=== PATIENT | male | born 1960 | race Hispanic/Latino ===

== ENCOUNTER 2017-12-29 01:49 | Emergency (ER) | payer MEDICARE ==
[~2017-12-29] VITALS: Ht 170.2 cm; Wt 101.2 kg
[~2017-12-29 01:49] MED LIST: AMARYL4 MG PO; AMLODIPINE BESY10 MG PO; ATENOLOL50 MG PO; ATORVASTATIN CA40 MG PO; FUROSEMIDE40 MG PO; KLOR-CON25 MEQ; LANTUS100 UNITS/ SC; LOSARTAN POTASS25 MG PO; METFORMIN HCL500 MG PO; RENVELA800 MG PO; SENSIPAR30 MG PO; VASOTEC20 MG PO; VERAPAMIL ER120 M1 PO
--- OUTSIDE RECORDS SUMMARY | 2017-12-29 01:51 | XMS REPORT | Clinical Summary ---
Author Author [facility] Organization [facility] Address Unknown Phone Unavailable Care Team Providers Care Visual Inspector Name Role Phone PCP Unavailable Allergies No Known Allergies Current Medications Prescription Sig. Disp. Refills Start End Date Status Date atorvastatin (LIPITOR) 40 Take 40 mg by mouth Active MG tablet daily. glimepiride (AMARYL) 4 MG Take 4 mg by mouth 2 Active tablet (two) times daily before meals. insulin glargine (LANTUS) Inject subcutaneously Per Active 100 unit/mL injection sliding scale. sevelamer (RENVELA) 800 Take 800 mg by mouth 3 Active mg tablet (three) times daily with meals 6 pills 3 times day. cinacalcet (SENSIPAR) 60 Take 60 mg by mouth twice Active MG tabletIndications: a week . Hyperparathyroidism Secondary to CRF with Dialysis epoetin karen Inject 10,000 Units 11/08/19 Active (EPOGEN,PROCRIT) 10,000 subcutaneously 3 (three) 16 unit/mL times a week at bedtime . injectionIndications: esrd carvedilol (COREG) 25 MG Take 25 mg by mouth 2 Active tablet (two) times daily with breakfast and dinner . losartan (COZAAR) 50 MG Take 50 mg by mouth 2 Active tablet (two) times daily prn. ergocalciferol (VITAMIN Take 50,000 Units by Active D2) 50,000 unit capsule mouth every 30 (thirty) days. aspirin 81 MG EC tablet Take 81 mg by mouth Active daily. isosorbide mononitrate Take 1 tablet (30 mg 30 tablet 3 11/28/1905/09 (IMDUR) 30 MG 24 hr total) by mouth daily. 17 18 tablet Active Problems Problem Noted Date History of colonic polyps 06/18/2017 PAD (peripheral artery disease) ([facility]) 06/18/2017 Coronary artery disease involving tanacross coronary artery without angina 03/2017 pectoris ESRD (end stage renal disease) on dialysis ([facility]) 08/20/2016 Last Assessment & Plan: End stage renal disease secondary to DM/HTN. He has Required diaylsis for approximately five years. He does not produce urine. S/P pericardial surgery 11/03/2015 Last Assessment & Plan: Continue follow up with cardiology. NSTEMI (non-ST elevated myocardial infarction) ([facility]) 10/31/2015 Last Assessment & Plan: He will need to continue follow up with cardiology and have cardiology clearance prior to kidney transplant. 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 200s depending on PD fluid. Nephrology following and managing. Diabetic retinopathy associated with type 2 diabetes mellitus ([facility]) 2013 Hypertension, renal disease 09/06/2013 Last Assessment & Plan: Inactive on transplant list due to obesity. Hyperlipidemia 09/06/2013 Secondary hyperparathyroidism of renal origin ([facility]) 09/06/2013 Pre-transplant evaluation for ESRD (end stage renal disease) 05/17/2013 Last Assessment & Plan: He is an acceptable candidate for kidney transplant pending CTA and cardiology clearance. Obesity (BMI 30-39.9) Overview: weight goal 218 L ast Assessment & Plan: BMI is 34. Underwent gastric bypass surgery one week ago. He was instructed to monitor his intake and to exercise as tolerated. Diabetes mellitus ([facility]) Last Assessment & Plan: Continue follow up with primary care for blood glucose management. Resolved Problems Problem Noted Date Resolved Date Abnormal stress test 11/26/2016 06/18/2017 Elevated troponin 10/31/2015 06/18/2017 Volume overload 10/31/2015 06/18/2017 Last Assessment & Plan: On peritoneal dialysis. Dry weight of 245. Chest pain 10/30/2015 06/18/2017 Obesity (BMI 30-39.9) 09/06/2013 06/18/2017 Last Assessment & Plan: Weight of 249 today. Goal weight of 218. Endorses compliance with diet. Walks 30 min a day. Encouraged to exercise more as tolerated and to continue eating a healthy diet. He follows up with a technical support intern. Dental caries 09/06/2013 06/18/2017 ESRD (end stage renal disease) on dialysis ([facility]) 06/10/2013 06/18/2017 Overview: PD everyday Hypertension 06/18/2017 Hyperlipemia 06/18/2017 Encounters Date Type Specialty Care Team Description 10/21/2017 Documentation Veronica Alva RN 10/02/2017 [facility] Radiology Leila Pavon, ESRD (end stage renal Encounter MD disease) on dialysis ([facility]);Pre-transplant evaluation for ESRD (end stage renal disease);Type 2 diabetes mellitus with diabetic nephropathy, unspecified intermediate insulin use status ([facility]);S/P pericardial surgery;Right renal mass;Pre-transplant evaluation for chronic kidney disease 10/02/2017 Documentation Veronica Alva RN 10/02/2017 Orders Only Transplant Imani Metcalf RN Pre-transplant evaluation for chronic kidney disease (Primary Dx);ESRD (end stage renal disease) on dialysis ([facility]) 09/25/2017 Documentation Veronica Alva RN 09/25/2017 Orders Only Veronica Alva RN ESRD (end stage renal disease) on dialysis ([facility]) (Primary Dx);Pre-transplant evaluation for ESRD (end stage renal disease);Type 2 diabetes mellitus with diabetic nephropathy, 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 ([facility]);S/P pericardial surgery;Right renal mass 09/25/2017 Documentation Veronica Alva RN 09/23/2017 Evaluation Transplant Ermelinda Souza MD 09/23/2017 Evaluation Transplant Ermelinda Souza MD ESRD (end stage renal [facility] Tiffany Nair, disease) on dialysis ([facility]) (Primary Dx);NSTEMI (non-ST elevated myocardial infarction) ([facility]);Pre-transplant evaluation for ESRD (end stage renal disease);Obesity (BMI 30-39.9);S/P pericardial surgery 09/19/2017 Orders Only Transplant Jarret Watkins MD 09/12/2017 Telephone Transplant Veronica Espinoza RN Waitlist Maintenance 08/27/2017 Abstract Veronica Alva RN 07/28/2017 Orders Only Transplant Veronica Espinoza RN ESRD (end stage renal disease) on dialysis (HCC) (Primary Dx);Patient awaiting renal transplant 07/08/2017 Telephone Transplant Yocasta Kurtz Appointment 06/20/2017 Telephone Transplant Sulema Conner Appointment ([facility]) 06/18/2017 Evaluation Transplant Ermelinda Souza MD Pre- transplant evaluation for chronic kidney disease (Primary Dx);History of colonic polyps;PAD (peripheral artery disease) (HCC);Awaiting transplantation of kidney;Obesity (BMI 35.0-39.9 without comorbidity);Coronary artery disease involving tanacross coronary artery of tanacross heart without angina pectoris 06/18/2017 Ancillary Lab Ermelinda Souza MD Orders 06/18/2017 Orders Only Transplant Hepatology Pre-transplant evaluation for chronic kidney disease 06/18/2017 Orders Only Transplant Celia Marshall RN Pre-transplant evaluation for chronic kidney disease (Primary Dx) 06/11/2017 Orders Only Transplant ProviderJarret MD after 12/28/2016 Family History Medical History Relation Name Comments Diabetes Brother Unremarkable Brother Unremarkable Daughter Heart disease Father Cancer Mother Unremarkable Sister Unremarkable Son Relation Name Status Comments Brother Alive Brother Alive Daughter Alive Father Mother Sister Alive Son Alive Social History Tobacco Use Types Packs/Day Years Used Date Former Smoker 1 Quit: 02/18/2013 Smokeless Tobacco: Never Used Comments: quit 5 yrs ago Alcohol Use Drinks/Week oz/Week Comments No Sex Assigned at Date Recorded Not on file Last Filed Vital Signs Vital Sign Reading Time Taken Blood Pressure 106/63 09/23/2017 9:46 AM [employer] Pulse 80 09/23/2017 9:46 AM [employer] Temperature 36.8 C (98.2 F) 09/23/2017 9:46 AM [employer] Respiratory Rate 16 09/23/2017 9:46 AM [employer] Oxygen Saturation 100% 06/18/2017 1:51 PM [employer] Inhaled Oxygen - - Concentration Weight 101 kg (222 lb 9.6 oz) 09/23/2017 9:46 AM [employer] Height 170.2 cm (5' 7") 09/23/2017 9:46 AM [employer] Body Mass Index 34.86 09/23/2017 9:46 AM [employer] Plan of Treatment Health Maintenance Due Date Last Done Comments INFLUENZA VACCINE 04/20/2018 Implants Implanted Type Area [employer] Book Author Device Expiration Model / Identifier Date Serial / Lot [employer] Promus Premier Stents-Cor N/A: [place] 02/22/2018 [id number] Implanted: Qty: 1 on 11/26/2016 by [employer] [place] [employer]i / Audie Cisse MD / [id number] Promus Premier [place] [id number] Implanted: Qty: 1 on 10/31/2015 [employer] 4350 / / [id number] Promus Premier [place] [id number] Implanted: Qty: 1 on 10/31/2015 [employer] 6300 / / [id number] Results * Flow PRA Class II (12/09/2017 12:00 PM) Only the most recent of 2 results within the time period is included. Component Value Ref Range Flow Class II Percent 0 Positive Flow Class Report Comments Specimen Performing Laboratory Blood [facility] HLA TESTING [facility] [place], [place]: [id number], CLIA#[id number] CAP#[id number] [id number] [address] * Flow PRA Class I (12/09/2017 12:00 PM) Only the most recent of 2 results within the time period is included. Component Value Ref Range Flow Class I Percent 0 Positive Flow Class Report Comments Specimen Performing Laboratory Blood [facility] HLA TESTING [facility] [place], [place]: [id number], CLIA#[id number] CAP#[id number] [id number] [address] * CTA abdomen & pelvis (10/02/2017 9:44 AM) Specimen Performing Laboratory GE RIS Narrative Addendum Begins REPORT STATUS:A Addendum: I agree with the previously described non vascular findings. Signed: Chao Cantu MD Report Verified Date/Time:10/02/2017 16:02:41 Reading Location: [facility] P048 Angio Body Reading Room Addendum Ends FINAL REPORT CT angiography of the abdominal aorta and pelvic arteries, 02 October 2017 INDICATION: This is a 56 year old male with end-stage renal disease presents for pretransplant assessment. This study is performed in an attempt to avoid an invasive procedure. TECHNIQUE: Spiral acquisition before and during intravenous contrast administration using a Siemens CT scanner. Images were obtained before and during the dynamic passage of intravenous contrast material.Multi-planar 3-D volume-rendering reconstruction was performed using an independent workstation interactively by the interpreting physician as well as the 3-D specialist for optimal visualisation of the abdominal aorta, pelvic arteries, and its proximal branches. Please refer to the contrast sheet scanned in the RIS system for the amount and route of contrast given. This exam was performed according to our departmental dose-optimisation programme, which includes automated exposure control, adjustment of the mA and/or kV according to patient size and/or use of iterative reconstruction technique. Dose modulation, iterative reconstruction, and/or weight based adjustment of the mA/kV was utilized to reduce the radiation dose to as low as reasonably achievable. FINDINGS: VASCULAR: Coronary artery calcification is identified in the visualised right coronary artery. There is likely some aortic valvular calcification seen. Calcific patient also seen in the LAD territory. The abdominal aorta is normal in course, calibre and contour.There are some scattered calcifications seen in the infrarenal abdominal aorta as well as scattered noncalcific atherosclerosis. No ectasia or aneurysmal dilation is present. There is no evidence of acute aortic pathology, specifically, there is no dissection, intramural hematoma, or contained rupture. Quantitative dimensions of the abdominal aorta are as follows: 2.0 cm at the mesenteric segment; 1.9 cm at the renal segment,; and 1.5 cm at the aortic bifurcation. The common iliac, external iliac, common femoral, and the visualized superficial femoral arteries, bilaterally, are widely patent, except for some nonobstructive calcific atherosclerosis.. Substitute Crossing Guard dimensions of the left and the right external iliac arteries are 7 and 8 mm, respectively. Nonobstructing calcification is seen scattered along the left and the right external iliac arteries. Similarly, the associated pelvic veins are patent with no venous thrombosis identified.Substitute Crossing Guard dimensions of the left and the right external iliac veins are 12 and 11 mm, respectively. Single left and right renal arteries are seen with some eccentric calcification present in the left renal artery with no obstructive lesion appreciated. Single left and right renal veins are seen draining normally into the IVC. NON-VASCULAR: The lung bases are unremarkable; no pleural effusion is identified in the lung bases. In the abdomen, the liver and spleen appears unremarkable. The liver edge is smooth. No abnormal enhancing structure is identified. The gallbladder, and the pancreas have no gross abnormality identified. The adrenal glass are not enlarged. Patient end stage renal disease status. No hydronephrosis or perirenal fluid collection is seen. There is likely a hypodensity is identified in the medial aspect of the right kidney, image 133, measure up to 1.5 x 1.6 cm in diameter with no enhancement after contrast administration suggesting a proteinaceous cyst. Bowel is not well assessed by CT angiography as enteric contrast is not given. No obvious bowel dilation is identified. Scattered colonic diverticulum is seen with no acute diverticulitis identified. Addition, suture material is identified along the stomach, likely represent prior GI surgery. Correlate appropriate operative report. No free air free fluid seen abdomen and pelvis. The prostate gland appears grossly unremarkable. The bladder is not distended. No significant retroperitoneal adenopathy is identified. In the bony windows, no acute bony pathology is seen. Some degenerative changes is noted. CONCLUSIONS: 1. The abdominal aorta is normal in course, calibre and contour. Minimal atherosclerosis identified abdominal aorta. No ectasia or aneurysmal dilation is seen. There is no evidence of acute aortic pathology, specifically, there is no dissection, intramural hematoma, or contained rupture. Quantitative dimension of the abdominal aorta are as noted. The pelvic arteries and veins are widely patent with no arterial stenosis or venous thrombosis identified. Substitute Crossing Guard dimensions of the left and the right external iliac arteries and veins are as described above. 2.Patent mesenteric and renal arteries. 3.Other findings as described above. 4.An addendum will be dictated regarding the non-vascular findings by the Second Hand Paper Machine Radiologist. Signed: Buck Grissom MD Report Verified Date/Time:10/02/2017 10:05:15 Reading Location: [place] [address] Cardiology MRI Procedure Note Interface, External Ris In - 10/02/2017 4:04 PM CDT Addendum Begins REPORT STATUS:A Addendum: I agree with the previously described non vascular findings. Signed: Chao Cantu MD Report Verified Date/Time: 10/02/2017 16:02:41 Reading Location: [place] [id number] Angio Body Reading Room Addendum Ends FINAL REPORT CT angiography of the abdominal aorta and pelvic arteries, 02 October 2017 INDICATION: This is a 56 year old male with end-stage renal disease presents for pretransplant assessment. This study is performed in an attempt to avoid an invasive procedure. TECHNIQUE: Spiral acquisition before and during intravenous contrast administration using a Siemens CT scanner. Images were obtained before and during the dynamic passage of intravenous contrast material. Multi-planar 3-D volume-rendering reconstruction was performed using an independent workstation interactively by the interpreting physician as well as the 3-D specialist for optimal visualisation of the abdominal aorta, pelvic arteries, and its proximal branches. Please refer to the contrast sheet scanned in the RIS system for the amount and route of contrast given. This exam was performed according to our departmental dose-optimisation programme, which includes automated exposure control, adjustment of the mA and/or kV according to patient size and/or use of iterative reconstruction technique. Dose modulation, iterative reconstruction, and/or weight based adjustment of the mA/kV was utilized to reduce the radiation dose to as low as reasonably achievable. FINDINGS: VASCULAR: Coronary artery calcification is identified in the visualised right coronary artery. There is likely some aortic valvular calcification seen. Calcific patient also seen in the LAD territory. The abdominal aorta is normal in course, calibre and contour. There are some scattered calcifications seen in the infrarenal abdominal aorta as well as scattered noncalcific atherosclerosis. No ectasia or aneurysmal dilation is present. There is no evidence of acute aortic pathology, specifically, there is no dissection, intramural hematoma, or contained rupture. Quantitative dimensions of the abdominal aorta are as follows: 2.0 cm at the mesenteric segment; 1.9 cm at the renal segment,; and 1.5 cm at the aortic bifurcation. The common iliac, external iliac, common femoral, and the visualized superficial femoral arteries, bilaterally, are widely patent, except for some nonobstructive calcific atherosclerosis.. Sub[employer] Crossing Guard dimensions of the left and the right external iliac arteries are 7 and 8 mm, respectively. Nonobstructing calcification is seen scattered along the left and the right external iliac arteries. Similarly, the associated pelvic veins are patent with no venous thrombosis identified. Sub[employer] Crossing Guard dimensions of the left and the right external iliac veins are 12 and 11 mm, respectively. Single left and right renal arteries are seen with some eccentric calcification present in the left renal artery with no obstructive lesion appreciated. Single left and right renal veins are seen draining normally into the IVC. NON-VASCULAR: The lung bases are unremarkable; no pleural effusion is identified in the lung bases. In the abdomen, the liver and spleen appears unremarkable. The liver edge is smooth. No abnormal enhancing structure is identified. The gallbladder, and the pancreas have no gross abnormality identified. The adrenal glass are not enlarged. Patient end stage renal disease status. No hydronephrosis or perirenal fluid collection is seen. There is likely a hypodensity is identified in the medial aspect of the right kidney, image 133, measure up to 1.5 x 1.6 cm in diameter with no enhancement after contrast administration suggesting a proteinaceous cyst. Bowel is not well assessed by CT angiography as enteric contrast is not given. No obvious bowel dilation is identified. Scattered colonic diverticulum is seen with no acute diverticulitis identified. Addition, suture material is identified along the stomach, likely represent prior GI surgery. Correlate appropriate operative report. No free air free fluid seen abdomen and pelvis. The prostate gland appears grossly unremarkable. The bladder is not distended. No significant retroperitoneal adenopathy is identified. In the bony windows, no acute bony pathology is seen. Some degenerative changes is noted. CONCLUSIONS: 1. The abdominal aorta is normal in course, calibre and contour. Minimal atherosclerosis identified abdominal aorta. No ectasia or aneurysmal dilation is seen. There is no evidence of acute aortic pathology, specifically, there is no dissection, intramural hematoma, or contained rupture. Quantitative dimension of the abdominal aorta are as noted. The pelvic arteries and veins are widely patent with no arterial stenosis or venous thrombosis identified. Sub[employer] Crossing Guard dimensions of the left and the right external iliac arteries and veins are as described above. 2. Patent mesenteric and renal arteries. 3. Other findings as described above. 4. An addendum will be dictated regarding the non-vascular findings by the Second Hand Paper Machine Radiologist. Signed: Buck Grissom MD Report Verified Date/Time: 10/02/2017 10:05:15 Reading Location: [place] [address] Cardiology MRI * COLONOSCOPY (08/21/2017) * PSA (06/18/2017 3:54 PM) Component Value Ref Range PSA 0.5 0.0 - 4.0 ng/mL Specimen Performing Laboratory Blood [facility] [address] [address] * Stress test, pharmacological with nuc med myocardial perfusion planar (rest/ stress) (06/01/2017) * 2D echo w doppler (CW/PW/color) - [facility] (05/27/2017) * VASCULAR DIAGRAM -SCAN (01/16/2017 8:33 AM) after 12/28/2016
--- OUTSIDE RECORDS SUMMARY | 2017-12-29 01:52 | XMS REPORT ---
Author Author [facility] Address Unknown Phone Unavailable Care Team Providers Care Multiplex Operator Name Role Phone MENG GAILCIA Unavailable Unavailable ALANA KRAUS Unavailable Unavailable Problems This patient has no known problems. Allergies, Adverse Reactions, Alerts This patient has no known allergies or adverse reactions. Medications This patient has no known medications. Results Test Description Test Time Test Comments Text Results Atomic Results Result Comments CT, CTA ABDOMEN 2017-10-02 16:02:00 Started dialysis [id number] for Exam :->assess iliac vessels Addendum BeginsREPORT STATUS:A Addendum: I agree with the previously described non vascular findings. Signed: Chao Cantu MDReport Verified Date/Time: 10/02/2017 16:02:41 Reading Location: [place] [address] Angio Body Reading RoomAddendum EndsFINAL REPORT CT angiography of the abdominal aorta [...] reconstruction, and/or weight based adjustment of the mA/ kV was utilized to reduce the radiation dose [...] patent, except for some nonobstructive calcific atherosclerosis.. Risk Analyst dimensions of the left and the right external iliac arteries are 7 and 8 mm, respectively. Nonobstructing calcification is seen scattered along the left and the right external iliac arteries. Similarly, the associated pelvic veins are patent with no venous thrombosis identified. Risk Analyst dimensions of the left and the right [...] no arterial stenosis or venous thrombosis identified. Risk Analyst dimensions of the left and the right external iliac arteries and veins are as described above. 2. Patent mesenteric and renal arteries. 3. Other findings as described above. 4. An addendum will be dictated regarding the non-vascular findings by the Munitions Worker Radiologist. Signed: Buck Grissom Verified Date/Time: 10/02/2017 10:05:15 Reading Location: [place] [address] Cardiology MRI 2017-06-18 18:48:00 PROSTATE SPECIFIC ANTIGEN (ANHID) (test sjpq=853) 0.5 ng/mL 0.0-4.0 TISSUE [id number] 17:12:00Surgical Pathology Report Case: [id number] Authorizing Provider: Alana Kraus, Collected: 08/20/2016 1401 Ordering Location: [facility] Received: 1539 PERIOPERATIVE SERVICES Pathologist: Emiliano England MD Specimen: Catheter Tip, Peritoneal dialysis catheter CONTACT CENTER SPECIALIST, ABDOMEN, REMOVAL: CONTACT CENTER SPECIALIST (GROSS DIAGNOSIS)SD/DB/ pl Signing Pathologist Direct Phone Line: [phone] signed by Emiliano England MD on 12/31/2016 at 5:12 [id number] stage renal diseasePeritoneal dialysis catheterReceived fresh labeled "catheter tip", description "peritoneal dialysis catheter" is a 38.0 cm in length x 0.3 cm in diameter segment of clear plastic tubing. The specimen is for gross identification only. DB/plHEMOGLOBIN [id number] 12:08:00* Test Item Value Reference Range Comments HEMOGLOBIN A1C (LIDIAAKER) (test kyit=816) 5.6 % 4.3-6.1 POCT-GLUCOSE [id number] 08:28:00* Test Item Value Reference Range Comments POC-GLUCOSE METER (BEAKER) (test vaen=3789) 104 mg/dL 70-110 TESTED AT [facility] [address] [facility] [address] TSH/FREE T4 IF [id number] 04:57:00* Test Item Value Reference Range Comments THYROID STIMULATING HORMONE (BEAKER) (test eqtg=115) 2.94 uIU/mL 0.35-4.94 POCT-GLUCOSE [id number] 04:53:00* Test Item Value Reference Range Comments POC-GLUCOSE METER (BEAKER) (test rdbo=4529) 95 mg/dL 70-110 TESTED AT [facility] [address] [facility] [address] CALCIUM, [id number] 04:44:00* Test Item Value Reference Range Comments CALCIUM IONIZED (BEAKER) (test wynb=613) 0.96 mmol/L 1.12-1.27 PH, BLOOD (BEAKER) (test donn=3205) 7.36 BASIC METABOLIC [id number] 04:41:00* Test Item Value Reference Range Comments SODIUM (BEAKER) (test dixz=385) 133 meq/L 136-145 POTASSIUM (BEAKER) (test jhxr=284) 4.4 meq/L 3.5-5.1 CHLORIDE (BEAKER) (test ntzm=529) 99 meq/L 98-107 CO2 (BEAKER) (test ccbi=912) 21 meq/L 22-29 BLOOD UREA NITROGEN (BEAKER) (test gjdk=876) 60 mg/dL 7-21 CREATININE (BEAKER) (test stll=906) 10.08 mg/dL 0.57-1.25 GLUCOSE RANDOM (BEAKER) (test nwms=606) 46 mg/dL 70-105 CALCIUM (BEAKER) (test ewwo=619) 8.5 mg/dL 8.4-10.2 EGFR (BEAKER) (test fhot=3809) 5 mL/min/1.73 sq m ESTIMATED GFR IS NOT ACCURATE CREATININE CLEARANCE IN PREDICTING GLOMERULAR FILTRATION RATE. ESTIMATED GFR IS NOT APPLICABLE FOR DIALYSIS PATIENTS. [id number] 04:39:00* Test Item Value Reference Range Comments PHOSPHORUS (BEAKER) (test jysm=080) 7.0 mg/dL 2.3-4.7 [id number] 04:39:00* Test Item Value Reference Range Comments MAGNESIUM (BEAKER) (test wkut=429) 2.3 mg/dL 1.6-2.6 CBC W/PLT COUNT & AUTO [id number] 04:33:00* Test Item Value Reference Range Comments WHITE BLOOD CELL COUNT (BEAKER) (test koqi=341) 7.3 K/ L 4.0-10.0 RED BLOOD CELL COUNT (BEAKER) (test tmbg=732) 2.84 M/ L 4.20-5.80 HEMOGLOBIN (BEAKER) (test jpap=883) 9.5 GM/DL 13.0-16.8 HEMATOCRIT (BEAKER) (test zdsu=281) 28.3 % 40.0-50.0 MEAN CORPUSCULAR VOLUME (BEAKER) (test wmcq=836) 99.7 fL 82.0-98.0 MEAN CORPUSCULAR HEMOGLOBIN (BEAKER) (test ccka=347) 33.5 pg 27.0-33.0 MEAN CORPUSCULAR HEMOGLOBIN CONC (BEAKER) (test jvmu=568) 33.6 GM/DL 32.0- 36.0 RED CELL DISTRIBUTION WIDTH (BEAKER) (test adce=610) 13.2 % 10.3-14.2 PLATELET COUNT (BEAKER) (test ojyk=350) 180 K/CU MM 150-430 MEAN PLATELET VOLUME (BEAKER) (test jkjq=086) 7.8 fL 6.5-10.5 NUCLEATED RED BLOOD CELLS (BEAKER) (test jmon=416) 0 /100 WBC 0-0 NEUTROPHILS RELATIVE PERCENT (BEAKER) (test jkrs=836) 70 % LYMPHOCYTES RELATIVE PERCENT (BEAKER) (test wpyv=610) 15 % MONOCYTES RELATIVE PERCENT (BEAKER) (test zhyu=789) 11 % EOSINOPHILS RELATIVE PERCENT (BEAKER) (test iuua=098) 4 % BASOPHILS RELATIVE PERCENT (BEAKER) (test yotv=290) 0 % NEUTROPHILS ABSOLUTE COUNT (BEAKER) (test mvah=980) 5.07 K/ L 1.80-8.00 LYMPHOCYTES ABSOLUTE COUNT (BEAKER) (test kyme=985) 1.11 K/ L 1.48-4.50 MONOCYTES ABSOLUTE COUNT (BEAKER) (test rsvg=840) 0.82 K/ L 0.00-1.30 EOSINOPHILS ABSOLUTE COUNT (BEAKER) (test nkzv=213) 0.26 K/ L 0.00-0.50 BASOPHILS ABSOLUTE COUNT (BEAKER) (test asgz=655) 0.02 K/ L 0.00-0.20 0.00POCT-GLUCOSE [id number] 04:10:00* Test Item Value Reference Range Comments POC-GLUCOSE METER (BEAKER) (test oznu=0970) 44 mg/dL 70-110 TESTED AT [place] [id number] 22:59:00* Test Item Value Reference Range Comments ACTIVATED CLOTTING TIME (BEAKER) (test wfta=918) 131 sec TESTED AT [place] [id number] 22:09:00* Test Item Value Reference Range Comments ACTIVATED CLOTTING TIME (BEAKER) (test ysab=601) 147 sec TESTED AT [place] [id number] POCT-GLUCOSE [id number] 22:06:00* Test Item Value Reference Range Comments POC-GLUCOSE METER (BEAKER) (test lopx=7165) 135 mg/dL 70-110 TESTED AT [place] [id number] 19:24:00* Test Item Value Reference Range Comments ACTIVATED CLOTTING TIME (BEAKER) (test pnnv=892) 167 sec TESTED AT [place] [id number] POCT-GLUCOSE [id number] 18:27:00* Test Item Value Reference Range Comments POC-GLUCOSE METER (BEAKER) (test qrol=4457) 81 mg/dL 70-110 TESTED AT [place] [id number] POCT-GLUCOSE [id number] 18:07:00* Test Item Value Reference Range Comments POC-GLUCOSE METER (BEAKER) (test fosg=8834) 49 mg/dL 70-110 TESTED AT [place] [id number] [id number] 14:45:00* Test Item Value Reference Range Comments ACTIVATED CLOTTING TIME (BEAKER) (test yfjr=451) 312 sec TESTED AT [place] [id number] BASIC METABOLIC [id number] 12:34:00* Test Item Value Reference Range Comments SODIUM (BEAKER) (test xqcz=654) 138 meq/L 136-145 POTASSIUM (BEAKER) (test vzei=166) 4.3 meq/L 3.5-5.1 CHLORIDE (BEAKER) (test mxdl=245) 101 meq/L 98-107 CO2 (BEAKER) (test uujx=177) 28 meq/L 22-29 BLOOD UREA NITROGEN (BEAKER) (test bcaw=877) 49 mg/dL 7-21 CREATININE (BEAKER) (test xvjq=338) 8.83 mg/dL 0.57-1.25 GLUCOSE RANDOM (BEAKER) (test bpxj=156) 105 mg/dL 70-105 CALCIUM (BEAKER) (test vmfz=299) 8.7 mg/dL 8.4-10.2 EGFR (BEAKER) (test czxu=5169) 6 mL/min/1.73 sq m ESTIMATED GFR IS NOT ACCURATE CREATININE CLEARANCE IN PREDICTING GLOMERULAR FILTRATION RATE. ESTIMATED GFR IS NOT APPLICABLE FOR DIALYSIS PATIENTS. [id number] 12:24:00* Test Item Value Reference Range Comments PROTIME (BEAKER) (test rykz=128) 14.2 seconds 11.7-14.7 INR (BEAKER) (test iwes=409) 1.1 <=5.9 PARTIAL THROMBOPLASTIN TIME (BEAKER) (test tawn=665) 32.1 seconds 22.5-36.0 RECOMMENDED COUMADIN/WARFARIN INR THERAPY RANGESSTANDARD DOSE: 2.0 - 3.0 Includes: PROPHYLAXIS for venous thrombosis, systemic embolization; TREATMENT for venous thrombosis and/or pulmonary embolus.HIGH RISK: Target INR is 2.5-3.5 for patients with mechanical heart valves.CBC W/PLT COUNT & AUTO [id number] 12:16:00* Test Item Value Reference Range Comments WHITE BLOOD CELL COUNT (BEAKER) (test jchc=642) 8.1 K/ L 4.0-10.0 RED BLOOD CELL COUNT (BEAKER) (test qwgm=811) 3.24 M/ L 4.20-5.80 HEMOGLOBIN (BEAKER) (test nqua=659) 10.8 GM/DL 13.0-16.8 HEMATOCRIT (BEAKER) (test voyr=398) 31.6 % 40.0-50.0 MEAN CORPUSCULAR VOLUME (BEAKER) (test yhrd=660) 97.4 fL 82.0-98.0 MEAN CORPUSCULAR HEMOGLOBIN (BEAKER) (test mnlj=744) 33.3 pg 27.0-33.0 MEAN CORPUSCULAR HEMOGLOBIN CONC (BEAKER) (test vtwp=273) 34.2 GM/DL 32.0- 36.0 RED CELL DISTRIBUTION WIDTH (BEAKER) (test guty=797) 13.9 % 10.3-14.2 PLATELET COUNT (BEAKER) (test lqmd=074) 192 K/CU MM 150-430 MEAN PLATELET VOLUME (BEAKER) (test mmzp=661) 8.0 fL 6.5-10.5 NUCLEATED RED BLOOD CELLS (BEAKER) (test qitj=715) 0 /100 WBC 0-0 NEUTROPHILS RELATIVE PERCENT (BEAKER) (test byah=931) 71 % LYMPHOCYTES RELATIVE PERCENT (BEAKER) (test swhq=984) 16 % MONOCYTES RELATIVE PERCENT (BEAKER) (test bvxw=302) 10 % EOSINOPHILS RELATIVE PERCENT (BEAKER) (test gkab=327) 3 % BASOPHILS RELATIVE PERCENT (BEAKER) (test hlgl=017) 0 % NEUTROPHILS ABSOLUTE COUNT (BEAKER) (test ycat=942) 5.75 K/ L 1.80-8.00 LYMPHOCYTES ABSOLUTE COUNT (BEAKER) (test jmaq=829) 1.29 K/ L 1.48-4.50 MONOCYTES ABSOLUTE COUNT (BEAKER) (test oqjl=365) 0.81 K/ L 0.00-1.30 EOSINOPHILS ABSOLUTE COUNT (BEAKER) (test plju=521) 0.25 K/ L 0.00-0.50 BASOPHILS ABSOLUTE COUNT (BEAKER) (test tayy=072) 0.04 K/ L 0.00-0.20 0.00
[2017-12-29] MEDS ORDERED: ASPIR 8181 MG PO (02:18)
[2017-12-29] MEDS ORDERED: RENVELA0.8 GM PO (02:18)
[2017-12-29] MEDS ORDERED: BRILINTA90 MG PO (02:21)
[2017-12-29 02:23] VITALS: BP 146/63
[2017-12-29] MEDS ORDERED: ACETAMINOPHEN 325 MG TAB PO ONE (02:30)
== END 2017-12-29 02:25 | disposition home or self-care (01) ==
LOC: FSED 01:49
DX: H92.02 Otalgia, left ear (principal); M26.629 Arthralgia of temporomandibular joint, unspecified side; I10 Essential (primary) hypertension; Z87.891 Personal history of nicotine dependence
CPT/HCPCS: 99282

== ENCOUNTER 2019-06-12 17:12 | Emergency (ER) | payer MEDICARE ==
[~2019-06-12] VITALS: Ht 170.2 cm; Wt 101.2 kg
[~2019-06-12 17:12] MED LIST changes: +ASPIR 8181 MG PO; +BRILINTA90 MG PO; +RENVELA0.8 GM PO
--- OUTSIDE RECORDS SUMMARY | 2019-06-12 17:17 | XMS REPORT | Summary of Care ---
Author Author [facility] - Health Organization [facility] - Health Address Unknown Phone Unavailable Care Team Providers Care Private Investigator Surveillance Name Role Phone John Lorenzo PCP Reason for Visit * Reason Comments Error Encounter Details Care Team Description Date Type Department Katherine Lerner MD [address] [place] [address] [phone] Error 02/11/2019 Telephone [facility] [address] [place] [phone] Allergies No Known Allergiesdocumented as of this encounter (statuses as of 02/15/2019) Medications End Date Status Medication Sig Dispensed Refills Start Date Active atorvastatin 40 mg tablet Take 40 mg by 0 mouth at bedtime. Active carvedilol 3.125 mg Take 3.125 mg 0 tablet by mouth 2 (two) times daily with meals. Active glimepiride 4 mg tablet Take 4 mg by 0 mouth 2 (two) times daily. Active isosorbide dinitrate 30 Take 30 mg by 0 mg tablet mouth daily. Active insulin inject 25 0 glargine,hum.rec.anlog Units under (LANTUS SOLOSTAR U-100 the skin INSULIN SC) every 12 (twelve) hours. Active aspirin 81 mg chewable Take 81 mg by 0 tablet mouth daily. Active ticagrelor 90 mg tablet Take 90 mg by 0 mouth 2 (two) times daily. Active B,C/folic/zinc/selenometh Take by 0 /D3/E (RENAPLEX-D ORAL) mouth daily. Active sevelamer 800 mg tablet Take 800 mg 0 by mouth 3 (three) times daily with meals. Take 6 tab by mouth every meal Active cinacalcet 90 mg tablet Take 90 mg by 0 mouth daily. Active sucroferric oxyhydroxide Take 500 mg 0 (VELPHORO) 500 mg Chew by mouth 3 (three) times daily with meals. Active GABAPENTIN ORAL Take 100 mg 0 by mouth as needed (after dialysis as needed). documented as of this encounter (statuses as of 02/15/2019) Active Problems Not on filedocumented as of this encounter (statuses as of 02/15/2019) Immunizations Name Administration Dates Next Due Influenza Virus Vaccine 04/10/2018, 04/04/2017 Pneumococcal 13 12/29/2017, 06/24/2013 Conjugate, PCV13 (Prevnar 13) documented as of this encounter Social History Date Tobacco Use Types Packs/Day Years Used Quit: 2010 Former Smoker Smokeless Tobacco: Never Used Comments: started at age 17 years Drinks/Week oz/Week Comments Alcohol Use only in holidays Not Currently Sex Assigned at Date Recorded Not on file Industry Job Start Date Occupation Not on file Not on file Not on file Travel End Travel History Travel Start No recent travel history available. documented as of this encounter Last Filed Vital Signs Not on filedocumented in this encounter Plan of Treatment Health Maintenance Due Date Last Done Comments DTaP,Tdap,and Td Vaccines 10/04/1978 (1 - Tdap) COLONOSCOPY 10/04/2009 Zoster Recombinant 10/04/2009 Vaccine (SHINGRIX) (1 of 2) INFLUENZA VACCINE 03/21/2019 04/10/2018, 04/04/2017 LUNG CANCER SCREEN: 02/03/2020 02/02/2019 Recommended for age 55-80 with 30 + pack year history PNEUMOCOCCAL 0-64 YEARS Aged Out 12/29/2017, 06/24/2013 No longer eligible based COMBINED SERIES on patient's age to complete this topic HEPATITIS C (HCV) SCREEN Completed 01/12/2019 documented as of this encounter Results Not on filedocumented in this encounter Insurance Type Payer Benefit Subscriber ID Effective Phone Address Plan / Dates Group Medicare Adv O [facility] - AARP [id number] 2018-P MANAGED MEDICARE MEDICARE resent COMPLETE documented as of this encounter
--- OUTSIDE RECORDS SUMMARY | 2019-06-12 17:17 | XMS REPORT | Summary of Care ---
Author Author [facility] - Health Organization [facility] - Health Address Unknown Phone Unavailable Care Team Providers Care Glue Bone Drier Name Role Phone John Lorenzo PCP Reason for Visit * Reason Comments Evaluation Present to committee Encounter Details Care Team Description Date Type Department Katherine Lerner MD [address] [place] [address] Evaluation (Present to committee) 02/19/2019 Telephone [facility] [address] [place] [phone] Allergies No Known Allergiesdocumented as of this encounter (statuses as of 02/19/2019) Medications End Date Status Medication Sig Dispensed [...] as of this encounter (statuses as of 02/19/2019) Active Problems Not on filedocumented as of this encounter (statuses as of 02/19/2019) Immunizations Name Administration Dates Next Due Influenza [...] Plan / Dates Group Medicare Adv O [facility] [id number] 2018-P MANAGED MEDICARE MEDICARE resent COMPLETE documented as of this encounter
--- OUTSIDE RECORDS SUMMARY | 2019-06-12 17:17 | XMS REPORT | Summary of Care ---
Author Author [facility] - Health Organization [facility] - Health Address Unknown Phone Unavailable Care Team Providers Care Waste Picker Name Role Phone John Lorenzo PCP Reason for Visit * Reason Comments New Patient Encounter Details Care Team Description Date Type Department Brian Saab MD [address] [place] [phone] Coronary artery disease involving orutsararmiut coronary artery of orutsararmiut heart without angina pectoris (Primary Dx) 02/11/2019 Office Visit [facility], [address] [phone] Allergies No Known Allergiesdocumented as of this encounter (statuses as of 02/11/2019) Medications End Date Status Medication Sig Dispensed [...] as of this encounter (statuses as of 02/11/2019) Active Problems Not on filedocumented as of this encounter (statuses as of 02/11/2019) Immunizations Name Administration Dates Next Due Influenza [...] of this encounter Last Filed Vital Signs Reading Time Taken Comments Vital Sign 99/61 02/11/2019 3:15 PM CDT Blood Pressure 92 02/11/2019 3:15 PM CDT Pulse - - Temperature 20 02/11/2019 3:15 PM CDT Respiratory Rate 99% 02/11/2019 3:15 PM CDT Oxygen Saturation - - Inhaled Oxygen Concentration 99.4 kg (219 lb 1.6 oz) 02/11/2019 3:15 PM CDT Weight 170.2 cm (5' 7") 02/11/2019 3:15 PM CDT Height 34.32 02/11/2019 3:15 PM CDT Body Mass Index documented in this encounter Progress Notes * Brian Saab MD - 02/11/2019 3:00 PM CDT CARDIOLOGY CLINIC NOTE: 02/11/2019 Aaron Henderson Reason for referral/Chief complaint: CAD, AF, ESRD for kidney transplant evaluat ion. Referring physician: No ref. provider found History of Present Illness: Aaron Henderson is a 58 year old male who has a past medical history of Senior It Specialist aissatou kidney disease, Diabetes mellitus, Heart murmur, Hypertension, Myocardial in farction, and Transfusion history (2010). He also has no past medical history of Allergic rhinitis, Anemia, Anxiety, Arthritis, Asthma, Cancer, Cataract, CHF (c ongestive heart failure), Clotting disorder, Concussion, COPD (chronic obstructi ve pulmonary disease), Depression, Esophageal reflux, Glaucoma, Gout, Human immu nodeficiency virus (HIV) disease, Hyperlipidemia, Meningitis, Osteoporosis, Otit is media, Peptic ulcer, Seizures, Stroke, Substance abuse, Thyroid disease, or T uberculosis. who is here for evaluation for kidney transplant, patient with hist ory of CAD s/p RCA/LCX PCI done on 10/2016, at [facility], he also follow up with cardiology over there, got MIBI done that show mild small eversible in basal lateral wall that has been persistent even before the heart cath and stent s placement, plan per [facility] is to get cardiac PET. No chest pain at rest. No PND or orthopnea. No pedal edema. No exertional palpit ations or palpitations at rest. No syncopal attacks. Past medical history: Past Medical History: Diagnosis Date Chronic kidney disease Diabetes mellitus Heart murmur Hypertension Myocardial infarction Transfusion history 2010 Current Medications: Current Outpatient Medications: GABAPENTIN ORAL, Take 100 mg by mouth as needed (after dialysis as needed). , Disp: , Rfl: sucroferric oxyhydroxide (VELPHORO) 500 mg Chew, Take 500 mg by mouth 3 (th ree) times daily with meals., Disp: , Rfl: aspirin 81 mg chewable tablet, Take 81 mg by mouth daily., Disp: , Rfl: atorvastatin 40 mg tablet, Take 40 mg by mouth at bedtime., Disp: , Rfl: B,C/folic/zinc/selenometh/D3/E (RENAPLEX-D ORAL), Take by mouth daily., Di sp: , Rfl: carvedilol 3.125 mg tablet, Take 3.125 mg by mouth 2 (two) times daily with meals., Disp: , Rfl: cinacalcet 90 mg tablet, Take 90 mg by mouth daily., Disp: , Rfl: glimepiride 4 mg tablet, Take 4 mg by mouth 2 (two) times daily., Disp: , R fl: insulin glargine,hum.rec.anlog (LANTUS SOLOSTAR U-100 INSULIN SC), inject 2 5 Units under the skin every 12 (twelve) hours., Disp: , Rfl: isosorbide dinitrate 30 mg tablet, Take 30 mg by mouth daily., Disp: , Rfl: sevelamer 800 mg tablet, Take 800 mg by mouth 3 (three) times daily with me als. Take 6 tab by mouth every meal, Disp: , Rfl: ticagrelor 90 mg tablet, Take 90 mg by mouth 2 (two) times daily., Disp: , Rfl: Allergies: No Known Allergies Social History: Social History Tobacco Use Smoking status: Former Smoker Last attempt to quit: 2010 Years since quittin.5 Smokeless tobacco: Never Used Tobacco comment: started at age 17 years Substance Use Topics Alcohol use: Not Currently Comment: only in holidays Family History: Family History Problem Relation Age of Onset Cancer Mother Heart Father Diabetes Brother Diabetes Brother REVIEW OF SYSTEMS: (-)=Negative,(+)=Positive General: negative Skin: negative HEENT: negative Neck: negative Heme: negative Resp: negative Cardio: negative GI: negative : negative Endo: negative Neuro: negative Back: negative MS: negative Psych: negative PHYSICAL EXAM: BP 99/61 | Pulse 92 | Resp 20 | Ht 5' 7" (1.702 m) | Wt 219 lb 1.6 oz (99.4 kg) | SpO2 99% | BMI 34.32 kg/m General: alert and oriented x 3 (person, place and date/time); no apparent distr ess HEENT: pupils equal, round, reactive to light; extraocular movements intact; donald pharynx clear; moist mucous membranes Neck: supple, no lymphadenopathy, no bruits, no JVD Lungs: clear to auscultation bilaterally Cardio: S1, S2 normal; no murmurs, rubs or gallops Abdomen: soft; non-tender; non-distended; normoactive bowel sounds : not examined Rectal: not examined Extremities: no clubbing, cyanosis, or edema Skin: no rashes Neuro: cranial nerves II through XII grossly intact; sensation grossly intact; m uscle strength 5 out of 5 in all four extremities Labs: Reviewed CARDIAC INVESTIGATIONS: Echocardiogram: 2018 OSH, normal EF, moderate pericardial Effusion, grade II DD . Stress testing: OSH 2019 mild small reversible defect basal lateral wall. Cardiac catheterization: 2017 OSH, PCI RCA/LCX, normal LAD. ASSESSMENT: A 58 year old male patient, here for: 1-CAD with history of PCI of LCX/RCA. 2-AF PLAN: 1. Patient denies having any active symptoms, has been following at [facility] with recent stress test that did not show any major reversible defect, rec ommend continue medical treatment at this point. 2. For AF, continue rate control. 3. Patient is intermediate cardiac risk for high risk procedure. RTC in 6 months Recommended, explained and stressed the importance of healthy eating habits and exercises and lifestyle modifications. This visit involved counseling and coordination of care that comprised more than 50% of the visit time. Brian Saab MD Interventional Cardiology Pager [phone]. 02/11/2019 * Carol Elise MA - 02/11/2019 3:00 PM CDT Aaron Henderson is a 58 year old male Chief Complaint Patient presents with New Patient documented in this encounter Plan of Treatment Order Schedule Name Type Priority Associated Diagnoses Ordered: 02/11/2019 EKG-12 LEAD ROUTINE HEART STATION Routine Coronary artery disease involving or[place]ar[place]iut coronary artery of or[place]iut heart without angina pectoris Health Maintenance Due Date Last Done Comments [...] Results Not on filedocumented in this encounter Visit Diagnoses Diagnosis Coronary artery disease involving or[place] coronary artery of orutsar[place]iut heart without angina pectoris - Primary documented in this encounter Insurance Type Payer Benefit Subscriber ID Effective Phone Address Plan / Dates Group Medicare Adv [facility] - A[facility] [id number] 2018-P MANAGED MEDICARE MEDICARE resent COMPLETE documented as of this encounter
--- OUTSIDE RECORDS SUMMARY | 2019-06-12 17:17 | XMS REPORT | Summary of Care ---
Author Author [facility] - Health Organization [facility] - Health Address Unknown Phone Unavailable Care Team Providers Care Eyelet Row Marker Name Role Phone John Lorenzo PCP Reason for Visit * Reason Comments New Patient Encounter Details Care Team Description Date Type Department Brian Saab MD [address] [place] [id number] Coronary artery disease involving newtok coronary artery of newtok heart without angina pectoris (Primary Dx) 02/11/[address] [facility] Cardiology, [address] [phone] Allergies No Known Allergiesdocumented as [...] provider found History of Present Illness: Aaron Hendesron is a 58 year old male who has a past medical history of Associate Marketing Manager aissatou kidney disease, Diabetes mellitus, Heart murmur, [...] s/p RCA/LCX PCI done on 10/2016, at [facility], he also follow up with cardiology over there, got MIBI done that show mild small eversible in basal lateral wall that has been persistent even before the heart cath and stent s placement, plan per [facility] is to get cardiac PET. No chest [...] any active symptoms, has been following at [facility] with recent stress test that did not [...] time. Brian Saab MD Interventional Cardiology Pager [phone]. 02/11/2019 * Carol Elise MA - 02/11/2019 3:00 PM CDT Aaron Henderson is a 58 year old male Chief Complaint Patient presents with New Patient documented in this encounter Plan of Treatment Order Schedule Name Type Priority Associated Diagnoses Ordered: 02/11/2019 EKG-12 LEAD ROUTINE HEART STATION Routine Coronary artery disease involving newtok coronary artery of new[place] heart without angina pectoris Health Maintenance Due [...] Visit Diagnoses Diagnosis Coronary artery disease involving newtok coronary artery of new[place] heart without angina pectoris - Primary documented in this encounter Insurance Type Payer Benefit Subscriber ID Effective Phone Address Plan / Dates Group Medicare Adv [facility] - AARP [id number] 2018-P MANAGED MEDICARE MEDICARE resent COMPLETE documented as of this encounter
--- OUTSIDE RECORDS SUMMARY | 2019-06-12 17:17 | XMS REPORT | Summary of Care ---
Author Author [facility] - Health Organization [facility] - Health Address Unknown Phone Unavailable Care Team Providers Care Manager Mba Name Role Phone John Lorenzo PCP Reason for Visit * Reason Comments Social Work Encounter Details Care Team Description Date Type Department Katherine Lerner MD [address] [place] [address] Worker, Transplant Social Social Work 01/12/2019 Case Management [facility] [address] [place] [phone] Allergies No Known Allergiesdocumented as of this [...] Take 90 mg by 0 mouth daily. documented as of this encounter (statuses as [...] Signs Not on filedocumented in this encounter Progress Notes * Chucho Soares, [facility] - 01/12/2019 11:00 AM CDT PSYCHOSOCIAL ASSESSMENT OF THE KIDNEY TRANSPLANT CANDIDATE PATIENT INFORMATION Date: 01/12/2019 Name: Aaron Henderson [address]: [address] [place] [address] Phone/Cell: Work Phone Not on file. Alternate contact: Extended Emergency Contact Information Primary Emergency Contact: Ceci Henderson [facility] Mobile Relation: Spouse Gender: Male Race: Primary Language: Kazakh: Candles Pourer present Language Assistance: Yes. Type: language line. Candles Pourer present for visit. Anglican/Cultural Preferences: Latter Day Assessment Status: Recipient, Initial Evaluation Service: kidney Informant: patient, spouse and daughter Do you have any yarsanism, ethnic or personal objections to accepting blood prod ucts during surgery and/or transplant? No Citizenship Where were you born? [place] Citizenship: [place] FAMILY BACKGROUND & SUPPORTIVE RELATIONSHIPS Parental information : na Sibling information : 1 sister, 2 brother live in [place] Children : 2 1 daughter 1 son Number of pregnancies: N/A Marital Status: Household Composition: patient daughter and Animals in house: Yes. Specify: 1 dog Caregiver (Caregivers must provide transportation, Medication supervision, hous ekeeping, errands, food preparation, communication with transplant team) Primary: daughter Secondary: FUNCTIONING ABILITY/PERSONAL CARE Living Situation: in home, with family Indicate number of steps and if bed/bath is on the same level: 0 Home Health: No DME: Yes - sometimes uses a cane ADL's: Independent Mobility: No Difficulty Hearing: good; no issues reported Vision: glasses Transportation: I'm completely independent and drive myself Sleep: Some difficulty with sleeping - after dialysis difficulty with sleep, mima apentin. Hygiene: Able to bathe self, groom Exercise: Does not exercise Cognitive Functioning/Health LiteracyHow do you best learn new information? Read ing, Verbal and Visual Can the patient read, write, and understand Lebanese? Yes - understands but prefe rs uzbek Not primary language Do you have any current or past problems with a medical issue (i.e. CVA, TBI, En cephalopathy, etc.) that has impacted your cognitive function? No What is the family perception of patient's cognitive functioning/dysfunction? NA Have you noticed any problems with or changes in your attention span/concentrati on level for conversations, TV/reading, etc.? no Episodes of disorientation/getting lost driving or at a store? no Have you left the stove on or a candle burning, forgotten to lock the front door , or prepared food improperly or in an unsafe manner? no Do you have difficulty managing your medical regimen? no Screening with [facility], if appropriate. MENTAL HEALTH Mental Status: alert, awake and orientated Orientation: person, place, date/time and situation Appearance: alert, attentive, connected and cooperative Affect: Appropriate Cognitive Function: Attentive: Yes Memory problems: No Thought processes: goal directed Organized? Yes Do you have past or present mental health diagnosis: none Any history of physical, emotional, or sexual abuse including domestic violence? no Have you ever attempted suicide or thought about harming yourself or others? no Have you ever been hospitalized in a psychiatric hospital? No Have you used medications for Mental Health issues, sleep, and or pain now and i n the past? NO SUBSTANCE USE AND HISTORY Do you now or have you in the past used substances such as street drugs like can nabis, opiates, cocaine or crack methamphetamines, inhalants, or tobacco or any nicotine products, alcohol, prescription drugs such as sedatives and anxiolytic agents? Tobacco or Nicotine Products: Age at first use? Young Avg. amount used? 1 ppd Last used?2 2010 Related legal issues? no Related risk concerns (IV use)? no COPING What are the previous stressors/concerns in your life? My kidney, familty What helps you cope when you are feeling stressed or worried? Talk with family Hobbies/interest: What are your hobbies/interests (pastimes or stress-relievers) ? Bike, racing mechanic, jet skis Do you have any activities that youre unable to do now that you hope to retur n to after transplant? 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 40 years Do you have any concerns about your job because of your illness/pending transpla nt? No Date of last employment? 2009 How do you plan to cover your expenses while off of work? N/A What are your thoughts about returning to work after transplant? N/A Time expected to be off work following transplant? N/A Financial Status Income source: Disability and daughter works Monthly household income: $1200 Do you have any current financial concerns? yes Is current income adequate to meet your monthly needs and current medications? N o How do you manage when you do not have enough money during the month? Daughter h elps out Will your caregiver being off work have an effect on your income? No Would you be interested in fundraising information? No (provide if requested) Insurance/Resources Insurance: Medicare Advantage Plan -[facility] Patient is enrolled in Kidney Health Care? No [facility] ID: N/A Does someone currently pay your insurance premium(s)? No Cost per month? $100 Who will pay your insurance premium after transplant? N/A Is your insurance through a high-risk pool, individual policy, or Cobra? No Medication Resources: [facility] Medicare advantage Medicare Part D Plan: NA Low Income Subsidy for Medicare Part D: possibly will need to verify Approximate Out of Pocket Medication Costs: $75-100 at this time How will you pay for medications after transplant? Out of pocket Does the patient understand that Medicare is terminated 36 months post- transpla nt? Yes VA Benefit Service: No UNDERSTANDING OF MEDICAL SITUATION What is your primary diagnosis? DM2, HTN, When did you become aware of your diagnosis? 2009 What do you understand about the cause of your disease? Good understanding Dialysis Status Initiation Date: May 2013 Modality: [facility] Hemodialysis Center: [facility] [email or web address] [facility] [address] Commercial Artist Lettering: unsure Treatment Adherence: very good Adjustment to Illness: very good Treatment Compliance/Adherence How do you manage your medications now? Pillbox and Caregiver Do you have any difficulties in getting or taking your medications? No Have you ever changed the way you take a medication without talking to the docto r? No Knowledge and Understanding of Transplant Process Tell me a little about what you understand about transplant. Provided education What do you know about the risks of transplant? Able to verbalize What is your biggest concern? Waiting a long time and it not work ing What do you think your support system's main concern is about you getting a almaguer splant? na Were the psychosocial risks of transplant reviewed? yes What is your post-transplant housing plan? At home How do you expect to pay for your plan? Out of pocket What is your post-transplant transportation plan? Family Willingness/Desire for Transplant Do you want to proceed with a transplant? yes If previously denied listing/implantation, why were you denied? (Please describe that experience and how it is different now).not applicable If previously transplanted/VAD implanted, what was that experience like and what is different now? not applicable LEGAL ISSUES Have you been arrested or had a warrant for your arrest or have any current lega l issues including probation, parole, pending court hearings? N/A Do you have a valid nascar driver's license? Yes IMPRESSION Social Support: Identified strengths/risks: Patient appears to have good support through his audrey ghter and . Financial/insurance: Identified strengths/risks: Patient is on SSDI. Income is limited but stable. Portillo garciaer assists with any additional expenses. Patient is insured by [facility]-Medicare advantage. Compliance: Identified strengths/risks: patient reports good compliance with dialysis and me dications. Cognitive & Functional Status: Identified strengths/risks: No issues. Mental Health: Identified strengths/risks: no mental health concerns. Coping Skills: Identified strengths/risks: Patient appears to have adequate coping skills Substance Abuse: Identified strengths/risks: Patient was a previous cigarette s moker, stopped in 2010 Legal Issues: Identified strengths/risks: no legal concerns. Understanding and Motivation: Identified strengths/risks: AUDIT REVIEWER provided brief transplant education. Patient ap pears motivated for transplant, would like to work again. Barriers to Transplant/VAD: Limited Finances RECOMMENDATION & ASSESSMENT AUDIT REVIEWER met with patient to complete intial psychosocial assessment for transplant. Patient presented with his and daughter. AUDIT REVIEWER used language line digital developer for translation services. AUDIT REVIEWER discussed the risks and benefits of transplant. AUDIT REVIEWER provided patient with social work education and resources handouts. Patient appears to have good support through daughter and . Patient is on SSDI, in come is limited but daughter assists with all needs. Patient is insured by [facility] [email or web address] AUDIT REVIEWER discussed potential costs of medications and encouraged family to save money for unexpected copays. AUDIT REVIEWER discussed patient responsibilit ies to include medication compliance, required attendance at all post-transplant clinics and patients financial responsibilities. Based on this assessment, kelsie olmedo is a good candidate for transplant. Yan Soares LMSW, LEILANI Transplant Commercial Artist Lettering P F documented in this encounter Plan of Treatment Health [...] Plan / Dates Group Medicare Adv [facility] [id number] 2018-P MANAGED MEDICARE MEDICARE resent COMPLETE documented as of this encounter
--- OUTSIDE RECORDS SUMMARY | 2019-06-12 17:18 | XMS REPORT | Summary of Care ---
Author Author [facility] - Health Organization [facility] - Health Address Unknown Phone Unavailable Care Team Providers Care Dowel Pin Worker Name Role Phone John Lorenzo PCP Encounter Details Care Team Description Date Type Department Katherine Lerner MD [address] [place] [address] [phone] 02/19/2019 Abstract [facility] [address] [place] [phone] Allergies No Known Allergiesdocumented as of this [...] Plan / Dates Group Medicare Adv O [facility] [id number] 2018-P MANAGED MEDICARE MEDICARE resent COMPLETE documented as of this encounter
--- OUTSIDE RECORDS SUMMARY | 2019-06-12 17:18 | XMS REPORT | Summary of Care ---
Author Author [facility] - Health Organization [facility] - Health Address Unknown Phone Unavailable Care Team Providers Care As400 Programmer Name Role Phone John Lorenzo PCP Encounter Details Care Team Description Date Type Department Katherine Lerner MD [address] [place] [address] [phone] 02/22/[address] [facility] Transplant- [facility] [address] [place] [phone] Allergies No Known Allergiesdocumented as of this encounter (statuses as of 03/01/2019) Medications End Date Status Medication Sig Dispensed [...] as of this encounter (statuses as of 03/01/2019) Active Problems Not on filedocumented as of this encounter (statuses as of 03/01/2019) Immunizations Name Administration Dates Next Due Influenza [...] Address Plan / Dates Group Medicare Adv [facility] [id number] 2018-P MANAGED MEDICARE MEDICARE resent COMPLETE documented as of this encounter
--- OUTSIDE RECORDS SUMMARY | 2019-06-12 17:18 | XMS REPORT | Summary of Care ---
Author Author [facility] - Health Organization [facility] - Health Address Unknown Phone Unavailable Care Team Providers Care Planting Material Unloader Name Role Phone John Lorenzo PCP Reason for Visit * Reason Comments Committee Review Encounter Details Care Team Description Date Type Department Katherine Lerner MD [address] [place] [address] [phone] Committee Review 03/02/2019 Case Management [facility] [address] [place] [phone] Allergies No Known Allergiesdocumented as of this encounter (statuses as of 03/02/2019) Medications End Date Status Medication Sig Dispensed [...] as of this encounter (statuses as of 03/02/2019) Active Problems Not on filedocumented as of this encounter (statuses as of 03/02/2019) Immunizations Name Administration Dates Next Due Influenza [...] Address Plan / Dates Group Medicare Adv [facility] - [employer]ARP [id number] 2018-P MANAGED MEDICARE MEDICARE resent COMPLETE documented as of this encounter
--- OUTSIDE RECORDS SUMMARY | 2019-06-12 17:18 | XMS REPORT | Summary of Care ---
Author Author [facility] Organization [facility] Address Unknown Phone Unavailable Care Team Providers Care Insurance Representative Name Role Phone Ana Maria Gonzalez MD 26 John Lorenzo DO PCP Audie Cisse MD 26 Reason for Visit * Reason Comments Coronary Artery Disease Pre-transplant Evaluation * Consult, Test & Treat (Routine) Referred By Contact Referred To Contact Status Reason Specialty Diagnoses / Procedures [facility] [address] [place] [phone] Maddy Astorga AG-ACNP [address] [place] [id number] Authorized Cardiology Diagnoses ESRD (end stage renal disease) ([facility] Hospital Follow up P rocedures PA OFFICE OUTPATIENT VISIT 15 MINUTES ESTABLISHED OFFICE VISIT Encounter Details Care Team Description Date Type Department Maddy Astorga AG-ACNP [address] [place] [id number] [phone] Coronary Artery Disease; Pre-transplant Evaluation 04/16/2019 Office Visit [facility] Cardiology [address] [place] [phone] Allergies No Known Allergiesdocumented as of this encounter (statuses as of 04/26/2019) Medications End Date Status Medication Sig Dispensed Refills Start Date Active Insulin Glargine (LANTUS Inject into 0 SC) the skin. Active Cinacalcet HCl (SENSIPAR) Take by 0 90 MG TABS mouth daily. Active glimepiride (AMARYL) 4 MG Take 4 mg by 0 tablet mouth two times daily. Active Sevelamer Carbonate 5 Tabs 3 0 (RENVELA) 800 MG TABS times daily (before meals). 5 po tid Active atorvastatin (LIPITOR) 40 Take 1 Tab by 90 Tab 3 MG tablet mouth daily. 6 Active aspirin EC 81 MG tablet Take 1 Tab by 100 Tab 3 mouth daily. 6 Active nitroglycerin (NITROSTAT) SEE NOTES 300 Tab 0 0.4 mg sublingual tablet 8 Active gabapentin (NEURONTIN) Take 100 mg 0 100 MG capsule by mouth 2 times daily as needed. 03/08/2020 Active clopidogrel (PLAVIX) 75 Take 75 mg by 0 MG Tablet mouth. 9 03/26/2020 Active metoprolol (TOPROL-XL) 25 Take 12.5 mg 0 MG XL tablet by mouth. 9 Active midodrine (PROAMATINE) 5 0 MG tablet 9 Active pantoprazole (PROTONIX) Take 40 mg by 0 40 MG tablet mouth. 9 03/26/2020 Active lisinopril (PRINIVIL, Take 2.5 mg 0 ZESTRIL) 2.5 MG tablet by mouth. 9 04/16/2019 Discontinued Vitamin D, Take by 0 Ergocalciferol, [address] mouth every UNITS CAPS 14 days. 04/16/2019 Discontinued carvedilol (COREG) 3.125 Take 3.125 mg 0 MG tablet by mouth 2 times daily (with meals). 04/16/2019 Discontinued BRILINTA 90 MG TABS TAKE 1 TABLET 180 Tab 3 BY MOUTH 8 TWICE DAILY 04/16/2019 Discontinued isosorbide mononitrate Take 30 mg by 0 (IMDUR) 30 MG CR tablet mouth nightly. 04/16/2019 Discontinued Sucroferric Oxyhydroxide Take 1,000 mg 0 (VELPHORO) 500 MG CHEW by mouth 3 times daily (with meals). 04/16/2019 Discontinued isosorbide mononitrate TAKE 1 TABLET 90 Tab 3 (IMDUR) 30 MG CR tablet BY MOUTH 9 DAILY documented as of this encounter (statuses as of 04/26/2019) Active Problems Problem Noted Date Hx of CABG 04/26/2019 AVF (arteriovenous fistula) ([facility]) 07/31/2016 CAD (coronary artery disease) 12/14/2015 Overview: NSTEMI Cath 10/31/2015 - 99% LCx , s/p PCI to RCA on 10/31/2015 ASA/plavix and statins ESRD (end stage renal disease) ([facility]) 12/14/2015 Overview: On PD from 2011 Sled 11/01 HD from 11/03 Secondary to HTN and DM PAD (peripheral artery disease) ([facility]) 12/14/2015 Chronic renal failure Hyperlipidemia Type II or unspecified type diabetes mellitus without mention of complication, not stated as uncontrolled Hypertension documented as of this encounter (statuses as of 04/26/2019) Social History Date Tobacco Use Types Packs/Day Years Used Quit: 07/21/2009 Former Smoker 1 20 Smokeless Tobacco: Former User Drinks/Week oz/Week Comments Alcohol Use No Sex Assigned at Date Recorded Not on file Industry Job Start Date Occupation Not on file Not on file Not on file Travel End Travel History Travel Start No recent travel history available. documented as of this encounter Last Filed Vital Signs Reading Time Taken Comments Vital Sign 138/84 04/16/2019 3:42 PM CDT Blood Pressure 81 04/16/2019 3:42 PM CDT Pulse - - Temperature 16 04/16/2019 3:42 PM CDT Respiratory Rate 98% 04/16/2019 3:42 PM CDT Oxygen Saturation - - Inhaled Oxygen Concentration 96.6 kg (213 lb) 04/16/2019 3:42 PM CDT Weight 170.2 cm (5' 7") 04/16/2019 3:42 PM CDT Height 33.36 04/16/2019 3:42 PM CDT Body Mass Index documented in this encounter Patient Instructions * Patient Instructions* Maddy Astorga AG-ACNJunito - 04/16/2019 3:30 PM CDT Thank you for choosing the [facility]. 1. Please let us know what we can do better. Please provide comments on the surv ey you will receive. We value your feedback. 2. Return to Clinic in 6 months 3. Continue same medications. OK to take metoprolol after dialysis if your systo lic blood pressure (top number) is 130 or greater. 4. Echo and stress test. This will be scheduled for you at [facility] and the ap pointment information will be sent to you. 5. Call office if new symptoms occur documented in this encounter Progress Notes * Maddy Astorga AG-ACNP - 04/16/2019 3:30 PM CDT CHIEF COMPLAINT: Coronary artery disease RENAL JAVA TECHNICAL MANAGER: Veronica Espinoza RN HISTORY OF PRESENT ILLNESS: Patient is a 58 year old male with past medical history significant for end-stag e renal disease, hypertension, hyperlipidemia, and diabetes mellitus, gastric sl eeve (08/2017), NSTEMI with PCI to RCA on October 31, 2015, and positive stress te st followed by [facility] with PCI to ostial LCx - Promus 2.5 x 16 mm, 11/26/16. CKD since 2011 CKD is due to DM/ HTN On PD from 04/2013, PD catheter placed in 04/2013 Now on HD MWF Left arm AVF placed 09/2015 - Dr Mukherjee Being worked up for kidney transplant - might have donor No CP Class II SOB Dry weight 97.5-98 kg Uses cane to get around Low bp on dialysis days Doing well No events since last visit Denies chest pain or sob Compliant with diet and meds Exercising BP was running low - coreg dose decreased by nephrology. NSTEMI, 10/2015 Cath 10/31/2015 - 99% LCx s/p PCI to RCA on 10/31/2015 Stress test 10/25/16 - small sized, mild severity, reversible defect in the apex which is most consistent with ischemia in the territory of the distal left ante rior descending coronary artery. [facility] with PCI to ostial LCx - Promus 2.5 x 16 mm, 11/26/16 Had gastric sleeve in August 2017 - lost about 25 lbs. During clinic visit 12/2018 had complaints of post-prandial angina with pain rad iating up his jaw. Stress test 02/04/19 showed a small, marked severity mostly r eversible basal to midlateral LV defect and mild hypokinesis of the basal to mid lateral LV. S/p PCI to mid RCA, 02/18/19 Cath with multi vessel disease on 02/18/2019 S/p ACB x 2 - DIVYA to LAD, WELSH to Ramus, 03/01/19 - - Robotic assisted Harvesti ng WELSH and DIVYA with Left mini thoracotomy, off pump , Left groin cut down fo r femoral ECMO and Left and right chest tube placement Had some hypotension and fatigue post-operatively Admitted 03/20/19 with GIB and severe anemia requiring transfusion EGD 03/21 - dudodenal ulcers that had stopped bleeding - H Pylori sent BP improved - BBL, ACEI resumed Colonoscopy 03/26/19 - - Non-thrombosed external hemorrhoids found on perianal e xam. - Diverticulosis in the sigmoid colon, in the descending colon and at the hepati c flexure. - Stool in the cecum. No bleeding or blood was not seen Cleared by GI to resume DAPT while monitoring for bleeding To repeat EGD in 12 weeks, colonoscopy in 1 year Now feeling better. BP has improved, no longer having issues with significant hy potension during HD - takes midodrine PRN only during HD. Denies CP or angina symptoms similar to those he had prior to cath and ACB. Has some SOB with significant exertion but is at his baseline. PAST MEDICAL HISTORY: 1) Coronary artery disease - NSTEMI, 10/2015 - Cath 10/31/2015 - 99% LCx - s/p PCI to RCA on 10/31/2015 - Stress test 10/25/16 - small sized, mild severity, reversible defect in the a pex which is most consistent with ischemia in the territory of the distal left a nterior descending coronary artery 2) Paroxysmal Atrial Fibrillation - Amiodarone and BBL 3) End-stage renal disease - Secondary to HTN and DM - On PD from 2011 - Sled 11/01 - HD from 10/2015 - Undergoing renal transplant evaluation 3) Diabetes Mellitus - Type 2 4) Hypertension 5) Hyperlipidemia 6) PAD 7) Obesity Body mass index is 33.36 kg/m. PAST SURGICAL HISTORY: PCI to RCA on 10/31/2015 Gastric sleeve 08/2017 CURRENT MEDICATIONS: Current Outpatient Medications Medication Sig Dispense Refill aspirin EC 81 MG tablet Take 1 Tab by mouth daily. 100 Tab 3 atorvastatin (LIPITOR) 40 MG tablet Take 1 Tab by mouth daily. 90 Tab 3 Cinacalcet HCl (SENSIPAR) 90 MG TABS Take by mouth daily. clopidogrel (PLAVIX) 75 MG Tablet Take 75 mg by mouth. gabapentin (NEURONTIN) 100 MG capsule Take 100 mg by mouth 2 times daily as needed. glimepiride (AMARYL) 4 MG tablet Take 4 mg by mouth two times daily. Insulin Glargine (LANTUS SC) Inject into the skin. lisinopril (PRINIVIL, ZESTRIL) 2.5 MG tablet Take 2.5 mg by mouth. metoprolol (TOPROL-XL) 25 MG XL tablet Take 12.5 mg by mouth. midodrine (PROAMATINE) 5 MG tablet nitroglycerin (NITROSTAT) 0.4 mg sublingual tablet SEE NOTES 300 Tab 0 pantoprazole (PROTONIX) 40 MG tablet Take 40 mg by mouth. Sevelamer Carbonate (RENVELA) 800 MG TABS 5 Tabs 3 times daily (before meals ). 5 po tid No current facility-administered medications for this visit. 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 HENT: Negative. Eyes: Negative. Respiratory: Negative for shortness of breath. Cardiovascular: Negative Gastrointestinal: Negative for abdominal pain. Genitourinary: Negative. Musculoskeletal: Negative. Skin: Negative. Neurological: Negative. Endo/Heme/Allergies: Negative. Psychiatric/Behavioral: Negative. PHYSICAL EXAMINATION: BP 138/84 (BP Location: right arm) | Pulse 81 | Resp 16 | Ht 5' 7" (1.702 m) | Wt 213 lb (96.6 kg) | SpO2 98% | BMI 33.36 kg/m Obese Left arm AVF General Appearance: Alert, cooperative, no distress, appears stated age Head: Normocephalic, without obvious abnormality, atraumatic Eyes: PERRL, conjunctiva/corneas clear Nose: Nares normal, septum midline, mucosa normal, no drainage or sinus tendern ess Throat: Lips, mucosa, and tongue normal; teeth and gums normal Neck: Supple, symmetrical, trachea midline, no adenopathy; thyroid: no enlargement/tenderness/nodules; no carotid bruit JVD 10 cm Back: Symmetric, no curvature, ROM normal, no CVA tenderness Lungs: Clear to auscultation bilaterally, respirations unlabored Chest Wall: No tenderness or deformity Heart: Regular rate and rhythm, S1 and S2 normal, no murmur, rub or gallop Distant heart sounds Abdomen: Soft, non-tender, bowel sounds active all four quadrants, no masses, no organomegaly PD catheter in place Extremities: Extremities normal, atraumatic, no cyanosis or edema Pulses: 2+ and symmetric all extremities Skin: Skin color, texture, turgor normal, no rashes or lesions Psychiatry : Normal mood and Affect Neurologic: Alert and oriented x4, normal strength and reflexs throughout, move s all extremities PERTINENT TEST RESULTS: ECHO 03/03/2019 Technically limited exam. 1. Difficult to assess segmental wall motion; overall LV systolic functionappe ars normal. 2. No pericardial effusion is visualized. 3. RV chamber size appears normal by limited views . Global RV systolic function is normal . Previous Study In comparison with the prior exam 11/03/2015 the following changes arenoted: judy lofton has undergone ACB 06/04/2018 1.Left ventricular chamber size (by vol index) is normal (male - LVED vol - 34-74 ml/m2) with mild concentric LV hypertrophy.All of the LV segments contract normally. LVEF by quantitative assessment is normal (60%). Degree (grade) of diastolic dysfunction is indeterminate. 2.The right ventricular chamber size and systolic function are within normal limits. 3.Moderate AoV cusp thickening and calcification without significant stenosis. No other significant valvular abnormalities. 4.Unable to estimate peak systolic PA pressure; inadequate TR velocity signal. In comparison with the prior exam on 05/2017 the following changes are noted: diastology is indeterminate, E/e' ratio and LA size no longer suggests elevated left-sided filling pressures. 05/27/17 Left ventricular chamber size (by vol index) is normal (male - LVED vol - 34-74 ml/m2). LV septal thickness is mildly increased (1.2-1.4 cm) ; LV posterior wall thickness is mildly increased (1.2-1.4 cm). Overall wall motion is normal. Estimated EF is >60%. Grade 2 diastolic dysfunction (moderately increased LA pressure). LA size is mildly enlarged (35-41 ml/m2). RA and RV are normal Aortic root size (Sinus of Valsalva diameter) is normal. Proximal ascending aorta size is normal. 3.4 cm No significant valvular abnormality Unable to estimate peak systolic PA pressure; inadequate TR velocity signal. The estimated RA pressure by IVC dynamics 0-5 mmHg. Compared to 10/25/16 No significant change 10/25/16 Overall LV systolic function normal by available views. Left ventricular chamber size (by vol index) is normal. Moderate concentric LV hypertrophy. Grade 2 diastolic dysfunction (moderately increased LA pressure). LA size is mildly enlarged (35-41 ml/m2). The right ventricular chamber size and systolic function are within normal limit s. Flxh-ma-[id number] AoV cusp calcification. A trace of aortic regurgitation. Aortic sclerosis , no evidence of aortic stenosis. Nhge-ra-hiseujnr mitral annular calcification. Mild mitral regurgitation. No significant mitral stenosis No prior exam available for comparison. 11/03/2015 1) There is a circumferential pericardial effusionIt is moderate in size. Mildly increased from prior examination. 1.5 cm maximum diameter in anterior and poste rior positions. There is evidence of inflow variation (38%) across the mitral va lve with inspiration suggestive increased intrapericardial pressure. Tricuspid v alve not interrogated. No RV diastolic collapse. GE=307/66mmHg. 2) Normal overall LV systolic function. 3) The RAP is estimated to be 16-20 mmHg. 10/31/2015 1) There is a circumferential small to moderate pericardial effusion with fibrin ous, small posterior and small to moderate anteriorly. 2) Normal overall LV systolic function. 3) Estimated LVEF is 55-60%. 4) All segments contract normally. 5) The right ventricular global systolic function is normal. 6) Unable to obtain systolic PAP. 7) There is no previous study for comparison. STRESS TEST 02/04/2019 (PET) 1. Abnormal study. 2. Abnormal myocardial perfusion. There is a small size, marked severity, mostly reversible perfusion abnormality in the basal to mid lateral LV. 3. Normal resting LVEF, which does not deteriorate with pharmacologic stress. Ho wever, mild hypokinesis of the basal to mid lateral LV with stress is noted. 4. Normal extracardiac tracer distribution. 5. The prior study dated 10/31/2015 showed the same basal to mid lateral partiall y reversible perfusion defect. No significant change compared to prior study. 06/04/2018 1. Study performed per Hybrid protocol. Patient exercised on treadmill per the [place] Protocol, completing a total of 04 minutes and 00 seconds. Max work load was 1.7 Mets. At 2 minutes into exercise, pharmacologic stress was performed by IV injection of Regadenoson ( Lexiscan) 0.4 mg over 10 seconds. Patient continu ed to exercise after injection of the Lexiscan. 2. Small size, mild severity, partially reversible defect noted in the basal and mid inferolateral segments. Rest of the segments show normal perfusion at rest and with stress. 3. Normal LV size. The post stress left ventricular ejection fraction is 60 % wi th normal regional wall motion and left ventricular thickening. 05/27/17 1. Study performed per Hybrid protocol. Patient exercised on treadmill per the [place] Protocol, completing a total of 04 minutes and 00 seconds. Max work load was 1.7 Mets. At 2 minutes into exercise, pharmacologic stress was performed by IV injection of Regadenoson ( Lexiscan) 0.4 mg over 10 seconds 2. Small size, mild severity, fixed defect in the basal and mid inferolateral wa ll suggesting presence of scar in the inferolateral wall. Rest of the segments s how normal perfusion at rest and with stress. 3. Normal LV size. The post stress left ventricular ejection fraction is 55 % wi th mild inferolateral wall hypokinesis. 10/25/16 1. Abnormal regadenoson myocardial perfusion study. There is a small sized, mild severity, reversible defect in the apex which is most consistent with ischemia in the territory of the distal left anterior descending coronary artery. There i s also a small sized, mild severity, partially reversible defect in the basal to mid inferolateral wall most consistent with ischemia in the territory of the le ft circumflex coronary artery. 2. Left ventricular systolic function was normal without regional wall motion ab normalities. 10/31/2015 1. Abnormal study. 2. Appropriate pharmacologic stress. 3. Abnormal myocardial p erfusion with a partially reversible basal lateral wall defect. 4. Borderline no rmal resting LV function. No deterioration of function is noted with pharmacologic stress. 5. Normal extracardiac tracer distribution. A small to moderately sized circumferen tial pericardial effusion is seen by CT imaging. 6. Compared to the previous [facility] study performed in 2014, this study is also normal. 05/17/15 1. Normal study. 2. Appropriate pharmacologic stress. 3. Normal myocardial perfu bridgett. 4. Borderline normal resting LV function. 5. Normal extracardiac tracer di stribution. 6. No previous [facility] study for comparison. RIGHT HEART CATH 02/18/19 Baseline AO (mmHg) 95(94% saturation) LV (mmHg) 93 RA (a/v/mean) 7/6/5 RV (systolic/EDP) 32/8 PA (systolic/diastolic/mean) 2614/(72% saturation) PCWP (a/v/mean) 89/5 Nadia Cardiac Output (L/min) 5.58 Nadia Cardiac Index (L/min/m2) 2.66 Transpulmonary gradient (mmHg) 14 SVR (Heller Units) 13.27 PVR (Heller Units) 2.51 Natalia 2.4 [employer] 0.65 11/26/16 1) Right atrial pressure RA 18/16/15 mmHg. 2) Right ventricular pressure RV 48/9/15 mmHg. 3) Pulmonary artery pressure PA 41/25/31 mmHg. 4) Mean pulmonary capillary wedge pressure PCWP 21/23/23 mmHg. 5) Ao 144/80 6) LV pressures 145/3/18-20 7) PAO2 Sats 72 8) Ao Sats 95 9) By NADIA calculation, cardiac output 7.8 L per minute with a cardiac index of 3.5 L/min/m2. 10) TPG 8 11) PVR 1 10/31/2015 Aortic pressure=94/48/66 LV pressure=93/19/24 LVEDP=20-30 RA=38/24/30 RV=46/18/24 PA=48/25/34 PCWP=30/30/30 TPG=4 PVR=0.58 CO=6.89 CI=3.05 CORONARY ANGIOGRAM 02/18/19 Jackson Vessels (Right Dominant) LM No significant obstructive disease demonstrated. LAD Ostial LAD demonstrates angiographic haze, consistent with ostial lesion. Se verity appears to be approximately 70%. Interrogated further with FFR, lesion fo und to be hemodynamically significant with FFR jad 0.78 with hyperemia. There is a large caliber diagonal with an early take-off just distal to the LAD ostium , this diagonal has no significant disease. LCx Previously placed ostial stent is demonstrated. Ostial LCx demonstrates sign ificant contrast dropout, consistent with a severe 95-99% stenosis. RCA RCA demonstrates previously placed stents at the proximal vessel and distal vessel before the PD/PL bifurcation. The proximal stent appears to have moderate ISR of about 50%. Distal RCA demonstrates no significant ISR. In between these two stents there is a focal short 95% stenosis of the mid RCA. Multi-vessel disease is present and is being treated with:single-vessel PCI in combination with CABG. INTERVENTION Lesions # Segment(s) Culprit Previous PCI Pre-PCI Complexity Post-PCI 1 Ostial LAD n/a No 70%.FFR=0.78TIMI-3. Type A/B. Not intervened 2 Mid RCA n/a No 95%%.3.0mm.MICKEY-3. Type A/B. <10%.MICKEY-3. 3 Proximal RCA n/a Yes 50% ISR MICKEY-3 Type A/B <10% MICKEY-3 Intra-Coronary Devices Device Associated Lesion #'s FFR Pressure Wire 1 Pre-Dilation Balloon:NC Emerge2.5x 12mm 2 Stent:Synergy3.0x 20mm 2 Post-Dilation Balloon:NC Emerge3.5x 15mm 2 Post-Dilation Balloon:NC Emerge3.5x 8mm 2 and 3 11/26/16 Hemodynamics LVEDP 18-24 mmHg Left Main 10% Ostial RCA 30% ISR of proximal RCA stent Patent distal RCA stet 30% PLV stent 30% ostial PDA stent LAD 30% proximal LAD and 40% mid to distal LAD Circ 99% Ostial LCx 60% OM1 Complications None INTERVENTIONS Guide 6FR xb 3.5 % Stenosis Pre 99% Vessel Ostial LCx Wires Run through wire Devices None Balloons Pre Quantum 2 by 8 and post Quantum 2.75 by8 Stents Promus 2.5 by 16 Post % Stenosis 0% 10/31/2015 The left main coronary artery shows 20% distal LM stenosis The left anterior descending artery shows mild plaquing mid and distal LAD The left circumflex artery shows 99% ostial LCX. 20% OM1 stenosis. The right coronary artery shows 50% mid RCA stenosis. There is a ruptured plaque seen in mid RCA . There is 70% distal RCA stenosis. RCA is big and dominant ABDOMINAL AORTOGRAM 10/31/2015 The pigtail/Omniflush catheter was placed just under the renal arteries for a 40 cc injection at 20 cc/min with 800 PSI to include the aorta and iliac arteries. Abdominal aortogram showed 10% bilateral internal iliac artery stenosis. 10% ri ght MICAELA stenosis CT Abdomen 11/03/2015 1. Interval development of moderate to large pericardial effusion. 2. Interval increase in size of a cystic lesion in the midpole right kidney. 3. Vicarious excretion versus milk of calcium in the gallbladder. CTA CHEST 02/22/2019 1. The thoracic aorta is normal in course, contour, and calibre. There is minimal calcification seen in the aortic root and scattered Calcificati ons seen in the ascending thoracic aorta posteriorly. There is calcific and noncalcific atherosclerosis identified in the transverse a rch as well scattered along the descending thoracic aorta. There is no evidenc e of acute aortic pathology, specifically, there is no dissection, intramural he matoma, or contained rupture. Quantitative dimension of the thoracic aorta are as described above. 2. Patient is known coronary artery disease. In the available images, the left main coronary artery the proximal and mid LAD has calcification identified thou remainder the mid and distal LAD is 3 of calcification. There is also calcifi cation seen in the LCx territory, and there is either vascular stent versus diff use calcification seen in the RCA territory. The left and right internal mammary arteries are widely patent. Only minimal Con sultation is seen in the left and the right subclavian arteries proximally, othe rwise they are widely patent. 3. No acute pulmonary pathology. The central bony artery is prominent. No evidence of central pulmonary artery em bolism. Evidence of prior granulomatous disease 4. Other findings as described above. 5. An addendum will be dictated regarding the non-vascular findings by the [facility] Radiologist. EGD 03/21/201903/21: EGD See procedure noted under MEDIA tab for full detail Gastric erosion Duodenal ulcers noted, non bleeding Path: no h.pylori ASSESSMENT Acute blood loss anemia Admitted on 03/20 -SOB, dizziness and nausea He is FOBT + on asa and plavix and folic acid deficient EGD 03/21 - dudodenal ulcers that had stopped bleeding - H Pylori sent Post Robotic assisted Harvesting WELSH and DIVYA with Left mini thoracotomy, of f pump , Left groin cut down for femoral ECMO and Left and right chest tube plac ement 03/01/2019 CAD Positive stress test with Angina - Jaw pain with exertion Cath 02/18/2019 with positive FFR of LAD, s/p PCI to RCA on 02/18/2019 S/p ACB x 2 - DIVYA to LAD, WELSH to Ramus, 03/01/19 - Robotic assisted Harvesting WELSH and DIVYA with Left mini thoracotomy, off pump , Left groin cut down for femoral ECMO and Left and right chest tube placement NSTEMI Cath 10/31/2015 - 99% LCx s/p PCI to RCA on 10/31/2015 S/p PCI to ostial LCx - Promus 2.5 x 16 mm, 11/26/16 S/p PCI to mid RCA - Synergy3.0x 20mm, 02/18/19 ASA, plavix and statins Moderate pericardial effusion with tamponade Echo 10/31/15 - circumferential small to moderate pericardial effusion S/p window on 11/03/2015 PAF On BBL Diastolic Dysfunction Grade 2, Echo 05/27/17 ESRD Secondary to HTN and DM On PD from 2011 Sled 11/01 HD from 11/03 Undergoing renal transplant evaluation DM Type 2 09/08/2013 08:12 10/31/2015 01:23 10/31/2015 08:12 11/27/2016 03:58 Hemoglobin A1C 8.8 (H) 7.3 (H) 7.2 (H) 5.6 HTN Stage 2 HLD PAD Obesity Body mass index is 33.36 kg/m. PLAN: low dose BBL Low dose ACEI Midodrine pre HD PCI to RCA 02/18/2019 ACB 03/01/2019 - Dr Lin HD per renal Can avoid taking bp meds on HD days, Keep SBP < 140 on non dialysis days Echo and stress test in June Diet and LSM Exercise counselling and daily activity Salt restricted diet Compliance with meds Check lipids BMP CBC and LFT in 6 months Return to clinic in 6 months Maddy Astorga RN, [facility] Nurse Practitioner/Instructor Office Office direct Nurse Practitioner to Audie Cisse MD [facility] Interventional Cardiology Cardiac Electrophysiology Interventional Heart Failure and Cardiac Transplant [place], [place] [address] documented in this encounter Plan of Treatment Care Team Description Date Type Specialty Luis Daniel Lin MD, PhD [address] [facility] [address] [place] [address] 05/04/2019 Office Visit Transplant Surgery Maddy Astorga AG-ACNP [address] [facility] [address] [place] [address] 07/06/2019 Office Visit Cardiology Health Maintenance Due Date Last Done Comments MEDICARE AWV 1959 TETANUS SHOT (ADULT) 10/04/1974 ANNUAL DIABETIC FOOT EXAM 10/04/1977 ANNUAL DIABETIC 10/04/1977 RETINOPATHY SCREENING BMI FOLLOW UP PLAN 10/04/1977 HIV SCREENING 10/04/1977 FLU VACCINE > 6 MONTHS 02/18/2019 PREVNAR >=65 (PCV13) 10/04/2024 12/29/2017, 06/24/2013 COLON CANCER SCREENIN03/26/2029 03/26/2019 COLONOSCOPY HEPATITIS C SCREENING Completed 01/12/2019 documented as of this encounter Results Not on filedocumented in this encounter Visit Diagnoses Diagnosis Pre-transplant evaluation for ESRD (end stage renal disease) - Primary Other specified pre-operative examination 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
--- OUTSIDE RECORDS SUMMARY | 2019-06-12 17:18 | XMS REPORT | Summary of Care ---
Author Author [facility] - Health Organization [facility] - Health Address Unknown Phone Unavailable Care Team Providers Care Steel Sash Erector Name Role Phone John Lorenzo PCP Reason for Visit * Reason Comments Committee Review results Encounter Details Care Team Description Date Type Department Katherine Lerner MD [address] [place] [address] Committee Review (results) 03/02/[address] [facility] [address] [place] [address] Allergies No Known Allergiesdocumented as [...] Plan / Dates Group Medicare Adv O [facility] - AARP [id number] 2018-P MANAGED MEDICARE MEDICARE resent COMPLETE documented as of this encounter
--- OUTSIDE RECORDS SUMMARY | 2019-06-12 17:18 | XMS REPORT | Summary of Care ---
Author Author [facility] - Health Organization [facility] - Health Address Unknown Phone Unavailable Care Team Providers Care Senior Director Marketing Name Role Phone John Lorenzo PCP Reason for Visit * Reason Comments Other Committee status Encounter Details Care Team Description Date Type Department Katherine Lerner MD [address] [place] [address] Other (Committee status) 02/22/2019 Telephone [facility] [address] [place] [address] Allergies No Known Allergiesdocumented as of this encounter (statuses as of 02/22/2019) Medications End Date Status Medication Sig Dispensed [...] as of this encounter (statuses as of 02/22/2019) Active Problems Not on filedocumented as of this encounter (statuses as of 02/22/2019) Immunizations Name Administration Dates Next Due Influenza [...] Plan / Dates Group Medicare Adv O [facility] - AARP [id number] 2018-P MANAGED MEDICARE MEDICARE resent COMPLETE documented as of this encounter
--- NOTE | 2019-06-12 18:35 | Diagnostic Imaging Report ---
EXAMINATION: CXR 2 VIEW - HOPD INDICATION: Cough. COMPARISON: 10/26/2015. FINDINGS: PA and lateral views TUBES and LINES: None. LUNGS: Lungs are well inflated. There is no evidence of pneumonia or pulmonary edema. PLEURA: There is a small right pleural effusion. HEART AND MEDIASTINUM: The cardiomediastinal silhouette is unremarkable. BONES AND SOFT TISSUES: No acute osseous lesion. Soft tissues are unremarkable. UPPER ABDOMEN: No free air under the diaphragm. IMPRESSION: Small right pleural effusion. Signed by: Alan Joy MD on 06/12/2019 6:31 PM
[2019-06-12 18:48] VITALS: BP 110/62
== END 2019-06-12 19:00 | disposition home or self-care (01) ==
LOC: FSED 17:12
DX: R05 Cough (principal); I12.0 Hypertensive chronic kidney disease with stage 5 chronic kidney disease or end stage renal disease; E11.22 Type 2 diabetes mellitus with diabetic chronic kidney disease; N18.6 End stage renal disease; Z99.2 Dependence on renal dialysis; I50.9 Heart failure, unspecified; I25.2 Old myocardial infarction
CPT/HCPCS: 71046; 80053; 85025; 93005; 99283

== ENCOUNTER 2020-01-23 00:09 | Emergency (ER) | payer SELFPAY ==
[2020-01-23] MEDS ORDERED: DIPHENHYDRAMINE HCL 25 MG CAP PO STA (00:38)
[2020-01-23] MEDS ORDERED: FAMOTIDINE 20 MG TAB PO ONE (00:45)
[2020-01-23] MEDS ORDERED: DIPHENHYDRAMINE HCL 25 MG CAP ONE (00:46)
[2020-01-23] MEDS ORDERED: FAMOTIDINE 20 MG TAB ONE (00:46)
--- NOTE | 2020-01-23 00:49 | Emergency Department Note ---
History of Present Illnes History of Present Illness History of Present Illness This is a 59 year old male co facial itching for the last 48 hours Historian: Patient Arrival Mode: Car Additional Treatment VAULT SERVICE MECHANIC: none Family Medicine Resident Required: Yes (translation by me Dr. Frank) Location: face and tongue Quality: itching Duration (how long): day(s) (2) Progression: unchanged Chronicity: new Context: Reports recent illness (sp cardiac stents 3 days ago pt denies being on any new meds) Relieving factors: none Exacerbating factors: none Treatments prior to arrival: none Risk factors: esrd chf on tranplant list . off BELEN inhibitor and ARB for 4 months . Past Medical/Family History Physician Review I have reviewed the patient's past medical and family history. Any updates have been documented here. 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 pt compliant) Other Medical History: HIGH CHOLESTEROL Pericardial effusion requiring a cardiac window in the past not recently Past Surgical History: Appendectomy, CABG, Knee Replacement Other Surgery: WIL KNEES LUE fistula placement PD catheter placement gastric sleeve Social History Smoking Cessation: Never Smoker Alcohol Use: Occasional Any Illegal Drug Use: No TB Exposure/Symptoms: No Physically hurt or threatened: No Other Last Tetanus: 2015 Any Pre-Existing Lines (PICC,: No Is patient up to date on immun: No Review of Systems Review of Systems Constitutional: Reports no symptoms EENTM: Reports no symptoms Cardiovascular: Reports no symptoms Respiratory: Reports no symptoms Gastrointestinal: Reports no symptoms Genitourinary: Reports no symptoms Integumentary: Reports no symptoms (mildly erythematous rash to face), Reports rash Psychological: Reports no symptoms Endocrine: Reports no symptoms Hematological/Lymphatic: Reports no symptoms Physical Exam Related Data Allergies: Coded Allergies: No Known Allergies (Unverified , 10/26/15) Vital signs reviewed: Yes Physical Exam CONSTITUTIONAL Constitutional: Present well-developed, Present well-nourished HENT HENT: Present normocephalic, Present atraumatic, Present oropharynx clear/moist, Present oropharynx normal, Present other (tongue not swollen) EYES Eyes: Reports PERRL, Reports conjunctivae normal NECK Neck: Present ROM normal, Present supple PULMONARY Pulmonary: Present effort normal, Present breath sounds normal CARDIOVASCULAR Cardiovascular: Present regular rhythm, Present heart sounds normal, Present intact distal pulses, Present capillary refill normal GASTROINTESTINAL Abdominal: Present soft, Present nontender GENITOURINARY Genitourinary: Present exam deferred SKIN Skin: Present warm, Present dry, Present erythema (mild perioral arae), Present rash (facial as described ) MUSCULOSKELETAL Musculoskeletal: Present ROM normal NEUROLOGICAL Neurological: Present alert, Present oriented x 3, Present DTRs normal, Present no gross motor or sensory deficits PSYCHOLOGICAL Psychological: Present mood/affect normal, Present behavior normal, Present thought content normal, Present judgement normal Results Laboratory Laboratory cbc mild anemia h/h 12.8/39.7 mild increase in MCV. glucose 161 bun 30 creatine 8.1 Assessment & Plan Medical Decision Making MDM allergic reaction vs impetigo Assessment & Plan Final Impression: (1) Impetigo (2) Dermatitis Depart Disposition: HOME, SELF-retirement Meds Active Scripts Amoxicillin/Potassium Clav (AUGMENTIN 500-125 TABLET) 1 Each Tablet, 250 MG PO DAILY for 7 Days, #7 TAB 0 Refills Prov:LISA FRANK MD 01/23/20 Famotidine (PEPCID) 20 Mg Tablet, 20 MG PO BID for rash for 3 Days, #10 TAB Prov:LISA FRANK MD 01/23/20 Diphenhydramine Hcl (BENADRYL) 25 Mg Capsule, 25 MG PO TID PRN for RASH for 3 Days, #10 0 Refills Prov:LISA FRANK MD 01/23/20 Reported Medications Ticagrelor (BRILINTA) 90 Mg Tablet, PO DAILY 12/29/17 Aspirin (ASPIR 81) 81 Mg Tablet.dr, PO DAILY 12/29/17 Sevelamer Carbonate (RENVELA) 0.8 Gm Powd.pack, 0.8 G PO DAILY 12/29/17 Cinacalcet Hcl (SENSIPAR) 30 Mg Tablet, 60 MG PO DAILY, #30 TAB 10/26/15 Sevelamer Hcl (RENVELA) 800 Mg Tab, 800 MG PO TIDWM, TAB 01/23/15 Losartan Potassium (LOSARTAN POTASSIUM) 25 Mg Tablet, 25 MG PO DAILY 11/08/13 Atorvastatin Calcium (ATORVASTATIN CALCIUM) 40 Mg Tablet, 40 MG PO QHS 03/08/13 Glimepiride (AMARYL) 4 Mg Tablet, 4 MG PO BID 03/08/13 Insulin Glargine (LANTUS) 100 Units/Ml Ml, 20 MG SC BID 03/07/13 Medications in the ED Diphenhydramine HCl 25 mg ONCE STAT PO ; Start 01/23/20 at 00:38; Stop 01/23/20 at 00:39; Status UNV Famotidine 20 mg ONCE ONCE PO ; Start 01/23/20 at 00:45; Stop 01/23/20 at 00:46; Status UNV LISA FRANK MD Jan 23, 2020 00:49
[2020-01-23] MEDS ORDERED: AUGMENTIN 500-1 EACH PO (01:32)
[2020-01-23] MEDS ORDERED: BENADRYL25 M1 PO (01:32)
[2020-01-23] MEDS ORDERED: PEPCID20 MG PO (01:32)
[2020-01-23 01:54] VITALS: BP 102/61
== END 2020-01-23 01:53 | disposition home or self-care (01) ==
LOC: FSED 00:20
DX: L01.00 Impetigo, unspecified (principal); I12.0 Hypertensive chronic kidney disease with stage 5 chronic kidney disease or end stage renal disease; E11.22 Type 2 diabetes mellitus with diabetic chronic kidney disease; N18.6 End stage renal disease; Z99.2 Dependence on renal dialysis; Z95.1 Presence of aortocoronary bypass graft
CPT/HCPCS: 83518; 99283

== ENCOUNTER 2020-06-13 13:53 | Emergency (ER) | payer MEDICARE ==
[~2020-06-13] VITALS: Ht 170.2 cm; Wt 101.2 kg
[~2020-06-13 13:53] MED LIST changes: +AUGMENTIN 500-1 EACH PO; +BENADRYL25 M1 PO; +PEPCID20 MG PO
[2020-06-13] MEDS ORDERED: INSULIN REGULAR, HUMAN 100 UNIT/1 ML 3ML VIAL IV ONE (14:30)
--- OUTSIDE RECORDS SUMMARY | 2020-06-13 14:49 | XMS REPORT | Clinical Summary ---
Author Author [facility] Organization [facility] Address Unknown Phone Unavailable Care Team Providers Care Patrol Inspector Name Role Phone Ermelinda Souza MD 1 Meng Cisse MD 9 Pcp, No PCP Unavailable John Lorenzo DO PCP Allergies No Known Allergies Medications End Date Status Medication Sig Dispensed Refills Start Date Active sevelamer (RENVELA) 800 Take 3,200 mg 0 mg tablet by mouth 3 (three) times daily with meals 5 pills 3 times day. Active cinacalcet (SENSIPAR) 90 Take 90 mg by 0 MG tablet mouth daily. Active aspirin 81 MG EC tablet Take 1 tablet 0 (81 mg total) 9 by mouth Daily (1800). 01/19/2021 Active metoprolol succinate Take 0.5 15 tablet 11 01/19 (TOPROL-XL) 25 MG 24 hr tablets (12.5 0 tablet mg total) by mouth daily. 01/19/2021 Active rosuvastatin (CRESTOR) 10 Take 1 tablet 30 tablet 11 MG tablet (10 mg total) 0 by mouth daily. Active ticagrelor (BRILINTA) 90 Take 1 tablet 60 tablet 11 mg Tab tablet (90 mg total) 0 by mouth 2 (two) times daily. Active glimepiride (AMARYL) 4 MG Take 4 mg by 0 tablet mouth as needed. Active ezetimibe (ZETIA) 10 mg Take 10 mg by 0 tablet mouth daily. 0 Active ROXANA-ANGELICA 0.8 mg Tab Take 1 tablet 0 tablet by mouth 0 daily. Active gabapentin (NEURONTIN) Take 1 0 02 300 MG capsule capsule by 0 mouth daily. Active midodrine (PROAMATINE) 10 Take 10 mg by 0 01/20 MG tablet mouth 3 0 (three) times a week after dialysis MON/FRI/FRI. 08/29/2019 Discontinued (Stop Taking at Discharge) atorvastatin (LIPITOR) 40 Take 40 mg by 0 MG tablet mouth daily. 08/29/2019 Discontinued (Stop Taking at Discharge) glimepiride (AMARYL) 4 MG Take 4 mg by 0 tablet mouth 2 (two) times daily before meals. 08/29/2019 Discontinued (Stop Taking at Discharge) insulin glargine (LANTUS) Inject 0 100 unit/mL injection subcutaneousl y Per sliding scale. 08/26/2019 Discontinued (Error) sucroferric oxyhydroxide Take 500 mg 0 (VELPHORO) 500 mg Chew by mouth 2 (two) times daily. 01/20/2020 Discontinued (Stop Taking at Discharge) clopidogrel (PLAVIX) 75 Take 1 tablet 30 tablet 11 mg tablet (75 mg total) 9 by mouth daily. 03/07/2020 gabapentin (NEURONTIN) Take 1 90 capsule 11 100 MG capsule capsule (100 9 mg total) by mouth 3 (three) times daily. Additional Information Patient taking differently: 100 mg Oral 2 times daily, Indications: Patient taking 3 tabs at night, Reason: Patient taking 3 tabs at night, Reported on 12/29/2019 3:56 PM 08/26/2019 Discontinued (Error) lisinopril Take 1 tablet 16 tablet 1 (PRINIVIL,ZESTRIL) 2.5 MG (2.5 mg 9 tablet total) by mouth 4 (four) times a week On nondialysis days. 01/20/2020 Discontinued (Stop Taking at Discharge) metoprolol (TOPROL-XL) 25 Take 0.5 8 tablet 1 MG 24 hr tablet tablets (12.5 9 mg total) by mouth 4 (four) times a week On nondialysis days. 08/26/2019 Discontinued (Error) pantoprazole (PROTONIX) Take 1 tablet 60 tablet 1 40 MG tablet (40 mg total) 9 by mouth 2 (two) times daily. 08/26/2019 Discontinued (Error) folic acid-multivitamins Take 1 tablet 30 tablet 1 (NEPHRO-ANGELICA) 0.8 mg Tab by mouth 9 tablet daily. 07/09/2019 midodrine (PROAMATINE) 10 Take 1 tablet 30 tablet 1 MG tablet (10 mg total) 9 by mouth 3 (three) times a week MON/WED/FRI for 30 days Take on HD days. 09/29/2019 folic acid-multivitamins Take 1 tablet 30 tablet 0 (NEPHRO-ANGELICA) 0.8 mg Tab by mouth 0 tablet daily for 30 days. 09/28/2019 rosuvastatin (CRESTOR) 20 Take 1 tablet 30 tablet 0 MG tablet (20 mg total) 0 by mouth daily for 30 days. 09/28/2019 midodrine (PROAMATINE) 10 Take 1 tablet 30 tablet 0 MG tablet (10 mg total) 0 by mouth 2 (two) times daily as needed (give prior to dialysis and mid dialysis MWF) for up to 30 days. 04/25/2020 Discontinued lisinopriL Take 1 tablet 30 tablet 11 (PRINIVIL,ZESTRIL) 2.5 MG (2.5 mg 0 tablet total) by mouth daily. Active Problems Problem Noted Date Pre-transplant evaluation for kidney transplant 12/2019 Last Assessment & Plan: At this time he is acceptable but will be considered high risk due to his body habitus and his cardiac history. H e will be re-presented to the [facility]. CAD (coronary artery disease) 08/27/2019 S/P coronary artery stent placement 08/26/2019 Other chest pain 06/06/2019 ESRD on dialysis 03/20/2019 Anuria 03/20/2019 Hypotension 03/20/2019 Last Assessment & Plan: He takes metoprolol and midodrine at [facility]. His blood pressure was low this am. He is scheduled to see cardiology t his afternoon. S/P CABG x 1 03/20/2019 Abnormal stress test 02/18/2019 History of colonic polyps 06/18/2017 PAD (peripheral artery disease) 06/18/2017 S/P Robotic mini (WELSH-Ramus & DIVYA-LAD) 8.12.19 NICOLA , PCI of RCA prior 11/26/2016 Last Assessment & Plan: He required 2 stents and is now on bril inta. He will be considered a high risk candidate for kidney transplant du e to his cardiac history. ESRD (end stage renal disease) on dialysis 7 Last Assessment & Plan: End stage renal disease secondary to DM /HTN. He has Required diaylsis for approximately five years. He does not p roduce urine. S/P pericardial surgery 11/03/2015 Last Assessment & Plan: He required pericardial surgery in 2016 . He will require follow up with cardiology routinely. NSTEMI (non-ST elevated myocardial infarction) 10/30 Last Assessment & Plan: He will need to continue follow up with cardiology and have cardiology clearance prior to kidney transplant. ESRD (end stage renal disease) 10/02/2015 Last Assessment & Plan: He is end stage renal disease secondary to DM/HTN. He does not produce urine and has required dialysis since . 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 He will req uire aggressive diabetes management prior to transplant. Diabetic retinopathy associated with type 2 diabetes mellitus 09/06/2013 Hypertension, renal disease 09/06/2013 Last Assessment & Plan: Inactive on transplant list due to obes ity. Hyperlipidemia 09/06/2013 Secondary hyperparathyroidism of renal origin 2013 Pre-transplant evaluation for ESRD (end stage renal d isease) 05/17/2013 Last Assessment & Plan: He is an acceptable candidate for kidne y transplant pending CTA and cardiology clearance. Obesity (BMI 30-39.9) Overview: weight goal 218 L ast Assessment & Plan: His current BMI is 31 but due to his ethan dy habitus he carries his weight around his abdomen, so it appears that he has a larger abdomen/belly. Diabetes mellitus Last Assessment & Plan: Continue follow up with primary care fo r blood glucose management. ESRD on hemodialysis Resolved Problems Problem Noted Date Resolved Date Non-intractable vomiting with nausea, unspecified vomiting type 08/30/2019 12/29/2019 Cardiogenic shock 08/27/2019 12/29/2019 Pleural effusion on right 06/09/2019 12/29/2019 Shortness of breath at rest 03/20/2019 12/29/2019 Symptomatic anemia 03/20/2019 12/29/2019 Acute lower GI bleeding 03/20/2019 12/29/2019 Acute blood loss anemia 12/29/2019 Acute respiratory insufficiency 12/29/2019 Encounters Care Team Description Date Type Specialty Monica Jiménez RN Waitlist Maintenance 05/03/2020 Telephone Transplant Sim, Na Y 05/03/2020 Documentation Transplant Sim, Na Y other 05/03/2020 Telephone Transplant Ubaldo Sulema 04/28/2020 Documentation Transplant Ubaldo Sulema 04/28/2020 Documentation Transplant Ubaldo, Sulema 04/28/2020 Documentation Transplant Juany Morales 04/28/2020 Documentation Transplant Veronica Espinoza RN 04/28/2020 Documentation Transplant Veronica Espinoza RN 04/28/2020 Documentation Transplant Veronica Espinoza RN mrb follow up 04/28/2020 Telephone Transplant Veronica Espinoza RN 04/26/2020 Documentation Transplant Meng Cisse MD Pre-op examination (Primary Dx) 04/26/2020 Orders Only Cardiology Meng Cisse MD Coronary artery disease involving [place] coronary artery of [place] heart without angina pectoris (Primary Dx) 04/25/2020 Office Visit Cardiology Ermelinda Souza MD Lands, Sarah Elizabeth, NP Awaiting transplantation of kidney (Prim vane Dx); ESRD (end stage renal disease) (HCC); S/P pericardial surgery; Pre-transplant evaluation for kidney transplant; Obesity (BMI 30-39.9) 04/25/2020 Evaluation Transplant Sulema Conner COVID-19 Screening 04/24/2020 Telephone Transplant Ubaldo, Sulema 04/24/2020 Documentation Transplant Ramona Connera Appointment 04/13/2020 Telephone Transplant McgheeAnup bonner Appointment 04/11/2020 Telephone Transplant Ubaldo, Sulema Appointment 04/10/2020 Telephone Transplant UbaldoSulema son PRA kits 04/10/2020 Telephone Transplant Ubaldo, Sulema Appointment 04/10/2020 Telephone Transplant Ubaldo, Sulema 04/10/2020 Documentation Transplant Veronica Espinoza RN Waitlist Maintenance 03/23/2020 Telephone Transplant Veronica Espinoza RN 03/23/2020 Documentation Transplant Meng Cisse MD Pre-transplant evaluation for ESRD (end stage renal disease); Coronary artery disease involving [place] coronary artery of [place] heart without angina pectoris; Stented coronary artery 03/20/2020 Hospital Radiology Encounter 03/20/2020 Orders Only General Internal Mi Meng Luna MD Pre-transplant evaluation for ESRD (end stage renal disease) (Primary Dx); Coronary artery disease involving [place] coronary artery of [place] heart without angina pectoris; Stented coronary artery 01/27/2020 Orders Only Cardiology Maddy Astorga NP Pre-transplant evaluation for ESRD (end stage renal disease) (Primary Dx); Coronary artery disease involving [place] coronary artery of [place] heart without angina pectoris; Coronary artery disease involving autologous artery coronary bypass graft without angina pectoris 01/26/2020 Orders Only Cardiology Canceled (Patient) 01/25/2020 Evaluation Transplant Veronica Espinoza RN Waitlist Maintenance 01/24/2020 Telephone Transplant Natalya Meyers RN 01/21/2020 Documentation Veronica Espinoza RN 01/20/2020 Abstract Transplant Meng Cisse MD R & L CATH / CORONARY ANGIOS / PCI 01/19/2020 Surgery Meng Cisse MD Tran, Tuan Quoc, MD Abnormal stress test (Primary Dx); Coronary artery disease involving [place] coronary artery of [place] heart without angina pectoris; Pre-transplant evaluation for ESRD (end stage renal disease); S/P coronary artery stent placement 01/19/2020 [facility] Cardiac Intensive C are - Encounter 01/20/2020 01/19/2020 Travel 01/19/2020 Orders Only General Internal Mi Sulema Langston 01/18/2020 Documentation Transplant Veronica Espinoza RN Appointment 01/17/2020 Telephone Transplant Anup Mcghee covid19 screening 01/17/2020 Telephone Transplant Veronica Espinoza RN Waitlist Maintenance 12/30/2019 Telephone Transplant Veronica Espinoza RN 12/30/2019 Documentation Transplant Ermelinda Souza MD Encounter for pre-transplant evaluation for chronic kidney disease (Primary Dx); Awaiting transplantation of kidney; Abnormal stress test; Hypotension of hemodialysis 12/29/2019 Evaluation Transplant Sulema Conner 12/28/2019 Documentation Transplant Veronica Espinoza, OMAYRA Waitlist Maintenance 12/24/2019 Telephone Transplant Anup Mcghee Appointment 12/24/2019 Telephone Transplant Meng Cisse MD Pre-transplant evaluation for ESRD (end stage renal disease); Hx of CABG; S/P coronary artery stent placement 12/23/2019 Hospital Radiology Encounter Veronica Espinoza RN Prostate cancer screening (Primary Dx); ESRD (end stage renal disease) on dialysis ([facility]); Type 2 diabetes mellitus with chronic kidney disease on chronic dialysis, unspecified whether salvage determiner insulin use ([facility]) 11/24/2019 Orders Only Transplant Meng Cisse MD Pre-transplant evaluation for ESRD (end stage renal disease) (Primary Dx); Hx of CABG; S/P coronary artery stent placement 11/18/2019 Orders Only Cardiology Harmony Simmons 10/28/2019 Documentation Transplant Jarret Watkins MD 09/07/2019 Orders Only Transplant Sulema Conner Appointment 09/03/2019 Telephone Transplant Sulema Conner 09/01/2019 Documentation Transplant Sulema Conner 09/01/2019 Telephone Transplant Francy Ochoa MD Rectal bleeding (Primary Dx); History of diabetes mellitus; S/P coronary artery stent placement; ESRD on hemodialysis ([facility]) 08/30/2019 Emergency Emergency Medicine - 08/31/2019 08/30/2019 Orders Only General Internal Me dicine 08/30/2019 Travel Meng Cisse MD R & L CATH / CORONARY ANGIOS / PCI 08/26/2019 Surgery Meng Cisse MD Giveon, Ron, MD Joudah, Yobany Pittman MD Abnormal stress test (Primary Dx); Hypotension, unspecified hypotension type; Pre-transplant evaluation for ESRD (end stage renal disease); Shortness of breath at rest; ESRD on hemodialysis ([facility]); Coronary artery disease involving [place] coronary artery of [place] heart with unstable angina pectoris ([facility]); ESRD (end stage renal disease) ([facility] Cardiogenic shock ([facility]); ESRD (end stage renal disease) on dialysis ([facility]) 08/26/2019 Hospital Cardiology - Encounter 08/29/2019 08/26/2019 Travel 08/26/2019 Orders Only General Internal Me Veronica Reed RN ESRD (end stage renal disease) on dialys is ([facility]) (Primary Dx); Awaiting transplantation of kidney 08/25/2019 Orders Only Transplant Veronica Espinoza RN 08/25/2019 Orders Only Transplant Olga, Veronica, RN Waitlist Maintenance 08/04/2019 Telephone Transplant Veronica Espinoza RN 07/30/2019 Documentation Transplant Veronica Espinoza RN Awaiting transplantation of kidney (Prim vane Dx) 07/28/2019 Orders Only Transplant Meng Cisse MD Pre-transplant evaluation for ESRD (end stage renal disease); SOB (shortness of breath) 07/06/2019 Hospital Cardiology Encounter Meng Cisse MD Pre-transplant evaluation for ESRD (end stage renal disease); Hx of CABG 07/06/2019 Hospital Radiology Encounter after 06/13/2019 Immunizations Name Administration Dates Next Due Pneumococcal Conjugate 03/22/2019, 02/24/2019 (Def erred: Other - to give (Prevnar) 13-Valent prior to discharge) Family History Medical History Relation Name Comments Diabetes Brother Unremarkable Brother Unremarkable Daughter Heart disease Father Cancer Mother Unremarkable Sister Unremarkable Son Relation Name Status Comments Brother Alive Brother Alive Daughter Alive Father Mother Sister Alive Son Alive Social History Date Tobacco Use Types Packs/Day Years Used Quit: 02/18/2013 Former Smoker 1 Smokeless Tobacco: Never Used Comments: quit 5 yrs ago Drinks/Week oz/Week Comments Alcohol Use rarely Yes Sex Assigned at Date Recorded Not on file Last Filed Vital Signs Reading Time Taken Comments Vital Sign 84/48 04/25/2020 12:02 PM CDT Blood Pressure 82 04/25/2020 12:02 PM CDT Pulse 36.8 C (98.2 F) 04/25/2020 12:02 PM CDT Temperature 15 04/25/2020 12:02 PM CDT Respiratory Rate 98% 04/25/2020 12:02 PM CDT Oxygen Saturation - - Inhaled Oxygen Concentration 98 kg (216 lb) 04/25/2020 12:02 PM CDT Weight 170.2 cm (5' 7") 04/25/2020 12:02 PM CDT Height 33.83 04/25/2020 12:02 PM CDT Body Mass Index Plan of Treatment Care Team Description Date Type Specialty 06/27/2020 Office Visit Cardiology Meng Cisse MD [address] [facility] [address] [place] [id number] 06/29/2020 Hospital Encounter Meng Cisse MD [address] [facility] [address] [facility] [place] [address] R & L CATH / CORONARY ANGIOS / PCI 06/29/2020 Surgery Health Maintenance Due Date Last Done Comments DIABETIC EYE EXAM 10/04/1969 DIABETIC FOOT EXAM 10/04/1969 URINE MICROALBUMIN 10/04/1969 MEDICARE ANNUAL WELLNESS 09/19/2013 (YEAR 2 or FIRST YEAR if no IPPE) PNEUMOCOCCAL VACCINE 0-64 05/17/2019 03/22/2019, YRS (1 of 1 - PPSV23) 12/29/2017, 06/24/2013 HEMOGLOBIN A1C 02/25/2020 08/27/2019, 02/19/2019, 11/27/2016, Additional history exists INFLUENZA VACCINE (#1) 2020 LIPID PANEL 01/18/2023 01/19/2020, 08/26/2019, 02/28/2019, Additional history exists COLON CANCER SCREENING 03/26/2029 03/26/2019, COLONOSCOPY 08/21/2017, 10/27/2013 Implants Device Identifier Shelf Expiration Date Model / Serial / L ot Implanted Type Area Manufactur er [id number] 11/23/2020 [id number] / / [id number] Stent Synergy Otw 3.00v97pi IMPLANTS [place]AND[place]PH [id number] - [id number] SCI:INTERV Implanted: Qty: 1 on 02/18/2019 by CARDIOLOGY Meng Cisse MD at [facility] Description:MID RCA [id number] 03/16/2021 [id number] / / [id number] Stent Synergy Otw 2.86f16cx IMPLANTS Left: Coronary ETHAN STON [id number] - [id number] SCI:INTERV Implanted: Qty: 1 on 08/26/2019 by CARDIOLOGY Meng Cisse MD at [facility] Description:Ramus Stent [id number] 03/29/2021 [id number] / / [id number] Stent Synergy Otw 3.02d90fi IMPLANTS [place]PH [id number] - [id number] SCI:INTERV Implanted: Qty: 1 on 08/26/2019 by CARDIOLOGY Meng Cisse MD at [facility] [id number] 03/15/2021 [id number] / / [id number] Stent Synergy Otw 3.50x8mm IMPLANTS [place] [id number] - [id number] SCI:INTERV Implanted: Qty: 1 on 08/26/2019 by CARDIOLOGY Meng Cisse MD at [facility] 06/08/2021 [id number] / / [id number] Stent Synergy Otw 2.54k35ns IMPLANTS N/A: Coronary ETHAN STON [id number] - [id number] SCI:INTERV Implanted: Qty: 1 on 01/19/2020 by CARDIOLOGY Meng Cisse MD at [facility] Description:Coronary stent (diag) 04/26/2021 [id number] / / [id number] Stent Synergy Otw 3.00x8mm IMPLANTS RANDOLPH [id number] - [id number] SCI:INTERV Implanted: Qty: 1 on 01/19/2020 by CARDIOLOGY Meng Cisse MD at [facility] Description:3 x 8 stent to LAD 02/22/2018 [id number] / / [id number] [employer] Promus Premier Stents-Cor N/A: Coronary [place] Implanted: Qty: 1 on 11/26/2016 by [place] Meng Lester MD at [facility] [id number] / / [id number] Promus Premier [place] Implanted: Qty: 1 on 10/31/2015 at [facility] [id number] / / [id number] Promus Premier [place] Implanted: Qty: 1 on 10/31/2015 at [facility] Procedures Comments Procedure Name Priority Date/Time Associated Diag nosis NM MYOCARDIAL PERFUSION Routine 03/20/2020 Pre-tr ansplant evaluation PET/CT (REST & STRESS) 11:23 AM CDT for ESRD (end stage renal disease) Coronary artery disease involving [place] coronary artery of [place] heart without angina pectoris Stented coronary artery TREADMILL Routine 03/20/2020 TOLERANCE(NON-NUCLEAR 11:10 AM CDT TREADMILL) ECG 12-LEAD Routine 03/20/2020 11:07 AM CDT ECG 12-LEAD Routine 03/20/2020 11:07 AM CDT Procedure Note - Interface, External Ris In - 03/20/2020 11:25 AM CDT Ventricula r Rate 75 BPM Atrial Rate 75 BPM P-R Interval 188 ms QRS Duration 86 ms Q-T Interval 420 ms QTC Calculatio n(Bazett) 469 ms P Durham 64 degrees R Durham 43 degrees T Durham 83 degrees Normal sinus rhythm Normal ECG CARDIAC CATH REPORT - 01/24/2020 SCAN 1:00 PM CDT RHYTHM STRIP - SCAN 01/24/2020 1:00 PM CDT REPORT OF PROCEDURE - 01/24/2020 ENDOSCOPY SCAN 1:00 PM CDT VASCULAR DIAGRAM -SCAN 01/24/2020 1:00 PM CDT VASCULAR DIAGRAM -SCAN 01/21/2020 3:40 PM CDT HEMODIALYSIS INPATIENT Routine 01/20/2020 2:40 PM CDT 2D ECHO W/ DOPPLER STAT 01/20/2020 (CW/PW/COLOR) 1:33 PM CDT POCT-GLUCOSE METER Routine 01/20/2020 10:55 AM CDT POCT-GLUCOSE METER Routine 01/20/2020 8:42 AM CDT MAGNESIUM Routine 01/20/2020 3:38 AM CDT CBC (HEMOGRAM ONLY) Routine 01/20/2020 3:38 AM CDT BASIC METABOLIC PANEL (7) Routine 01/20/2020 3:38 AM CDT POCT-ACT Routine 01/19/2020 10:39 PM CDT POCT-ACT Routine 01/19/2020 9:57 PM CDT HEPATITIS B SURFACE STAT 01/19/2020 ANTIGEN 9:53 PM CDT ECG 12-LEAD Routine 01/19/2020 7:34 PM CDT Procedure Note - Interface, External Ris In - 01/19/2020 7:36 PM CDT Ventricula r Rate 72 BPM Atrial Rate 72 BPM P-R Interval 174 ms QRS Duration 88 ms Q-T Interval 414 ms QTC Calculatio n(Bazett) 453 ms P Durham 56 degrees R Durham -5 degrees T Durham 81 degrees Sinus rhythm with occasional Premature ventricula r complexes Otherwise normal ECG When compared with ECG of 0 09:54, No significan t change was found ECG 12-LEAD STAT 01/19/2020 7:34 PM CDT POCT-GLUCOSE METER Routine 01/19/2020 7:22 PM CDT POCT-ACT Routine 01/19/2020 6:37 PM CDT POCT-ACT Routine 01/19/2020 6:02 PM CDT POCT-ACT Routine 01/19/2020 5:42 PM CDT BASIC METABOLIC PANEL (7) STAT 01/19/2020 5:06 PM CDT LIPID PANEL Add-On 01/19/2020 5:06 PM CDT R & L CATH / CORONARY 01/19/2020 Abnormal stress test ANGIOS / PCI 4:37 PM CDT Case Notes 6TOP / [id number] SARS-COV2/RT-PCR ([facility] & STAT 01/19/2020 REF LABS) 2:10 PM CDT CBC W/PLT COUNT & AUTO Routine 01/19/2020 DIFFERENTIAL 9:55 AM CDT PT/APTT Routine 01/19/2020 9:55 AM CDT CBC W/PLT COUNT & AUTO Routine 01/19/2020 DIFFERENTIAL 9:55 AM CDT BASIC METABOLIC PANEL (7) Routine 01/19/2020 9:55 AM CDT ECG 12-LEAD Routine 01/19/2020 9:54 AM CDT Procedure Note - Interface, External Ris In - 01/19/2020 10:01 AM CDT Ventricula r Rate 74 BPM Atrial Rate 74 BPM P-R Interval 168 ms QRS Duration 84 ms Q-T Interval 410 ms QTC Calculatio n(Bazett) 455 ms P Durham 47 degrees R Durham 2 degrees T Durham 87 degrees Sinus rhythm with frequent Premature ventricula r complexes Possible Left atrial enlargemen t Borderline ECG When compared with ECG of 0 20:32, Criteria for Inferior infarct are no longer Present ECG 12-LEAD Routine 01/19/2020 9:54 AM CDT PSA Routine 12/29/2019 Prostate cancer screening 3:38 PM CDT ESRD (end stage renal disease) on dialysis (HCC) Type 2 diabetes mellitus with chronic kidney disease on chronic dialysis, unspecified whether salvage determiner insulin use (HCC) FLOW PRA CLASS II WITH Routine 12/29/2019 Awaitin g transplantation REFLEX TO ANTIBODY 3:38 PM CDT of kidney SPECIFICITY FLOW PRA CLASS I WITH Routine 12/29/2019 Awaiting transplantation REFLEX TO ANTIBODY 3:38 PM CDT of kidney SPECIFICITY NM MYOCARDIAL PERFUSION Routine 12/23/2019 Pre-tr ansplant evaluation PET/CT (REST & STRESS) 8:38 AM CDT for ESRD (end stage renal disease) Hx of CABG S/P coronary artery stent placement TREADMILL Routine 12/23/2019 TOLERANCE(NON-NUCLEAR 8:33 AM CDT TREADMILL) REPORT OF PROCEDURE - 09/03/2019 ENDOSCOPY SCAN 3:21 PM [employer] VASCULAR DIAGRAM -SCAN 09/01/2019 1:32 PM [employer] CBC W/PLT COUNT & AUTO STAT 08/30/2019 DIFFERENTIAL 8:59 PM [employer] LACTIC ACID, VENOUS STAT 08/30/2019 8:59 PM [employer] CBC W/PLT COUNT & AUTO STAT 08/30/2019 DIFFERENTIAL 8:59 PM [employer] PT/APTT STAT 08/30/2019 8:58 PM [employer] HEPATIC FUNCTION PANEL STAT 08/30/2019 8:58 PM [employer] LIPASE STAT 08/30/2019 8:58 PM [employer] AMYLASE STAT 08/30/2019 8:58 PM [employer] COMPREHENSIVE METABOLIC STAT 08/30/2019 PANEL 8:58 PM [employer] ECG 12-LEAD Routine 08/30/2019 8:32 PM [employer] Procedure Note - Interface, External Ris In - 08/31/2019 7:27 AM [employer] Ventricula r Rate 94 BPM Atrial Rate 94 BPM P-R Interval 166 ms QRS Duration 90 ms Q-T Interval 364 ms QTC Calculatio n(Bazett) 455 ms P Durham 41 degrees R Durham -4 degrees T Durham 99 degrees Sinus rhythm with occasional Premature ventricula r complexes Inferior infarct , age undetermin ed T wave abnormalit y, consider lateral ischemia Abnormal ECG When compared with ECG of 0 11:40, Premature ventricula r complexes are now Present ECG 12-LEAD STAT 08/30/2019 8:32 PM [employer] CARDIAC CATH REPORT - 08/30/2019 SCAN 2:00 PM [employer] VASCULAR DIAGRAM -SCAN 08/30/2019 2:00 PM OCCUPATIONAL THERAPIST ASSISTANTS RHYTHM STRIP - SCAN 08/30/2019 2:00 PM OCCUPATIONAL THERAPIST ASSISTANTS CBC W/PLT COUNT & AUTO Routine 08/29/2019 DIFFERENTIAL 10:48 AM OCCUPATIONAL THERAPIST ASSISTANTS CBC W/PLT COUNT & AUTO Routine 08/29/2019 DIFFERENTIAL 10:48 AM OCCUPATIONAL THERAPIST ASSISTANTS PHOSPHORUS Routine 08/29/2019 10:48 AM OCCUPATIONAL THERAPIST ASSISTANTS MAGNESIUM Routine 08/29/2019 10:48 AM OCCUPATIONAL THERAPIST ASSISTANTS BASIC METABOLIC PANEL (7) Routine 08/29/2019 10:48 AM OCCUPATIONAL THERAPIST ASSISTANTS HEMODIALYSIS INPATIENT Routine 08/28/2019 8:14 PM OCCUPATIONAL THERAPIST ASSISTANTS POCT-GLUCOSE METER Routine 08/28/2019 5:30 PM OCCUPATIONAL THERAPIST ASSISTANTS POTASSIUM Routine 08/28/2019 10:23 AM OCCUPATIONAL THERAPIST ASSISTANTS POCT-GLUCOSE METER Routine 08/28/2019 7:47 AM OCCUPATIONAL THERAPIST ASSISTANTS CBC W/PLT COUNT & AUTO Routine 08/28/2019 DIFFERENTIAL 4:43 AM OCCUPATIONAL THERAPIST ASSISTANTS FERRITIN Routine 08/28/2019 4:43 AM OCCUPATIONAL THERAPIST ASSISTANTS IRON, TIBC, % SAT. Routine 08/28/2019 (WITHOUT FERRITIN) 4:43 AM OCCUPATIONAL THERAPIST ASSISTANTS PHOSPHORUS Routine 08/28/2019 4:43 AM OCCUPATIONAL THERAPIST ASSISTANTS MAGNESIUM Routine 08/28/2019 4:43 AM OCCUPATIONAL THERAPIST ASSISTANTS BASIC METABOLIC PANEL (7) Routine 08/28/2019 4:43 AM OCCUPATIONAL THERAPIST ASSISTANTS CBC W/PLT COUNT & AUTO Routine 08/28/2019 DIFFERENTIAL 4:43 AM OCCUPATIONAL THERAPIST ASSISTANTS POCT-GLUCOSE METER Routine 08/27/2019 9:54 PM OCCUPATIONAL THERAPIST ASSISTANTS ECHOCARDIOGRAM REPORT - 08/27/2019 SCAN 9:12 PM OCCUPATIONAL THERAPIST ASSISTANTS HEMODIALYSIS INPATIENT Routine 08/27/2019 8:45 PM OCCUPATIONAL THERAPIST ASSISTANTS CORTISOL,60 MIN Routine 08/27/2019 5:55 PM OCCUPATIONAL THERAPIST ASSISTANTS POCT-GLUCOSE METER Routine 08/27/2019 5:41 PM OCCUPATIONAL THERAPIST ASSISTANTS CORTISOL,30 MIN Routine 08/27/2019 5:19 PM OCCUPATIONAL THERAPIST ASSISTANTS CORTISOL,BASELINE Routine 08/27/2019 4:38 PM OCCUPATIONAL THERAPIST ASSISTANTS ACTH STIMULATION Routine 08/27/2019 4:38 PM OCCUPATIONAL THERAPIST ASSISTANTS 2D ECHO W/ DOPPLER STAT 08/27/2019 (CW/PW/COLOR) 11:42 AM OCCUPATIONAL THERAPIST ASSISTANTS POCT-GLUCOSE METER Routine 08/27/2019 11:23 AM OCCUPATIONAL THERAPIST ASSISTANTS POCT-GLUCOSE METER Routine 08/27/2019 7:30 AM OCCUPATIONAL THERAPIST ASSISTANTS CBC W/PLT COUNT & AUTO Routine 08/27/2019 DIFFERENTIAL 4:22 AM OCCUPATIONAL THERAPIST ASSISTANTS HEMOGLOBIN A1C Routine 08/27/2019 4:22 AM OCCUPATIONAL THERAPIST ASSISTANTS HEPATITIS B SURFACE Routine 08/27/2019 ANTIGEN 4:22 AM OCCUPATIONAL THERAPIST ASSISTANTS PHOSPHORUS Routine 08/27/2019 4:22 AM OCCUPATIONAL THERAPIST ASSISTANTS MAGNESIUM Routine 08/27/2019 4:22 AM OCCUPATIONAL THERAPIST ASSISTANTS BASIC METABOLIC PANEL (7) Routine 08/27/2019 4:22 AM OCCUPATIONAL THERAPIST ASSISTANTS CBC W/PLT COUNT & AUTO Routine 08/27/2019 DIFFERENTIAL 4:22 AM OCCUPATIONAL THERAPIST ASSISTANTS POCT-GLUCOSE METER Routine 08/26/2019 9:15 PM OCCUPATIONAL THERAPIST ASSISTANTS POCT-ACT Routine 08/26/2019 8:54 PM OCCUPATIONAL THERAPIST ASSISTANTS POCT-ACT Routine 08/26/2019 7:44 PM OCCUPATIONAL THERAPIST ASSISTANTS POCT-GLUCOSE METER Routine 08/26/2019 4:38 PM OCCUPATIONAL THERAPIST ASSISTANTS POCT-ACT Routine 08/26/2019 3:19 PM OCCUPATIONAL THERAPIST ASSISTANTS POCT-ACT Routine 08/26/2019 2:29 PM OCCUPATIONAL THERAPIST ASSISTANTS POCT-ACT Routine 08/26/2019 2:10 PM OCCUPATIONAL THERAPIST ASSISTANTS R & L CATH / CORONARY 08/26/2019 Abnormal stress test ANGIOS / PCI 12:53 PM OCCUPATIONAL THERAPIST ASSISTANTS Case Notes 6TOP LIPID PANEL Routine 08/26/2019 11:51 AM OCCUPATIONAL THERAPIST ASSISTANTS BASIC METABOLIC PANEL (7) Routine 08/26/2019 11:51 AM OCCUPATIONAL THERAPIST ASSISTANTS ECG 12-LEAD Routine 08/26/2019 11:40 AM OCCUPATIONAL THERAPIST ASSISTANTS Procedure Note - Interface, External Ris In - 08/26/2019 11:47 AM OCCUPATIONAL THERAPIST ASSISTANTS Ventricula r Rate 86 BPM Atrial Rate 86 BPM P-R Interval 168 ms QRS Duration 88 ms Q-T Interval 368 ms QTC Calculatio n(Bazett) 440 ms P Durham 47 degrees R Durham -2 degrees T Durham 89 degrees Normal sinus rhythm Normal ECG When compared with ECG of 9 13:29, T wave inversion now evident in Lateral leads ECG 12-LEAD Routine 08/26/2019 11:40 AM OCCUPATIONAL THERAPIST ASSISTANTS CBC W/PLT COUNT & AUTO Routine 08/26/2019 DIFFERENTIAL 11:12 AM OCCUPATIONAL THERAPIST ASSISTANTS PT/APTT Routine 08/26/2019 11:12 AM OCCUPATIONAL THERAPIST ASSISTANTS CBC W/PLT COUNT & AUTO Routine 08/26/2019 DIFFERENTIAL 11:12 AM OCCUPATIONAL THERAPIST ASSISTANTS CHG CT SCAN,ABDOMENT AND Routine 08/05/2019 PELVIS,W/O CONTRAST NM MYOCARDIAL PERFUSION Routine 07/06/2019 Pre-tr ansplant evaluation SPECT, PHARM(LEXISCAN) 3:42 PM OCCUPATIONAL THERAPIST ASSISTANTS for ESRD (end stage renal disease) Hx of CABG TREADMILL Routine 07/06/2019 TOLERANCE(NON-NUCLEAR 1:42 PM OCCUPATIONAL THERAPIST ASSISTANTS TREADMILL) ECG 12-LEAD Routine 07/06/2019 1:29 PM OCCUPATIONAL THERAPIST ASSISTANTS ECG 12-LEAD Routine 07/06/2019 1:29 PM OCCUPATIONAL THERAPIST ASSISTANTS Procedure Note - Interface, External Ris In - 07/06/2019 2:00 PM OCCUPATIONAL THERAPIST ASSISTANTS Ventricula r Rate 89 BPM Atrial Rate 89 BPM P-R Interval 168 ms QRS Duration 78 ms Q-T Interval 372 ms QTC Calculatio n(Bazett) 452 ms P Durham 51 degrees R Durham 24 degrees T Durham 62 degrees Normal sinus rhythm Normal ECG after 06/13/2019 Results * NM Myocardial Perfusion Pet/CT (Rest & Stress) (03/20/2020 11:23 AM CDT) Only the most recent of 2 results within the time period is included. Specimen Narrative Performed At FINAL REPORT Proteopure RIS PROCEDURE: MYOCARDIAL PERFUSION PET DAMIÁN GING (Rest/Stress) CPT CODE: 20668 INDICATION: Evaluation of known CAD jamarcus or to renal transplant CARDIOVASCULAR PROFILE: CAD History: Known CAD Symptoms: None Risk Factors: Diabetes, hypertension, h yperlipidemia, family history of early CAD, obesity. BMI: 30.1 Medications: Aspirin, lisinopril, metop rolol, Crestor, Brilinta. STRESS PROTOCOL: Pharmacologic stress was achieved with a 10-second intravenous infusion of regadenoson 0.4 mg. The rad iopharmaceutical was administered 30 seconds after the start of the regadenoson infusion. IMAGING PROTOCOL: Limited low-dose CT imaging was perform ed for attenuation correction. 40.2 mCi of Rb-82 chloride was injected intravenously at rest, and gated PET images were obtained. Then, 4 0.0 mCi of Rb-82 chloride was injected intravenously at peak stress, and gated PET images were obtained. Image quality is good. REST FINDINGS: HR: 78/min BP: 113/45 mmHg Prelim. EKG: Normal sinus rhythm. Perfusion: Normal. Wall Motion: Normal (LVEF 59%). LV Volume: Normal. RV Volume: Normal. STRESS FINDINGS: HR: 87/min (54% of MPHR) BP: 100/34 mmHg Prelim. EKG: No ischemic changes. Symptoms: Dyspnea (treatment not requir ed). Perfusion: There is a moderate severity perfusion defect of the basal lateral wall Wall Motion: Normal (LVEF 64%). LV Volume: Not significantly changed fr om rest. IMPRESSION: 1. Abnormal study. 2. Abnormal myocardial perfusion. There is a medium size, moderate severity, reversible perfusion abnormal ity in the basal lateral wall 3. Normal resting LVEF, which does not deteriorate with pharmacologic stress. 4. Normal extracardiac tracer distribut ion. 5. No significant change compared to st udy performed on December 23, 2019. Signed: Jose Ospina MD Report Verified Date/Time: 03/20/2020 14:37:10 Reading Location: [address] Reading Room Procedure Note Interface, External Ris In - 03/20/2020 2:39 PM CDT FINAL REPORT PROCEDURE: MYOCARDIAL PERFUSION PET IMAGING (Rest/Stress) CPT CODE: 20384 INDICATION: Evaluation of known CAD prior to renal transplant CARDIOVASCULAR PROFILE: CAD History: Known CAD Symptoms: None Risk Factors: Diabetes, hypertension, hyperlipidemia, family history of early CAD, obesity. BMI: 30.1 Medications: Aspirin, lisinopril, metoprolol, Crestor, Brilinta. STRESS PROTOCOL: Pharmacologic stress was achieved with a 10-second intravenous infusion of regadenoson 0.4 mg. The radiopharmaceutical was administered 30 seconds after the start of the regadenoson infusion. IMAGING PROTOCOL: Limited low-dose CT imaging was performed for attenuation correction. 40.2 mCi of Rb-82 chloride was injected intravenously at rest, and gated PET images were obtained. Then, 40.0 mCi of Rb-82 chloride was injected intravenously at peak stress, and gated PET images were obtained. Image quality is good. REST FINDINGS: HR: 78/min BP: 113/45 mmHg Prelim. EKG: Normal sinus rhythm. Perfusion: Normal. Wall Motion: Normal (LVEF 59%). LV Volume: Normal. RV Volume: Normal. STRESS FINDINGS: HR: 87/min (54% of MPHR) BP: 100/34 mmHg Prelim. EKG: No ischemic changes. Symptoms: Dyspnea (treatment not required). Perfusion: There is a moderate severity perfusion defect of the basal lateral wall Wall Motion: Normal (LVEF 64%). LV Volume: Not significantly changed from rest. IMPRESSION: 1. Abnormal study. 2. Abnormal myocardial perfusion. There is a medium size, moderate severity, reversible perfusion abnormality in the basal lateral wall 3. Normal resting LVEF, which does not d eteriorate with pharmacologic stress. 4. Normal extracardiac tracer distributi on. 5. No significant change compared to iram dy performed on December 23, 2019. Signed: Jose Ospina MD Report Verified Date/Time: 03/20/2020 14:37:10 Reading Location: [address] Reading Room Performing Organization Address City/State/Zipcode Ph one Number GE RIS * Treadmill tolerance(Non-Nuclear Treadmill) (03/20/2020 11:10 AM CDT) Only the most recent of 3 results within the time period is included. Specimen Narrative Performed At Protocol Name ITA Software MUSE Time In Exercise Phase 00:01:00 Max. Systolic BP 100 mmHg Max Diastolic BP 34 mmHg Max Heart Rate 87 BPM Max Predicted Heart Rate 160 BPM Reason For Termination Predetermined en d point Reason for Test Pre-transplant Eval for ESRD Target HR Formula (220 - Age)*100% Arrhythmias none Resting ECG Normal sinus rhythm ST Changes No Significant Changes Overall Impression Indeterminate due to pharmacological stress Nuclear data reported separately Chest Pain none HR Response To Exercise BP Response To Exercise ASA,Lisinopril.Metoprolol Crestor,Brilinta Confirmed by fellow Colleen Fox ([id number]) on 03/20/2020 1:54:28 PM Confirmed by Candy LANDIS, ENRRIQUE ([id number]) on 03/22/2020 5:04:50 PM Procedure Note Interface, External Ris In - 03/22/2020 5:05 PM CDT Protocol Name Regadenoson Time In Exercise Phase 00:01:00 Max. Systolic BP 100 mmHg Max Diastolic BP 34 mmHg Max Heart Rate 87 BPM Max Predicted Heart Rate 160 BPM Reason For Termination Predetermined end point Reason for Test Pre-transplant Eval for ESRD Target HR Formula (220 - Age)*100% Arrhythmias none Resting ECG Normal sinus rhythm ST Changes No Significant Changes Overall Impression Indeterminate due to pharmacological stress Nuclear data reported separately Chest Pain none HR Response To Exercise BP Response To Exercise ASA,Lisinopril.Metoprolol Crestor,Brilinta Confirmed by fellow Colleen Fox ([id number]) on 03/20/2020 1:54:28 PM Confirmed by Candy LANDIS, ENRRIQUE ([id number]) on 03/22/2020 5:04:50 PM Performing Organization Address [place] [place] GE MUSE * ECG 12 lead (03/20/2020 11:07 AM CDT) Only the most recent of 6 results within the time period is included. Specimen Narrative Performed At Ventricular Rate 75 BPM GE MUSE Atrial Rate 75 BPM P-R Interval 188 ms QRS Duration 86 ms Q-T Interval 420 ms QTC Calculation(Bazett) 469 ms P Durham 64 degrees R Durham 43 degrees T Durham 83 degrees Normal sinus rhythm T wave inversion in aVL Prolonged QT 19 JAN 2020 PVCs no longer seen QT has lengthened Confirmed by MD EWING YOCHAI ([id number] ) on 03/20/2020 4:48:37 PM Procedure Note Interface, External Ris In - 03/20/2020 4:48 PM CDT Ventricular Rate 75 BPM Atrial Rate 75 BPM P-R Interval 188 ms QRS Duration 86 ms Q-T Interval 420 ms QTC Calculation(Bazett) 469 ms P Durham 64 degrees R Durham 43 degrees T Durham 83 degrees Normal sinus rhythm T wave inversion in aVL Prolonged QT 19 JAN 2020 PVCs no longer seen QT has lengthened Confirmed by MD EWING YOCHAI ([id number]) on 03/20/2020 4:48:37 PM Performing Organization Address City/State/Zipcode Ph one Number GE MUSE * CARDIAC CATH REPORT - SCAN (01/24/2020 1:00 PM CDT) Narrative Performed At This result has an attachment that is n ot available. * RHYTHM STRIP - SCAN (01/24/2020 1:00 PM CDT) Only the most recent of 2 results within the time period is included. Narrative Performed At This result has an attachment that is n ot available. * EKG-SCANNED (01/24/2020 1:00 PM CDT) Only the most recent of 2 results within the time period is included. Narrative Performed At This result has an attachment that is n ot available. * VASCULAR DIAGRAM -SCAN (01/24/2020 1:00 PM CDT) Only the most recent of 4 results within the time period is included. Narrative Performed At This result has an attachment that is n ot available. * HEMODIALYSIS INPATIENT (01/20/2020 2:40 PM CDT) Narrative Performed At Eli Parmar RN 01/20/2020 2:46 PM Tolerated HD over 4 hrs via left arm AVF. System clotted x 1, able to return blood. NET removal was 2 liters. Tx complete, pt tolerated well, hemostasis obtained to Left arm AVF +B/+T noted. Patient denies pain or any other compla ints. Pt remains in CCU bed 6, a/a&ox3, call trujillo with in reach . Lab Results Component Value Date WBC 5.5 01/20/2020 HGB 11.2 (L) 01/20/2020 HCT 35.5 (L) 01/20/2020 MCV 100.3 (H) 01/20/2020 PLT 134 (L) 01/20/2020 Lab Results Component Value Date GLUCOSE 93 01/20/2020 CALCIUM 7.5 (L) 01/20/2020 NA 135 (L) 01/20/2020 K 5.0 01/20/2020 CO2 26 01/20/2020 CL 98 01/20/2020 BUN 59 (H) 01/20/2020 CREATININE 10.15 (H) 01/20/2020 Lab Results Component Value Date HEPBSAG Nonreactive 01/19/2020 ] Lab Results Component Value Date HEPBIGM Nonreactive 09/06/2013 HEPCAB Nonreactive 09/06/2013 Lab Results Component Value Date HIV1X2 Nonreactive 09/06/2013 Coag Profile: Protime Date Value Ref Range Status 01/19/2020 13.9 11.9 - 14.2 seconds Fin al INR Date Value Ref Range Status 01/19/2020 1.1 <=5.9 Final PTT Date Value Ref Range Status 01/19/2020 29.3 22.5 - 36.0 seconds Fin al * 2D Echo W/Doppler(CW/PW/Color) (01/20/2020 1:33 PM CDT) Ejection [facility] ECHO Fraction [facility] Specimen Narrative Performed At Transthoracic Echocardiography Report (TTE) SLE ECH O [facility]ARTLAB Demographics [facility] Patient Name AARON RICE of Study 01/20/2020 ANTOINE Gender Male Visit Number [id number] R joy Other Room Number 6106 Number Date of 1960 R eferring Physician Meng iCsse MD Age 59 year(s) Flight Operations Manager Mariana Elise [facility] Billing Coordinator Drew Pal Interpreting Ilya Davis MD Physician Procedure Type of Study TTE procedure:2DECHO W DOPP LER(CW/PW/COLOR) (STAT) Indications:Acute Chest Pain/ Suspected CAD. Clinical History SOB, ESRD on HD, Abnormal stress test, Former smoker, CAD s/p ACB 03/01/19, h/o ECMO 03/01/19, Multiple cath procedu res, DM, [place], Obesity, PAD HGB 11.2 HCT 35.5 % Height: 70 inches Weight: 96.62 kg (213 lbs) BSA: 2.14 m^2 BMI: 30.56 kg/m^2 HR: 84 bpm BP: 125/67 mmHg Summary 1. The left ventricle is chamber size ( by vol index) is normal. Mild concentric LV hypertrophy. All of the L V segments are hyperkinetic . Estimated LVEF by qualitative assessmen t is increased (>70%) . Grade 1 diastolic dysfunction (impaired relaxat ion and low-normal LA pressure). LA size is normal . 2. Normal right ventricle structure and function. Normal right atrium. Unable to estimate peak systolic PA pre ssure; inadequate TR velocity signal. 3. Aortic valve sclerosis without steno sis. Previous Study Compared to the previous study there wa s no significant change. Signature Findings Technical Quality: Technically difficul t exam. Left Ventricle The left porter tricle is chamber size (by vol index) is n ormal (male - LVED vol - 34-74ml/m2). Mild conc entric LV hypertrophy. All of the LV segments are hyperkinetic . Estimated LVEF by qualitative asse ssment is increased (>70%) . Grade 1 diastolic dysf unction (impaired relaxation and low-normal LA pres sure). Left Atrium LA size is normal . Right Ventricle Normal right ventricle structure and function. Right Atrium Normal righ t atrium. Aortic Valve Mild to mod erate AoV cusp thickening and calc ification. Predominantly involving the NCC. Aort ic valve sclerosis without stenosis. Mitral Valve Mild MV nathanael flet thickening. Tricuspid Valve A trace of t ricuspid regurgitation. Unab le to estimate peak systolic PA pressure; inad equate TR velocity signal. Pulmonic Valve Normal PV st ructure and function by limited views and Doppler. Aorta Aortic root size (SInus of Valsalva diameter) is norm al . Pericardium No evidenc e of pericardial effusion. IVC/SVC/PA/PV/Pleural The estimated R A pressure by IVC dynamics 5-10mmHg . Chambers/Structures Left Atrium LA Dimension: 3.76 cm LA Area: 18.8 cm^2 LA Volume: 54.79 ml LA Vol. Index: 26 ml/m^2 Left Ventricle LVIDd: 4.05 cm LV Septum Diastolic: 1.16 cm LV PW Diastolic: 1.16 cm LVEDV Cisse's:85.56 ml LVESV Cisse's:21.42 ml LVEF Cisse's: 75 % LVEDVI: 40 ml/m^2 LVESVI: 10 ml/m^2 LVOT Diameter: 2.23 cm Aorta Ao Root S of Jocelyn.: 3.09 cm Doppler/Quantitative Measurements LVOT Peak Velocity: 1.35 m/s Peak Gradient: 7.34 mmHg Mean Velocity: 0.8 m/s Mean Gradient: 3.15 mmHg LVOT Diameter: 2.23 cm LVOT VTI: 21.15 cm LVOT Area: 3.91 cm^2 LVOT SV:82.56 ml LVOT CO: 6.94 l/min LVOT CI: 3.24 l/min/m^2 Procedure Note Interface, External Ris In - 01/20/2020 5:45 PM CDT Transthoracic Echocardiography Report (TTE) Demographics Patient Name AARON RICE Date of Study 01/20/2020 ANTOINE Gender Male Visit Number [id number] Race Other Room Number 6106 Number Date of 1960 Referring Physician Meng Cisse MD Age 59 year(s) Flight Operations Manager Mariana Elise [facility] Billing Coordinator Drew Pal Interpreting Ilya Davis MD Physician Procedure Type of Study TTE procedure:2DECHO W DOPPLER(CW/PW/COLOR) (STAT) Indications:Acute Chest Pain/ Suspected CAD. Clinical History SOB, ESRD on HD, Abnormal stress test, Former smoker, CAD s/p ACB 03/01/19, h/o ECMO 03/01/19, Multiple cath procedures, DM, [place], Obesity, PAD HGB 11.2 HCT 35.5 % Height: 70 inches Weight: 96.62 kg (213 lbs) BSA: 2.14 m^2 BMI: 30.56 kg/m^2 HR: 84 bpm BP: 125/67 mmHg Summary 1. The left ventricle is chamber size (by vol index) is normal. Mild concentric LV hypertrophy. All of the LV segments are hyperkinetic . Estimated LVEF by qualitative assessment is increased (>70%) . Grade 1 diastolic dysfunction (impaired relaxation and low-normal LA pressure). LA size is normal . 2. Normal right ventricle structure and function. Normal right atrium. Unable to estimate peak systolic PA pressure; inadequate TR velocity signal. 3. Aortic valve sclerosis without stenosis. Previous Study Compared to the previous study there was no significant change. Signature Findings Technical Quality: Technically difficult exam. Left Ventricle The left ventricle is chamber size (by vol index) is normal (male - LVED vol - 34-74ml/m2). Mild concentric LV hypertrophy. All of the LV segments are hyperkinetic . Estimated LVEF by qualitative assessment is increased (>70%) . Grade 1 diastolic dysfunction (impaired relaxation and low-normal LA pressure). Left Atrium LA size is normal . Right Ventricle Normal right ventricle structure and function. Right Atrium Normal right atrium. Aortic Valve Mild to moderate AoV cusp thickening and calcification. Predominantly involving the NCC. Aortic valve sclerosis without stenosis. Mitral Valve Mild MV leaflet thickening. Tricuspid Valve A trace of tricuspid regurgitation. Unable to estimate peak systolic PA pressure; inadequate TR velocity signal. Pulmonic Valve Normal PV structure and function by limited views and Doppler. Aorta Aortic root size (SInus of Valsalva diameter) is normal . Pericardium No evidence of pericardial effusion. IVC/SVC/PA/PV/Pleural The estimated RA pressure by IVC dynamics 5-10mmHg . Chambers/Structures Left Atrium LA Dimension: 3.76 cm LA Area: 18.8 cm^2 LA Volume: 54.79 ml LA Vol. Index: 26 ml/m^2 Left Ventricle LVIDd: 4.05 cm LV Septum Diastolic: 1.16 cm LV PW Diastolic: 1.16 cm LVEDV Cisse's:85.56 ml LVESV Cisse's:21.42 ml LVEF Cisse's: 75 % LVEDVI: 40 ml/m^2 LVESVI: 10 ml/m^2 LVOT Diameter: 2.23 cm Aorta Ao Root S of Jocelyn.: 3.09 cm Doppler/Quantitative Measurements LVOT Peak Velocity: 1.35 m/s Peak Gradient: 7.34 mmHg Mean Velocity: 0.8 m/s Mean Gradient: 3.15 mmHg LVOT Diameter: 2.23 cm LVOT VTI: 21.15 cm LVOT Area: 3.91 cm^2 LVOT SV:82.56 ml LVOT CO: 6.94 l/min LVOT CI: 3.24 l/min/m^2 Performing Organization Address City/[facility] [place] one Number SLE ECHO [facility]ART[facility] MKCKESSON CPACS * POC-Glucose meter (01/20/2020 10:55 AM CDT) Only the most recent of 11 results within the time period is included. [facility] POC-Glucose 106Comment: : TESTED AT [facility] 70 - 110 mg/dL [facility] Meter [id number] [facility] [id number]: Char Puller/X Ray Developer ID [facility] = [id number] for Ghulam Benitez Specimen Blood Performing Organization Address [facility] one Number [facility] [address] [place], [place] [address] [facility] * CBC (Hemogram only) (01/20/2020 3:38 AM CDT) [facility] WBC 5.5 3.5 - 10.5 K/L [facility] RBC 3.54 (L) 4.63 - 6.08 M/L [facility] Hemoglobin 11.2 (L) 13.7 - 17.5 GM/DL [facility] Hematocrit 35.5 (L) 40.1 - 51.0 % [facility] MCV 100.3 (H) 79.0 - 92.2 fL [facility] MCH 31.6 25.7 - 32.2 pg [facility] MCHC 31.5 (L) 32.3 - 36.5 GM/DL [facility] RDW 13.7 11.6 - 14.4 % [facility] Platelets 134 (L) 150 - 450 K/CU MM [facility] MPV 11.8 9.4 - 12.4 fL [facility] nRBC 0 0 - 0 /100 WBC [facility] Specimen Blood Performing Organization Address City/[facility] Ph one Number [address] 0 [phone] [place] [address] * Magnesium (01/20/2020 3:38 AM CDT) Only the most recent of 4 results within the time period is included. Magnesium 2.1 1.6 - 2.6 mg/dL [facility] Specimen Blood Narrative Performed At Char Puller ID - MELL Osborn [facility] Performing Organization Address [facility] Ph one Number [address] 0 [phone] [place] [address] * Basic metabolic panel (01/20/2020 3:38 AM CDT) Only the most recent of 7 results within the time period is included. Sodium 135 (L) 136 - 145 meq/L [facility] Potassium 5.0 3.5 - 5.1 meq/L [facility] Chloride 98 98 - 107 meq/L [facility] CO2 26 22 - 29 meq/L [facility] BUN 59 (H) 7 - 21 mg/dL [facility] Creatinine 10.15 (H) 0.57 - 1.25 mg/dL [facility] Glucose 93 70 - 105 mg/dL [facility] Calcium 7.5 (L) 8.4 - 10.2 mg/dL [facility] EGFR 5Comment: ESTIMATED GFR IS NOT mL/min/1.73 sq m [facility] ACCURATE CREATININE [facility] CLEARANCE IN PREDICTING MEDICAL CENTER GLOMERULAR FILTRATION RATE. ESTIMATED GFR IS NOT APPLICABLE FOR DIALYSIS PATIENTS. Specimen Blood Narrative Performed At Char Puller ID - MELL Osborn [facility] Performing Organization Address [facility] Ph one Number [address] [facility] * POC ACTIVATED CLOTTING TIME (01/19/2020 10:39 PM CDT) Only the most recent of 10 results within the time period is included. Activated 136Comment: : 74-137 seconds, sec [facility] Clotting Time Baseline: TESTED AT [address], [address]: MEDICAL CENTER Char Puller/X Ray Developer ID = [id number] for Morgan, Rosalind Specimen Blood Performing Organization Address [facility] one Number [address] [facility] * Hepatitis B surface antigen (01/19/2020 9:53 PM CDT) Only the most recent of 2 results within the time period is included. HBsAg Screen Nonreactive Nonreactive [facility] Specimen Blood Narrative Performed At Specimen is considered negative for HBsAg. [facility] Performing Organization Address [facility] one Number [address] [facility] * Lipid panel (01/19/2020 5:06 PM CDT) Only the most recent of 2 results within the time period is included. Triglycerides 99 mg/dL [facility] Cholesterol 103 mg/dL [facility] HDL 40 mg/dL [facility] LDL Calculated 43 mg/dL [facility] Specimen Blood Narrative Performed At Triglyceride Reference Range: [facility] Low Risk <150 [facility] Borderline 150-199 High Risk 200-499 Very High Risk >=500 Cholesterol Reference Range: Low Risk <200 Borderline 200-239 High Risk >240 HDL Cholesterol Reference Range: Low Risk >=60 High Risk <40 LDL Cholesterol Reference Range: Optimal <100 Near Optimal 100-129 Borderline 130-159 High 160-189 Very High >=190 Char Puller ID - BS Performing Organization Address City/State/Zipcode Ph one Number [facility] [address] [place], [place] [address] [facility] * SARS-CoV2/RT-PCR (Asymptomatic ONLY) (01/19/2020 2:10 PM CDT) SARS-COV2/RT-PC Not Detected Not Detected, [facility] R Negative [facility] SARS-COV-2 [facility] PERFORMING LAB [facility] Specimen Other - Nasopharyngeal wall structure (body structure) Narrative Performed At Negative results do not preclude SARS-C oV-2 infection and should not be used as [facility] the sole basis for patient management decisions. Nega tive results must be [facility] combined with clinical observations, pa tient history, and epidemiological information. A false negative result ma y occur if a specimen is improperly collected, transported or handled. The limit of detection for this assay i s 250 copies/mL. This SARS CoV-2 test is a rapid, real-t nicki RT-PCR test intended for the qualitative detection of nucleic acid f rom SARS-CoV-2 in a nasopharyngeal swab specimen collected from individuals dayana pected of COVID-19 by their healthcare provider. This test has not been Food and Drug Ad ministration (FDA) cleared or approved and has been authorized by FDA under an Emergency Use Authorization (EUA). This EUA will be effective until the declara tion that circumstances exist justifying the authorization of the emergency use of in vitro diagnostic tests for detection and/or diagnosis of COVID-19 is terminated under Section 564(b)(2) of the Act or the EUA is revoked under Sec tion 564(g) of the Act. Fact Sheet for Healthcare Providers: https://www.[employer].LiveGO/Documents/Xpert%20Xpress%20SARS%20CoV-2/Fact%20Sheets/30 2-3802%29BRMW-FFT-6%20HEALTHCARE%20PROV IDERS%20FACT%20SHEET.pdf Fact Sheet for Healthcare Patients: https://www.PlaySquare/Documents/Xpert%20Xpress%20SARS%20CoV-2/Fact%20Sheets/30 2-3801%33DKTV-WZI-7%20PATIENT%20FACT%20 SHEET.pdf Performing Laboratory: [address] [place] [address] [address] [facility] Ph one Number [place] [address] [facility] * PT/aPTT (01/19/2020 9:55 AM CDT) Only the most recent of 3 results within the time period is included. Protime 13.9 11.9 - 14.2 seconds [facility] INR 1.1 <=5.9 [facility] PTT 29.3 22.5 - 36.0 seconds [facility] Specimen Blood Narrative Performed At Effective 12/16/2018: PT Reference Range Change [facility] New: 11.9-14.2 Previous: 11.7-14.7 [facility] TER RECOMMENDED COUMADIN/WARFARIN INR THERA PY RANGES STANDARD DOSE: 2.0-3.0 Includes: PROP HYLAXIS for venous thrombosis, systemic embolization; TREATMENT for venous thro mbosis and/or pulmonary embolus. HIGH RISK: Target INR is 2.5-3.5 for pa tients wiht mechanical heart valves. Performing Organization Address City/[facility] Ph one Number [address] [facility] * CBC with platelet count + automated diff (01/19/2020 9:55 AM CDT) Only the most recent of 6 results within the time period is included. WBC 5.9 3.5 - 10.5 K/L [facility] RBC 4.11 (L) 4.63 - 6.08 M/L [facility] Hemoglobin 12.8 (L) 13.7 - 17.5 GM/DL [facility] Hematocrit 41.9 40.1 - 51.0 % [facility] MCV 101.9 (H) 79.0 - 92.2 fL [facility] MCH 31.1 25.7 - 32.2 pg [facility] MCHC 30.5 (L) 32.3 - 36.5 GM/DL [facility] RDW 13.8 11.6 - 14.4 % [facility] Platelets 145 (L) 150 - 450 K/CU MM [facility] MPV 12.2 9.4 - 12.4 fL [facility] nRBC 0 0 - 0 /100 WBC [facility] % Neutros 57 % [facility] % Lymphs 21 % [facility] % Monos 17 % [facility] % Eos 5 % [facility] % Baso 0 % [facility] # Neutros 3.35 1.78 - 5.38 K/L [facility] # Lymphs 1.22 (L) 1.32 - 3.57 K/L [facility] # Monos 1.02 (H) 0.30 - 0.82 K/L [facility] # Eos 0.28 0.04 - 0.54 K/L [facility] # Baso 0.02 0.01 - 0.08 K/L [facility] Immature 0 0 - 1 % [facility] Specimen Blood Performing Organization Address City/State/Zipcode Ph one Number [facility] [address] [facility], [place] [facility] [facility] * FLOW PRA CLASS II WITH REFLEX TO ANTIBODY SPECIFICITY (12/29/2019 3:38 PM CDT) Flow Class II 0 [facility] HLA Percent TESTING Positive Specimen Blood Narrative Performed At Disclaimer: [facility] HLA TESTING This test was developed and its perform ance characteristics determined by the [facility]. It has not been cleared or approved by the U.S. Food and Drug Administration. The FDA has determined that such clearance or approval is not necessary. This test is used for clinic al purposes. It should not be regarded as investigational or for research. This l aboratory is certified under the Clinical Laboratory Improvement Amendments of 19 88 (CLIA-88) as qualified to perform high complexity clinical laboratory testing. Performing Organization Address [facility] one Number [facility] HLA TESTING ONE Leodan Olvera, MS: [id number], [place] [address] CLIA#[id number] CAP#[id number] UNOS#[id number] * FLOW PRA CLASS I WITH REFLEX TO ANTIBODY SPECIFICITY (12/29/2019 3:38 PM CDT) Flow Class I 0 [facility] HLA Percent TESTING Positive Specimen Blood Narrative Performed At Disclaimer: [facility] HLA TESTING This test was developed and its perform ance characteristics determined by the [facility]. It has not been cleared or approved by the U.S. Food and Drug Administration. The FDA has determined that such clearance or approval is not necessary. This test is used for clinic al purposes. It should not be regarded as investigational or for research. This l aboratory is certified under the Clinical Laboratory Improvement Amendments of 19 88 (CLIA-88) as qualified to perform high complexity clinical laboratory testing. Performing Organization Address City/[facility] one Number [facility] HLA TESTING ONE Leodan Olvera, MS: [id number], [place] [address] CLIA#[id number] CAP#[id number] UNOS#[id number] * PSA (12/29/2019 3:38 PM CDT) PSA 0.5 0.0 - 4.0 ng/mL [facility] Specimen Blood Narrative Performed At Char Puller ID - DB [facility] Performing Organization Address City/[facility] one Number [address] [facility] [place] * Lactic acid, venous (08/30/2019 8:59 PM [employer]) Lactate, Venous 3.7 (H) 0.5 - 2.2 mmol/L [facility] Specimen Blood Narrative Performed At Char Puller ID - BS [facility] Performing Organization Address [facility] Ph one [address] [facility] * Lipase (08/30/2019 8:58 PM [employer]) Lipase 76 8 - 78 U/L [facility] Specimen Blood Narrative Performed At Char Puller ID - BS [facility] Performing Organization Address [facility] Ph one [address] [facility] * Amylase (08/30/2019 8:58 PM [employer]) Amylase 122 25 - 125 U/L [facility] Specimen Blood Narrative Performed At Char Puller ID - BS [facility] Performing Organization Address [facility] Ph one [address] [facility] [place] * Hepatic function panel (08/30/2019 8:58 PM [employer]) Protein, Total 8.0 6.0 - 8.3 gm/dL [facility] Albumin 4.4 3.5 - 5.0 g/dL [facility] Total Bilirubin 0.4 0.2 - 1.2 mg/dL [facility] Bilirubin, 0.1 0.1 - 0.5 mg/dL [facility] Alkaline 91 40 - 150 U/L [facility] AST 21 5 - 34 U/L [facility] ALT 12 6 - 55 U/L [facility] Specimen Blood Narrative Performed At Char Puller ID - BS [facility] Specimen slightly lipemic [facility] Performing Organization Address City/State/Zipcode Ph one Number [facility] [address] [place], [place] [address] [facility] * Comprehensive metabolic panel (08/30/2019 8:58 PM [employer]) Protein, Total 8.0 6.0 - 8.3 gm/dL [facility] Albumin 4.4 3.5 - 5.0 g/dL [facility] Alkaline 91 40 - 150 U/L [facility] Total Bilirubin 0.4 0.2 - 1.2 mg/dL [facility] Sodium 136 136 - 145 meq/L [facility] Potassium 4.9 3.5 - 5.1 meq/L [facility] Chloride 93 (L) 98 - 107 meq/L [facility] CO2 29 22 - 29 meq/L [facility] BUN 30 (H) 7 - 21 mg/dL [facility] Creatinine 5.82 (H) 0.57 - 1.25 mg/dL [facility] Glucose 134 (H) 70 - 105 mg/dL [facility] Calcium 10.1 8.4 - 10.2 mg/dL [facility] AST 21 5 - 34 U/L [facility] ALT 12 6 - 55 U/L [facility] EGFR 10Comment: ESTIMATED GFR IS mL/min/1.73 sq m [facility] NOT ACCURATE CREATININE [facility] CLEARANCE IN PREDICTING MEDICAL CENTER GLOMERULAR FILTRATION RATE. ESTIMATED GFR IS NOT APPLICABLE FOR DIALYSIS PATIENTS. Specimen Blood Narrative Performed At Char Puller ID - BS [facility] Specimen slightly lipemic [facility] Performing Organization Address City/State/Zipcode Ph one Number [facility] [address] [place] [address] [address] 0 [phone] [place] [address] * CARDIAC CATH REPORT - SCAN (08/30/2019 2:00 PM [employer]) Narrative Performed At This result has an attachment that is n ot available. * Phosphorus (08/29/2019 10:48 AM [employer]) Only the most recent of 3 results within the time period is included. Phosphorus 5.3 (H) 2.3 - 4.7 mg/dL [facility] Specimen Blood Narrative Performed At Char Puller VIK - SUKHDEV Gordon [facility] Performing Organization Address City/[facility] Ph one Number [facility] [address] [place] [address] 0 [phone] [place] [address] * HEMODIALYSIS INPATIENT (08/28/2019 8:14 PM [employer]) Narrative Performed At Vj Thompson RN 08/28/2019 8:1 4 PM Pt dialyzed for 3 hrs via left upper ar m AVF. Mannitol 12.5gms/50ml IV x1 and midodrine 10mg p o given for b/p support with effect. NET UF= 1.7 Liters. VS sta ble post HD. Report off to primary nurse. Lab Results Component Value Date WBC 7.1 08/28/2019 HGB 11.4 (L) 08/28/2019 HCT 35.8 (L) 08/28/2019 MCV 98.4 (H) 08/28/2019 PLT 181 08/28/2019 Lab Results Component Value Date HEPBSAG Nonreactive 08/27/2019 ] Lab Results Component Value Date HEPBIGM Nonreactive 09/06/2013 HEPCAB Nonreactive 09/06/2013 Lab Results Component Value Date HIV1X2 Nonreactive 09/06/2013 Lab Results Component Value Date GLUCOSE 114 (H) 08/28/2019 CALCIUM 9.4 08/28/2019 NA 137 08/28/2019 K 5.4 (H) 08/28/2019 CO2 27 08/28/2019 CL 99 08/28/2019 BUN 40 (H) 08/28/2019 CREATININE 6.95 (H) 08/28/2019 Coag Profile: Protime Date Value Ref Range Status 08/26/2019 13.9 11.9 - 14.2 seconds Fin al INR Date Value Ref Range Status 08/26/2019 1.1 <=5.9 Final PTT Date Value Ref Range Status 08/26/2019 30.8 22.5 - 36.0 seconds Fin al * Potassium (08/28/2019 10:23 AM [employer]) Potassium 5.4 (H)Comment: Specimen 3.5 - 5.1 meq/L [facility] slightly hemolyzed [facility] Specimen Blood Narrative Performed At Char Puller ID - IAN L [facility] Performing Organization Address City/[facility] Ph one [place] [address] 0 [phone] [place] [address] * Iron, TIBC, % sat. (without ferritin) (08/28/2019 4:43 AM [employer]) Iron 40.0 40.0 - 160.0 ug/dL [facility] TIBC 258 250 - 450 ug/dL [facility] Iron % 16 (L) 20 - 55 % [facility] Specimen Blood Narrative Performed At Char Puller ID - JOSE Morales [facility] Performing Organization Address City/[facility] Ph one [address] 0 [phone] [place] [address] * Ferritin (08/28/2019 4:43 AM [employer]) Ferritin 883 (H) 5 - 275 ng/mL [facility] Specimen Blood Narrative Performed At Char Puller ID - JOSE [facility] Performing Organization Address City[facility] Ph one [place] [address] 0 [phone] [place] [address] * ECHOCARDIOGRAM REPORT - SCAN (08/27/2019 9:12 PM [employer]) Narrative Performed At This result has an attachment that is n ot available. * HEMODIALYSIS INPATIENT (08/27/2019 8:45 PM [employer]) Narrative Performed At Antwon Jensen RN 08/27/2019 9:0 6 PM Lab Results Component Value Date WBC 5.7 08/27/2019 HGB 11.9 (L) 08/27/2019 HCT 37.2 (L) 08/27/2019 MCV 97.4 (H) 08/27/2019 PLT 176 08/27/2019 Lab Results Component Value Date GLUCOSE 146 (H) 08/27/2019 CALCIUM 8.7 08/27/2019 NA 131 (L) 08/27/2019 K 5.6 (H) 08/27/2019 CO2 25 08/27/2019 CL 92 (L) 08/27/2019 BUN 76 (H) 08/27/2019 CREATININE 9.98 (H) 08/27/2019 HD treatement x4 completed ,UF 2 liters removed patient cannot tolerate 3liters ,stable no bleeding so far.Antwon Jensen RN * CORTISOL,60 MIN (08/27/2019 5:55 PM [employer]) Cortisol, 8.2 mcg/dL [facility] Cortisol 30 25.8 mcg/dL [facility] Cortisol, 60 29.9 ug/dL [facility] Specimen Blood Narrative Performed At ACTH STIMULATION TEST INTERPRETATION GUIDELINES [facility] (Synonyms: Cortrosyn Test, Cosyntropin or Corticotrop in Stimulation Test) [facility] Adenocorticotropic hormone (ACTH)is a t ropic hormone, made in the pituitary gland, which travels trhough the [facility] tream and stimulates the cortex of the adrenal glands to release cortisol. Cor tisol is a primary hormone, which aids the body's metabolism of fats, carbohyd rates, and protein as well as sodium and potassium regulation. ACTH Stimulation Test: Exogenous admini stration of biologically active ACTH stimulates the secretion of cortisol fr om the adrenal gland. This test is used to evaluate adrenal function by measuri ng cortisol levels at baseline and at 30 and 60 minutes after the administration of 250 micrograms of cosyntropin (Cortrosyn). Patients who have received exogenous corticosteroids immediately prior to performing the ACTH Stimulatio n Test will often have elevated baseline cortisol levels, which may lead to erro neous interpretation of test results. The notable exception is with dexamethasone . Normal Response: An increase in cortiso l after stimulation by ACTH is normal. Post-stimulation cortisol concentration should be greater than 20 mcg/dL or the rate of rise from baseline cortisol rivera uld be greater than or equal to 9 mcg/dL. Patients with sepsis or septic shock: A ccording to a study by Leila et al (KEITH 2000,283(8):1038-45), the ACTH Stimulat ion Test provides important prognostic information. This study defined 3 group s of patients with sepsis or septic shock: 1. Good Survival: Low basal cortisol (<or=34 mcg/dL) and high ACTH response (>9mcg/dL) 2. Intermediate Survival: Low basal cortisol (<34 mcg/dL) and low response to ACTH (<or=9 mcg/dL) OR High basal cortisol (>34 mcg/dL ) or high ACTH response (>9 mcg/dL) 3. Poor Survival: High basal cortis ol (>34 mcg/dL) and low ACTH response (<or=9 mcg/dL). Treatment of patients with relative adr enal dysfunction may be indicated based on test results and the clinical condit ion of the patient. Additional information, including treatment recomm endations, is available in critically ill patients, approved by the Pharmacy, Nut rition, and Therapeutics Committee on 06/29/2004 and available through the [facility] Policy and Procedure Section on The Source. Char Puller ID - BS Performing Organization Address City/State/Zipcode Ph one Number [address] MED[facility] CENTER * CORTISOL,30 MIN (08/27/2019 5:19 PM [employer]) Cortisol, 8.2 mcg/dL [facility] Cortisol, 30 25.8 ug/dL [facility] Specimen Blood Narrative Performed At ACTH STIMULATION TEST INTERPRETATION GUIDELINES [facility] (Synonyms: Cortrosyn Test, Cosyntropin or Corticotrop in Stimulation Test) [facility] Adenocorticotropic hormone (ACTH)is a t ropic hormone, made in the pituitary gland, which travels trhough the bloods tream and stimulates the cortex of the adrenal glands to release cortisol. Cor tisol is a primary hormone, which aids the body's metabolism of fats, carbohyd rates, and protein as well as sodium and potassium regulation. ACTH Stimulation Test: Exogenous admini stration of biologically active ACTH stimulates the secretion of cortisol fr om the adrenal gland. This test is used to evaluate adrenal function by measuri ng cortisol levels at baseline and at 30 and 60 minutes after the administration of 250 micrograms of cosyntropin (Cortrosyn). Patients who have received exogenous corticosteroids immediately prior to performing the ACTH Stimulatio n Test will often have elevated baseline cortisol levels, which may lead to erro neous interpretation of test results. The notable exception is with dexamethasone . Normal Response: An increase in cortiso l after stimulation by ACTH is normal. Post-stimulation cortisol concentration should be greater than 20 mcg/dL or the rate of rise from baseline cortisol rivera uld be greater than or equal to 9 mcg/dL. Patients with sepsis or septic shock: A ccording to a study by Leila et al (KEITH 2000,283(8):1038-45), the ACTH Stimulat ion Test provides important prognostic information. This study defined 3 group s of patients with sepsis or septic shock: 1. Good Survival: Low basal cortisol (<or=34 mcg/dL) and high ACTH response (>9mcg/dL) 2. Intermediate Survival: Low basal cortisol (<34 mcg/dL) and low response to ACTH (<or=9 mcg/dL) OR High basal cortisol (>34 mcg/dL ) or high ACTH response (>9 mcg/dL) 3. Poor Survival: High basal cortis ol (>34 mcg/dL) and low ACTH response (<or=9 mcg/dL). Treatment of patients with relative adr enal dysfunction may be indicated based on test results and the clinical condit ion of the patient. Additional information, including treatment recomm endations, is available in critically ill patients, approved by the Pharmacy, Nut rition, and Therapeutics Committee on 06/29/2004 and available through the [facility] Policy and Procedure Section on The Source. Char Puller ID - BS Performing Organization Address City/State/Zipcode one Number [place] [address] [facility] * CORTISOL,BASELINE (08/27/2019 4:38 PM [employer]) Cortisol, 8.2 ug/dL [facility] HEALTH [facility] Specimen Blood Narrative Performed At ACTH STIMULATION TEST INTERPRETATION GUIDELINES [facility] (Synonyms: Cortrosyn Test, Cosyntropin or Corticotrop in Stimulation Test) [facility] Adenocorticotropic hormone (ACTH)is a t ropic hormone, made in the pituitary gland, which travels trhough the bloods tream and stimulates the cortex of the adrenal glands to release cortisol. Cor tisol is a primary hormone, which aids the body's metabolism of fats, carbohyd rates, and protein as well as sodium and potassium regulation. ACTH Stimulation Test: Exogenous admini stration of biologically active ACTH stimulates the secretion of cortisol fr om the adrenal gland. This test is used to evaluate adrenal function by measuri ng cortisol levels at baseline and at 30 and 60 minutes after the administration of 250 micrograms of cosyntropin (Cortrosyn). Patients who have received exogenous corticosteroids immediately prior to performing the ACTH Stimulatio n Test will often have elevated baseline cortisol levels, which may lead to erro neous interpretation of test results. The notable exception is with dexamethasone . Normal Response: An increase in cortiso l after stimulation by ACTH is normal. Post-stimulation cortisol concentration should be greater than 20 mcg/dL or the rate of rise from baseline cortisol rivera uld be greater than or equal to 9 mcg/dL. Patients with sepsis or septic shock: A ccording to a study by Leila et al (KEITH 2000,283(8):1038-45), the ACTH Stimulat ion Test provides important prognostic information. This study defined 3 group s of patients with sepsis or septic shock: 1. Good Survival: Low basal cortisol (<or=34 mcg/dL) and high ACTH response (>9mcg/dL) 2. Intermediate Survival: Low basal cortisol (<34 mcg/dL) and low response to ACTH (<or=9 mcg/dL) OR High basal cortisol (>34 mcg/dL ) or high ACTH response (>9 mcg/dL) 3. Poor Survival: High basal cortis ol (>34 mcg/dL) and low ACTH response (<or=9 mcg/dL). Treatment of patients with relative adr enal dysfunction may be indicated based on test results and the clinical condit ion of the patient. Additional information, including treatment recomm endations, is available in critically ill patients, approved by the Pharmacy, Nut rition, and Therapeutics Committee on 06/29/2004 and available through the [facility] Policy and Procedure Section on The Source. Char Puller ID - NTP Performing Organization Address City/State/Zipcode lisa Jackson [facility] [address] [place] [address] [place] [facility] [facility] * 2D Echo W/Doppler(CW/PW/Color) (08/27/2019 11:42 AM [employer]) Ejection [facility] ECHO Fraction [facility] Specimen Narrative Performed At Transthoracic Echocardiography Report (TTE) [facility] ECH O [facility]ARTLAB [facility] Patient Name AARON RICE of Study 08/27/2019 ANTOINE Gender Male Visit Number [id number] R joy Other Room Number 6211 Number Date of 1960 R eferring Physician MENG CISSE Age 58 year(s) Flight Operations Manager Hernandez Valentin Billing Coordinator Talib Antoine I nterpreting Mic Baltazar MD Physician Procedure Type of Study TTE procedure:2DECHO W DOPP LER(CW/PW/COLOR) (STAT) Indications:Acute Chest Pain/ Suspected CAD. Clinical History HGB 11.9 HCT 37.2 % CAD DM ESRD HTN HLD BYPASS AORTO CORONARY 03/01/19 Contrast Medium: Definity. Height: 67 inches Weight: 98.88 kg (218 lbs) BSA: 2.1 m^2 BMI: 34.14 kg/m^2 HR: 92 bpm BP: 106/51 mmHg Summary 1. Normal LV size and function. LVEF is > 60% 2. Diastology: Grade 1 diastolic dysfun ction 3. Normal RV size and function 4. Mild aortic stenosis. SUHAIL = 1.85 cm 2. Pk / Mn: 23/12 mm Hg DI=0.65 5. Unable to estimate PASP 6. No pericardial effusion Previous Study In comparison with the prior exam the following changes are noted: mild is new . Signature Findings Technical Quality: Technically adequate exam. Left Ventricle The left porter tricle is chamber size (by PSLAX dime nsion) is normal (male - LVIDd 4.2-5.8cm) . Mild concentric LV hypertrophy. All of the LV segments contract normally . Glob al LV systolic function normal . LVEF by Cisse's method of disk assessment is norm al (>60%) . The LVEF was measured using Cisse's bi-plane meth od of disk . LV e ndocardium is adequately visualized with IV ultr asound enhancing agent. Grad e 1 diastolic dysfunction (impaired relaxation and low-normal LA pressure). Left Atrium LA size is normal (16-34 ml/m2) . Right Ventricle The right ve ntricular chamber size and systolic func tion are within normal limits. Right Atrium RA cavity s ize is normal . Aortic Valve Moderate Ao V cusp calcification. AoV calcification primarily involves the non- felecia nary cusp(s). Mild aortic stenosis. AoV area at rest by continuity equation is in the rang e of 1.85 cm2. AoV resting Peak Gradient/mean 23.6/12.8mmHg. Mitral Valve Mild mitral annular calcification. Mild MV leaflet thickening. Tricuspid Valve Unable to es timate peak systolic PA pressure; inad equate TR velocity signal. Pulmonic Valve Normal PV st ructure and function. Aorta Aortic root size (SInus of Valsalva diameter) is norm al . Proximal ascending aorta size is normal . Pericardium No signifi cant pericardial effusion is visualized. IVC/SVC/PA/PV/Pleural The right upper pulmonary vein (RUPV) is normal . The estimated RA pressure by IVC dynamics 5-10mmHg . Chambers/Structures Left Atrium LA Volume: 66.38 ml LA Area: 18.79 cm^2 LA Vol. Index: 32 ml/m^2 Left Ventricle LVIDd: 4.53 cm LV Septum Diastolic: 1.29 cm LV PW Diastolic: 1.28 cm LVEDV Cisse's:127.12 ml LVESV Cisse's:40.94 ml LVEF Cisse's: 67.8 % LVEDVI: 61 ml/m^2 LVESVI: 19 ml/m^2 LVOT Diameter: 1.91 cm Right Atrium RA Vol. (Sngl Plane): 53.49 ml Right Ventricle TAPSE: 1.7 8 cm Aorta Ao Root S of Jocelyn.: 2.92 cm Ascending Aorta: 3.05 cm Doppler/Quantitative Measurements Mitral Valve MV Peak E-Wave: 0.78 m/s MV Peak A-Wave: 0.96 m/s P1/2t: 67.6 msec E/A Ratio: 0.81 Peak Gradient: 2.43 mmHg Deceleration Time: 233 msec MV Area (PHT): 3.26 cm^2 MV Israel. Peak: Tissue Doppler E' Septal Velocity: 0.05 m/s E' Lateral Velocity: 0.06 m/s Aortic Valve Peak Velocity: 2.43 m/s Mean Velocity: 1.67 m/s Peak Gradient: 23.59 mmHg Mean Gradient: 12.78 mmHg AV Area (continuity): 1.85 cm^2 AV VTI: 46.86 cm AV DVI: 0.65 LVOT Peak Velocity: 1.44 m/s Peak Gradient: 8.28 mmHg Mean Velocity: 1.04 m/s Mean Gradient: 4.92 mmHg LVOT Diameter: 1.91 cm LVOT VTI: 30.25 cm LVOT Area: 2.87 cm^2 LVOT SV:86.63 ml LVOT CO: 7.97 l/min LVOT CI: 3.8 l/min/m^2 Procedure Note Interface, External Ris In - 08/27/2019 3:01 PM [employer] Transthoracic Echocardiography Report (TTE) Demographics Patient Name AARON RICE Date of Study 08/27/2019 ANTOINE Gender Male Visit Number [id number] Race Other Room Number 6211 Number Date of 1960 Referring Physician MENG CISSE Age 58 year(s) Flight Operations Manager Hernandez Valentin Billing Coordinator Talib Antoine Interpreting Mic Baltazar MD Physician Procedure Type of Study TTE procedure:2DECHO W DOPPLER(CW/PW/COLOR) (STAT) Indications:Acute Chest Pain/ Suspected CAD. Clinical History HGB 11.9 HCT 37.2 % CAD DM ESRD HTN HLD BYPASS AORTO CORONARY 03/01/19 Contrast Medium: Definity. Height: 67 inches Weight: 98.88 kg (218 lbs) BSA: 2.1 m^2 BMI: 34.14 kg/m^2 HR: 92 bpm BP: 106/51 mmHg Summary 1. Normal LV size and function. LVEF is > 60% 2. Diastology: Grade 1 diastolic dysfunction 3. Normal RV size and function 4. Mild aortic stenosis. SUHAIL = 1.85 cm 2. Pk / Mn: 23/12 mm Hg DI=0.65 5. Unable to estimate PASP 6. No pericardial effusion Previous Study In comparison with the prior exam 03-03-19 the following changes are noted: mild is new . Signature Findings Technical Quality: Technically adequate exam. Left Ventricle The left ventricle is chamber size (by PSLAX dimension) is normal (male - LVIDd 4.2-5.8cm) . Mild concentric LV hypertrophy. All of the LV segments contract normally . Global LV systolic function normal . LVEF by Cisse's method of disk assessment is normal (>60%) . The LVEF was measured using Cisse's bi-plane method of disk . LV endocardium is adequately visualized with IV ultrasound enhancing agent. Grade 1 diastolic dysfunction (impaired relaxation and low-normal LA pressure). Left Atrium LA size is normal (16-34 ml/m2) . Right Ventricle The right ventricular chamber size and systolic function are within normal limits. Right Atrium RA cavity size is normal . Aortic Valve Moderate AoV cusp calcification. AoV calcification primarily involves the non- coronary cusp(s). Mild aortic stenosis. AoV area at rest by continuity equation is in the range of 1.85 cm2. AoV resting Peak Gradient/mean 23.6/12.8mmHg. Mitral Valve Mild mitral annular calcification. Mild MV leaflet thickening. Tricuspid Valve Unable to estimate peak systolic PA pressure; inadequate TR velocity signal. Pulmonic Valve Normal PV structure and function. Aorta Aortic root size (SInus of Valsalva diameter) is normal . Proximal ascending aorta size is normal . Pericardium No significant pericardial effusion is visualized. IVC/SVC/PA/PV/Pleural The right upper pulmonary vein (RUPV) is normal . The estimated RA pressure by IVC dynamics 5-10mmHg . Chambers/Structures Left Atrium LA Volume: 66.38 ml LA Area: 18.79 cm^2 LA Vol. Index: 32 ml/m^2 Left Ventricle LVIDd: 4.53 cm LV Septum Diastolic: 1.29 cm LV PW Diastolic: 1.28 cm LVEDV Cisse's:127.12 ml LVESV Cisse's:40.94 ml LVEF Cisse's: 67.8 % LVEDVI: 61 ml/m^2 LVESVI: 19 ml/m^2 LVOT Diameter: 1.91 cm Right Atrium RA Vol. (Sngl Plane): 53.49 ml Right Ventricle TAPSE: 1.78 cm Aorta Ao Root S of Jocelyn.: 2.92 cm Ascending Aorta: 3.05 cm Doppler/Quantitative Measurements Mitral Valve MV Peak E-Wave: 0.78 m/s MV Peak A-Wave: 0.96 m/s P1/2t: 67.6 msec E/A Ratio: 0.81 Peak Gradient: 2.43 mmHg Deceleration Time: 233 msec MV Area (PHT): 3.26 cm^2 MV Israel. Peak: Tissue Doppler E' Septal Velocity: 0.05 m/s E' Lateral Velocity: 0.06 m/s Aortic Valve Peak Velocity: 2.43 m/s Mean Velocity: 1.67 m/s Peak Gradient: 23.59 mmHg Mean Gradient: 12.78 mmHg AV Area (continuity): 1.85 cm^2 AV VTI: 46.86 cm AV DVI: 0.65 LVOT Peak Velocity: 1.44 m/s Peak Gradient: 8.28 mmHg Mean Velocity: 1.04 m/s Mean Gradient: 4.92 mmHg LVOT Diameter: 1.91 cm LVOT VTI: 30.25 cm LVOT Area: 2.87 cm^2 LVOT SV:86.63 ml LVOT CO: 7.97 l/min LVOT CI: 3.8 l/min/m^[address] [facility] [place] [facility] * Hemoglobin A1c (08/27/2019 4:22 AM [employer]) Hemoglobin A1C 5.9 4.3 - 6.1 % [facility] Specimen Blood Performing Organization Address [facility] one Number [place] [address] [facility] * CHG CT SCAN,ABDOMENT AND PELVIS,W/O CONTRAST (08/05/2019) Narrative Performed At This result has an attachment that is n ot available. * NM myocardial perfusion SPECT,pharm(Lexiscan) (07/06/2019 3:42 PM [employer]) Specimen Narrative Performed At FINAL REPORT [facility] PROCEDURE: Rest/Stress MYOCARDI AL PERFUSION SPECT with regadenoson\\XA9\\ CPT CODE: 03793 INDICATION: Preoperative evalua tion for renal transplant; ESRD; CAD HISTORY: Cardiac risk fac tors: Hypertension, obesity, hyperlipidemia, tobacco use. Other card iovascular history: Known CAD with prior ACB. Recent cardiac symptoms : Chest pain. Current cardiovascular-related medications: Lis inopril, aspirin, Plavix, metoprolol XL, Midodrine. PROTOCOL: 10.8 mCi of Tc-99m se stamibi was injected iv at rest, and SPECT (tomographic) images were obt ained. Also, 30.9 mCi of Tc-99m sestamibi was injected iv at exp ected peak pharmacologic effect, and gated SPECT images were obt ained. PRELIMINARY STRESS TEST DATA FROM NONIN VASIVE CARDIOLOGY: Pharmacologic stress was by 10-second i v infusion of 0.4 mg of regadenoson. Radiotracer was injected 3 0 seconds after start of stress. Heart rate was 88 beats/min at rest and 96 beats/min (59 % of MPHR) at tracer injection. BP was 187/8 0 mmHg at rest and 120/65 mmHg at tracer injection. Stress was stopped for predetermined endpoint. The patient experienced chest pain, dys pnea and headache; treatment was not required. Preliminary ECG evalu ation revealed sinus rhythm at rest and was indeterminate due to pharm acological stress with stress. (Final ECG interpretation and other str ess and monitoring data are reported separately by Cardiology.) IMAGING FINDINGS: Study quality is go od. Post-stress images show mildly decreased radiotracer uptake in the basal lateral of the LV. Resting images show partial improvement . LV volume appears normal. RV volume appears normal. Gated images obt ained at rest after stress injection show normal LV wall motion an d thickening. QGS LVEF is 59%. IMPRESSION: 1. Abnormal study. 2. Appropriate pharmacologic stress. 3. Abnormal myocardial perfus ion. There is a partially reversible basal lateral wall defect. L V. 4. Overall resting LV function is normal with normal wall mot ion. 5. Extracardiac tracer distribution is normal. 6. Compared t o a prior PET study dated 02/04/2019, the lateral perfusion defect is still appreciated but is now only mildly reversible. The anteros eptal perfusion defect is new. Signed: Jose Ospina MD Report Verified Date/Time: 07/06/2019 16:16:17 Reading Location: [address] Reading Room Procedure Note Interface, External Ris In - 07/06/2019 4:18 PM [employer] FINAL REPORT PROCEDURE: Rest/Stress MYOCARDIAL PERFUSION SPECT with regadenoson\\XA9\\ CPT CODE: 10850 INDICATION: Preoperative evaluation for renal transplant; ESRD; CAD HISTORY: Cardiac risk factors: Hypertension, obesity, hyperlipidemia, tobacco use. Other cardiovascular history: Known CAD with prior ACB. Recent cardiac symptoms: Chest pain. Current cardiovascular-related medications: Lisinopril, aspirin, Plavix, metoprolol XL, Midodrine. PROTOCOL: 10.8 mCi of Tc-99m sestamibi was injected iv at rest, and SPECT (tomographic) images were obtained. Also, 30.9 mCi of Tc-99m sestamibi was injected iv at expected peak pharmacologic effect, and gated SPECT images were obtained. PRELIMINARY STRESS TEST DATA FROM NONINVASIVE CARDIOLOGY: Pharmacologic stress was by 10-second iv infusion of 0.4 mg of regadenoson. Radiotracer was injected 30 seconds after start of stress. Heart rate was 88 beats/min at rest and 96 beats/min (59 % of MPHR) at tracer injection. BP was 187/80 mmHg at rest and 120/65 mmHg at tracer injection. Stress was stopped for predetermined endpoint. The patient experienced chest pain, dyspnea and headache; treatment was not required. Preliminary ECG evaluation revealed sinus rhythm at rest and was indeterminate due to pharmacological stress with stress. (Final ECG interpretation and other stre ss and monitoring data are reported separately by Cardiology.) IMAGING FINDINGS: Study quality is good. Post-stress images show mildly decreased radiotracer uptake in the basal lateral of the LV. Resting images show partial improvement. LV volume appears normal. RV volume appears normal. Gated images obtained at rest after stress injection show normal LV wall motion and thickening. QGS LVEF is 59%. IMPRESSION: 1. Abnormal study. 2. Appropriate pharmacologic stress. 3. Abnormal myocardial perfusion. There is a partially reversible basal lateral wall defect. LV. 4. Overall resting LV function is normal with normal wall motion. 5. Extracardiac tracer distribution is normal. 6. Compared to a prior PET study dated 02/04/2019, the lateral perfusion defect is still appreciated but is now only mildly reversible. The anteroseptal perfusion defect is new. Signed: Jose Ospina MD Report Verified Date/Time: 07/06/2019 16:16:17 Reading Location: [address] Reading Room Performing Organization Address City/State/Zipcode Ph one Number [facility] after 06/13/2019 Insurance Type Payer Benefit Subscriber ID Effective Phone Address Plan / Dates Group [facility] - [employer]/MEDIC [id number] 2019-P MEDICARE [facility] CARE ARE resent COMPLETE Transplants [facility] [id number] 2013- MEDICARE [place] CARE [place] Present ONLY [facility] REPL [phone] Advance Directives For more information, please contact: [phone] Date Inactivated Comments Code Status Date Activated 01/20/2020 6:24 PM Full Code 01/19/2020 7:01 PM This code status was determined by: Patient 01/19/2020 7:01 PM Full Code 01/19/2020 9:31 AM This code status was determined by: Patient 08/29/2019 2:49 PM Full Code 08/26/2019 8:20 PM This code status was determined by: Patient 08/26/2019 8:20 PM Full Code 08/26/2019 4:10 PM This code status was determined by: Patient 08/26/2019 4:10 PM Full Code 08/26/2019 10:52 AM This code status was determined by: Patient
--- OUTSIDE RECORDS SUMMARY | 2020-06-13 14:51 | XMS REPORT | Continuity of Care Document ---
Author Author [facility] t Organization [facility] t Address [address] [place] [address] Phone Unavailable Care Team Providers Care Business Practices Officer Name Role Phone NONSTAFF PCP Unavailable Leasing Machine Tender, Transplant Attphys Unavailable Chelly MEJIA, K N Xiomy Attphys [phone] Jessy CUTLER, Monica Attphys Unavailable Sim, Y Na Attphys Unavailable Betito MEJIA, Audie Attphys Sulema Conner Attphys Unavailable Padilla Moralesa Attphys Unavailable Olga RN, Veronica Attphys Unavailable Libby MEJIA, Charlie Wadsworth Attphys Dashawn FUNERAL DIRECTOR/EMBALMER, Valerie Davis Attphys [phone] Anup Mcghee Attphys Unavailable Rizwan FUNERAL DIRECTOR/EMBALMER, Ernestine Castañeda Attphys Luigi CUTLER, Master Hoang Attphys Unavailable Jen MEJIA, Yolie Munoz Attphys AUDIE GALICIA Attphys Unavailable XIOMY PAVON Attphys Unavailable Astorga AG-ACNPMaddy Attphys [phone] June MEJIA, Jarret Attphys Mushtaq Ochoa MD Attphys Mushtaq OCHOA Attphys Unavailable Feliciano MEJIA, Gabriele Attphys Anisha MEJIA, Zain Haywood Attphys Cornelius ROD Attphys Unavailable LUIS FERNANDO SHIPLEY Attphys Unavailable BEAU FERRARI Attphys Unavailable LETSOU, NGA WARNER Attphys Unavailable AUDIE GALICIA Admphys Unavailable SMALLWOOD, (GERALD) YOLIE ALEXANDER Admphys Unavailable LETSOU, NGA WARNER Admphys Unavailable Payers Payer Name Policy Type Policy Number Effective Date Expiration Date [facility] MEDICARE MGD CAREAAR P/MEDICARE [id number] 2019-Present [id number] 2019 00:00:00 [facility] NET - MEDICARE [place] [facility] [id number] [id number] 2013 3 00:00:00 [facility] [employer] Medicare Complete [id number] 2015 00:00:00 [facility] Problems Condition Name Condition Details Condition Category Status Onset Date Resolution Date Last Treatment Date Treating Clinician Comments Source Pre-transplant evaluation for kidney transplant Pre-tr ansplant evaluation for kidney transplant Disease Active 2020-04-25 00:00:00 Last Assessment & Plan: At this time he is acceptable but will be considered high risk due to his body habitus and his cardiac history. He will be re-presented to the Top of The List. [facility] CAD (coronary artery disease) CAD (coronary artery disease) Disease Active 2019-08-27 00:00:00 [facility] S/P coronary artery stent placement S/P coronary artery stent pl acement Disease Active 2019-08-26 00:00:00 [facility] Other chest pain Other chest pain Disease Active 2019-06-06 00:00:00 [facility] ESRD on dialysis ESRD on dialysis Disease Active 2019-03-20 00:00:00 [facility] Anuria Anuria Disease Active 2019-03-20 00:00:00 [facility] Hypotension Hypotension Disease Active 2019-03-20 00:00:00 Last Assessment & Plan: He takes metoprolol and midodrine at home. His blood pressure was low this am. He is scheduled to see cardiology this afternoon. [facility] S/P CABG x 1 S/P CABG x 1 Disease Active 2019-03-20 00:00:00 [facility] Abnormal stress test Abnormal stress test Disease Active 00:00:00 [facility] History of colonic polyps History of colonic polyps Disease Ac tive 2017-06-18 00:00:00 [facility] PAD (peripheral artery disease) PAD (peripheral artery disease) Dis ease Active 2017-06-18 00:00:00 [facility] S/P Robotic mini (WELSH-Ramus & DIVYA-LAD) 8.12. NICOLA, PCI of RCA prior S/P Robotic mini (WELSH-Ramus & DIVYA-LAD) 8.12.19 NICOLA, PCI of RCA prior Disease Active 2016-11-26 00:00:00 Last Ass essment & Plan: He required 2 stents and is now on brilinta. He will be considered a high risk candidate for kidney transplant due to his cardiac history. [facility] ESRD (end stage renal disease) on dialysis ESRD (end s tage renal disease) on dialysis Disease Active 2016-08-20 00:00:00 Last Assessment & Plan: End stage renal disease secondary to DM/HTN. He has Required diaylsis for approximately five years. He does not produce urine. [facility] S/P pericardial surgery S/P pericardial surgery Disease Active 2015-11-03 00:00:00 Last Assessment & Plan: He required pericardial surgery in 2016. He will require follow up with cardiology routinely. [facility] NSTEMI (non-ST elevated myocardial infarction) NSTEMI (non-ST elevated myocardial infarction) Disease Active 2015-10-31 00:00:00 Last Assessment & Plan: He will need to continue follow up with cardiology and have cardiology clearance prior to kidney transplant. [facility] Anxiety Anxiety Problem Active 2015-10-30 00:00:00 [facility] Chest pain Chest pain Problem Active 2015-10-30 00:00:00 [facility] ESRD (end stage renal disease) ESRD (end stage renal disease) Disea se Active 2015-10-02 00:00:00 Last Assessm ent & Plan: He is end stage renal disease secondary to DM/HTN. He does not produce urine and has required dialysis since 2012. 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 He will require aggressive diabetes management prior to transplant. [facility] Diabetic retinopathy associated with type 2 diabetes m reid Diabetic retinopathy associated with type 2 diabetes mellitus Disease Active 2013-09-06 00:00:00 [facility] Hypertension, renal disease Hypertension, renal disease Disease Active 2013-09-06 00:00:00 Last Assessm ent & Plan: Inactive on transplant list due to obesity. [facility] Hyperlipidemia Hyperlipidemia Disease Active 2013-09-06 00:00:00 [facility] Secondary hyperparathyroidism of renal origin Secondar y hyperparathyroidism of renal origin Disease Active 2013-09-06 00:00:00 [facility] Pre-transplant evaluation for ESRD (end stage renal di sease) Pre-transplant evaluation for ESRD (end stage renal disease) Disease Active 2013-05-17 00:00:00 Last Assessment & Plan: He is an acceptable candidate for kidney transplant pending CTA and cardiology clearance. [facility] Dermatitis Problem Active [facility] Impetigo Problem Active [facility] Obesity (BMI 30-39.9) Obesity (BMI 30-39.9) Disease Active Overview: weight goal 218Last Assessment & Plan: His current BMI is 31 but due to his body habitus he carries his weight around his abdomen, so it appears that he has a larger abdomen/belly. [facility] Diabetes mellitus Diabetes mellitus Disease Active Last Assessment & Plan: Continue follow up with primary care for blood glucose management. [facility] ESRD on hemodialysis ESRD on hemodialysis Disease Active [facility] History of Past Illness Condition Name Condition Details Condition Category Status Onset Date Resolution Date Last Treatment Date Treating Clinician Comments Source Non-intractable vomiting with nausea, unspecified vomi ting type Non-intractable vomiting with nausea, unspecified vomiting type Disease Resolved 2019-08-30 00:00:00 2019-12-29 00:00:00 2019-12-29 16:07:48 [facility] Cardiogenic shock Cardiogenic shock Disease Resolved 2019-08-27 00:00:00 2019-12-29 00:00:00 2019-12-29 16:07:57 [facility] Pleural effusion on right Pleural effusion on right Disease Re solved 2019-06-09 00:00:00 2019-12-29 00:00:00 2019-12-29 16:07:44 C [facility] Shortness of breath at rest Shortness of breath at rest Disease Resolved 2019-03-20 00:00:00 2019-12-29 00:00:00 2019-12-29 16:07:31 [facility] Symptomatic anemia Symptomatic anemia Disease Resolved 2019-02-20 00:00:00 2019-12-29 00:00:00 2019-12-29 16:07:19 [facility] Acute lower GI bleeding Acute lower GI bleeding Disease Resolv ed 2019-03-20 00:00:00 2019-12-29 00:00:00 2019-12-29 16:08:03 [facility] Acute blood loss anemia Acute blood loss anemia Disease Resolved 2019-12-29 00:00:00 2019-12-29 16:08:07 [facility] Acute respiratory insufficiency Acute respiratory insufficiency Disease Resolved 2019-12-29 00:00:00 2019-12-29 16:08:10 [facility] Allergies, Adverse Reactions, Alerts This patient has no known allergies or adverse reactions. Family History Family Member Diagnosis Comments Start Date Stop Date Source Natural brother Diabetes [facility] Natural brother Unremarkable [facility] Natural daughter Unremarkable [facility] Natural father Heart disease [facility] Natural mother Cancer [facility] Natural sister Unremarkable [facility] Natural son Unremarkable [facility] Social History Social Habit Start Date Stop Date Quantity Comments Source Sex Assigned At [facility] Cigarettes smoked current (pack per day) - Reported 00:00:00 2020-04-25 00:00:00 [facility] Tobacco use and exposure 2020-04-25 00:00:00 2020-04-25 00:00:00 Ra zarate used [facility] Alcohol intake 2020-04-25 00:00:00 2020-04-25 00:00:00 [facility] Comment 2019-02-18 00:00:00 2019-02-18 00:00:00 rarely [facility] Tobacco Comment 2016-11-26 00:00:00 2016-11-26 00:00:00 quit 5 yrs ag o [facility] History of tobacco use 2013-02-18 00:00:00 Current smoker [facility] Smoking Status Start Date Stop Date Source Former smoker 2020-04-25 00:00:00 2020-04-25 00:00:00 [facility] Medications Ordered Medication Name Filled Medication Name Start Date Stop Da te Current Medication? Ordering Clinician Indication Dosage Frequency Signature (SIG) Comments Components Source glimepiride (AMARYL) 4 MG tablet 2020-04-25 10:27:33 Yes 4mg Take 4 mg by mouth as needed. [facility] sevelamer (RENVELA) 800 mg tablet 2020-04-25 10:21:57 Yes 3200mg Take 3,200 mg by mouth 3 (three) times daily with meals 5 pills 3 times day. [facility] cinacalcet (SENSIPAR) 90 MG tablet 2020-04-25 10:21:57 Yes 90mg QD Take 90 mg by mouth daily. [facility] gabapentin (NEURONTIN) 300 MG capsule 2020-04-03 00:00:00 Yes 1{capsule} QD Take 1 capsule by mouth daily. [facility] ezetimibe (ZETIA) 10 mg tablet 2020-03-31 00:00:00 Yes 10mg QD Take 10 mg by mouth daily. [facility] ROXANA-ANGELICA 0.8 mg Tab tablet 2020-02-18 00:00:00 Yes 1{tbl} QD Take 1 tablet by mouth daily. [facility] midodrine (PROAMATINE) 10 MG tablet 2020-02-18 00:00:00 Yes 10mg Take 10 mg by mouth 3 (three) times a week after dialysis MON/FRI/FRI. [facility] Amoxicillin/Potassium Clav (Augmentin 500-125 Tablet) 1 Each TABLET Amoxicillin/Potassium Clav (Augmentin 500-125 Tablet) 1 Each TABLET 2020-01-23 01:32:00 Yes 250 Daily [facility] Diphenhydramine Hcl (Benadryl) 25 Mg CAPSULE Diphenhyd ramine Hcl (Benadryl) 25 Mg CAPSULE 2020-01-23 01:32:00 Yes 25 T hree Times A Day as needed for Rash [facility] Famotidine (Pepcid) 20 Mg TABLET Famotidine (Pepcid) 20 Mg T ABLET 2020-01-23 01:32:00 Yes 20 Twice A Day for Rash [facility] ticagrelor (BRILINTA) 90 mg Tab tablet 2020-01-20 00:00:00 Yes 90mg Q.5D Take 1 tablet (90 mg total) by mouth 2 (two) times daily. [facility] metoprolol succinate (TOPROL-XL) 25 MG 24 hr tablet 2020-01-20 00:00:00 2021-01-19 23:59:00 No 12.5mg QD Take 0.5 tablets (12.5 mg total) by mouth daily. [facility] rosuvastatin (CRESTOR) 10 MG tablet 2020-01-20 00:00:0 0 2021-01-19 23:59:00 No 10mg QD Take 1 tablet (10 mg total) by mouth edelmira ly. [facility] lisinopriL (PRINIVIL,ZESTRIL) 2.5 MG tablet 2019 00:00:00 2020-04-25 00:00:00 No 2.5mg QD Take 1 tablet (2.5 mg total) by mouth daily. [facility] folic acid-multivitamins (NEPHRO-ANGELICA) 0.8 mg Tab tablet 2019-08-30 00:00:00 2019-09-29 23:59:00 No 1{tbl} QD Take 1 tab let by mouth daily for 30 days. [facility] atorvast[facility] (LIPITOR) 40 MG tablet 2019-08-29 11:24:0 1 2019-08-29 00:00:00 No 40mg QD Take 40 mg by mouth daily. [facility] glimepiride (AMARYL) 4 MG tablet 2019-08-29 11:24:01 2019-08 00:00:00 No 4mg Take 4 mg by mouth 2 (two) times daily before m eals. [facility] insulin glargine (LANTUS) 100 unit/mL injection 2019-08-29 11:24:01 2019-08-29 00:00:00 No Inject subcutaneously Per slidi ng scale. [facility] rosuvastatin (CRESTOR) 20 MG tablet 2019-08-29 00:00:0 0 2019-09-28 23:59:00 No 20mg QD Take 1 tablet (20 mg total) by mouth edelmira ly for 30 days. [facility] midodrine (PROAMATINE) 10 MG tablet 2019-08-29 00:00:0 0 2019-09-28 23:59:00 No 10mg Take 1 tablet ( 10 mg total) by mouth 2 (two) times daily as needed (give prior to dialysis and mid dialysis MWF) for up to 30 days. [facility] sucroferric oxyhydroxide (VELPHORO) 500 mg Chew 2019-08-26 10:59:05 2019-08-26 00:00:00 No 500mg Q.5D Take 500 mg by mouth 2 (two) ti mes daily. [facility] folic acid-multivitamins (NEPHRO-ANGELICA) 0.8 mg Tab tablet 2019-06-10 00:00:00 2019-08-26 00:00:00 No 1{tbl} QD Take 1 tablet by angie th daily. [facility] midodrine (PROAMATINE) 10 MG tablet 2019-06-09 00:00:0 0 2019-07-09 23:59:00 No 10mg [id number] Take 1 tablet (10 mg total) by mouth 3 (three) times a week MON/WED/FRI for 30 days Take on HD days. [facility] aspirin 81 MG EC tablet 2019-04-10 00:00:00 Yes 81mg Take 1 tablet (81 mg total) by mouth Daily (1800). [facility] metoprolol (TOPROL-XL) 25 MG 24 hr tablet 03-27 00:00:00 2020-01-20 00:00:00 No 12.5mg Q.25W Take 0.5 table ts (12.5 mg total) by mouth 4 (four) times a week On nondialysis days. [facility] lisinopril (PRINIVIL,ZESTRIL) 2.5 MG tablet 2018 00:00:00 2019-08-26 00:00:00 No 2.5mg Q.25W Take 1 tablet (2.5 mg total) by mouth 4 (four) times a week On nondialysis days. [facility] pantoprazole (PROTONIX) 40 MG tablet 2019-03-27 00:00: 00 2019-08-26 00:00:00 No 40mg Q.5D Take 1 tablet (40 mg total) by mouth 2 ( two) times daily. [facility] clopidogrel (PLAVIX) 75 mg tablet 2019-03-09 00:00:00 2019 00:00:00 No 75mg QD Take 1 tablet (75 mg total) by mouth edelmira alonso [facility] gabapentin (NEURONTIN) 100 MG capsule 2019-03-08 00:00 :00 2020-03-07 23:59:00 No 100mg [id number] Take 1 capsule (100 mg total) by mouth 3 (three) times daily. [facility] Aspirin (Aspir 81) 81 Mg TABLET. Aspirin (Aspir 81) 81 Mg TABLET. Yes Daily [facility] Atorvastatin Calcium Atorvastatin Calcium Yes 40 Qhs [facility] Cinacalcet Hcl (Sensipar) 30 Mg TABLET Cinacalcet Hcl (Sensipar) 30 Mg TABLET Yes 60 Daily [facility] Glimepiride (Amaryl) 4 Mg TABLET Glimepiride (Amaryl) 4 Mg TABLET Yes 4 Twice A Day [facility] Insulin Glargine (Lantus) 100 Units/Ml ML Insulin Glar gine (Lantus) 100 Units/Ml ML Yes 20 Twice A Day [facility] Losartan Potassium Losartan Potassium Yes 25 Da ruby [facility] Sevelamer Carbonate (Renvela) 0.8 Gm POWD.PACK Sevelam er Carbonate (Renvela) 0.8 Gm POWD.PACK Yes .8 Daily [facility] Sevelamer Hcl (Renvela) 800 Mg TAB Sevelamer Hcl (Renvela) 800 Mg TAB Yes 800 Three Times Daily With Meals [facility] Ticagrelor (Brilinta) 90 Mg TABLET Ticagrelor (Brilinta) 90 Mg TABLET Yes Daily [facility] Amlodipine Besylate Amlodipine Besylate 2017-12-29 00:00:00 No 10 Daily [facility] Atenolol Atenolol 2017-12-29 00:00:00 No 50 Twice A Day [facility] Enalapril Maleate (Vasotec) 20 Mg TABLET Enalapril Mal eate (Vasotec) 20 Mg TABLET 2017-12-29 00:00:00 No 20 Daily [facility] Furosemide Furosemide 2017-12-29 00:00:00 No 40 Q2 Days [facility] Potassium Chloride (Klor-Con) 25 Meq PACKET Potassium Chloride (Klor-Con) 25 Meq PACKET 2015-10-26 00:00:00 No [facility] Metformin Hcl Metformin Hcl 2013-11-08 00:00:00 No 1000 Twice A Day [facility] Verapamil Hcl (Verapamil Er) 120 Mg TABLET.ER Verapami l Hcl (Verapamil Er) 120 Mg TABLET.ER 2013-03-08 00:00:00 No 40 Daily [facility] Immunizations Ordered Immunization Name Filled Immunization Name Date Status Comments Source Pneumococcal Conjugate (Prevnar) 13-Valent 2019-03-22 00:0 0:00 Completed [facility] Vital Signs Vital Name Observation Time Observation Value Comments Source Systolic blood pressure 2020-04-25 12:02:00 84 mm[Hg] [facility] Diastolic blood pressure 2020-04-25 12:02:00 48 mm[Hg] [facility] Heart rate 2020-04-25 12:02:00 82 /min [facility] Body temperature 2020-04-25 12:02:00 36.78 Harriet [facility] Respiratory rate 2020-04-25 12:02:00 15 /min [facility] Body height 2020-04-25 12:02:00 170.2 cm [facility] Body weight 2020-04-25 12:02:00 97.977 kg [facility] BMI 2020-04-25 12:02:00 33.83 kg/m2 [facility] Oxygen saturation in Arterial blood by Pulse oximetry 2019-07 006 12:02:00 98 /min [facility] Body Temperature 2020-01-23 01:54:00 98.5 [degF] [facility] Procedures Procedure Date / Time Performed Performing Clinician Franca REMY MYOCARDIAL PERFUSION PET/CT (REST & STRESS) 2020-03-20 11:23: 00 Audie Galicia [facility] TREADMILL TOLERANCE(NON-NUCLEAR TREADMILL) 2020-03-20 11:10: 43 Unknown, Hl7 Doctor [facility] ECG 12-LEAD 2020-03-20 11:07:37 Unknown, Hl7 Doctor [facility] CARDIAC CATH REPORT - SCAN 2020-01-24 13:00:21 Provider, Default Scanning [facility] RHYTHM STRIP - SCAN 2020-01-24 13:00:18 Provider, Default Scanni daniel [facility] REPORT OF PROCEDURE - ENDOSCOPY SCAN 2020-01-24 13:00:15 Pro vider, Default Scanning [facility] VASCULAR DIAGRAM -SCAN 2020-01-24 13:00:13 [facility] 2020-01-21 15:40:26 Provider, Default Sca [facility] HEMODIALYSIS INPATIENT 2020-01-20 14:40:28 WayneMeGina Sostephan [facility] 2D ECHO W/ DOPPLER (CW/PW/COLOR) 2020-01-20 13:33:00 Mona Galicia [facility] POCT-GLUCOSE METER 2020-01-20 10:55:00 Alexander Smallwood [facility] POCT-GLUCOSE METER 2020-01-20 08:42:00 Audie Galicia [facility] BASIC METABOLIC PANEL (7) 2020-01-20 03:38:00 Zack Regalado [facility] CBC (HEMOGRAM ONLY) 2020-01-20 03:38:00 Zack Regalado [facility] MAGNESIUM 2020-01-20 03:38:00 Zack Regalado [facility] POCT-ACT 2020-01-19 22:39:00 Audie Galicia [facility] POCT-ACT 2020-01-19 21:57:00 Audie Galicia [facility] HEPATITIS B SURFACE ANTIGEN 2020-01-19 21:53:00 Gina Black Janice rothman [facility] ECG 12-LEAD 2020-01-19 19:34:17 Unknown, Hl7 Doctor [facility] POCT-GLUCOSE METER 2020-01-19 19:22:00 Audie Galicia [facility] POCT-ACT 2020-01-19 18:37:00 Audie Galicia [facility] POCT-ACT 2020-01-19 18:02:00 Audie Galicia [facility] POCT-ACT 2020-01-19 17:42:00 Audie Galicia [facility] BASIC METABOLIC PANEL (7) 2020-01-19 17:06:47 Audie Galicia CH, I [facility] LIPID PANEL 2020-01-19 17:06:00 KarolaluraZack [facility] R & L CATH / CORONARY ANGIOS / PCI 2020-01-19 16:37:00 Audie Galicia [facility] SARS-COV2/RT-PCR ([facility] & REF LABS) 2020-01-19 14:10:00 Audie Galicia [facility] BASIC METABOLIC PANEL (7) 2020-01-19 09:55:00 [facility] 2020-01-19 09:55:00 Astorga, Maddy [facility] CBC W/PLT COUNT & AUTO DIFFERENTIAL 2020-01-19 09:55:00 Cabr Maddy morocho [facility] ECG 12-LEAD 2020-01-19 09:54:06 Unknown, Hl7 [facility] FLOW PRA CLASS I WITH REFLEX TO ANTIBODY SPECIFICITY 2019-12 15:38:00 Leila Pavon [facility] FLOW PRA CLASS II WITH REFLEX TO ANTIBODY SPECIFICITY 12-28 15:38:00 Leila Pavon [facility] PSA 2019-12-29 15:38:00 Ermelinda Souza [facility] NM MYOCARDIAL PERFUSION PET/CT (REST & STRESS) 2019-12-23 08:38: 00 Audie Galicia [facility] TREADMILL TOLERANCE(NON-NUCLEAR TREADMILL) 2019-12-23 08:33: 21 Unknown, Hl7 [facility] REPORT OF PROCEDURE - ENDOSCOPY SCAN 2019-09-03 15:21:09 Pro vider, Default Scanning [facility] VASCULAR DIAGRAM -SCAN 2019-09-01 13:32:18 Provider, Default Sca nning [facility] LACTIC ACID, VENOUS 2019-08-30 20:59:00 Francy Ochoa [facility] CBC W/PLT COUNT & AUTO DIFFERENTIAL 2019-08-30 20:59:00 Selena Ochoa [facility] COMPREHENSIVE METABOLIC PANEL 2019-08-30 20:58:00 Vu, Francy Landin [facility] AMYLASE 2019-08-30 20:58:00 Vu, Francy Landin [facility] LIPASE 2019-08-30 20:58:00 Vu, Francy Landin [facility] HEPATIC FUNCTION PANEL 2019-08-30 20:58:00 [facility] PT/APTT 2019-08-30 20:58:00 Vu, Francy Landin [facility] ECG 12-LEAD 2019-08-30 20:32:15 Unknown, Hl7 Doctor [facility] CARDIAC CATH REPORT - SCAN 2019-08-30 14:00:49 Provider, Default Scanning [facility] VASCULAR DIAGRAM -SCAN 2019-08-30 14:00:43 Provider, Default Sca nning [facility] RHYTHM STRIP - SCAN 2019-08-30 14:00:41 Provider, Default Scanni ng [facility] BASIC METABOLIC PANEL (7) 2019-08-29 10:48:00 David Hadley [facility] MAGNESIUM 2019-08-29 10:48:00 [facility] 2019-08-29 10:48:00 Jomar [facility] CBC W/PLT COUNT & AUTO DIFFERENTIAL 2019-08-29 10:48:00 David Hadley [facility] HEMODIALYSIS INPATIENT 2019-08-28 20:14:00 Jonathan Amaral [facility] POCT-GLUCOSE METER 2019-08-28 17:30:00 Gabriele Wiggins [facility] POTASSIUM 2019-08-28 10:23:00 David Hadley [facility] POCT-GLUCOSE METER 2019-08-28 07:47:00 Audie Galicia [facility] BASIC METABOLIC PANEL (7) 2019-08-28 04:43:00 Gabriele Wiggins CH, I [facility] MAGNESIUM 2019-08-28 04:43:00 Gabriele Wiggins [facility] PHOSPHORUS 2019-08-28 04:43:00 Gabriele Wiggins [facility] IRON, TIBC, % SAT. (WITHOUT FERRITIN) 2019-08-28 04:43:00 Ermelinda Souza [facility] FERRITIN 2019-08-28 04:43:00 Ermelinda Souza [facility] CBC W/PLT COUNT & AUTO DIFFERENTIAL 2019-08-28 04:43:00 Tomy Najera [facility] POCT-GLUCOSE METER 2019-08-27 21:54:00 Audie Galicia [facility] ECHOCARDIOGRAM REPORT - SCAN 2019-08-27 21:12:27 Hernandez Watkins lt [facility] HEMODIALYSIS INPATIENT 2019-08-27 20:45:00 Ermelinda Souza [facility] CORTISOL,60 MIN 2019-08-27 17:55:00 Turner [facility] POCT-GLUCOSE METER 2019-08-27 17:41:00 Betito [facility] CORTISOL,30 MIN 2019-08-27 17:19:00 uTrner [facility] ACTH STIMULATION 2019-08-27 16:38:00 Turner [facility] CORTISOL,BASELINE 2019-08-27 16:38:00 Turner [facility] 2D ECHO W/ DOPPLER (CW/PW/COLOR) 2019-08-27 11:42:21 Mona Galicia [facility] POCT-GLUCOSE METER 2019-08-27 11:23:00 Audie Galicia [facility] POCT-GLUCOSE METER 2019-08-27 07:30:00 Betito Audie [facility] BASIC METABOLIC PANEL (7) 2019-08-27 04:22:00 Gabriele Wiggins [facility] MAGNESIUM 2019-08-27 04:22:00 Gabriele Wiggins [facility] PHOSPHORUS 2019-08-27 04:22:00 Gabriele Wiggins [facility] HEPATITIS B SURFACE ANTIGEN 2019-08-27 04:22:00 Ermelinda Souza [facility] HEMOGLOBIN A1C 2019-08-27 04:22:00 Feliciano [facility] CBC W/PLT COUNT & AUTO DIFFERENTIAL 2019-08-27 04:22:00 Tomy Najera [facility] POCT-GLUCOSE METER 2019-08-26 21:15:00 Betito [facility] POCT-ACT 2019-08-26 20:54:00 [facility] 2019-08-26 19:44:00 [facility] POCT-GLUCOSE METER 2019-08-26 16:38:00 [facility] PO[facility]-ACT 2019-08-26 15:19:00 [facility] POCT-ACT 2019-08-26 14:29:00 Betito [facility] POCT-ACT 2019-08-26 14:10:00 Betito [facility] R & L CATH / CORONARY ANGIOS / PCI 2019-08-26 12:53:00 Betito [facility] BASIC METABOLIC PANEL (7) 2019-08-26 11:51:00 Maddy Astorga [facility] LIPID PANEL 2019-08-26 11:51:00 Maddy Astorga [facility] ECG 12-LEAD 2019-08-26 11:40:54 Unknown, Hl7 Doctor [facility] PT/APTT 2019-08-26 11:12:00 Maddy Astorga [facility] CBC W/PLT COUNT & AUTO DIFFERENTIAL 2019-08-26 11:12:00 [facility],ABDOMENT AND PELVIS,W/O CONTRAST 2019-08-05 00:0 0:00 Provider, Jarret [facility] NM MYOCARDIAL PERFUSION SPECT, PHARM(LEXISCAN) 2019-07-06 15:42: 00 Audie Galicia [facility] TREADMILL TOLERANCE(NON-NUCLEAR TREADMILL) 2019-07-06 13:42: 31 Unknown, Hl7 Doctor [facility] ECG 12-LEAD 2019-07-06 13:29:02 Unknown, Hl7 Doctor [facility] Plan of Care Planned Activity Planned Date Details Comments Source Future Scheduled Test 2029-03-26 00:00:00 Screening for bruno gnant neoplasm of colon (procedure) [code = 326842306] [facility] Future Scheduled Test 2023-01-18 00:00:00 Lipid panel (proce dure) [code = 47827397] [facility] Future Scheduled Test 2020-03-21 00:00:00 INFLUENZA VACCINE (#1) [code = INFLUENZA VACCINE (#1)] [facility] Future Scheduled Test 2020-02-25 00:00:00 Hemoglobin A1c alton surement (procedure) [code = 59676757] [facility] Future Scheduled Test 2019-05-17 00:00:00 PNEUMOCOCCAL VACCI NE 0-64 YRS (1 of 1 - PPSV23) [code = PNEUMOCOCCAL VACCINE 0-64 YRS (1 of 1 - PPSV23)] [facility] Future Scheduled Test 2013-09-19 00:00:00 MEDICARE ANNUAL WE LLNESS (YEAR 2 or FIRST YEAR if no IPPE) [code = MEDICARE ANNUAL WELLNESS (YEAR 2 or FIRST YEAR if no IPPE)] [facility] Future Scheduled Test 1969-10-04 00:00:00 DIABETIC EYE EXAM [code = DIABETIC EYE EXAM] [facility] Future Scheduled Test 1969-10-04 00:00:00 Diabetic foot exam ination (regime/therapy) [code = 812354252] [facility] Future Scheduled Test 1969-10-04 00:00:00 Urine screening fo r protein (procedure) [code = 322271538] [facility] Future Appointment 2020-06-29 07:00:00 Audie Galicia MD, [address] [place] [address]; [address], [address] Future Appointment 2020-06-29 07:00:00 Audie Galicia MD, [address] [facility]; [address], [place] [address] [facility] Instructions Rash - Nonspecific [facility] Encounters Start Date/Time End Date/Time Encounter Type Admission Type Attendi [facility] Care Department Encounter ID Source 2020-05-23 13:52:12 2020-05-23 15:22:26 Leasing Machine Tender Visit Calvin Benitez [facility] [id number] 2020-05-23 10:52:49 2020-05-23 15:22:02 Office Visit Xiomy Benton [facility] [id number] 2020-01-23 00:20:00 2020-01-23 01:53:00 Departed Emergency Room [facility] [id number] [facility] 2019-09-16 14:00:09 2019-09-16 16:27:31 Office Visit Maddy Buckley ra [facility] [id number] 2019-06-12 16:12:00 2019-06-12 18:00:00 Departed Emergency Room 1 LILIANA ROD [facility] [id number] CH I [facility] 2019-04-16 15:33:40 2019-04-16 16:50:47 Office Visit Maddy Buckley ra [facility] [id number] 2017-12-29 01:49:00 2017-12-29 02:25:00 Departed Emergency Room [facility] [id number] [facility] Center Results Test Description Test Time Test Comments Results Result Comments Source Treadmill tolerance(Non-Nuclear Treadmill) 2020-03-22 17:04:56 Interface, External Ris In - 03/22/2020 5:05 PM CDTProtocol Name Flako Time In Exercise Phase 00:01:00 Max. Systolic BP 100 mmHgMax Diastolic BP 34 mmHgMax Heart Rate 87 BPMMax Predicted Heart Rate 160 BPMReason For Termination Predetermined end point Reason for Test Pre-transplant Eval for ESRD Target HR Formula (220 - Age)*100% Arrhythmias none Resting ECG Normal sinus rhythm ST Changes No Significant Changes Overall Impression Indeterminate due to pharmacological stress Nuclear data reported separatelyChest Pain none HR Response To Exercise BP Response To Exercise ASA,Lisinopril.Metoprol olCrestor,BrilintaConfirmed by fellow Colleen Fox ([id number]) on 03/20/2020 1:54:28 PMConfirmed by Candy LANDIS, ENRRIQUE ([id number]) on 03/22/2020 5:04:50 PM [facility] ECG 12 lead 2020-03-20 16:48:41 Interface, E xternal Ris In - 03/20/2020 4:48 PM CDTVentricular Rate 75 BPMAtrial Rate 75 BPMP-R Interval 188 msQRS Duration 86 msQ-T Interval 420 msQTC Calculation(Bazett) 469 msP [place] 64 degreesR [place] 43 degreesT [place] 83 degreesNormal sinus rhythmT wave inversion in aVLProlonged QT01 JAN 2020PVCs no longer seenQT has lengthenedConfirmed by MD KAYLIN, LASHAUN ([id number]) on 03/20/2020 4:48:37 PM [facility] PET/CT, CARDIAC PERF REST AND STRESS 2020-03-20 14:37:00 Sta rted dialysis [id number] for Exam:->renal tx eval, s/p pci FINAL REPORT PROCEDURE: MYOCARDIAL PERFUSION PET IMAGING (Rest/Stress)CPT CODE: 01589 INDICATION: Evaluation of known CAD prior to renal transplant CARDIOVASCULAR PROFILE:CAD History: Known CADSymptoms: NoneRisk Factors: Diabetes, hypertension, hyperlipidemia, family history of early CAD, obesity.BMI: 30.1Medications: Aspirin, lisinopril, metoprolol, Crestor, Brilinta. STRESS PROTOCOL:Pharmacologic stress was achieved with a 10-second intravenous infusion of regadenoson 0.4 mg. The radiopharmaceutical was administered 30 seconds after the start of the regadenoson infusion. IMAGING PROTOCOL:Limited low-dose CT imaging was performed for attenuation correction. 40.2 mCi of Rb-82 chloride was injected intravenously at rest, and gated PET images were obtained. Then, 40.0 mCi of Rb-82 chloride was injected intravenously at peak stress, and gated PET images were obtained. Image quality is good. REST FINDINGS:HR: 78/minBP: 113/45 mmHgPrelim. EKG: Normal sinus rhythm.Perfusion: Normal.Wall Motion: Normal (LVEF 59%).LV Volume: Normal.RV Volume: Normal. STRESS FINDINGS:HR: 87/min (54% of MPHR)BP: 100/34 mmHgPrelim. EKG: No ischemic changes.Symptoms: Dyspnea (treatment not required).Perfusion: There is a moderate severity perfusion defect of the basal lateral wallWall Motion: Normal (LVEF 64%).LV Volume: Not significantly changed from rest. IMPRESSION:1. Abnormal study.2. Abnormal myocardial perfusion. There is a medium size, moderate severity, reversible perfusion abnormality in the basal lateral wall 3. Normal resting LVEF, which does not deteriorate with pharmacologic stres s.4. Normal extracardiac tracer distribution.5. No significant change compared to study performed on December 23, 2019. Signed: Kathy Ospina MDRthe [facility] of [facility] Verified Date/Time: 03/20/2020 14:37:10 Reading Location: [address] Reading Room Myocardial Perfusion Pet/CT (Rest & Stress) 2020-03-20 14:37: 00 Interface, External Ris In - 03/20/2020 2:39 PM CDTFINAL REPORT PROCEDURE: MYOCARDIAL PERFUSION PET IMAGING (Rest/Stress)CPT CODE: 37369 INDICATION: Evaluation of known CAD prior to renal transplant CARDIOVASCULAR PROFILE:CAD History: Known CADSymptoms: NoneRisk Factors: Diabetes, hypertension, hyperlipidemia, family history of early CAD, obesity.BMI: 30.1Medications: Aspirin, lisinopril, metoprolol, Crestor, Brilinta. STRESS PROTOCOL:Pharmacologic stress was achieved with a 10-second intravenous infusion of regadenoson 0.4 mg. The radiopharmaceutical was administered 30 seconds after the start of the regadenoson infusion. IMAGING PROTOCOL:Limited low-dose CT imaging was performed for attenuation correction. 40.2 mCi of Rb-82 chloride was injected intravenously at rest, and gated PET images were obtained. Then, 40.0 mCi of Rb-82 chloride was injected intravenously at peak stress, and gated PET images were obtained. Image quality is good. REST FINDINGS:HR: 78/minBP: 113/45 mmHgPrelim. EKG: Normal sinus rhythm.Perfusion: Normal.Wall Motion: Normal (LVEF 59%).LV Volume: Normal.RV Volume: Normal. STRESS FINDINGS:HR: 87/min (54% of MPHR)BP: 100/34 mmHgPrelim. EKG: No ischemic changes.Symptoms: Dyspnea (treatment not required).Perfusion: There is a moderate severity perfusion defect of the basal lateral wallWall Motion: Normal (LVEF 64%).LV Volume: Not significantly changed from rest. IMPRESSION:1. Abnormal study.2. Abnormal myocardial perfusion. There is a medium size, moderate severity, reversible perfusion abnormality in the basal lateral wall 3. Normal resting LVEF, which does not deteriorate with pharmacologic stress.4. Normal extracardiac tracer distribution.5. No significant change compared to study performed on December 23, 2019. Signed: Kathy Ospina MDReport Verified Date/Time: 03/20/2020 14:37:10 Reading Location: [address] Reading Room [facility] 2D Echo W/Doppler(CW/PW/Color) 2020-01-20 17:45:18 Ejection FractionSLEH ECHO HEARTLAB MKCKESSON CPACSInterface, External Ris In - 01/20/2020 5:45 PM CDTTransthoracic Echocardiography Report (TTE) Demographics Patient Name AARON HENDERSON Date of Study 01/20/2020 ANTOINE Gender Male Visit Number [id number] Race Other Room Number 6106 Number Date of 1960 Referring Physician Audie Galicia MD Age 59 year(s) Private Detective Mariana Elise [facility] Logging Crew Foreman Drew Pal Interpreting Ilya Davis MD Physician Procedure Type of Study TTE procedure:2DECHO W DOPPLER(CW/PW/COLOR) (STAT) Indications:Acute Chest Pain/ Suspected CAD.Clinical HistorySOB, ESRD on HD, Abnormal stress test, Former smoker, CAD s/p ACB 03/01/19,h/o ECMO 03/01/19, Multiple cath procedures, DM, CO, Obesity, PADHGB 11.2HCT 35.5 %Height: 70 inches Weight: 96.62 kg (213 lbs) BSA: 2.14 m^2 BMI: 30.56 kg/m^2HR: 84 bpm BP: 125/67 mmHg Summary 1. [...] estimate peak systolic PA pressure; inadequate TR veloci ty signal. Pulmonic Valve Normal PV structure and [...] cm LV PW Diastolic: 1.16 cm LVEDV Galicia's:85.56 ml LVESV Galicia's:21.42 ml LVEF Galicia's: 75 % LVEDVI: 40 ml/m^2 LVESVI: 10 ml/m^2 LVOT Diameter: 2.23 cm Aorta Ao Root S of Jocelyn.: 3.09 cm Doppler/Quantitative Measurements LVOT Peak Velocity: 1.35 m/s Peak Gradient: 7.34 mmHg Mean Velocity: 0.8 m/s Mean Gradient: 3.15 mmHg LVOT Diameter: 2.23 cm LVOT VTI: 21.15 cm LVOT Area: 3.91 cm^2 LVOT SV:82.56 ml LVOT CO: 6.94 l/min LVOT CI: 3.24 l/min/m^2 [facility] HEMODIALYSIS INPATIENT 2020-01-20 14:40:28 Eli Bolaños RN 01/20/2020 2:46 PMTolerated HD over 4 hrs via left arm AVF. System clotted x 1, able to return blood. NET removal was 2 liters. Tx complete, pt tolerated well, hemostasis obtained to Left arm AVF +B/+T noted. Patient denies pain or any other complaints. Pt remains in CCU bed 6, a/a&ox3, call trujillo with in reach. Lab Results Component Value Date WBC 5.5 [...] Results Component Value Date HEPBSAG Nonreactive 01/19/2020 ]Lab Results Component Value Date HEPBIGM Nonreactive 09/06/2013 HEPCAB Nonreactive 09/06/2013 Lab Results Component Value Date HIV1X2 Nonreactive 09/06/2013 Coag Profile: Protime Date Value Ref Range Status 01/19/2020 13.9 11.9 - 14.2 seconds Final INR Date Value Ref Range Status 01/19/2020 1.1 <=5.9 Final PTT Date Value Ref Range Status 01/19/2020 29.3 22.5 - 36.0 seconds Final [facility] POC-Glucose meter 2020-01-20 11:07:00 Test Item POC-Glucose Meter (test code = 1538) 106 mg/dL 70-110 : TESTED AT [address], [address]: Canvass Manager/Ski Top Trimmer ID = [id number] for Ghulam Benitez Lab Interpretation (test code = 36267-1) Normal [facility] [id number] 11:07:00* Test Item Value Reference Range Interpretation Comments POC-GLUCOSE METER (BEAKER) (test code = 1538) 106 mg/dL 70-110 : TESTED AT [address], [address]: Canvass Manager/Ski Top Trimmer ID = [id number] for Ghulam Benitez POCT-GLUCOSE [id number] 08:57:00* Test Item Value Reference Range Interpretation Comments POC-GLUCOSE METER (BEAKER) (test code = 1538) 84 mg/dL 70-110 : TESTED AT [facility] [address] [facility] [place], [address]: Canvass Manager/Ski Top Trimmer ID = [id number] for NATALIE LAYTON Basic metabolic [id number] 05:32:00* Test Item Value Reference Range Interpretation Comments Sodium (test code = 2951-2) 135 meq/L 136-145 L Potassium (test code = 2823-3) 5.0 meq/L 3.5-5.1 Chloride (test code = 2075-0) 98 meq/L 98-107 CO2 (test code = 8-9) 26 meq/L 22-29 BUN (test code = 3094-0) 59 mg/dL 7-21 H Creatinine (test code = 2160-0) 10.15 mg/dL 0.57-1.25 H Glucose (test code = 2345-7) 93 mg/dL 70-105 Calcium (test code = 78610-6) 7.5 mg/dL 8.4-10.2 L EGFR (test code = 21532-7) 5 mL/min/1.73 sq m ESTIMATED GFR IS NOT ACCURATE CREATININE CLEARANCE IN PREDICTING GLOMERULAR FILTRATION RATE. ESTIMATED GFR IS NOT APPLICABLE FOR DIALYSIS PATIENTS. GLENYS (test code = GLENYS) Canvass Manager ID - MELL Osborn Lab Interpretation (test code = 31828-0) Abnormal [facility] METABOLIC [id number] 05:32:00* Test Item Value Reference Range Interpretation Comments SODIUM (BEAKER) (test code = 381) 135 meq/L 136-145 L POTASSIUM (BEAKER) (test code = 379) 5.0 meq/L 3.5-5.1 CHLORIDE (BEAKER) (test code = 382) 98 meq/L 98-107 CO2 (BEAKER) (test code = 355) 26 meq/L 22-29 BLOOD UREA NITROGEN (BEAKER) (test code = 354) 59 mg/dL 7-21 H CREATININE (BEAKER) (test code = 358) 10.15 mg/dL 0.57-1.25 H GLUCOSE RANDOM (BEAKER) (test code = 652) 93 mg/dL 70-105 CALCIUM (BEAKER) (test code = 697) 7.5 mg/dL 8.4-10.2 L EGFR (BEAKER) (test code = 1092) 5 mL/min/1.73 sq m ESTIMATED GFR IS NOT ACCURATE CREATININE CLEARANCE IN PREDICTING GLOMERULAR FILTRATION RATE. ESTIMATED GFR IS NOT APPLICABLE FOR DIALYSIS PATIENTS. Canvass Manager ID Lory MONTE [id number] 04:38:00* Test Item Value Reference Range Interpretation Comments Magnesium (test code = 37474-5) 2.1 mg/dL 1.6-2.6 GLENYS (test code = GLENYS) Canvass Manager ID Lory MONTE W Lab Interpretation (test code = 48259-3) Normal [facility]2020-07-02 04:38:00* Test Item Value Reference Range Interpretation Comments MAGNESIUM (BEAKER) (test code = 627) 2.1 mg/dL 1.6-2.6 Canvass Manager VIK MONTE WCBC (Hemogram only)2020-01-20 03:55:00* Test Item Value Reference Range Interpretation Comments WBC (test code = 6690-2) 5.5 3.5- 10.5 K/L RBC (test code = 789-8) 3.54 4.63- 6.08 M/L L MCHC (test code = 786-4) 31.5 32.3- 36.5 GM/DL L Hematocrit (test code = 4544-3) 35.5 % 40.1-51 L MCV (test code = 787-2) 100.3 fL 79-92.2 H MCH (test code = 785-6) 31.6 pg 25.7-32.2 RDW (test code = 788-0) 13.7 % 11.6-14.4 Platelets (test code = 777-3) 134 150- 450 K/CU MM L MPV (test code = 79678-5) 11.8 fL 9.4-12.4 nRBC (test code = 413) 0 0- 0 /100 WBC Lab Interpretation (test code = 57059-5) Abnormal [facility]2020-01-20 03:55:00* Test Item Value Reference Range Interpretation Comments WHITE BLOOD CELL COUNT (BEAKER) (test code = 775) 5.5 K/ L 3.5- 10.5 RED BLOOD CELL COUNT (BEAKER) (test code = 761) 3.54 M/ L 4.63-6 .08 L HEMOGLOBIN (BEAKER) (test code = 410) 11.2 GM/DL 13.7-17.5 L HEMATOCRIT (BEAKER) (test code = 411) 35.5 % 40.1-51.0 L MEAN CORPUSCULAR VOLUME (BEAKER) (test code = 753) 100.3 fL 79. 0-92.2 H MEAN CORPUSCULAR HEMOGLOBIN (BEAKER) (test code = 751) 31.6 pg 25.7-32.2 MEAN CORPUSCULAR HEMOGLOBIN CONC (BEAKER) (test code = 752) 31.5 GM/DL 32.3-36.5 L RED CELL DISTRIBUTION WIDTH (BEAKER) (test code = 412) 13.7 % 11.6-14.4 PLATELET COUNT (BEAKER) (test code = 756) 134 K/CU MM 150-450 L MEAN PLATELET VOLUME (BEAKER) (test code = 754) 11.8 fL 9.4-12 .4 NUCLEATED RED BLOOD CELLS (BEAKER) (test code = 413) 0 /100 WBC 0 -0 Hepatitis B surface [id number] 23:10:00* Test Item Value Reference Range Interpretation Comments HBsAg Screen (test code = 5195-3) Nonreactive Nonreactive GLENYS (test code = GLENYS) Specimen is considered negative for HBsAg. Lab Interpretation (test code = 20919-9) Normal [facility]AT[facility] B SURFACE [id number] 23:10:00* Test Item Value Reference Range Interpretation Comments HEPATITIS B SURFACE ANTIGEN (2) (BEAKER) (test code = 2585) Nonreactive Nonreactive Specimen is considered negative for HBsAg.POC ACTIVATED CLOTTING [id number] 22:54:00* Test Item Value Reference Range Interpretation Comments Activated Clotting Time (test code = 441) 136 sec : 74-137 seconds, Baseline: TESTED AT [address], [address]: Canvass Manager/Ski Top Trimmer ID = [id number] for Rosalind Morgan [facility] [id number] 22:54:00* Test Item Value Reference Range Interpretation Comments ACTIVATED CLOTTING TIME (BEAKER) (test code = 441) 136 sec : 74-137 seconds, Baseline: TESTED AT [address], [address]: Canvass Manager/Ski Top Trimmer ID = [id number] for Morgan, Rosalind [id number] 22:14:00* Test Item Value Reference Range Interpretation Comments ACTIVATED CLOTTING TIME (BEAKER) (test code = 441) 153 sec : 74-137 seconds, Baseline: TESTED AT [address], [address]: Canvass Manager/Ski Top Trimmer ID = [id number] for Morgan, Rosalind Lipid [id number] 21:24:00* Test Item Value Reference Range Interpretation Comments Triglycerides (test code = 2571-8) 99 mg/dL Cholesterol (test code = 2093-3) 103 mg/dL HDL (test code = 2085-9) 40 mg/dL LDL Calculated (test code = 08767-1) 43 mg/dL GLENYS (test code = GLENYS) Triglyceride Reference Range : Low Risk <150 Borderline 150-199 High Risk 200-499 Very High Risk >=500 Cholesterol Reference Range: Low Risk <200 Borderline 200-239 High Risk >240 HDL Cholesterol Reference Range: Low Risk >=60 High Risk <40 LDL Cholesterol Reference Range: Optimal <100 Near Optimal 100-129 Borderline 130-159 High 160-189 Very High >=190 Canvass Manager ID - BS [facility] CenterLIP[facility] [id number] 21:24:00* Test Item Value Reference Range Interpretation Comments TRIGLYCERIDES (BEAKER) (test code = 540) 99 mg/dL CHOLESTEROL (BEAKER) (test code = 631) 103 mg/dL HDL CHOLESTEROL (BEAKER) (test code = 976) 40 mg/dL LDL CHOLESTEROL CALCULATED (BEAKER) (test code = 633) 43 mg/dL Triglyceride Reference Range: Low Risk <150 Borderline 150-199 High Risk 200-499 Very High Risk >=500Cholesterol Reference Range: Low Risk <200 Borderline 200-239 High Risk >240HDL Cholesterol Reference Range: Low Risk >=60 High Risk <40LDL Cholesterol Reference Range: Optimal <100 Near Optimal 100-129 Borderline 130-159 High 160-189 Very High >=190 Canvass Manager ID - BSPOCT-GLUCOSE [id number] 19:34:00* Test Item Value Reference Range Interpretation Comments POC-GLUCOSE METER (BEAKER) (test code = 1538) 82 mg/dL 70-110 : TESTED AT [place] [address] [facility], [address]: Canvass Manager/Ski Top Trimmer ID = [id number] for EMIL BRODERICK [id number] 18:57:00* Test Item Value Reference Range Interpretation Comments ACTIVATED CLOTTING TIME (BEAKER) (test code = 441) 279 sec : 74-137 seconds, Baseline: TESTED AT [address], [address]: Canvass Manager/Ski Top Trimmer ID = [id number] for ALVINO FREEMAN RN [id number] 18:21:00* Test Item Value Reference Range Interpretation Comments ACTIVATED CLOTTING TIME (BEAKER) (test code = 441) 290 sec : 74-137 seconds, Baseline: TESTED AT [address], [address]: Canvass Manager/Ski Top Trimmer ID = [id number] for ALVINO FREEMAN RN [id number] 17:57:00* Test Item Value Reference Range Interpretation Comments ACTIVATED CLOTTING TIME (BEAKER) (test code = 441) 301 sec : 74-137 seconds, Baseline: TESTED AT [address], [address]: Canvass Manager/Ski Top Trimmer ID = [id number] for ADRIAN CARRILLO BASIC METABOLIC [id number] 17:45:00* Test Item Value Reference Range Interpretation Comments SODIUM (BEAKER) (test code = 381) 138 meq/L 136-145 POTASSIUM (BEAKER) (test code = 379) 4.6 meq/L 3.5-5.1 CHLORIDE (BEAKER) (test code = 382) 98 meq/L 98-107 CO2 (BEAKER) (test code = 355) 30 meq/L 22-29 H BLOOD UREA NITROGEN (BEAKER) (test code = 354) 57 mg/dL 7-21 H CREATININE (BEAKER) (test code = 358) 9.71 mg/dL 0.57-1.25 H GLUCOSE RANDOM (BEAKER) (test code = 652) 129 mg/dL 70-105 H CALCIUM (BEAKER) (test code = 697) 8.7 mg/dL 8.4-10.2 EGFR (BEAKER) (test code = 1092) 6 mL/min/1.73 sq m ESTIMATED GFR IS NOT ACCURATE CREATININE CLEARANCE IN PREDICTING GLOMERULAR FILTRATION RATE. ESTIMATED GFR IS NOT APPLICABLE FOR DIALYSIS PATIENTS. Canvass Manager ID - BSSARS-CoV2/RT-PCR (Asymptomatic ONLY)2020-01-19 16:13:00* Test Item Value Reference Range Interpretation Comments SARS-COV2/RT-PCR (test code = 16060-9) Not Detected Not Detected, N egative SARS-COV-2 PERFORMING LAB (test code = 94488-1) [facility] GLENYS (test code = GLENYS) Negative results do not prec lude SARS-CoV-2 infection and should not be used as the sole basis for patient management decisions. Negative results must be combined with clinical observations, patient history, and epidemiological information. A false negative result may occur if a specimen is improperly collected, transported or handled. The limit of detection for this assay is 250 copies/mL. This SARS CoV-2 test is a rapid, real-time RT-PCR test intended for the qualitative detection of nucleic acid from SARS-CoV-2 in a nasopharyngeal swab specimen collected from individuals suspected of COVID-19 by their healthcare provider. This test has not been Food and Drug Administration (FDA) cleared or approved and has been authorized by FDA under an Emergency Use Authorization (EUA). This EUA will be effective until the declaration that circumstances exist justifying the authorization of the emergency use of in vitro diagnostic tests for detection and/or diagnosis of COVID-19 is terminated under Section 564(b)(2) of the Act or the EUA is revoked under Section 564(g) of the Act. Fact Sheet for Healthcare Providers:https://www.[employer]/Documents/Xpert%20Xpress%20SARS%20CoV-2/Fact%2 0Sheets/3023802%84QJDZ-EDS-9%20HEALTHCARE%20PROVIDERS%20FACT%20SHEET.pdf Fact Sheet for Healthcare Patients:https://www.[employer]/Documents/Xpert%20Xpress%20SARS%20CoV-2/Fact%20 Sheets/3023801%79RXDX-KFO-8%20PATIENT%20FACT%20SHEET.pdf Performing Laboratory:[facility] [place] [address] [facility])2020-01-19 16:13:00* Test Item Value Reference Range Interpretation Comments SARS-COV2/RT-PCR (test code = 0308143) Not Detected Not Detected, N egative SARS-COV-2 PERFORMING LAB (test code = 0140860) [facility] Negative results do not preclude SARS-CoV-2 infection and should not be used as the sole basis for patient management decisions. Negative results must be combin ed with clinical observations, patient history, and epidemiological information. A false negative result may occur if a specimen is improperly collected, transp orted or handled.The limit of detection for this assay is 250 copies/mL.This [facility] S CoV-2 test is a rapid, real-time RT-PCR test intended for the qualitative dete ction of nucleic acid from SARS-CoV-2 in a nasopharyngeal swab specimen collecte d from individuals suspected of COVID-19 by their healthcare provider.This test has not been Food and Drug Administration (FDA) cleared or approved and has been authorized by FDA under an Emergency Use Authorization (EUA). This EUA will be effective until the declaration that circumstances exist justifying the authoriz ation of the emergency use of in vitro diagnostic tests for detection and/or gifty gnosis of COVID-19 is terminated under Section 564(b)(2) of the Act or the EUA i s revoked under Section 564(g) of the Act.Fact Sheet for Healthcare Providers:ht tps://www.[employer]/Documents/Xpert%20Xpress%20SARS%20CoV-2/Fact%20Sheets/302 3802%92QFZZ-SNX-3%20HEALTHCARE%20PROVIDERS%20FACT%20SHEET.pdfFact Sheet for Heal thcare Patients:https://www.[employer]/Documents/Xpert%20Xpress%20SARS%20CoV-2/ Fact%20Sheets/3023801%85MXQQ-QWV-9%20PATIENT%20FACT%20SHEET.pdfPerforming Labor atory:[facility], [place] [address]RAOWW METABOLIC [id number] 10:45:00* Test Item Value Reference Range Interpretation Comments SODIUM (BEAKER) (test code = 381) 140 meq/L 136-145 POTASSIUM (BEAKER) (test code = 379) 5.5 meq/L 3.5-5.1 H CHLORIDE (BEAKER) (test code = 382) 95 meq/L 98-107 L CO2 (BEAKER) (test code = 355) 34 meq/L 22-29 H BLOOD UREA NITROGEN (BEAKER) (test code = 354) 54 mg/dL 7-21 H CREATININE (BEAKER) (test code = 358) 9.56 mg/dL 0.57-1.25 H GLUCOSE RANDOM (BEAKER) (test code = 652) 182 mg/dL 70-105 H CALCIUM (BEAKER) (test code = 697) 8.8 mg/dL 8.4-10.2 EGFR (BEAKER) (test code = 1092) 6 mL/min/1.73 sq m ESTIMATED GFR IS NOT ACCURATE CREATININE CLEARANCE IN PREDICTING GLOMERULAR FILTRATION RATE. ESTIMATED GFR IS NOT APPLICABLE FOR DIALYSIS PATIENTS. Canvass Manager VIK - SUKHDEV FPT/[id number] 10:10:00* Test Item Value Reference Range Interpretation Comments Protime (test code = 5902-2) 13.9 11.9- 14.2 seconds INR (test code = 6301-6) 1.1 <=5.9 PTT (test code = 72163-3) 29.3 22.5- 36.0 seconds GLENYS (test code = GLENYS) Effective 12/16/2018: PT Refe rence Range ChangeNew: 11.9- 14.2 Previous: 11.7-14.7 RECOMMENDED COUMADIN/WARFARIN INR THERAPY RANGESSTANDARD DOSE: 2.0-3.0 Includes: PROPHYLAXIS for venous thrombosis, sys temic embolization; TREATMENT for venous thrombosis and/or pulmonary embolus.HIGH RISK: Target INR is 2.5-3.5 for patients wiht mechanical heart valves. Lab Interpretation (test code = 71736-9) Normal [id number] 10:10:00* Test Item Value Reference Range Interpretation Comments PROTIME (BEAKER) (test code = 759) 13.9 seconds 11.9-14.2 INR (BEAKER) (test code = 370) 1.1 <=5.9 PARTIAL THROMBOPLASTIN TIME (BEAKER) (test code = 760) 29.3 seconds 22.5-36.0 Effective 12/16/2018: PT Reference Range ChangeNew: 11.9-14.2 Previous: 11.7-14. 7RECOMMENDED COUMADIN/WARFARIN INR THERAPY RANGESSTANDARD DOSE: 2.0-3.0 Include s: PROPHYLAXIS for venous thrombosis, systemic embolization; TREATMENT for venou s thrombosis and/or pulmonary embolus.HIGH RISK: Target INR is 2.5-3.5 for patie nts wiht mechanical heart valves.CBC with platelet count + automated diff 2020-01-19 10:06:00* Test Item Value Reference Range Interpretation Comments WBC (test code = 6690-2) 5.9 3.5- 10.5 K/L RBC (test code = 789-8) 4.11 4.63- 6.08 M/L L MCHC (test code = 786-4) 30.5 32.3- 36.5 GM/DL L Hematocrit (test code = 4544-3) 41.9 % 40.1-51 MCV (test code = 787-2) 101.9 fL 79-92.2 H MCH (test code = 785-6) 31.1 pg 25.7-32.2 RDW (test code = 788-0) 13.8 % 11.6-14.4 Platelets (test code = 777-3) 145 150- 450 K/CU MM L MPV (test code = 04543-5) 12.2 fL 9.4-12.4 nRBC (test code = 413) 0 0- 0 /100 WBC % Neutros (test code = 429) 57 % % Lymphs (test code = 430) 21 % % Monos (test code = 431) 17 % % Eos (test code = 432) 5 % % Baso (test code = 437) 0 % # Neutros (test code = 670) 3.35 1.78- 5.38 K/L # Lymphs (test code = 414) 1.22 1.32- 3.57 K/L L # Monos (test code = 415) 1.02 0.30- 0.82 K/L H # Eos (test code = 416) 0.28 0.04- 0.54 K/L # Baso (test code = 417) 0.02 0.01- 0.08 K/L Immature Granulocytes-Relative (test code = 2801) 0 % 0-1 Lab Interpretation (test code = 31192-3) Abnormal [facility] W/PLT COUNT & AUTO [id number] 10:06:00* Test Item Value Reference Range Interpretation Comments WHITE BLOOD CELL COUNT (BEAKER) (test code = 775) 5.9 K/ L 3.5- 10.5 RED BLOOD CELL COUNT (BEAKER) (test code = 761) 4.11 M/ L 4.63-6 .08 L HEMOGLOBIN (BEAKER) (test code = 410) 12.8 GM/DL 13.7-17.5 L HEMATOCRIT (BEAKER) (test code = 411) 41.9 % 40.1-51.0 MEAN CORPUSCULAR VOLUME (BEAKER) (test code = 753) 101.9 fL 79. 0-92.2 H MEAN CORPUSCULAR HEMOGLOBIN (BEAKER) (test code = 751) 31.1 pg 25.7-32.2 MEAN CORPUSCULAR HEMOGLOBIN CONC (BEAKER) (test code = 752) 30.5 GM/DL 32.3-36.5 L RED CELL DISTRIBUTION WIDTH (BEAKER) (test code = 412) 13.8 % 11.6-14.4 PLATELET COUNT (BEAKER) (test code = 756) 145 K/CU MM 150-450 L MEAN PLATELET VOLUME (BEAKER) (test code = 754) 12.2 fL 9.4-12 .4 NUCLEATED RED BLOOD CELLS (BEAKER) (test code = 413) 0 /100 WBC 0 -0 NEUTROPHILS RELATIVE PERCENT (BEAKER) (test code = 429) 57 % LYMPHOCYTES RELATIVE PERCENT (BEAKER) (test code = 430) 21 % MONOCYTES RELATIVE PERCENT (BEAKER) (test code = 431) 17 % EOSINOPHILS RELATIVE PERCENT (BEAKER) (test code = 432) 5 % BASOPHILS RELATIVE PERCENT (BEAKER) (test code = 437) 0 % NEUTROPHILS ABSOLUTE COUNT (BEAKER) (test code = 670) 3.35 K/ L 1.78-5.38 LYMPHOCYTES ABSOLUTE COUNT (BEAKER) (test code = 414) 1.22 K/ L 1.32-3.57 L MONOCYTES ABSOLUTE COUNT (BEAKER) (test code = 415) 1.02 K/ L 0. 30-0.82 H EOSINOPHILS ABSOLUTE COUNT (BEAKER) (test code = 416) 0.28 K/ L 0.04-0.54 BASOPHILS ABSOLUTE COUNT (BEAKER) (test code = 417) 0.02 K/ L 0. 01-0.08 IMMATURE GRANULOCYTES-RELATIVE PERCENT (BEAKER) (test code = 2801) 0 % 0-1 [id number] 17:39:00* Test Item Value Reference Range Interpretation Comments PROSTATE SPECIFIC ANTIGEN (BEAKER) (test code = 844) 0.5 ng/mL 0 .0-4.0 Canvass Manager ID - DBPET/CT, CARDIAC PERF REST AND [id number] 13:53:00Started dialysis 11-7-3001Lelhml for Exam:->renal tx eval; s/p ACB and PCIFINAL REPORT PROCEDURE: MYOCARDIAL PERFUSION PET IMAGING (Rest/Stress)CPT CODE: 86148 INDICATION: Risk stratification, preop evaluation f or kidney transplant, obesity BMI=39 CARDIOVASCULAR PROFILE:CAD History: Known CAD, history of CABG, history of coronary stents, history of MISymptoms: Chest p ainRisk Factors: Diabetes, obesity, hyperlipidemia, tobacco useMedications: Aspi rin, metoprolol, clopidogrel, atorvastatin STRESS PROTOCOL:Pharmacologic stress was achieved with a 10-second intravenous infusion of regadenoson 0.4 mg. The ra diopharmaceutical was administered 30 seconds after the start of the regadenoson infusion. IMAGING PROTOCOL:Limited low-dose CT imaging was performed for attenu ation correction. 40.0 mCi of Rb-82 chloride was injected intravenously at rest, and gated PET images were obtained. Then, 40.1 mCi of Rb-82 chloride was inject ed intravenously at peak stress, and gated PET images were obtained. Image quali ty is good. REST FINDINGS:HR: 72/minBP: 113/49 mmHgPrelim. EKG: Normal sinus rhy thm.Perfusion: Decreased tracer uptake in the basal anterolateral segment.Wall M otion: Normal (LVEF 64%).LV Volume: Normal.RV Volume: Normal. STRESS FINDINGS:HR : 84/min (52% of MPHR)BP: 62/27 mmHgPrelim. EKG: No ischemic changes.Symptoms: S hortness of breath, hypotension (125 mg of IV Aminophyllin was administered).Per fusion: Decreased tracer uptake in the basal and mid anterolateral, basal infero lateral, basal anterior segments.Wall Motion: Mild hypokinesis of the basal ante rolateral and basal inferolateral jaramillo (LVEF 57%).LV Volume: Not significantly changed from rest. IMPRESSION:1. Abnormal study.2. Abnormal myocardial perfusion . There is a medium size, moderate severity, mostly reversible perfusion abnorma lity in the basal anterior, basal and mid anterolateral and basal inferolateral segments of the LV.3. Normal resting LVEF with mild regional LV dysfunction, whi ch does not deteriorate with pharmacologic stress.4. Normal extracardiac tracer distribution.5. Compared to prior study dated 07/06/2019, the basal lateral perf usion defect is still appreciated but now mostly reversible. Signed: Christiano Menendez MDReport Verified Date/Time: 12/23/2019 13:53:56 Reading Location: [address] Reading Room Comprehensive metabolic [id number] 22:09:00* Test Item Value Reference Range Interpretation Comments Protein, Total (test code = 2885-2) 8.0 6.0- 8.3 gm/dL Albumin (test code = 62277-1) 4.4 g/dL 3.5-5 Alkaline Phosphatase (test code = 6768-6) 91 U/L 40-150 Total Bilirubin (test code = 1975-2) 0.4 mg/dL 0.2-1.2 Sodium (test code = 2951-2) 136 meq/L 136-145 Potassium (test code = 2823-3) 4.9 meq/L 3.5-5.1 Chloride (test code = 2075-0) 93 meq/L 98-107 L CO2 (test code = 2027-9) 29 meq/L 22-29 BUN (test code = 3094-0) 30 mg/dL 7-21 H Creatinine (test code = 2160-0) 5.82 mg/dL 0.57-1.25 H Glucose (test code = 2345-7) 134 mg/dL 70-105 H Calcium (test code = 11989-2) 10.1 mg/dL 8.4-10.2 AST (test code = 1920-8) 21 U/L 5-34 ALT (test code = 1742-6) 12 U/L 6-55 EGFR (test code = 43886-0) 10 mL/min/1.73 sq m ESTIMATED GFR IS NOT ACCURATE CREATININE CLEARANCE IN PREDICTING GLOMERULAR FILTRATION RATE. ESTIMATED GFR IS NOT APPLICABLE FOR DIALYSIS PATIENTS. GLENYS (test code = GLENYS) Canvass Manager ID - BSSpecimen slightly lipemic Lab Interpretation (test code = 28086-4) [facility]normal [facility] [id number] 22:09:00* Test Item Value Reference Range Interpretation Comments TOTAL PROTEIN (BEAKER) (test code = 770) 8.0 gm/dL 6.0-8.3 ALBUMIN (BEAKER) (test code = 1145) 4.4 g/dL 3.5-5.0 ALKALINE PHOSPHATASE (BEAKER) (test code = 346) 91 U/L 40-150 BILIRUBIN TOTAL (BEAKER) (test code = 377) 0.4 mg/dL 0.2-1.2 SODIUM (BEAKER) (test code = 381) 136 meq/L 136-145 POTASSIUM (BEAKER) (test code = 379) 4.9 meq/L 3.5-5.1 CHLORIDE (BEAKER) (test code = 382) 93 meq/L 98-107 L CO2 (BEAKER) (test code = 355) 29 meq/L 22-29 BLOOD UREA NITROGEN (BEAKER) (test code = 354) 30 mg/dL 7-21 H CREATININE (BEAKER) (test code = 358) 5.82 mg/dL 0.57-1.25 H GLUCOSE RANDOM (BEAKER) (test code = 652) 134 mg/dL 70-105 H CALCIUM (BEAKER) (test code = 697) 10.1 mg/dL 8.4-10.2 AST (SGOT) (BEAKER) (test code = 353) 21 U/L 5-34 ALT (SGPT) (BEAKER) (test code = 347) 12 U/L 6-55 EGFR (BEAKER) (test code = 1092) 10 mL/min/1.73 sq m ESTIMATED GFR IS NOT ACCURATE CREATININE CLEARANCE IN PREDICTING GLOMERULAR FILTRATION RATE. ESTIMATED GFR IS NOT APPLICABLE FOR DIALYSIS PATIENTS. Canvass Manager ID - BSSpecimen slightly lipemicHepatic function [id number] 22:00:00* Test Item Value Reference Range Interpretation Comments Protein, Total (test code = 2885-2) 8.0 6.0- 8.3 gm/dL Albumin (test code = 73345-7) 4.4 g/dL 3.5-5 Total Bilirubin (test code = 1975-2) 0.4 mg/dL 0.2-1.2 Bilirubin, Direct (test code = 1967-7) 0.1 mg/dL 0.1-0.5 Alkaline Phosphatase (test code = 6768-6) 91 U/L 40-150 AST (test code = 1920-8) 21 U/L 5-34 ALT (test code = 1742-6) 12 U/L 6-55 GLENYS (test code = GLENYS) Canvass Manager ID - BSSpecimen slightly lipemic Lab Interpretation (test code = 57426-4) [facility] 22:00:00* Test Item Value Reference Range Interpretation Comments Amylase (test code = 1798-8) 122 U/L 25-125 GLENYS (test code = GLENYS) Canvass Manager ID - BS Lab Interpretation (test code = 04239-2) [facility] 22:00:00* Test Item Value Reference Range Interpretation Comments Lipase (test code = 3040-3) 76 U/L 8-78 GLENYS (test code = GLENYS) Canvass Manager ID - BS Lab Interpretation (test code = 68287-9) [facility]2020-02-10 22:00:00* Test Item Value Reference Range Interpretation Comments LIPASE (BEAKER) (test code = 749) 76 U/L 8-78 Canvass Manager ID - [id number] 22:00:00* Test Item Value Reference Range Interpretation Comments AMYLASE (BEAKER) (test code = 349) 122 U/L 25-125 Canvass Manager ID - BSHEPATIC FUNCTION [id number] 22:00:00* Test Item Value Reference Range Interpretation Comments TOTAL PROTEIN (BEAKER) (test code = 770) 8.0 gm/dL 6.0-8.3 ALBUMIN (BEAKER) (test code = 1145) 4.4 g/dL 3.5-5.0 BILIRUBIN TOTAL (BEAKER) (test code = 377) 0.4 mg/dL 0.2-1.2 BILIRUBIN DIRECT (BEAKER) (test code = 706) 0.1 mg/dL 0.1-0.5 ALKALINE PHOSPHATASE (BEAKER) (test code = 346) 91 U/L 40-150 AST (SGOT) (BEAKER) (test code = 353) 21 U/L 5-34 ALT (SGPT) (BEAKER) (test code = 347) 12 U/L 6-55 Canvass Manager ID - BSSpecimen slightly lipemicLactic acid, [id number] 21:55:00 * Test Item Value Reference Range Interpretation Comments Lactate, Venous (test code = 2872) 3.7 mmol/L 0.5-2.2 H GLENYS (test code = GLENYS) Canvass Manager ID - BS Lab Interpretation (test code = 30439-9) [facility]normal [facility] HospitalLACTIC ACID, [id number] 21:55:00* Test Item Value Reference Range Interpretation Comments LACTATE BLOOD VENOUS (2) (BEAKER) (test code = 2872) 3.7 mmol/L 0 .5-2.2 H Canvass Manager ID - BSPT/[id number] 21:21:00* Test Item Value Reference Range Interpretation Comments PROTIME (BEAKER) (test code = 759) 13.0 seconds 11.9-14.2 INR (BEAKER) (test code = 370) 1.0 <=5.9 PARTIAL THROMBOPLASTIN TIME (BEAKER) (test code = 760) 27.8 seconds 22.5-36.0 Effective 12/16/2018: PT Reference Range ChangeNew: 11.9-14.2 Previous: 11.7-14. 7RECOMMENDED COUMADIN/WARFARIN INR THERAPY RANGESSTANDARD DOSE: 2.0-3.0 Include s: PROPHYLAXIS for venous thrombosis, systemic embolization; TREATMENT for venou s thrombosis and/or pulmonary embolus.HIGH RISK: Target INR is 2.5-3.5 for patie nts wiht mechanical heart valves.CBC W/PLT COUNT & AUTO [id number] 21:06:00* Test Item Value Reference Range Interpretation Comments WHITE BLOOD CELL COUNT (BEAKER) (test code = 775) 9.5 K/ L 3.5- 10.5 RED BLOOD CELL COUNT (BEAKER) (test code = 761) 4.08 M/ L 4.63-6 .08 L HEMOGLOBIN (BEAKER) (test code = 410) 12.7 GM/DL 13.7-17.5 L HEMATOCRIT (BEAKER) (test code = 411) 41.3 % 40.1-51.0 MEAN CORPUSCULAR VOLUME (BEAKER) (test code = 753) 101.2 fL 79. 0-92.2 H MEAN CORPUSCULAR HEMOGLOBIN (BEAKER) (test code = 751) 31.1 pg 25.7-32.2 MEAN CORPUSCULAR HEMOGLOBIN CONC (BEAKER) (test code = 752) 30.8 GM/DL 32.3-36.5 L RED CELL DISTRIBUTION WIDTH (BEAKER) (test code = 412) 14.7 % 11.6-14.4 H PLATELET COUNT (BEAKER) (test code = 756) 203 K/CU MM 150-450 MEAN PLATELET VOLUME (BEAKER) (test code = 754) 10.8 fL 9.4-12 .4 NUCLEATED RED BLOOD CELLS (BEAKER) (test code = 413) 0 /100 WBC 0 -0 NEUTROPHILS RELATIVE PERCENT (BEAKER) (test code = 429) 77 % LYMPHOCYTES RELATIVE PERCENT (BEAKER) (test code = 430) 10 % MONOCYTES RELATIVE PERCENT (BEAKER) (test code = 431) 11 % EOSINOPHILS RELATIVE PERCENT (BEAKER) (test code = 432) 2 % BASOPHILS RELATIVE PERCENT (BEAKER) (test code = 437) 0 % NEUTROPHILS ABSOLUTE COUNT (BEAKER) (test code = 670) 7.31 K/ L 1.78-5.38 H LYMPHOCYTES ABSOLUTE COUNT (BEAKER) (test code = 414) 0.92 K/ L 1.32-3.57 L MONOCYTES ABSOLUTE COUNT (BEAKER) (test code = 415) 1.04 K/ L 0. 30-0.82 H EOSINOPHILS ABSOLUTE COUNT (BEAKER) (test code = 416) 0.20 K/ L 0.04-0.54 BASOPHILS ABSOLUTE COUNT (BEAKER) (test code = 417) 0.02 K/ L 0. 01-0.08 IMMATURE GRANULOCYTES-RELATIVE PERCENT (BEAKER) (test code = 2801) 0 % 0-1 BASIC METABOLIC [id number] 11:41:00* Test Item Value Reference Range Interpretation Comments SODIUM (BEAKER) (test code = 381) 139 meq/L 136-145 POTASSIUM (BEAKER) (test code = 379) 5.3 meq/L 3.5-5.1 H CHLORIDE (BEAKER) (test code = 382) 103 meq/L 98-107 CO2 (BEAKER) (test code = 355) 24 meq/L 22-29 BLOOD UREA NITROGEN (BEAKER) (test code = 354) 36 mg/dL 7-21 H CREATININE (BEAKER) (test code = 358) 7.03 mg/dL 0.57-1.25 H GLUCOSE RANDOM (BEAKER) (test code = 652) 125 mg/dL 70-105 H CALCIUM (BEAKER) (test code = 697) 9.8 mg/dL 8.4-10.2 EGFR (BEAKER) (test code = 1092) 8 mL/min/1.73 sq m ESTIMATED GFR IS NOT ACCURATE CREATININE CLEARANCE IN PREDICTING GLOMERULAR FILTRATION RATE. ESTIMATED GFR IS NOT APPLICABLE FOR DIALYSIS PATIENTS. Canvass Manager ID Lory SANTIZO [id number] 11:37:00* Test Item Value Reference Range Interpretation Comments Phosphorus (test code = 2777-1) 5.3 mg/dL 2.3-4.7 H GLENYS (test code = GLENYS) Canvass Manager ID Lory SANTIZO F Lab Interpretation (test code = 12916-0) [facility]normal [facility] [id number] 11:37:00* Test Item Value Reference Range Interpretation Comments PHOSPHORUS (BEAKER) (test code = 604) 5.3 mg/dL 2.3-4.7 H Canvass Manager ID Lory SANTIZO [id number] 11:37:00* Test Item Value Reference Range Interpretation Comments MAGNESIUM (BEAKER) (test code = 627) 2.5 mg/dL 1.6-2.6 Canvass Manager ID Lory SANTIZO FCBC W/PLT COUNT & AUTO [id number] 11:17:00* Test Item Value Reference Range Interpretation Comments WHITE BLOOD CELL COUNT (BEAKER) (test code = 775) 8.4 K/ L 3.5- 10.5 RED BLOOD CELL COUNT (BEAKER) (test code = 761) 4.11 M/ L 4.63-6 .08 L HEMOGLOBIN (BEAKER) (test code = 410) 12.9 GM/DL 13.7-17.5 L HEMATOCRIT (BEAKER) (test code = 411) 41.5 % 40.1-51.0 MEAN CORPUSCULAR VOLUME (BEAKER) (test code = 753) 101.0 fL 79. 0-92.2 H MEAN CORPUSCULAR HEMOGLOBIN (BEAKER) (test code = 751) 31.4 pg 25.7-32.2 MEAN CORPUSCULAR HEMOGLOBIN CONC (BEAKER) (test code = 752) 31.1 GM/DL 32.3-36.5 L RED CELL DISTRIBUTION WIDTH (BEAKER) (test code = 412) 15.0 % 11.6-14.4 H PLATELET COUNT (BEAKER) (test code = 756) 178 K/CU MM 150-450 MEAN PLATELET VOLUME (BEAKER) (test code = 754) 11.2 fL 9.4-12 .4 NUCLEATED RED BLOOD CELLS (BEAKER) (test code = 413) 0 /100 WBC 0 -0 NEUTROPHILS RELATIVE PERCENT (BEAKER) (test code = 429) 73 % LYMPHOCYTES RELATIVE PERCENT (BEAKER) (test code = 430) 13 % MONOCYTES RELATIVE PERCENT (BEAKER) (test code = 431) 10 % EOSINOPHILS RELATIVE PERCENT (BEAKER) (test code = 432) 4 % BASOPHILS RELATIVE PERCENT (BEAKER) (test code = 437) 0 % NEUTROPHILS ABSOLUTE COUNT (BEAKER) (test code = 670) 6.08 K/ L 1.78-5.38 H LYMPHOCYTES ABSOLUTE COUNT (BEAKER) (test code = 414) 1.10 K/ L 1.32-3.57 L MONOCYTES ABSOLUTE COUNT (BEAKER) (test code = 415) 0.83 K/ L 0. 30-0.82 H EOSINOPHILS ABSOLUTE COUNT (BEAKER) (test code = 416) 0.30 K/ L 0.04-0.54 BASOPHILS ABSOLUTE COUNT (BEAKER) (test code = 417) 0.03 K/ L 0. 01-0.08 IMMATURE GRANULOCYTES-RELATIVE PERCENT (BEAKER) (test code = 2801) 0 % 0-1 HEMODIALYSIS [id number] 20:14:00Vj Thompson RN 08/28/2019 8:14 PM Pt dialyzed for 3 hrs via left upper arm AVF. Mannitol 12.5gms/50ml IV x1 and midodrine 10mg po given for b/p support with effect. NET UF= 1.7 Liters. VS stable post HD. Report off to primary nurse. Lab Results Component Value Date WBC 7.1 08/28/2019 HGB 11.4 (L) 08/28/2019 HCT 35.8 (L) 08/28/2019 MCV 98.4 (H) 08/28/2019 PLT 181 08/28/2019 Lab Results Component Value Date HEPBSAG Nonreactive 08/27/2019 ]Lab Results Component Value Date HEPBIGM Nonreactive 09/06/2013 [...] Status 08/26/2019 13.9 11.9 - 14.2 seconds Final INR Date Value Ref Range St atus 08/26/2019 1.1 <=5.9 Final PTT Date Value Ref Range Status 08/26/2019 30.8 22.5 - 36.0 seconds [facility] 2019[facility]08[facility]28 17:44:00* Test Item Value Reference Range Interpretation Comments POC-GLUCOSE METER (BEAKER) (test code = 1538) 112 mg/dL 70-110 H : TESTED AT [address], [address]: Canvass Manager/Ski Top Trimmer ID = [id number] for CARLOS ASCENCIO [id number] 10:46:00* Test Item Value Reference Range Interpretation Comments Potassium (test code = 2823-3) 5.4 meq/L 3.5-5.1 H Specimen slightly hemolyzed GLENYS (test code = GLENYS) Canvass Manager ID - PIAYA L Lab Interpretation (test code = 50265-8) [facility]normal [facility] 10:46:00* Test Item Value Reference Range Interpretation Comments POTASSIUM (BEAKER) (test code = 379) 5.4 meq/L 3.5-5.1 H Specimen slightly hemolyzed [employer]vass Manager ID - IAN LPOCT-GLUCOSE [id number] 08:01:00* Test Item Value Reference Range Interpretation Comments POC-GLUCOSE METER (BEAKER) (test code = 1538) 143 mg/dL 70-110 H : TESTED AT [place] [id number] [facility], [address]: Canvass Manager/Ski Top Trimmer ID = [id number] for CARLOS ASCENCIO [id number] 06:08:00* Test Item Value Reference Range Interpretation Comments Ferritin (test code = 2276-4) 883 ng/mL 5-275 H GLENYS (test code = GLENYS) Canvass Manager ID - JOSE Lab Interpretation (test code = 42876-1) [facility] 06:08:00* Test Item Value Reference Range Interpretation Comments FERRITIN (BEAKER) (test code = 361) 883 ng/mL 5-275 H [employer] Manager ID - JOSE Devin, TIBC, % sat. (without ferritin)2019-08-28 05:53:00* Test Item Value Reference Range Interpretation Comments Iron (test code = 2498-4) 40.0 ug/dL 40-160 TIBC (test code = 2500-7) 258 ug/dL 250-450 Iron % Saturation (test code = 2502-3) 16 % 20-55 L GLENYS (test code = GLENYS) Canvass Manager ID - JOSE M Lab Interpretation (test code = 86986-8) [facility]normal [facility], TIBC, % SAT. (WITHOUT FERRITIN)2019-08-28 05:53:00* Test Item Value Reference Range Interpretation Comments IRON (BEAKER) (test code = 547) 40.0 ug/dL 40.0-160.0 TOTAL IRON BINDING CAPACITY (BEAKER) (test code = 769) 258 ug/dL 250-450 IRON % SATURATION (2) (BEAKER) (test code = 2590) 16 % 20-5 5 L Canvass Manager ID - JOSE MBASIC METABOLIC [id number] 05:51:00* Test Item Value Reference Range Interpretation Comments SODIUM (BEAKER) (test code = 381) 137 meq/L 136-145 POTASSIUM (BEAKER) (test code = 379) 5.5 meq/L 3.5-5.1 H CHLORIDE (BEAKER) (test code = 382) 99 meq/L 98-107 CO2 (BEAKER) (test code = 355) 27 meq/L 22-29 BLOOD UREA NITROGEN (BEAKER) (test code = 354) 40 mg/dL 7-21 H CREATININE (BEAKER) (test code = 358) 6.95 mg/dL 0.57-1.25 H GLUCOSE RANDOM (BEAKER) (test code = 652) 114 mg/dL 70-105 H CALCIUM (BEAKER) (test code = 697) 9.4 mg/dL 8.4-10.2 EGFR (BEAKER) (test code = 1092) 8 mL/min/1.73 sq m ESTIMATED GFR IS NOT ACCURATE CREATININE CLEARANCE IN PREDICTING GLOMERULAR FILTRATION RATE. ESTIMATED GFR IS NOT APPLICABLE FOR DIALYSIS PATIENTS. Canvass Manager ID - JOSE [id number] 05:45:00* Test Item Value Reference Range Interpretation Comments PHOSPHORUS (BEAKER) (test code = 604) 5.5 mg/dL 2.3-4.7 H Canvass Manager ID - JOSE [id number] 05:45:00* Test Item Value Reference Range Interpretation Comments MAGNESIUM (BEAKER) (test code = 627) 2.4 mg/dL 1.6-2.6 Canvass Manager ID - JOSE MCBC W/PLT COUNT & AUTO [id number] 05:15:00* Test Item Value Reference Range Interpretation Comments WHITE BLOOD CELL COUNT (BEAKER) (test code = 775) 7.1 K/ L 3.5- 10.5 RED BLOOD CELL COUNT (BEAKER) (test code = 761) 3.64 M/ L 4.63-6 .08 L HEMOGLOBIN (BEAKER) (test code = 410) 11.4 GM/DL 13.7-17.5 L HEMATOCRIT (BEAKER) (test code = 411) 35.8 % 40.1-51.0 L MEAN CORPUSCULAR VOLUME (BEAKER) (test code = 753) 98.4 fL 79. 0-92.2 H MEAN CORPUSCULAR HEMOGLOBIN (BEAKER) (test code = 751) 31.3 pg 25.7-32.2 MEAN CORPUSCULAR HEMOGLOBIN CONC (BEAKER) (test code = 752) 31.8 GM/DL 32.3-36.5 L RED CELL DISTRIBUTION WIDTH (BEAKER) (test code = 412) 15.1 % 11.6-14.4 H PLATELET COUNT (BEAKER) (test code = 756) 181 K/CU MM 150-450 MEAN PLATELET VOLUME (BEAKER) (test code = 754) 11.1 fL 9.4-12 .4 NUCLEATED RED BLOOD CELLS (BEAKER) (test code = 413) 0 /100 WBC 0 -0 NEUTROPHILS RELATIVE PERCENT (BEAKER) (test code = 429) 73 % LYMPHOCYTES RELATIVE PERCENT (BEAKER) (test code = 430) 14 % MONOCYTES RELATIVE PERCENT (BEAKER) (test code = 431) 12 % EOSINOPHILS RELATIVE PERCENT (BEAKER) (test code = 432) 1 % BASOPHILS RELATIVE PERCENT (BEAKER) (test code = 437) 0 % NEUTROPHILS ABSOLUTE COUNT (BEAKER) (test code = 670) 5.15 K/ L 1.78-5.38 LYMPHOCYTES ABSOLUTE COUNT (BEAKER) (test code = 414) 0.99 K/ L 1.32-3.57 L MONOCYTES ABSOLUTE COUNT (BEAKER) (test code = 415) 0.86 K/ L 0. 30-0.82 H EOSINOPHILS ABSOLUTE COUNT (BEAKER) (test code = 416) 0.06 K/ L 0.04-0.54 BASOPHILS ABSOLUTE COUNT (BEAKER) (test code = 417) 0.01 K/ L 0. 01-0.08 IMMATURE GRANULOCYTES-RELATIVE PERCENT (BEAKER) (test code = 2801) 0 % 0-1 POCT-GLUCOSE [id number] 22:07:00* Test Item Value Reference Range Interpretation Comments POC-GLUCOSE METER (BEAKER) (test code = 1538) 184 mg/dL 70-110 H : Notified RN/MD: TESTED AT [facility] [address] [facility], [address]: Canvass Manager/Ski Top Trimmer ID = [id number] for ERIKA AGUILAR HEMODIALYSIS [id number] 20:45:00Antwon Jensen RN 08/27/2019 9:06 PMLab Results Component Value Date WBC 5.7 08/27/2019 [...] ,stable no bleeding so far.Antwon Jensen RN [facility] Center[facility]ORT[facility],30 MIN 2019-08-27 19:00:00* Test Item Value Reference Range Interpretation Comments Cortisol, Baseline (test code = 96326-0) 8.2 mcg/dL Cortisol, 30 Minute (test code = 03701-0) 25.8 ug/dL GLENYS (test code = GLENYS) ACTH STIMULATION TEST IN TERPRETATION GUIDELINES(Synonyms: Cortrosyn Test, Cosyntropin or Corticotropin Stimulation Test) Adenocorticotropic hormone (ACTH)is a tropic hormone, made in the pituitar y gland, which travels trhough the bloodstream and stimulates the cortex of the adrenal glands to release cortisol. Cortisol is a primary hormone, which aids the body's metabolism of fats, carbohydrates, and protein as well as sodium and potassium regulation. ACTH Stimulation Test: Exogenous administration of biologically active ACTH stimulates the secretion of cortisol from the adrenal gland. This test is used to evaluate adrenal function by measuring cortisol levels at baseline and at 30 and 60 minutes after the administration of 250 micrograms of cosyntropin (Cortrosyn). Patients who have received exogenous corticosteroids immediately prior to performing the ACTH Stimulation Test will often have elevated baseline cortisol levels, which may lead to erroneous interpretation of test results. The notable exception is with dexamethasone. Normal Response: An increase in cortisol after stimulation by ACTH is normal. Post-stimulation cortisol concentration should be greater than 20 mcg/dL or the rate of rise from baseline cortisol should be greater than or equal to 9 mcg/dL. Patients with sepsis or septic shock: According to a study by Leila et al (KEITH 2000,283(8):1038-45), the ACTH Stimulation Test provides important prognostic information. This study defined 3 groups of patients with sepsis or septic shock: 1. Good Survival: Low basal cortisol (<or=34 mcg/dL) and high ACTH response (>9mcg/dL) 2. Intermediate Survival: Low basal cortisol (<34 mcg/dL) and low response to ACTH (<or=9 mcg/dL) OR High basal cortisol (>34 mcg/dL) or high ACTH response (>9 mcg/dL) 3. Poor Survival: High basal cortisol (>34 mcg/dL) and low ACTH response (<or=9 mcg/dL). Treatment of patients with relative adrenal dysfunction may be indicated based on test results and the clinical condition of the patient. Additional information, including treatment recommendations, is available in critically ill patients, approved by the Pharmacy, Nutrition, and Therapeutics Committee on 06/29/2004 and available through the Pharmacy Policy and Procedure Section on The Source. Canvass Manager [facility] [id number] 19:00:00* Test Item Value Reference Range Interpretation Comments Cortisol, Baseline (test code = 10945-6) 8.2 mcg/dL Cortisol 30 minute (test code = 54422-3) 25.8 mcg/dL Cortisol, 60 Minute (test code = 64200-7) 29.9 ug/dL GLENYS (test code = GLENYS) ACTH STIMULATION TEST IN TERPRETATION GUIDELINES(Synonyms: Cortrosyn Test, Cosyntropin or Corticotropin Stimulation Test) Adenocorticotropic hormone (ACTH)is a tropic hormone, made in the pituitar y gland, which travels trhough the bloodstream and stimulates the cortex of the adrenal glands to release cortisol. Cortisol is a primary hormone, which aids the body's metabolism of fats, carbohydrates, and protein as well as sodium and potassium regulation. ACTH Stimulation Test: Exogenous administration of biologically active ACTH stimulates the secretion of cortisol from the adrenal gland. This test is used to evaluate adrenal function by measuring cortisol levels at baseline and at 30 and 60 minutes after the administration of 250 micrograms of cosyntropin (Cortrosyn). Patients who have received exogenous corticosteroids immediately prior to performing the ACTH Stimulation Test will often have elevated baseline cortisol levels, which may lead to erroneous interpretation of test results. The notable exception is with dexamethasone. Normal Response: An increase in cortisol after stimulation by ACTH is normal. Post-stimulation cortisol concentration should be greater than 20 mcg/dL or the rate of rise from baseline cortisol should be greater than or equal to 9 mcg/dL. Patients with sepsis or septic shock: According to a study by Leila et al (KEITH 2000,283(8):1038-45), the ACTH Stimulation Test provides important prognostic information. This study defined 3 groups of patients with sepsis or septic shock: 1. Good Survival: Low basal cortisol (<or=34 mcg/dL) and high ACTH response (>9mcg/dL) 2. Intermediate Survival: Low basal cortisol (<34 mcg/dL) and low response to ACTH (<or=9 mcg/dL) OR High basal cortisol (>34 mcg/dL) or high ACTH response (>9 mcg/dL) 3. Poor Survival: High basal cortisol (>34 mcg/dL) and low ACTH response (<or=9 mcg/dL). Treatment of patients with relative adrenal dysfunction may be indicated based on test results and the clinical condition of the patient. Additional information, including treatment recommendations, is available in critically ill patients, approved by the Pharmacy, Nutrition, and Therapeutics Committee on 06/29/2004 and available through the Pharmacy Policy and Procedure Section on The Source. Canvass Manager [facility] [id number] 19:00:00* Test Item Value Reference Range Interpretation Comments CORTISOL BASELINE NETWORKED (BEAKER) (test code = 2307) 8.2 mcg/dL CORTISOL 30 MINUTE NETWORKED (BEAKER) (test code = 2308) 25.8 mcg/d L CORTISOL, 60 MINUTE (BEAKER) (test code = 1805) 29.9 ug/dL ACTH STIMULATION TEST INTERPRETATION GUIDELINES(Synonyms: Cortrosyn Test, Co syntropin or Corticotropin Stimulation Test)Adenocorticotropic hormone (ACTH)is a tropic hormone, made in the pituitary gland, which travels trhough the bloodst ream and stimulates the cortex of the adrenal glands to release cortisol. Cortis ol is a primary hormone, which aids the body's metabolism of fats, carbohydrates , and protein as well as sodium and potassium regulation.ACTH Stimulation Test: Exogenous administration of biologically active ACTH stimulates the secretion of cortisol from the adrenal gland. This test is used to evaluate adrenal function by measuring cortisol levels at baseline and at 30 and 60 minutes after the adm inistration of 250 micrograms of cosyntropin (Cortrosyn). Patients who have rece ived exogenous corticosteroids immediately prior to performing the ACTH Stimulat ion Test will often have elevated baseline cortisol levels, which may lead to er roneous interpretation of test results. The notable exception is with dexamethas one.Normal Response: An increase in cortisol after stimulation by ACTH is normal . Post-stimulation cortisol concentration should be greater than 20 mcg/dL or th e rate of rise from baseline cortisol should be greater than or equal to 9 mcg/d L.Patients with sepsis or septic shock: According to a study by Leila et al ([facility] 2000,283(1):2442-33), the ACTH Stimulation Test provides important prognostic information. This study defined 3 groups of patients with sepsis or septic shoc k: 1. Good Survival: Low basal cortisol (<or=34 mcg/dL) and high ACTH response (>9mcg/dL) 2. Intermediate Survival: Low basal cortisol (<34 mcg/dL) and low response to ACTH (<or=9 mcg/dL) OR High basal cortisol (>34 mcg/dL) or high ACTH response (>9 mcg/dL) 3. Poor Survival: High basal cortisol (>34 mcg/dL) and low ACTH response (<or=9 mcg/dL).Treatment of patients with relative adrenal dysfunction may be indicated based on test results and the clinical condition of the patient. Additional information, including treatment recommendations, is available in critically ill patients, approved by the Pharmacy, Nutrition, and Therapeutics Committee on 06/29/2004 and available through the Pharmacy Policy and Procedure Section on The Source.Canvass Manager ID - BSCORTISOL,30 [id number] 19:00:00* Test Item Value Reference Range Interpretation Comments CORTISOL BASELINE NETWORKED (BEAKER) (test code = 2307) 8.2 mcg/dL CORTISOL, 30 MINUTE (BEAKER) (test code = 1804) 25.8 ug/dL ACTH STIMULATION TEST INTERPRETATION GUIDELINES(Synonyms: Cortrosyn Test, Co syntropin or Corticotropin Stimulation Test)Adenocorticotropic hormone (ACTH)is a tropic hormone, made in the pituitary gland, which travels trhough the bloodst ream and stimulates the cortex of the adrenal glands to release cortisol. Cortis ol is a primary hormone, which aids the body's metabolism of fats, carbohydrates , and protein as well as sodium and potassium regulation.ACTH Stimulation Test: Exogenous administration of biologically active ACTH stimulates the secretion of cortisol from the adrenal gland. This test is used to evaluate adrenal function by measuring cortisol levels at baseline and at 30 and 60 minutes after the adm inistration of 250 micrograms of cosyntropin (Cortrosyn). Patients who have rece ived exogenous corticosteroids immediately prior to performing the ACTH Stimulat ion Test will often have elevated baseline cortisol levels, which may lead to er roneous interpretation of test results. The notable exception is with dexamethas one.Normal Response: An increase in cortisol after stimulation by ACTH is normal . Post-stimulation cortisol concentration should be greater than 20 mcg/dL or th e rate of rise from baseline cortisol should be greater than or equal to 9 mcg/d L.Patients with sepsis or septic shock: According to a study by Leila et al ([facility] 2000,283(8):9569-45), the ACTH Stimulation Test provides important prognostic information. This study defined 3 groups of patients with sepsis or septic shoc k: 1. Good Survival: Low basal cortisol (<or=34 mcg/dL) and high ACTH response (>9mcg/dL) 2. Intermediate Survival: Low basal cortisol (<34 mcg/dL) and low response to ACTH (<or=9 mcg/dL) OR High basal cortisol (>34 mcg/dL) or high ACTH response (>9 mcg/dL) 3. Poor Survival: High basal cortisol (>34 mcg/dL) and low ACTH response (<or=9 mcg/dL).Treatment of patients with relative adrenal dysfunction may be indicated based on test results and the clinical condition of the patient. Additional information, including treatment recommendations, is available in critically ill patients, approved by the Pharmacy, Nutrition, and Therapeutics Committee on 06/29/2004 and available through the Pharmacy Policy and Procedure Section on The Source.Canvass Manager ID - BSPOCT-GLUCOSE [id number] 17:53:00* Test Item Value Reference Range Interpretation Comments POC-GLUCOSE METER (LIDIAAKER) (test code = 1538) 114 mg/dL 70-110 H : TESTED AT [facility] [address] [place] [address], [address]: Canvass Manager/Ski Top Trimmer ID = [id number] for CARLOS ASCENCIO CORTISOL,[id number] 17:34:00* Test Item Value Reference Range Interpretation Comments Cortisol, Baseline (test code = 1803) 8.2 ug/dL GLENYS (test code = GLENYS) ACTH STIMULATION TEST IN TERPRETATION GUIDELINES(Synonyms: Cortrosyn Test, Cosyntropin or Corticotropin Stimulation Test) Adenocorticotropic hormone (ACTH)is a tropic hormone, made in the pituitar y gland, which travels trhough the bloodstream and stimulates the cortex of the adrenal glands to release cortisol. Cortisol is a primary hormone, which aids the body's metabolism of fats, carbohydrates, and protein as well as sodium and potassium regulation. ACTH Stimulation Test: Exogenous administration of biologically active ACTH stimulates the secretion of cortisol from the adrenal gland. This test is used to evaluate adrenal function by measuring cortisol levels at baseline and at 30 and 60 minutes after the administration of 250 micrograms of cosyntropin (Cortrosyn). Patients who have received exogenous corticosteroids immediately prior to performing the ACTH Stimulation Test will often have elevated baseline cortisol levels, which may lead to erroneous interpretation of test results. The notable exception is with dexamethasone. Normal Response: An increase in cortisol after stimulation by ACTH is normal. Post-stimulation cortisol concentration should be greater than 20 mcg/dL or the rate of rise from baseline cortisol should be greater than or equal to 9 mcg/dL. Patients with sepsis or septic shock: According to a study by Leila et al (KEITH 2000,283(8):1038-45), the ACTH Stimulation Test provides important prognostic information. This study defined 3 groups of patients with sepsis or septic shock: 1. Good Survival: Low basal cortisol (<or=34 mcg/dL) and high ACTH response (>9mcg/dL) 2. Intermediate Survival: Low basal cortisol (<34 mcg/dL) and low response to ACTH (<or=9 mcg/dL) OR High basal cortisol (>34 mcg/dL) or high ACTH response (>9 mcg/dL) 3. Poor Survival: High basal cortisol (>34 mcg/dL) and low ACTH response (<or=9 mcg/dL). Treatment of patients with relative adrenal dysfunction may be indicated based on test results and the clinical condition of the patient. Additional information, including treatment recommendations, is available in critically ill patients, approved by the Pharmacy, Nutrition, and Therapeutics Committee on 06/29/2004 and available through the Pharmacy Policy and Procedure Section on The Source. Canvass Manager ID - [facility]TP [facility],[id number] 17:34:00* Test Item Value Reference Range Interpretation Comments CORTISOL, BASELINE (NAHID) (test code = 1803) 8.2 ug/dL ACTH STIMULATION TEST INTERPRETATION GUIDELINES(Synonyms: Cortrosyn Test, Co syntropin or Corticotropin Stimulation Test)Adenocorticotropic hormone (ACTH)is a tropic hormone, made in the pituitary gland, which travels trhough the bloodst ream and stimulates the cortex of the adrenal glands to release cortisol. Cortis ol is a primary hormone, which aids the body's metabolism of fats, carbohydrates , and protein as well as sodium and potassium regulation.ACTH Stimulation Test: Exogenous administration of biologically active ACTH stimulates the secretion of cortisol from the adrenal gland. This test is used to evaluate adrenal function by measuring cortisol levels at baseline and at 30 and 60 minutes after the adm inistration of 250 micrograms of cosyntropin (Cortrosyn). Patients who have rece ived exogenous corticosteroids immediately prior to performing the ACTH Stimulat ion Test will often have elevated baseline cortisol levels, which may lead to er roneous interpretation of test results. The notable exception is with dexamethas one.Normal Response: An increase in cortisol after stimulation by ACTH is normal . Post-stimulation cortisol concentration should be greater than 20 mcg/dL or th e rate of rise from baseline cortisol should be greater than or equal to 9 mcg/d L.Patients with sepsis or septic shock: According to a study by Leila et al ([facility] 2000,283(8):3602-45), the ACTH Stimulation Test provides important prognostic information. This study defined 3 groups of patients with sepsis or septic sho k: 1. Good Survival: Low basal cortisol (<or=34 mcg/dL) and high ACTH response (>9mcg/dL) 2. Intermediate Survival: Low basal cortisol (<34 mcg/dL) and low response to ACTH (<or=9 mcg/dL) OR High basal cortisol (>34 mcg/dL) or high ACTH response (>9 mcg/dL) 3. Poor Survival: High basal cortisol (>34 mcg/dL) and low ACTH response (<or=9 mcg/dL).Treatment of patients with relative adrenal dysfunction may be indicated based on test results and the clinical condition of the patient. Additional information, including treatment recommendations, is available in critically ill patients, approved by the Pharmacy, Nutrition, and Therapeutics Committee on 06/29/2004 and available through the Pharmacy Policy and Procedure Section on The Source.Canvass Manager ID - [id number] Echo W/Doppler(CW/PW/Color)2019-08-27 15:01:32 Ejection FractionSLEH ECHO HEARTLAB MKTIM CPACSInterface, External Ris In - 08/27/2019 3:01 PM CSTTransthoracic Echocardiography Report (TTE) Demographics Patient Name AARON HENDERSON Date of Study 08/27/2019 ANTOINE Gender Male Visit Number [id number] Race Other Room Number 6211 Number Date of 1960 Referring ysician AUDIE GALICIA Age 58 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 [...] noted: mild is new . Signature Findings T echnical Quality: Technically adequate exam. Left Ventricle The left porter tricle is chamber size (by PSLAX dimension) is normal (ma le - LVIDd 4.2-5.8cm) . Mild concentric LV hypertrophy. All of the LV segments contract normally . Global LV systolic function normal . LVEF by Simp son's method of disk assessment is normal (>60%) . The LVEF was measured using Galicia's bi-plane method of disk . LV endocardium is adequately visualized with IV ultrasound enhancing agent. Grade 1 diastolic dysfunction (impaired relaxation and low-normal LA pressure). Left Atrium LA size is normal (16- 34 ml/m2) . Right Ventricle The right ventricular [...] Pericardium No significant pericardial effusion is visualized. IVC/S VC/PA/PV/Pleural The right upper pulmonary vein (RUPV) is normal . The estimated RA pressure by IVC dynamics 5-10mmHg . Chambers/Structures Left Atrium LA Volume: 66.38 ml LA Area: 18.79 cm^2 LA Vol. Index: 32 ml/m^2 Left Ventricle LVIDd: 4.53 cm LV Septum Diastolic: 1.29 cm LV PW Diastolic: 1.28 cm LVEDV Galicia's:127.12 ml LVE SV Galicia's:40.94 ml LVEF Gailcia's: 67.8 % LVEDVI: 61 ml/ m^2 LVESVI: 19 ml/m^2 LVOT Diameter: 1.91 cm Right Atrium RA Vol. (Sngl Plane): 53.49 ml Right Ventricle TAPSE: 1.78 cm Aorta Ao Root S of Jocelyn.: 2.92 cm Ascending Aorta: 3.05 cm Doppler/Quantitative Measurements Mitral Valve MV Peak E-Wave: 0.78 m/s MV Peak A-Wave: 0.96 m/s P1/2t: 67.6 msec E/A Ratio: 0.81 Peak Gr adient: 2.43 mmHg Deceleration Time: 233 msec MV Area (PHT): 3.26 cm^2 MV Israel. Peak: Tissue Doppler E' Septal Velocity : 0.05 m/s E' Lateral Velocity: 0.06 m/s Aortic Valve Peak Velocity: 2.43 m/s Mean Velocity: 1.67 m/s Peak Gradient: 23.59 mmHg Mean Gradient: 12.78 mmHg AV Area (continuity): 1.85 cm^2 AV VTI: 46.86 cm AV DVI: 0.65 LVOT Peak Velocity: 1.44 m/s Peak Gradient: 8.28 mmHg M gomez Velocity: 1.04 m/s Mean Gradient: 4.92 mmHg LVOT Diameter: 1.91 cm LVOT VTI: 30.25 cm LVOT Area: 2.87 cm^2 LVOT SV:8 6.63 ml LVOT CO: 7.97 l/min LVOT CI: 3.8 l/min/m^2 [facility] [id number] 11:40:00* Test Item Value Reference Range Interpretation Comments POC-GLUCOSE METER (LIDIAAKER) (test code = 1538) 138 mg/dL 70-110 H : TESTED AT [address], [address]: Canvass Manager/Ski Top Trimmer ID = [id number] for CARLOS ASCENCIO Hemoglobin [id number] 08:30:00* Test Item Value Reference Range Interpretation Comments Hemoglobin A1C (test code = 4548-4) 5.9 % 4.3-6.1 Lab Interpretation (test code = 78888-7) Normal [facility]MO[facility] [id number] 08:30:00* Test Item Value Reference Range Interpretation Comments HEMOGLOBIN A1C (BEAKER) (test code = 368) 5.9 % 4.3-6.1 POCT-GLUCOSE [id number] 07:44:00* Test Item Value Reference Range Interpretation Comments POC-GLUCOSE METER (BEAKER) (test code = 1538) 109 mg/dL 70-110 : TESTED AT [facility] [address] [facility], [address]: Canvass Manager/Ski Top Trimmer ID = [id number] for CARLOS ASCENCIO HEPATITIS B SURFACE [id number] 05:32:00* Test Item Value Reference Range Interpretation Comments HEPATITIS B SURFACE ANTIGEN (2) (BEAKER) (test code = 2585) Nonreactive Nonreactive Canvass Manager ID - JOSE MBASIC METABOLIC [id number] 05:03:00* Test Item Value Reference Range Interpretation Comments SODIUM (BEAKER) (test code = 381) 131 meq/L 136-145 L POTASSIUM (BEAKER) (test code = 379) 5.6 meq/L 3.5-5.1 H CHLORIDE (BEAKER) (test code = 382) 92 meq/L 98-107 L CO2 (BEAKER) (test code = 355) 25 meq/L 22-29 BLOOD UREA NITROGEN (BEAKER) (test code = 354) 76 mg/dL 7-21 H CREATININE (BEAKER) (test code = 358) 9.98 mg/dL 0.57-1.25 H GLUCOSE RANDOM (BEAKER) (test code = 652) 146 mg/dL 70-105 H CALCIUM (BEAKER) (test code = 697) 8.7 mg/dL 8.4-10.2 EGFR (BEAKER) (test code = 1092) 5 mL/min/1.73 sq m ESTIMATED GFR IS NOT ACCURATE CREATININE CLEARANCE IN PREDICTING GLOMERULAR FILTRATION RATE. ESTIMATED GFR IS NOT APPLICABLE FOR DIALYSIS PATIENTS. Canvass Manager ID - JOSE [id number] 04:59:00* Test Item Value Reference Range Interpretation Comments PHOSPHORUS (BEAKER) (test code = 604) 8.0 mg/dL 2.3-4.7 H Canvass Manager ID - JOSE [id number] 04:59:00* Test Item Value Reference Range Interpretation Comments MAGNESIUM (BEAKER) (test code = 627) 2.4 mg/dL 1.6-2.6 Canvass Manager ID - JOSE MCBC W/PLT COUNT & AUTO [id number] 04:37:00* Test Item Value Reference Range Interpretation Comments WHITE BLOOD CELL COUNT (BEAKER) (test code = 775) 5.7 K/ L 3.5- 10.5 RED BLOOD CELL COUNT (BEAKER) (test code = 761) 3.82 M/ L 4.63-6 .08 L HEMOGLOBIN (BEAKER) (test code = 410) 11.9 GM/DL 13.7-17.5 L HEMATOCRIT (BEAKER) (test code = 411) 37.2 % 40.1-51.0 L MEAN CORPUSCULAR VOLUME (BEAKER) (test code = 753) 97.4 fL 79. 0-92.2 H MEAN CORPUSCULAR HEMOGLOBIN (BEAKER) (test code = 751) 31.2 pg 25.7-32.2 MEAN CORPUSCULAR HEMOGLOBIN CONC (BEAKER) (test code = 752) 32.0 GM/DL 32.3-36.5 L RED CELL DISTRIBUTION WIDTH (BEAKER) (test code = 412) 15.2 % 11.6-14.4 H PLATELET COUNT (BEAKER) (test code = 756) 176 K/CU MM 150-450 MEAN PLATELET VOLUME (BEAKER) (test code = 754) 11.2 fL 9.4-12 .4 NUCLEATED RED BLOOD CELLS (BEAKER) (test code = 413) 0 /100 WBC 0 -0 NEUTROPHILS RELATIVE PERCENT (BEAKER) (test code = 429) 69 % LYMPHOCYTES RELATIVE PERCENT (BEAKER) (test code = 430) 15 % MONOCYTES RELATIVE PERCENT (BEAKER) (test code = 431) 14 % EOSINOPHILS RELATIVE PERCENT (BEAKER) (test code = 432) 3 % BASOPHILS RELATIVE PERCENT (BEAKER) (test code = 437) 0 % NEUTROPHILS ABSOLUTE COUNT (BEAKER) (test code = 670) 3.93 K/ L 1.78-5.38 LYMPHOCYTES ABSOLUTE COUNT (BEAKER) (test code = 414) 0.85 K/ L 1.32-3.57 L MONOCYTES ABSOLUTE COUNT (BEAKER) (test code = 415) 0.78 K/ L 0. 30-0.82 EOSINOPHILS ABSOLUTE COUNT (BEAKER) (test code = 416) 0.15 K/ L 0.04-0.54 BASOPHILS ABSOLUTE COUNT (BEAKER) (test code = 417) 0.01 K/ L 0. 01-0.08 IMMATURE GRANULOCYTES-RELATIVE PERCENT (BEAKER) (test code = 2801) 0 % 0-1 POCT-GLUCOSE [id number] 21:28:00* Test Item Value Reference Range Interpretation Comments POC-GLUCOSE METER (BEAKER) (test code = 1538) 134 mg/dL 70-110 H : Notified RN/MD: TESTED AT [address], [address]: Canvass Manager/Ski Top Trimmer ID = [id number] for MAX BARR [id number] 21:00:00* Test Item Value Reference Range Interpretation Comments ACTIVATED CLOTTING TIME (BEAKER) (test code = 441) 136 sec Reference Range: 74-137 seconds, Baseline/TESTED AT [address] [address] [id number] 19:50:00* Test Item Value Reference Range Interpretation Comments ACTIVATED CLOTTING TIME (BEAKER) (test code = 441) 169 sec Reference Range: 74-137 seconds, Baseline/TESTED AT [address] [address] POCT-GLUCOSE [id number] 16:49:00* Test Item Value Reference Range Interpretation Comments POC-GLUCOSE METER (BEAKER) (test code = 1538) 108 mg/dL 70-110 : TESTED AT [address], [address]: Canvass Manager/Ski Top Trimmer ID = [id number] for ANTOINE HERRERA [id number] 15:30:00* Test Item Value Reference Range Interpretation Comments ACTIVATED CLOTTING TIME (BEAKER) (test code = 441) 263 sec Reference Range: 74-137 seconds, Baseline/TESTED AT [address] [address] [id number] 14:35:00* Test Item Value Reference Range Interpretation Comments ACTIVATED CLOTTING TIME (BEAKER) (test code = 441) 318 sec Reference Range: 74-137 seconds, Baseline/TESTED AT [address] [address] [id number] 14:18:00* Test Item Value Reference Range Interpretation Comments ACTIVATED CLOTTING TIME (BEAKER) (test code = 441) 213 sec Reference Range: 74-137 seconds, Baseline/TESTED AT [address] [address] BASIC METABOLIC [id number] 12:18:00* Test Item Value Reference Range Interpretation Comments SODIUM (BEAKER) (test code = 381) 134 meq/L 136-145 L POTASSIUM (BEAKER) (test code = 379) 5.5 meq/L 3.5-5.1 H Specimen slightly hemolyzed CHLORIDE (BEAKER) (test code = 382) 92 meq/L 98-107 L CO2 (BEAKER) (test code = 355) 25 meq/L 22-29 BLOOD UREA NITROGEN (BEAKER) (test code = 354) 53 mg/dL 7-21 H CREATININE (BEAKER) (test code = 358) 8.24 mg/dL 0.57-1.25 H Specimen slightly hemolyzed GLUCOSE RANDOM (BEAKER) (test code = 652) 109 mg/dL 70-105 H CALCIUM (BEAKER) (test code = 697) 9.4 mg/dL 8.4-10.2 EGFR (BEAKER) (test code = 1092) 7 mL/min/1.73 sq m ESTIMATED GFR IS NOT ACCURATE CREATININE CLEARANCE IN PREDICTING GLOMERULAR FILTRATION RATE. ESTIMATED GFR IS NOT APPLICABLE FOR DIALYSIS PATIENTS. Canvass Manager ID - LMLIPID [id number] 12:17:00* Test Item Value Reference Range Interpretation Comments TRIGLYCERIDES (BEAKER) (test code = 540) 137 mg/dL Specimen slightly hemolyzed CHOLESTEROL (BEAKER) (test code = 631) 136 mg/dL Specimen slightly hemolyzed HDL CHOLESTEROL (BEAKER) (test code = 976) 43 mg/dL LDL CHOLESTEROL CALCULATED (BEAKER) (test code = 633) 66 mg/dL Triglyceride Reference Range: Low Risk <150 Borderline 150-199 High Risk 200-499 Very High Risk >=500Cholesterol Reference Range: Low Risk <200 Borderline 200-239 High Risk >240HDL Cholesterol Reference Range: Low Risk >=60 High Risk <40LDL Cholesterol Reference Range: Optimal <100 Near Optimal 100-129 Borderline 130-159 High 160-189 Very High >=190 Canvass Manager ID - [id number] 11:28:00* Test Item Value Reference Range Interpretation Comments PROTIME (BEAKER) (test code = 759) 13.9 seconds 11.9-14.2 INR (BEAKER) (test code = 370) 1.1 <=5.9 PARTIAL THROMBOPLASTIN TIME (BEAKER) (test code = 760) 30.8 seconds 22.5-36.0 Effective 12/16/2018: PT Reference Range ChangeNew: 11.9-14.2 Previous: 11.7-14. 7RECOMMENDED COUMADIN/WARFARIN INR THERAPY RANGESSTANDARD DOSE: 2.0-3.0 Include s: PROPHYLAXIS for venous thrombosis, systemic embolization; TREATMENT for venou s thrombosis and/or pulmonary embolus.HIGH RISK: Target INR is 2.5-3.5 for patie nts wiht mechanical heart valves.CBC W/PLT COUNT & AUTO [id number] 11:19:00* Test Item Value Reference Range Interpretation Comments WHITE BLOOD CELL COUNT (BEAKER) (test code = 775) 7.2 K/ L 3.5- 10.5 RED BLOOD CELL COUNT (BEAKER) (test code = 761) 4.38 M/ L 4.63-6 .08 L HEMOGLOBIN (BEAKER) (test code = 410) 13.5 GM/DL 13.7-17.5 L HEMATOCRIT (BEAKER) (test code = 411) 43.1 % 40.1-51.0 MEAN CORPUSCULAR VOLUME (BEAKER) (test code = 753) 98.4 fL 79. 0-92.2 H MEAN CORPUSCULAR HEMOGLOBIN (BEAKER) (test code = 751) 30.8 pg 25.7-32.2 MEAN CORPUSCULAR HEMOGLOBIN CONC (BEAKER) (test code = 752) 31.3 GM/DL 32.3-36.5 L RED CELL DISTRIBUTION WIDTH (BEAKER) (test code = 412) 14.9 % 11.6-14.4 H PLATELET COUNT (BEAKER) (test code = 756) 204 K/CU MM 150-450 MEAN PLATELET VOLUME (BEAKER) (test code = 754) 10.9 fL 9.4-12 .4 NUCLEATED RED BLOOD CELLS (BEAKER) (test code = 413) 0 /100 WBC 0 -0 NEUTROPHILS RELATIVE PERCENT (BEAKER) (test code = 429) 65 % LYMPHOCYTES RELATIVE PERCENT (BEAKER) (test code = 430) 19 % MONOCYTES RELATIVE PERCENT (BEAKER) (test code = 431) 14 % EOSINOPHILS RELATIVE PERCENT (BEAKER) (test code = 432) 2 % BASOPHILS RELATIVE PERCENT (BEAKER) (test code = 437) 0 % NEUTROPHILS ABSOLUTE COUNT (BEAKER) (test code = 670) 4.68 K/ L 1.78-5.38 LYMPHOCYTES ABSOLUTE COUNT (BEAKER) (test code = 414) 1.35 K/ L 1.32-3.57 MONOCYTES ABSOLUTE COUNT (BEAKER) (test code = 415) 0.97 K/ L 0. 30-0.82 H EOSINOPHILS ABSOLUTE COUNT (BEAKER) (test code = 416) 0.17 K/ L 0.04-0.54 BASOPHILS ABSOLUTE COUNT (BEAKER) (test code = 417) 0.02 K/ L 0. 01-0.08 IMMATURE GRANULOCYTES-RELATIVE PERCENT (BEAKER) (test code = 2801) 0 % 0-1 MYOCARD IMAGING, MULTI, PHARM, [id number] 16:16:00Started dialysis [id number] for Exam:->renal tx eval; s/p CABG 02/2019FINAL REPORT PROCEDURE: Rest/Stress MYOCARDIAL PERFUSION SPECT with regadenoson\\XA9\\ CPT CODE: 62010 INDICATION: Preoperative evaluation for renal transplant; ESRD; CAD HISTORY: Cardiac risk factors: Hypertension, obesity, hyperlipidemia, tobacco use. Other cardiovascu lar history: Known CAD with prior ACB. Recent cardiac symptoms: Chest pain. Curr ent cardiovascular-related medications: Lisinopril, aspirin, Plavix, metoprolol XL, Midodrine. PROTOCOL: 10.8 mCi of Tc-99m sestamibi was injected iv at re st, and SPECT (tomographic) images were obtained. Also, 30.9 mCi of Tc-99m sesta mibi was injected iv at expected peak pharmacologic effect, and gated SPECT imag es were obtained. PRELIMINARY STRESS TEST DATA FROM NONINVASIVE CARDIOLOGY: Ph armacologic stress was by 10-second iv infusion of 0.4 mg of regadenoson. Radiot racer was injected 30 seconds after start of stress. Heart rate was 88 beats/min at rest and 96 beats/min (59 % of MPHR) at tracer injection. BP was 187/80 mmHg at rest and 120/65 mmHg at tracer injection. Stress was stopped for predetermin ed endpoint. The patient experienced chest pain, dyspnea and headache; treatment was not required. Preliminary ECG evaluation revealed sinus rhythm at rest and was indeterminate due to pharmacological stress with stress. (Final ECG interpre tation and other stress and monitoring data are reported separately by Cardiolog y.) IMAGING FINDINGS: Study quality is good. Post-stress images show mildly de creased radiotracer uptake in the basal lateral of the LV. Resting images show p artial improvement. LV volume appears normal. RV volume appears normal. Gated im ages obtained at rest after stress injection show normal LV wall motion and thic kening. QGS LVEF is 59%. IMPRESSION: 1. Abnormal study. 2. Appropriate phar macologic stress. 3. Abnormal myocardial perfusion. There is a partially revers ible basal lateral wall defect. LV. 4. Overall resting LV function is normal wi th normal wall motion. 5. Extracardiac tracer distribution is normal. 6. Garcia red to a prior PET study dated 02/04/2019, the lateral perfusion defect is still appreciated but is now only mildly reversible. The anteroseptal perfusion defect is new. Signed: Kathy Ospina MDReport Verified Date/Time: 07/06/2019 16:16:17 Reading Location: [address] Reading Room Electronically sign ed by: KATHY OSPINA MD on 07/06/2019 04:16 PM NM myocardial perfusion SPECT,pharm(Lexiscan)2019-07-06 16:16:00Interface, External Ris In - 07/06/2019 4:18 PM CSTFINAL REPORT PROCEDURE: Rest/Stress MYOCARDIAL PERFUSION SPECT with regadenoson\\XA9\\ CPT CODE: 82013 INDICATION: Preoperative evaluation for renal transplant; ESRD; [...] was stopped for predetermined endpoint. The patient exp erienced chest pain, dyspnea and headache; treatment was not required. Prelimina ry ECG evaluation revealed sinus rhythm at rest and was indeterminate due to pha rmacological stress with stress. (Final ECG interpretation and other stress and monitoring data are reported separately by Cardiology.) IMAGING FINDINGS: Stud y quality is good. Post-stress images show mildly decreased radiotracer uptake i n the basal lateral of the LV. Resting images show partial improvement. LV volum e appears normal. RV volume appears normal. Gated images obtained at rest after stress injection show normal LV wall motion and thickening. QGS LVEF is 59%. IMP RESSION: 1. Abnormal study. 2. Appropriate pharmacologic stress. 3. Abnorm al myocardial perfusion. There is a partially reversible basal lateral wall defe ct. LV. 4. Overall resting LV function is normal with normal wall motion. 5. E xtracardiac tracer distribution is normal. 6. Compared to a prior PET study margy ed 02/04/2019, the lateral perfusion defect is still appreciated but is now only mildly reversible. The anteroseptal perfusion defect is new. Signed: Edith Ospina MDReport Verified Date/Time: 07/06/2019 16:16:17 Reading Location: [address] Reading Room [facility] 2 VIEW - [facility] 2019-06-12 18:30:00 [place] [address] Patient Name: AARON HENDERSON I MR #: [id number] : 1960 Age/Sex: 58/M Req #: [id number] Adm Physician: Ordered by: LILIANA ROD MD Report #: [id number] Location: [facility] Room/Bed: Procedure: [id number] H OPD/CXR 2 VIEW - [facility] Exam Date: 06/12/19 Exam Time: 1742 REPORT STATUS: Signed EXAM INATION: CXR 2 VIEW - HOPD INDICATION: Cough. COMPARISON: 10/26/19 16. FINDINGS: PA and lateral views TUBES and LINES: None. LUNGS: Lungs are well inflated. There is no evidence of pneumonia or pulmona ry edema. PLEURA: There is a small right pleural effusion. HEART AND MEDIASTINUM: The cardiomediastinal silhouette is unremarkable. BONES A ND SOFT TISSUES: No acute osseous lesion. Soft tissues are unremarkable. UPPER ABDOMEN: No free air under the diaphragm. IMPRESSION: Small right pleural effusion. Signed by: Alan Rios MD on 06/12/2019 6 :31 PM Dictated By: ALAN RIOS MD 30 Transcribed By: FITZ on 06/12/191830 COPY TO: LILIANA ROD MD PLATELET AGGREGATION: FUNCTION SCREEN 2019-06-10 18:40:00* Test Item Value Reference Range Interpretation Comments [id number] (BEAKER) (test code = 2622) Iliana Dove M.D. (electonic signature) PLATELET COUNT AGG (BEAKER) (test code = 2656) 195 K/CU MM 150-450 PLATELET RICH PLASMA(BEAKER) (test code = 2134) 220 k/cu mm 200-30 0 PLATELET FUNCTION SCREEN INTERPRETATION (BEAKER) (test code = 4655) Decreased aggregation with ADP which indicates platelet dysfunction that may be due to medication effect, uremia, or other platelet function disorders. Clinical correlation is required. Platelet Function Screen results may be falsely low with platelet counts< 75,000/cu mm.BASIC METABOLIC [id number] 16:24:00* Test Item Value Reference Range Interpretation Comments SODIUM (BEAKER) (test code = 381) 135 meq/L 136-145 L POTASSIUM (BEAKER) (test code = 379) 5.8 meq/L 3.5-5.1 H CHLORIDE (BEAKER) (test code = 382) 94 meq/L 98-107 L CO2 (BEAKER) (test code = 355) 24 meq/L 22-29 BLOOD UREA NITROGEN (BEAKER) (test code = 354) 88 mg/dL 7-21 H CREATININE (BEAKER) (test code = 358) 12.88 mg/dL 0.57-1.25 H GLUCOSE RANDOM (BEAKER) (test code = 652) 115 mg/dL 70-105 H CALCIUM (BEAKER) (test code = 697) 9.0 mg/dL 8.4-10.2 EGFR (BEAKER) (test code = 1092) 4 mL/min/1.73 sq m ESTIMATED GFR IS NOT ACCURATE CREATININE CLEARANCE IN PREDICTING GLOMERULAR FILTRATION RATE. ESTIMATED GFR IS NOT APPLICABLE FOR DIALYSIS PATIENTS. [id number] 16:20:00* Test Item Value Reference Range Interpretation Comments PHOSPHORUS (BEAKER) (test code = 604) 5.6 mg/dL 2.3-4.7 H [id number] 16:20:00* Test Item Value Reference Range Interpretation Comments MAGNESIUM (BEAKER) (test code = 627) 2.2 mg/dL 1.6-2.6 [id number] 16:13:00* Test Item Value Reference Range Interpretation Comments FERRITIN (BEAKER) (test code = 361) 950 ng/mL 5-275 H Please ask filler and trimmer to send today thanksPlease ask filler and trimmer to send today [facility]O [id number] 16:02:00* Test Item Value Reference Range Interpretation Comments WHITE BLOOD CELL COUNT (BEAKER) (test code = 775) 6.1 K/ L 3.5- 10.5 RED BLOOD CELL COUNT (BEAKER) (test code = 761) 3.78 M/ L 4.63-6 .08 L HEMOGLOBIN (BEAKER) (test code = 410) 10.9 GM/DL 13.7-17.5 L HEMATOCRIT (BEAKER) (test code = 411) 35.0 % 40.1-51.0 L MEAN CORPUSCULAR VOLUME (BEAKER) (test code = 753) 92.6 fL 79. 0-92.2 H MEAN CORPUSCULAR HEMOGLOBIN (BEAKER) (test code = 751) 28.8 pg 25.7-32.2 MEAN CORPUSCULAR HEMOGLOBIN CONC (BEAKER) (test code = 752) 31.1 GM/DL 32.3-36.5 L RED CELL DISTRIBUTION WIDTH (BEAKER) (test code = 412) 14.6 % 11.6-14.4 H PLATELET COUNT (BEAKER) (test code = 756) 216 K/CU MM 150-450 MEAN PLATELET VOLUME (BEAKER) (test code = 754) 10.6 fL 9.4-12 .4 NUCLEATED RED BLOOD CELLS (BEAKER) (test code = 413) 0 /100 WBC 0 -0 NEUTROPHILS RELATIVE PERCENT (BEAKER) (test code = 429) 54 % LYMPHOCYTES RELATIVE PERCENT (BEAKER) (test code = 430) 8 % MONOCYTES RELATIVE PERCENT (BEAKER) (test code = 431) 24 % EOSINOPHILS RELATIVE PERCENT (BEAKER) (test code = 432) 14 % BASOPHILS RELATIVE PERCENT (BEAKER) (test code = 437) 0 % NEUTROPHILS ABSOLUTE COUNT (BEAKER) (test code = 670) 3.28 K/ L 1.78-5.38 LYMPHOCYTES ABSOLUTE COUNT (BEAKER) (test code = 414) 0.46 K/ L 1.32-3.57 L MONOCYTES ABSOLUTE COUNT (BEAKER) (test code = 415) 1.46 K/ L 0. 30-0.82 H EOSINOPHILS ABSOLUTE COUNT (BEAKER) (test code = 416) 0.84 K/ L 0.04-0.54 H BASOPHILS ABSOLUTE COUNT (BEAKER) (test code = 417) 0.02 K/ L 0. 01-0.08 IMMATURE GRANULOCYTES-RELATIVE PERCENT (BEAKER) (test code = 2801) 1 % 0-1 POCT-GLUCOSE [id number] 12:45:00* Test Item Value Reference Range Interpretation Comments POC-GLUCOSE METER (BEAKER) (test code = 1538) 141 mg/dL 70-110 H : TESTED AT [facility] [address] [facility], [address]: Canvass Manager/Ski Top Trimmer ID = [id number] for DOUGLAS, RIMA RAD, CHEST, 1 VIEW, NON [id number] 09:11:00Started dialysis [id number] for exam:->pleural effusionShould this be performed at the bedside?->YesFINAL REPORT INDICATION: pleural effusion COMPARISON: June 06, 2019 TECHNIQUE: Single frontal view of the chest. FINDINGS: Lungs and pleura: Bibasilar atelectasis. Trace bilateral effusions are unchanged.Heart and mediastinum: Normal heart size. Unremarkable mediastinal contours.Osseous struc tures: No acute abnormality.Other: None. IMPRESSION: Trace bilateral effusions are unchanged. Signed: Susan Rivera Verified Date/Time: 06/09/2019 09:11:34 Reading Location: [facility] Reading Room -GLUCOSE [id number] 08:17:00* Test Item Value Reference Range Interpretation Comments POC-GLUCOSE METER (BEAKER) (test code = 1538) 108 mg/dL 70-110 : TESTED AT [place] [id number] [facility], [address]: Canvass Manager/Ski Top Trimmer ID = [id number] for RIMA COLE IRON, TIBC, % SAT. (WITHOUT FERRITIN)2019-06-09 02:29:00* Test Item Value Reference Range Interpretation Comments IRON (BEAKER) (test code = 547) 101.0 ug/dL 40.0-160.0 TOTAL IRON BINDING CAPACITY (BEAKER) (test code = 769) 174 ug/dL 250-450 L IRON % SATURATION (2) (BEAKER) (test code = 2590) 58 % 20-5 5 H Please ask filler and trimmer to send today thanksPlease ask filler and trimmer to send today thanksPOCT-GLUCOSE [id number] 23:02:00* Test Item Value Reference Range Interpretation Comments POC-GLUCOSE METER (BEAKER) (test code = 1538) 146 mg/dL 70-110 H : TESTED AT [place] [id number] [facility], [address]: Canvass Manager/Ski Top Trimmer ID = [id number] for Sandeep Valle BASIC METABOLIC [id number] 16:11:00* Test Item Value Reference Range Interpretation Comments SODIUM (BEAKER) (test code = 381) 139 meq/L 136-145 POTASSIUM (BEAKER) (test code = 379) 4.6 meq/L 3.5-5.1 CHLORIDE (BEAKER) (test code = 382) 98 meq/L 98-107 CO2 (BEAKER) (test code = 355) 28 meq/L 22-29 BLOOD UREA NITROGEN (BEAKER) (test code = 354) 63 mg/dL 7-21 H CREATININE (BEAKER) (test code = 358) 10.61 mg/dL 0.57-1.25 H GLUCOSE RANDOM (BEAKER) (test code = 652) 101 mg/dL 70-105 CALCIUM (BEAKER) (test code = 697) 9.0 mg/dL 8.4-10.2 EGFR (BEAKER) (test code = 1092) 5 mL/min/1.73 sq m ESTIMATED GFR IS NOT ACCURATE CREATININE CLEARANCE IN PREDICTING GLOMERULAR FILTRATION RATE. ESTIMATED GFR IS NOT APPLICABLE FOR DIALYSIS PATIENTS. POCT-GLUCOSE [id number] 13:40:00* Test Item Value Reference Range Interpretation Comments POC-GLUCOSE METER (NAHID) (test code = 1538) 128 mg/dL 70-110 H : TESTED AT [address], [address]: Canvass Manager/Ski Top Trimmer ID = [id number] for OLEGARIO CALLAHAN POCT-GLUCOSE [id number] 08:30:00* Test Item Value Reference Range Interpretation Comments POC-GLUCOSE METER (NAHID) (test code = 1538) 99 mg/dL 70-110 : TESTED AT [address], [address]: Canvass Manager/Ski Top Trimmer ID = [id number] for OLEGARIO CALLAHAN HEPATITIS B SURFACE [id number] 17:02:00* Test Item Value Reference Range Interpretation Comments HEPATITIS B SURFACE ANTIGEN (2) (BEIZZY) (test code = 2585) Nonreactive Nonreactive TSH/FREE T4 IF [id number] 13:12:00* Test Item Value Reference Range Interpretation Comments THYROID STIMULATING HORMONE (BEAKER) (test code = 772) 1.52 uIU/mL 0.35-4.94 B-TYPE NATRIURETIC FACTOR (BNP)2019-06-07 13:01:00* Test Item Value Reference Range Interpretation Comments B-TYPE NATRIURETIC PEPTIDE (BEAKER) (test code = 700) 366 pg/mL 0-100 H TROPONIN [id number] 10:07:00* Test Item Value Reference Range Interpretation Comments TROPONIN I (BEAKER) (test code = 397) 0.13 ng/mL 0.00-0.03 H Troponin I (TnI) levels must be interpreted in the context of the presenting sym ptoms and the clinical findings. Elevated TnI levels indicate myocardial damage, but are not specific for ischemic heart disease. Elevated TnI levels are seen in patients with other cardiac conditions (including myocarditis and congestive h eart failure), and slight TnI elevations occur in patients with other conditions , including sepsis, renal failure, acidosis, acute neurological disease, and per sistent tachyarrhythmia.[id number] 09:59:00* Test Item Value Reference Range Interpretation Comments PHOSPHORUS (BEAKER) (test code = 604) 4.2 mg/dL 2.3-4.7 Specimen slightly hemolyzed POCT-GLUCOSE [id number] 08:29:00* Test Item Value Reference Range Interpretation Comments POC-GLUCOSE METER (BEAKER) (test code = 1538) 95 mg/dL 70-110 : TESTED AT [facility] [address] [facility], [address]: Canvass Manager/Ski Top Trimmer ID = [id number] for [facility] TROPONIN [id number] 19:30:00* Test Item Value Reference Range Interpretation Comments TROPONIN I (BEAKER) (test code = 397) 0.15 ng/mL 0.00-0.03 H Troponin I (TnI) levels must be interpreted in the context of the presenting sym ptoms and the clinical findings. Elevated TnI levels indicate myocardial damage, but are not specific for ischemic heart disease. Elevated TnI levels are seen in patients with other cardiac conditions (including myocarditis and congestive h eart failure), and slight TnI elevations occur in patients with other conditions , including sepsis, renal failure, acidosis, acute neurological disease, and per sistent tachyarrhythmia.BASIC METABOLIC [id number] 19:29:00* Test Item Value Reference Range Interpretation Comments SODIUM (BEAKER) (test code = 381) 137 meq/L 136-145 POTASSIUM (BEAKER) (test code = 379) 5.6 meq/L 3.5-5.1 H CHLORIDE (BEAKER) (test code = 382) 94 meq/L 98-107 L CO2 (BEAKER) (test code = 355) 26 meq/L 22-29 BLOOD UREA NITROGEN (BEAKER) (test code = 354) 77 mg/dL 7-21 H CREATININE (BEAKER) (test code = 358) 11.84 mg/dL 0.57-1.25 H GLUCOSE RANDOM (BEAKER) (test code = 652) 90 mg/dL 70-105 CALCIUM (BEAKER) (test code = 697) 8.9 mg/dL 8.4-10.2 EGFR (BEAKER) (test code = 1092) 4 mL/min/1.73 sq m ESTIMATED GFR IS NOT ACCURATE CREATININE CLEARANCE IN PREDICTING GLOMERULAR FILTRATION RATE. ESTIMATED GFR IS NOT APPLICABLE FOR DIALYSIS PATIENTS. [id number] 19:26:00* Test Item Value Reference Range Interpretation Comments MAGNESIUM (BEAKER) (test code = 627) 2.1 mg/dL 1.6-2.6 [id number] 19:08:00* Test Item Value Reference Range Interpretation Comments PROTIME (BEAKER) (test code = 759) 14.2 seconds 11.9-14.2 INR (BEAKER) (test code = 370) 1.2 <=5.9 PARTIAL THROMBOPLASTIN TIME (BEAKER) (test code = 760) 33.0 seconds 22.5-36.0 Effective 12/16/2018: PT Reference Range ChangeNew: 11.9-14.2 Previous: 11.7-14. 7RECOMMENDED COUMADIN/WARFARIN INR THERAPY RANGESSTANDARD DOSE: 2.0-3.0 Include s: PROPHYLAXIS for venous thrombosis, systemic embolization; TREATMENT for venou s thrombosis and/or pulmonary embolus.HIGH RISK: Target INR is 2.5-3.5 for patie nts wiht mechanical heart valves.CBC W/PLT COUNT & AUTO [id number] 19:04:00* Test Item Value Reference Range Interpretation Comments WHITE BLOOD CELL COUNT (BEAKER) (test code = 775) 9.0 K/ L 3.5- 10.5 RED BLOOD CELL COUNT (BEAKER) (test code = 761) 4.23 M/ L 4.63-6 .08 L HEMOGLOBIN (BEAKER) (test code = 410) 12.2 GM/DL 13.7-17.5 L HEMATOCRIT (BEAKER) (test code = 411) 39.9 % 40.1-51.0 L MEAN CORPUSCULAR VOLUME (BEAKER) (test code = 753) 94.3 fL 79. 0-92.2 H MEAN CORPUSCULAR HEMOGLOBIN (BEAKER) (test code = 751) 28.8 pg 25.7-32.2 MEAN CORPUSCULAR HEMOGLOBIN CONC (BEAKER) (test code = 752) 30.6 GM/DL 32.3-36.5 L RED CELL DISTRIBUTION WIDTH (BEAKER) (test code = 412) 14.9 % 11.6-14.4 H PLATELET COUNT (BEAKER) (test code = 756) 303 K/CU MM 150-450 MEAN PLATELET VOLUME (BEAKER) (test code = 754) 10.1 fL 9.4-12 .4 NUCLEATED RED BLOOD CELLS (BEAKER) (test code = 413) 0 /100 WBC 0 -0 NEUTROPHILS RELATIVE PERCENT (BEAKER) (test code = 429) 61 % LYMPHOCYTES RELATIVE PERCENT (BEAKER) (test code = 430) 8 % MONOCYTES RELATIVE PERCENT (BEAKER) (test code = 431) 16 % EOSINOPHILS RELATIVE PERCENT (BEAKER) (test code = 432) 14 % BASOPHILS RELATIVE PERCENT (BEAKER) (test code = 437) 0 % NEUTROPHILS ABSOLUTE COUNT (BEAKER) (test code = 670) 5.52 K/ L 1.78-5.38 H LYMPHOCYTES ABSOLUTE COUNT (BEAKER) (test code = 414) 0.71 K/ L 1.32-3.57 L MONOCYTES ABSOLUTE COUNT (BEAKER) (test code = 415) 1.46 K/ L 0. 30-0.82 H EOSINOPHILS ABSOLUTE COUNT (BEAKER) (test code = 416) 1.27 K/ L 0.04-0.54 H BASOPHILS ABSOLUTE COUNT (BEAKER) (test code = 417) 0.03 K/ L 0. 01-0.08 IMMATURE GRANULOCYTES-RELATIVE PERCENT (BEAKER) (test code = 2801) 0 % 0-1 RAD, CHEST, 1 VIEW, NON [id number] 18:31:00Started dialysis [id number] for exam:->SHORTNESS OF BREATHReason for exam:->CHEST PAINFINAL REPORT EXAM: Chest one view COMPARISON: March 022018 CLINICAL HISTORY: Shortness of breath FINDINGS: There is interval development of moderate right pleural effusion. The cardiac size is enlarged. There is bilateral pulmonary edema. There is no evidence of pneumothorax. The regional osseous structures are unremarkable. Signed: Paola Ordoñezeport Verified D ate/Time: 06/06/2019 18:31:37 Reading Location: [facility] B1 [id number] Ortho Consult Read ing Room -GLUCOSE [id number] 07:44:00* Test Item Value Reference Range Interpretation Comments POC-GLUCOSE METER (BEAKER) (test code = 1538) 130 mg/dL 70-110 H TESTED AT [facility] [address] [facility] [address] BASIC METABOLIC [id number] 06:56:00* Test Item Value Reference Range Interpretation Comments SODIUM (BEAKER) (test code = 381) 141 meq/L 136-145 POTASSIUM (BEAKER) (test code = 379) 4.6 meq/L 3.5-5.1 CHLORIDE (BEAKER) (test code = 382) 104 meq/L 98-107 CO2 (BEAKER) (test code = 355) 29 meq/L 22-29 BLOOD UREA NITROGEN (BEAKER) (test code = 354) 18 mg/dL 7-21 CREATININE (BEAKER) (test code = 358) 5.85 mg/dL 0.57-1.25 H GLUCOSE RANDOM (BEAKER) (test code = 652) 131 mg/dL 70-105 H CALCIUM (BEAKER) (test code = 697) 8.9 mg/dL 8.4-10.2 EGFR (BEAKER) (test code = 1092) 10 mL/min/1.73 sq m ESTIMATED GFR IS NOT ACCURATE CREATININE CLEARANCE IN PREDICTING GLOMERULAR FILTRATION RATE. ESTIMATED GFR IS NOT APPLICABLE FOR DIALYSIS PATIENTS. [id number] 06:46:00* Test Item Value Reference Range Interpretation Comments PHOSPHORUS (BEAKER) (test code = 604) 3.2 mg/dL 2.3-4.7 [id number] 06:46:00* Test Item Value Reference Range Interpretation Comments MAGNESIUM (BEAKER) (test code = 627) 2.2 mg/dL 1.6-2.6 CBC W/PLT COUNT & AUTO [id number] 06:28:00* Test Item Value Reference Range Interpretation Comments WHITE BLOOD CELL COUNT (BEAKER) (test code = 775) 6.1 K/ L 3.5- 10.5 RED BLOOD CELL COUNT (BEAKER) (test code = 761) 2.51 M/ L 4.63-6 .08 L HEMOGLOBIN (BEAKER) (test code = 410) 7.7 GM/DL 13.7-17.5 L HEMATOCRIT (BEAKER) (test code = 411) 25.4 % 40.1-51.0 L MEAN CORPUSCULAR VOLUME (BEAKER) (test code = 753) 101.2 fL 79. 0-92.2 H Discordant MCV results compared to previous results; clinical correlation required. MEAN CORPUSCULAR HEMOGLOBIN (BEAKER) (test code = 751) 30.7 pg 25.7-32.2 MEAN CORPUSCULAR HEMOGLOBIN CONC (BEAKER) (test code = 752) 30.3 GM/DL 32.3-36.5 L RED CELL DISTRIBUTION WIDTH (BEAKER) (test code = 412) 16.4 % 11.6-14.4 H PLATELET COUNT (BEAKER) (test code = 756) 243 K/CU MM 150-450 MEAN PLATELET VOLUME (BEAKER) (test code = 754) 10.5 fL 9.4-12 .4 NUCLEATED RED BLOOD CELLS (BEAKER) (test code = 413) 0 /100 WBC 0 -0 NEUTROPHILS RELATIVE PERCENT (BEAKER) (test code = 429) 56 % LYMPHOCYTES RELATIVE PERCENT (BEAKER) (test code = 430) 17 % MONOCYTES RELATIVE PERCENT (BEAKER) (test code = 431) 12 % EOSINOPHILS RELATIVE PERCENT (BEAKER) (test code = 432) 15 % BASOPHILS RELATIVE PERCENT (BEAKER) (test code = 437) 0 % NEUTROPHILS ABSOLUTE COUNT (BEAKER) (test code = 670) 3.40 K/ L 1.78-5.38 LYMPHOCYTES ABSOLUTE COUNT (BEAKER) (test code = 414) 1.03 K/ L 1.32-3.57 L MONOCYTES ABSOLUTE COUNT (BEAKER) (test code = 415) 0.71 K/ L 0. 30-0.82 EOSINOPHILS ABSOLUTE COUNT (BEAKER) (test code = 416) 0.94 K/ L 0.04-0.54 H BASOPHILS ABSOLUTE COUNT (BEAKER) (test code = 417) 0.02 K/ L 0. 01-0.08 IMMATURE GRANULOCYTES-RELATIVE PERCENT (BEAKER) (test code = 2801) 0 % 0-1 POCT-GLUCOSE [id number] 22:00:00* Test Item Value Reference Range Interpretation Comments POC-GLUCOSE METER (BEAKER) (test code = 1538) 150 mg/dL 70-110 H TESTED AT [address] [address] POCT-GLUCOSE [id number] 17:53:00* Test Item Value Reference Range Interpretation Comments POC-GLUCOSE METER (BEAKER) (test code = 1538) 109 mg/dL 70-110 TESTED AT [address] [address] POCT-GLUCOSE [id number] 16:39:00* Test Item Value Reference Range Interpretation Comments POC-GLUCOSE METER (BEAKER) (test code = 1538) 94 mg/dL 70-110 TESTED AT [address] [address] POCT-GLUCOSE [id number] 13:00:00* Test Item Value Reference Range Interpretation Comments POC-GLUCOSE METER (BEAKER) (test code = 1538) 118 mg/dL 70-110 H TESTED AT [address] [address] POCT-GLUCOSE [id number] 11:57:00* Test Item Value Reference Range Interpretation Comments POC-GLUCOSE METER (BEAKER) (test code = 1538) 97 mg/dL 70-110 TESTED AT [address] [address] BASIC METABOLIC [id number] 08:53:00* Test Item Value Reference Range Interpretation Comments SODIUM (BEAKER) (test code = 381) 139 meq/L 136-145 POTASSIUM (BEAKER) (test code = 379) 5.0 meq/L 3.5-5.1 CHLORIDE (BEAKER) (test code = 382) 99 meq/L 98-107 CO2 (BEAKER) (test code = 355) 24 meq/L 22-29 BLOOD UREA NITROGEN (BEAKER) (test code = 354) 32 mg/dL 7-21 H CREATININE (BEAKER) (test code = 358) 8.25 mg/dL 0.57-1.25 H GLUCOSE RANDOM (BEAKER) (test code = 652) 73 mg/dL 70-105 CALCIUM (BEAKER) (test code = 697) 9.5 mg/dL 8.4-10.2 EGFR (BEAKER) (test code = 1092) 7 mL/min/1.73 sq m ESTIMATED GFR IS NOT ACCURATE CREATININE CLEARANCE IN PREDICTING GLOMERULAR FILTRATION RATE. ESTIMATED GFR IS NOT APPLICABLE FOR DIALYSIS PATIENTS. [id number] 08:51:00* Test Item Value Reference Range Interpretation Comments PHOSPHORUS (BEAKER) (test code = 604) 3.3 mg/dL 2.3-4.7 [id number] 08:51:00* Test Item Value Reference Range Interpretation Comments MAGNESIUM (BEAKER) (test code = 627) 2.0 mg/dL 1.6-2.6 CBC W/PLT COUNT & AUTO [id number] 08:29:00* Test Item Value Reference Range Interpretation Comments WHITE BLOOD CELL COUNT (BEAKER) (test code = 775) 7.6 K/ L 3.5- 10.5 RED BLOOD CELL COUNT (BEAKER) (test code = 761) 2.50 M/ L 4.63-6 .08 L HEMOGLOBIN (BEAKER) (test code = 410) 7.9 GM/DL 13.7-17.5 L HEMATOCRIT (BEAKER) (test code = 411) 24.2 % 40.1-51.0 L MEAN CORPUSCULAR VOLUME (BEAKER) (test code = 753) 96.8 fL 79. 0-92.2 H MEAN CORPUSCULAR HEMOGLOBIN (BEAKER) (test code = 751) 31.6 pg 25.7-32.2 MEAN CORPUSCULAR HEMOGLOBIN CONC (BEAKER) (test code = 752) 32.6 GM/DL 32.3-36.5 RED CELL DISTRIBUTION WIDTH (BEAKER) (test code = 412) 16.3 % 11.6-14.4 H PLATELET COUNT (BEAKER) (test code = 756) 265 K/CU MM 150-450 MEAN PLATELET VOLUME (BEAKER) (test code = 754) 10.2 fL 9.4-12 .4 NUCLEATED RED BLOOD CELLS (BEAKER) (test code = 413) 0 /100 WBC 0 -0 NEUTROPHILS RELATIVE PERCENT (BEAKER) (test code = 429) 58 % LYMPHOCYTES RELATIVE PERCENT (BEAKER) (test code = 430) 14 % MONOCYTES RELATIVE PERCENT (BEAKER) (test code = 431) 10 % EOSINOPHILS RELATIVE PERCENT (BEAKER) (test code = 432) 18 % BASOPHILS RELATIVE PERCENT (BEAKER) (test code = 437) 0 % NEUTROPHILS ABSOLUTE COUNT (BEAKER) (test code = 670) 4.37 K/ L 1.78-5.38 LYMPHOCYTES ABSOLUTE COUNT (BEAKER) (test code = 414) 1.06 K/ L 1.32-3.57 L MONOCYTES ABSOLUTE COUNT (BEAKER) (test code = 415) 0.76 K/ L 0. 30-0.82 EOSINOPHILS ABSOLUTE COUNT (BEAKER) (test code = 416) 1.33 K/ L 0.04-0.54 H BASOPHILS ABSOLUTE COUNT (BEAKER) (test code = 417) 0.01 K/ L 0. 01-0.08 IMMATURE GRANULOCYTES-RELATIVE PERCENT (BEAKER) (test code = 2801) 1 % 0-1 POCT-GLUCOSE [id number] 21:58:00* Test Item Value Reference Range Interpretation Comments POC-GLUCOSE METER (BEAKER) (test code = 1538) 110 mg/dL 70-110 TESTED AT [facility] [address] [facility] [address] POCT-GLUCOSE [id number] 12:20:00* Test Item Value Reference Range Interpretation Comments POC-GLUCOSE METER (BEAKER) (test code = 1538) 95 mg/dL 70-110 TESTED AT [place] [id number] [facility] [address] BASIC METABOLIC [id number] 09:55:00* Test Item Value Reference Range Interpretation Comments SODIUM (BEAKER) (test code = 381) 142 meq/L 136-145 POTASSIUM (BEAKER) (test code = 379) 5.1 meq/L 3.5-5.1 CHLORIDE (BEAKER) (test code = 382) 104 meq/L 98-107 CO2 (BEAKER) (test code = 355) 28 meq/L 22-29 BLOOD UREA NITROGEN (BEAKER) (test code = 354) 27 mg/dL 7-21 H CREATININE (BEAKER) (test code = 358) 6.51 mg/dL 0.57-1.25 H GLUCOSE RANDOM (BEAKER) (test code = 652) 69 mg/dL 70-105 L CALCIUM (BEAKER) (test code = 697) 9.5 mg/dL 8.4-10.2 EGFR (BEAKER) (test code = 1092) 9 mL/min/1.73 sq m ESTIMATED GFR IS NOT ACCURATE CREATININE CLEARANCE IN PREDICTING GLOMERULAR FILTRATION RATE. ESTIMATED GFR IS NOT APPLICABLE FOR DIALYSIS PATIENTS. CBC W/PLT COUNT & AUTO [id number] 09:33:00* Test Item Value Reference Range Interpretation Comments WHITE BLOOD CELL COUNT (BEAKER) (test code = 775) 7.4 K/ L 3.5- 10.5 RED BLOOD CELL COUNT (BEAKER) (test code = 761) 2.66 M/ L 4.63-6 .08 L HEMOGLOBIN (BEAKER) (test code = 410) 8.3 GM/DL 13.7-17.5 L HEMATOCRIT (BEAKER) (test code = 411) 26.1 % 40.1-51.0 L MEAN CORPUSCULAR VOLUME (BEAKER) (test code = 753) 98.1 fL 79. 0-92.2 H MEAN CORPUSCULAR HEMOGLOBIN (BEAKER) (test code = 751) 31.2 pg 25.7-32.2 MEAN CORPUSCULAR HEMOGLOBIN CONC (BEAKER) (test code = 752) 31.8 GM/DL 32.3-36.5 L RED CELL DISTRIBUTION WIDTH (BEAKER) (test code = 412) 16.8 % 11.6-14.4 H PLATELET COUNT (BEAKER) (test code = 756) 255 K/CU MM 150-450 MEAN PLATELET VOLUME (BEAKER) (test code = 754) 11.1 fL 9.4-12 .4 NUCLEATED RED BLOOD CELLS (BEAKER) (test code = 413) 0 /100 WBC 0 -0 NEUTROPHILS RELATIVE PERCENT (BEAKER) (test code = 429) 57 % LYMPHOCYTES RELATIVE PERCENT (BEAKER) (test code = 430) 12 % MONOCYTES RELATIVE PERCENT (BEAKER) (test code = 431) 12 % EOSINOPHILS RELATIVE PERCENT (BEAKER) (test code = 432) 18 % BASOPHILS RELATIVE PERCENT (BEAKER) (test code = 437) 0 % NEUTROPHILS ABSOLUTE COUNT (BEAKER) (test code = 670) 4.25 K/ L 1.78-5.38 LYMPHOCYTES ABSOLUTE COUNT (BEAKER) (test code = 414) 0.91 K/ L 1.32-3.57 L MONOCYTES ABSOLUTE COUNT (BEAKER) (test code = 415) 0.89 K/ L 0. 30-0.82 H EOSINOPHILS ABSOLUTE COUNT (BEAKER) (test code = 416) 1.32 K/ L 0.04-0.54 H BASOPHILS ABSOLUTE COUNT (BEAKER) (test code = 417) 0.03 K/ L 0. 01-0.08 IMMATURE GRANULOCYTES-RELATIVE PERCENT (BEAKER) (test code = 2801) 1 % 0-1 [id number] 09:12:00* Test Item Value Reference Range Interpretation Comments PHOSPHORUS (BEAKER) (test code = 604) 3.4 mg/dL 2.3-4.7 [id number] 09:12:00* Test Item Value Reference Range Interpretation Comments MAGNESIUM (BEAKER) (test code = 627) 2.1 mg/dL 1.6-2.6 POCT-GLUCOSE [id number] 08:06:00* Test Item Value Reference Range Interpretation Comments POC-GLUCOSE METER (BEAKER) (test code = 1538) 92 mg/dL 70-110 TESTED AT [address] [address] POCT-GLUCOSE [id number] 22:07:00* Test Item Value Reference Range Interpretation Comments POC-GLUCOSE METER (BEAKER) (test code = 1538) 130 mg/dL 70-110 H TESTED AT [address] [address] POCT-GLUCOSE [id number] 16:39:00* Test Item Value Reference Range Interpretation Comments POC-GLUCOSE METER (BEAKER) (test code = 1538) 94 mg/dL 70-110 TESTED AT [address] [address] POCT-GLUCOSE [id number] 09:14:00* Test Item Value Reference Range Interpretation Comments POC-GLUCOSE METER (BEAKER) (test code = 1538) 81 mg/dL 70-110 TESTED AT [address] [address] BASIC METABOLIC [id number] 06:33:00* Test Item Value Reference Range Interpretation Comments SODIUM (BEAKER) (test code = 381) 137 meq/L 136-145 POTASSIUM (BEAKER) (test code = 379) 5.2 meq/L 3.5-5.1 H CHLORIDE (BEAKER) (test code = 382) 99 meq/L 98-107 CO2 (BEAKER) (test code = 355) 27 meq/L 22-29 BLOOD UREA NITROGEN (BEAKER) (test code = 354) 66 mg/dL 7-21 H CREATININE (BEAKER) (test code = 358) 9.56 mg/dL 0.57-1.25 H GLUCOSE RANDOM (BEAKER) (test code = 652) 93 mg/dL 70-105 CALCIUM (BEAKER) (test code = 697) 9.3 mg/dL 8.4-10.2 EGFR (BEAKER) (test code = 1092) 6 mL/min/1.73 sq m ESTIMATED GFR IS NOT ACCURATE CREATININE CLEARANCE IN PREDICTING GLOMERULAR FILTRATION RATE. ESTIMATED GFR IS NOT APPLICABLE FOR DIALYSIS PATIENTS. CBC W/PLT COUNT & AUTO [id number] 05:40:00* Test Item Value Reference Range Interpretation Comments WHITE BLOOD CELL COUNT (BEAKER) (test code = 775) 8.0 K/ L 3.5- 10.5 RED BLOOD CELL COUNT (BEAKER) (test code = 761) 2.54 M/ L 4.63-6 .08 L HEMOGLOBIN (BEAKER) (test code = 410) 7.7 GM/DL 13.7-17.5 L HEMATOCRIT (BEAKER) (test code = 411) 25.1 % 40.1-51.0 L MEAN CORPUSCULAR VOLUME (BEAKER) (test code = 753) 98.8 fL 79. 0-92.2 H MEAN CORPUSCULAR HEMOGLOBIN (BEAKER) (test code = 751) 30.3 pg 25.7-32.2 MEAN CORPUSCULAR HEMOGLOBIN CONC (BEAKER) (test code = 752) 30.7 GM/DL 32.3-36.5 L RED CELL DISTRIBUTION WIDTH (BEAKER) (test code = 412) 16.6 % 11.6-14.4 H PLATELET COUNT (BEAKER) (test code = 756) 279 K/CU MM 150-450 MEAN PLATELET VOLUME (BEAKER) (test code = 754) 9.8 fL 9.4-12 .4 NUCLEATED RED BLOOD CELLS (BEAKER) (test code = 413) 0 /100 WBC 0 -0 NEUTROPHILS RELATIVE PERCENT (BEAKER) (test code = 429) 57 % LYMPHOCYTES RELATIVE PERCENT (BEAKER) (test code = 430) 14 % MONOCYTES RELATIVE PERCENT (BEAKER) (test code = 431) 12 % EOSINOPHILS RELATIVE PERCENT (BEAKER) (test code = 432) 17 % BASOPHILS RELATIVE PERCENT (BEAKER) (test code = 437) 0 % NEUTROPHILS ABSOLUTE COUNT (BEAKER) (test code = 670) 4.55 K/ L 1.78-5.38 LYMPHOCYTES ABSOLUTE COUNT (BEAKER) (test code = 414) 1.09 K/ L 1.32-3.57 L MONOCYTES ABSOLUTE COUNT (BEAKER) (test code = 415) 0.93 K/ L 0. 30-0.82 H EOSINOPHILS ABSOLUTE COUNT (BEAKER) (test code = 416) 1.39 K/ L 0.04-0.54 H BASOPHILS ABSOLUTE COUNT (BEAKER) (test code = 417) 0.03 K/ L 0. 01-0.08 IMMATURE GRANULOCYTES-RELATIVE PERCENT (BEAKER) (test code = 2801) 0 % 0-1 POCT-GLUCOSE [id number] 21:51:00* Test Item Value Reference Range Interpretation Comments POC-GLUCOSE METER (BEAKER) (test code = 1538) 108 mg/dL 70-110 TESTED AT [facility] [address] [facility] [address] POCT-GLUCOSE [id number] 17:30:00* Test Item Value Reference Range Interpretation Comments POC-GLUCOSE METER (BEAKER) (test code = 1538) 172 mg/dL 70-110 H TESTED AT [facility] [address] [facility] [address] HEMOGLOBIN AND [id number] 16:50:00* Test Item Value Reference Range Interpretation Comments HEMOGLOBIN (BEAKER) (test code = 410) 7.2 GM/DL 13.7-17.5 L HEMATOCRIT (BEAKER) (test code = 411) 23.9 % 40.1-51.0 L TISSUE [id number] 16:25:00Surgical Pathology Report Case: [id number] Authorizing Provider: Sean Valdovinos Collected: 03/21/201909 MD Ha Ordering Location: [place] [address] CCU Received: 03/23/2019 08 Pathologist: Zuleyma Esquivel MD Specimen: Biopsy, Gastric, Random, Bx STOMACH, RANDOM, ENDOSCOPIC BIOPSY: - OXYNTIC MUCOSA WITH NO PATHOLOGIC ALTERATION - NO HELICOBACTER PYLORI-LIKE ORGANISMS SEEN ON WARTHIN-STARRY STAIN - NO INTESTINAL METAPLASIA, DYSPLASIA OR MALIGNANCY NOTED Signing Pathologist Direct Phone Line: [phone] signed by Zuleyma Esquivel MD on 03/23/2019 at 4:25 [id number]; [id number] bleedGastric random biopsyThe specimen is received in formalin in a container labeled with the patient's name, date of and medical record number. The specimen is labeled "random gastric biopsy" and consists of two distinct portions of starks-brown tissue measuring 0.3 x 0.3 x 0.3 cm in aggregate, submitted in toto in one cassette. CB/ew PERFORMEDThe interpretation of this case included the use of immunohistochemistry or special stains.WARTHIN-STARRYControl Slides Examined: In-house known positive controls were evaluated along with the test tissue. These control slides run alongside of the patients sample show appropriate staining. Internal positive and negative controls when available are evaluated I mmunohistochemistry technical testing was performed at [facility], Pathology Laboratory where it was developed and its performance charact eristics were determined. It has not been cleared or approved by the U.S. Food a nd Drug Administration. The FDA has determined that such clearance or approval i s not necessary. The test is used for clinical purposes. It should not be regard ed as investigational or for research. This laboratory is certified under the Cl inical Laboratory Improvement Amendments of 1988 (CLIA-88) as qualified to perfo rm high complexity clinical laboratory testing.POCT-GLUCOSE [id number] 13:05:00* Test Item Value Reference Range Interpretation Comments POC-GLUCOSE METER (BEAKER) (test code = 1538) 101 mg/dL 70-110 TESTED AT [facility] [address] [facility] [address] POCT-GLUCOSE [id number] 07:55:00* Test Item Value Reference Range Interpretation Comments POC-GLUCOSE METER (BEAKER) (test code = 1538) 76 mg/dL 70-110 TESTED AT [facility] [address] [facility] [address] BASIC METABOLIC [id number] 04:40:00* Test Item Value Reference Range Interpretation Comments SODIUM (BEAKER) (test code = 381) 138 meq/L 136-145 POTASSIUM (BEAKER) (test code = 379) 4.7 meq/L 3.5-5.1 CHLORIDE (BEAKER) (test code = 382) 100 meq/L 98-107 CO2 (BEAKER) (test code = 355) 30 meq/L 22-29 H BLOOD UREA NITROGEN (BEAKER) (test code = 354) 47 mg/dL 7-21 H CREATININE (BEAKER) (test code = 358) 6.85 mg/dL 0.57-1.25 H GLUCOSE RANDOM (BEAKER) (test code = 652) 77 mg/dL 70-105 CALCIUM (BEAKER) (test code = 697) 9.1 mg/dL 8.4-10.2 EGFR (BEAKER) (test code = 1092) 8 mL/min/1.73 sq m ESTIMATED GFR IS NOT ACCURATE CREATININE CLEARANCE IN PREDICTING GLOMERULAR FILTRATION RATE. ESTIMATED GFR IS NOT APPLICABLE FOR DIALYSIS PATIENTS. CBC W/PLT COUNT & AUTO [id number] 04:26:00* Test Item Value Reference Range Interpretation Comments WHITE BLOOD CELL COUNT (BEAKER) (test code = 775) 8.1 K/ L 3.5- 10.5 RED BLOOD CELL COUNT (BEAKER) (test code = 761) 2.55 M/ L 4.63-6 .08 L HEMOGLOBIN (BEAKER) (test code = 410) 7.7 GM/DL 13.7-17.5 L HEMATOCRIT (BEAKER) (test code = 411) 24.4 % 40.1-51.0 L MEAN CORPUSCULAR VOLUME (BEAKER) (test code = 753) 95.7 fL 79. 0-92.2 H MEAN CORPUSCULAR HEMOGLOBIN (BEAKER) (test code = 751) 30.2 pg 25.7-32.2 MEAN CORPUSCULAR HEMOGLOBIN CONC (BEAKER) (test code = 752) 31.6 GM/DL 32.3-36.5 L RED CELL DISTRIBUTION WIDTH (BEAKER) (test code = 412) 16.7 % 11.6-14.4 H PLATELET COUNT (BEAKER) (test code = 756) 279 K/CU MM 150-450 MEAN PLATELET VOLUME (BEAKER) (test code = 754) 9.7 fL 9.4-12 .4 NUCLEATED RED BLOOD CELLS (BEAKER) (test code = 413) 0 /100 WBC 0 -0 NEUTROPHILS RELATIVE PERCENT (BEAKER) (test code = 429) 60 % LYMPHOCYTES RELATIVE PERCENT (BEAKER) (test code = 430) 12 % MONOCYTES RELATIVE PERCENT (BEAKER) (test code = 431) 12 % EOSINOPHILS RELATIVE PERCENT (BEAKER) (test code = 432) 15 % BASOPHILS RELATIVE PERCENT (BEAKER) (test code = 437) 1 % NEUTROPHILS ABSOLUTE COUNT (BEAKER) (test code = 670) 4.91 K/ L 1.78-5.38 LYMPHOCYTES ABSOLUTE COUNT (BEAKER) (test code = 414) 0.98 K/ L 1.32-3.57 L MONOCYTES ABSOLUTE COUNT (BEAKER) (test code = 415) 0.94 K/ L 0. 30-0.82 H EOSINOPHILS ABSOLUTE COUNT (BEAKER) (test code = 416) 1.22 K/ L 0.04-0.54 H BASOPHILS ABSOLUTE COUNT (BEAKER) (test code = 417) 0.04 K/ L 0. 01-0.08 IMMATURE GRANULOCYTES-RELATIVE PERCENT (BEAKER) (test code = 2801) 0 % 0-1 POCT-GLUCOSE [id number] 21:09:00* Test Item Value Reference Range Interpretation Comments POC-GLUCOSE METER (BEAKER) (test code = 1538) 152 mg/dL 70-110 H TESTED AT [place] [address] HEMOGLOBIN AND [id number] 18:04:00* Test Item Value Reference Range Interpretation Comments HEMOGLOBIN (BEAKER) (test code = 410) 7.9 GM/DL 13.7-17.5 L HEMATOCRIT (BEAKER) (test code = 411) 24.2 % 40.1-51.0 L POCT-GLUCOSE [id number] 17:18:00* Test Item Value Reference Range Interpretation Comments POC-GLUCOSE METER (BEAKER) (test code = 1538) 167 mg/dL 70-110 H TESTED AT [place] [address] POCT-GLUCOSE [id number] 11:42:00* Test Item Value Reference Range Interpretation Comments POC-GLUCOSE METER (BEAKER) (test code = 1538) 88 mg/dL 70-110 TESTED AT [place] [address] [id number] 08:17:00* Test Item Value Reference Range Interpretation Comments MAGNESIUM (BEAKER) (test code = 627) 2.0 mg/dL 1.6-2.6 Specimen slightly hemolyzed [id number] 08:17:00* Test Item Value Reference Range Interpretation Comments PHOSPHORUS (BEAKER) (test code = 604) 3.9 mg/dL 2.3-4.7 Specimen slightly hemolyzed POCT-GLUCOSE [id number] 08:02:00* Test Item Value Reference Range Interpretation Comments POC-GLUCOSE METER (BEAKER) (test code = 1538) 94 mg/dL 70-110 TESTED AT [place] [address] POCT-GLUCOSE [id number] 07:44:00* Test Item Value Reference Range Interpretation Comments POC-GLUCOSE METER (BEAKER) (test code = 1538) 65 mg/dL 70-110 L Notified OMAYRA MEJIA/TESTED AT [place] [address] CBC W/PLT COUNT & AUTO [id number] 06:45:00* Test Item Value Reference Range Interpretation Comments WHITE BLOOD CELL COUNT (BEAKER) (test code = 775) 9.0 K/ L 3.5- 10.5 RED BLOOD CELL COUNT (BEAKER) (test code = 761) 2.47 M/ L 4.63-6 .08 L HEMOGLOBIN (BEAKER) (test code = 410) 7.6 GM/DL 13.7-17.5 L HEMATOCRIT (BEAKER) (test code = 411) 23.4 % 40.1-51.0 L MEAN CORPUSCULAR VOLUME (BEAKER) (test code = 753) 94.7 fL 79. 0-92.2 H MEAN CORPUSCULAR HEMOGLOBIN (BEAKER) (test code = 751) 30.8 pg 25.7-32.2 MEAN CORPUSCULAR HEMOGLOBIN CONC (BEAKER) (test code = 752) 32.5 GM/DL 32.3-36.5 RED CELL DISTRIBUTION WIDTH (BEAKER) (test code = 412) 17.1 % 11.6-14.4 H PLATELET COUNT (BEAKER) (test code = 756) 318 K/CU MM 150-450 MEAN PLATELET VOLUME (BEAKER) (test code = 754) 10.0 fL 9.4-12 .4 NUCLEATED RED BLOOD CELLS (BEAKER) (test code = 413) 0 /100 WBC 0 -0 NEUTROPHILS RELATIVE PERCENT (BEAKER) (test code = 429) 62 % LYMPHOCYTES RELATIVE PERCENT (BEAKER) (test code = 430) 14 % MONOCYTES RELATIVE PERCENT (BEAKER) (test code = 431) 8 % EOSINOPHILS RELATIVE PERCENT (BEAKER) (test code = 432) 15 % BASOPHILS RELATIVE PERCENT (BEAKER) (test code = 437) 0 % NEUTROPHILS ABSOLUTE COUNT (BEAKER) (test code = 670) 5.62 K/ L 1.78-5.38 H LYMPHOCYTES ABSOLUTE COUNT (BEAKER) (test code = 414) 1.25 K/ L 1.32-3.57 L MONOCYTES ABSOLUTE COUNT (BEAKER) (test code = 415) 0.73 K/ L 0. 30-0.82 EOSINOPHILS ABSOLUTE COUNT (BEAKER) (test code = 416) 1.33 K/ L 0.04-0.54 H BASOPHILS ABSOLUTE COUNT (BEAKER) (test code = 417) 0.03 K/ L 0. 01-0.08 IMMATURE GRANULOCYTES-RELATIVE PERCENT (BEAKER) (test code = 2801) 1 % 0-1 POCT-GLUCOSE [id number] 04:22:00* Test Item Value Reference Range Interpretation Comments POC-GLUCOSE METER (BEAKER) (test code = 1538) 133 mg/dL 70-110 H TESTED AT [address] [address] POCT-GLUCOSE [id number] 00:30:00* Test Item Value Reference Range Interpretation Comments POC-GLUCOSE METER (BEAKER) (test code = 1538) 102 mg/dL 70-110 TESTED AT [address] [address] POCT-GLUCOSE [id number] 23:55:00* Test Item Value Reference Range Interpretation Comments POC-GLUCOSE METER (BEAKER) (test code = 1538) 63 mg/dL 70-110 L TESTED AT [address] [address] HEMOGLOBIN AND [id number] 20:14:00* Test Item Value Reference Range Interpretation Comments HEMOGLOBIN (BEAKER) (test code = 410) 7.7 GM/DL 13.7-17.5 L HEMATOCRIT (BEAKER) (test code = 411) 23.7 % 40.1-51.0 L POCT-GLUCOSE [id number] 18:46:00* Test Item Value Reference Range Interpretation Comments POC-GLUCOSE METER (BEAKER) (test code = 1538) 108 mg/dL 70-110 TESTED AT [address] [address] POCT-GLUCOSE [id number] 17:38:00* Test Item Value Reference Range Interpretation Comments POC-GLUCOSE METER (BEAKER) (test code = 1538) 112 mg/dL 70-110 H TESTED AT [address] [address] POCT-GLUCOSE [id number] 17:21:00* Test Item Value Reference Range Interpretation Comments POC-GLUCOSE METER (BEAKER) (test code = 1538) 58 mg/dL 70-110 L TESTED AT [address] [address] POCT-GLUCOSE [id number] 16:21:00* Test Item Value Reference Range Interpretation Comments POC-GLUCOSE METER (BEAKER) (test code = 1538) 51 mg/dL 70-110 L Notified OMAYRA MEJIA/TESTED AT [address] [address] POCT-GLUCOSE [id number] 12:34:00* Test Item Value Reference Range Interpretation Comments POC-GLUCOSE METER (BEAKER) (test code = 1538) 116 mg/dL 70-110 H TESTED AT [address] [address] HEMOGLOBIN AND [id number] 12:02:00* Test Item Value Reference Range Interpretation Comments HEMOGLOBIN (BEAKER) (test code = 410) 8.0 GM/DL 13.7-17.5 L HEMATOCRIT (BEAKER) (test code = 411) 24.8 % 40.1-51.0 L POCT-GLUCOSE [id number] 11:19:00* Test Item Value Reference Range Interpretation Comments POC-GLUCOSE METER (BEAKER) (test code = 1538) 57 mg/dL 70-110 L Notified OMAYRA MEJIA/TESTED AT [address] [address] POCT-GLUCOSE [id number] 11:02:00* Test Item Value Reference Range Interpretation Comments POC-GLUCOSE METER (BEAKER) (test code = 1538) 48 mg/dL 70-110 L TESTED AT [facility] [address] [facility] [address] POCT-GLUCOSE [id number] 07:35:00* Test Item Value Reference Range Interpretation Comments POC-GLUCOSE METER (BEAKER) (test code = 1538) 97 mg/dL 70-110 TESTED AT [facility] [address] [facility] [address] POCT-GLUCOSE [id number] 07:06:00* Test Item Value Reference Range Interpretation Comments POC-GLUCOSE METER (BEAKER) (test code = 1538) 44 mg/dL 70-110 L TESTED AT [facility] [address] [facility] [address] BASIC METABOLIC [id number] 06:53:00* Test Item Value Reference Range Interpretation Comments SODIUM (BEAKER) (test code = 381) 133 meq/L 136-145 L POTASSIUM (BEAKER) (test code = 379) 3.8 meq/L 3.5-5.1 CHLORIDE (BEAKER) (test code = 382) 97 meq/L 98-107 L CO2 (BEAKER) (test code = 355) 25 meq/L 22-29 BLOOD UREA NITROGEN (BEAKER) (test code = 354) 77 mg/dL 7-21 H CREATININE (BEAKER) (test code = 358) 7.49 mg/dL 0.57-1.25 H GLUCOSE RANDOM (BEAKER) (test code = 652) 88 mg/dL 70-105 CALCIUM (BEAKER) (test code = 697) 8.5 mg/dL 8.4-10.2 EGFR (BEAKER) (test code = 1092) 7 mL/min/1.73 sq m ESTIMATED GFR IS NOT ACCURATE CREATININE CLEARANCE IN PREDICTING GLOMERULAR FILTRATION RATE. ESTIMATED GFR IS NOT APPLICABLE FOR DIALYSIS PATIENTS. CBC W/PLT COUNT & AUTO [id number] 04:58:00* Test Item Value Reference Range Interpretation Comments WHITE BLOOD CELL COUNT (BEAKER) (test code = 775) 9.5 K/ L 3.5- 10.5 RED BLOOD CELL COUNT (BEAKER) (test code = 761) 2.10 M/ L 4.63-6 .08 L HEMOGLOBIN (BEAKER) (test code = 410) 6.5 GM/DL 13.7-17.5 L HEMATOCRIT (BEAKER) (test code = 411) 20.2 % 40.1-51.0 L MEAN CORPUSCULAR VOLUME (BEAKER) (test code = 753) 96.2 fL 79. 0-92.2 H MEAN CORPUSCULAR HEMOGLOBIN (BEAKER) (test code = 751) 31.0 pg 25.7-32.2 MEAN CORPUSCULAR HEMOGLOBIN CONC (BEAKER) (test code = 752) 32.2 GM/DL 32.3-36.5 L RED CELL DISTRIBUTION WIDTH (BEAKER) (test code = 412) 16.6 % 11.6-14.4 H PLATELET COUNT (BEAKER) (test code = 756) 296 K/CU MM 150-450 MEAN PLATELET VOLUME (BEAKER) (test code = 754) 10.6 fL 9.4-12 .4 NUCLEATED RED BLOOD CELLS (BEAKER) (test code = 413) 0 /100 WBC 0 -0 NEUTROPHILS RELATIVE PERCENT (BEAKER) (test code = 429) 64 % LYMPHOCYTES RELATIVE PERCENT (BEAKER) (test code = 430) 14 % MONOCYTES RELATIVE PERCENT (BEAKER) (test code = 431) 10 % EOSINOPHILS RELATIVE PERCENT (BEAKER) (test code = 432) 11 % BASOPHILS RELATIVE PERCENT (BEAKER) (test code = 437) 0 % NEUTROPHILS ABSOLUTE COUNT (BEAKER) (test code = 670) 6.11 K/ L 1.78-5.38 H LYMPHOCYTES ABSOLUTE COUNT (BEAKER) (test code = 414) 1.29 K/ L 1.32-3.57 L MONOCYTES ABSOLUTE COUNT (BEAKER) (test code = 415) 0.96 K/ L 0. 30-0.82 H EOSINOPHILS ABSOLUTE COUNT (BEAKER) (test code = 416) 1.08 K/ L 0.04-0.54 H BASOPHILS ABSOLUTE COUNT (BEAKER) (test code = 417) 0.02 K/ L 0. 01-0.08 IMMATURE GRANULOCYTES-RELATIVE PERCENT (BEAKER) (test code = 2801) 1 % 0-1 POCT-GLUCOSE [id number] 02:53:00* Test Item Value Reference Range Interpretation Comments POC-GLUCOSE METER (BEAKER) (test code = 1538) 101 mg/dL 70-110 TESTED AT [facility] [address] [facility] [address] POCT-GLUCOSE [id number] 02:08:00* Test Item Value Reference Range Interpretation Comments POC-GLUCOSE METER (BEAKER) (test code = 1538) 80 mg/dL 70-110 TESTED AT [facility] [address] [facility] [address] POCT-GLUCOSE [id number] 02:05:00* Test Item Value Reference Range Interpretation Comments POC-GLUCOSE METER (BEAKER) (test code = 1538) 40 mg/dL 70-110 LL TESTED AT [facility] [address] [facility] [address] HEPATITIS B SURFACE [id number] 01:11:00* Test Item Value Reference Range Interpretation Comments HEPATITIS B SURFACE ANTIGEN (2) (BEAKER) (test code = 2585) Nonreactive Nonreactive For chronic HD patients, draw HBsAg with each admission then every 30 days. HEMOGLOBIN AND [id number] 23:04:00* Test Item Value Reference Range Interpretation Comments HEMOGLOBIN (BEAKER) (test code = 410) 5.7 GM/DL 13.7-17.5 LL HEMATOCRIT (BEAKER) (test code = 411) 18.1 % 40.1-51.0 L POCT-GLUCOSE [id number] 21:17:00* Test Item Value Reference Range Interpretation Comments POC-GLUCOSE METER (BEAKER) (test code = 1538) 97 mg/dL 70-110 TESTED AT [facility] [address] [facility] [address] [id number] 16:52:00* Test Item Value Reference Range Interpretation Comments FERRITIN (BEAKER) (test code = 361) 353 ng/mL 5-275 H VITAMIN B12 AND [id number] 16:52:00* Test Item Value Reference Range Interpretation Comments VITAMIN B12 (BEAKER) (test code = 774) 419 pg/mL 213-816 FOLATE (BEAKER) (test code = 362) 4.3 ng/mL >=7.0 L IRON, TIBC, % SAT. (WITHOUT FERRITIN)2019-03-20 16:18:00* Test Item Value Reference Range Interpretation Comments IRON (BEAKER) (test code = 547) 65.0 ug/dL 40.0-160.0 TOTAL IRON BINDING CAPACITY (BEAKER) (test code = 769) 273 ug/dL 250-450 IRON % SATURATION (2) (BEAKER) (test code = 2590) 24 % 20-5 5 POCT-GLUCOSE [id number] 16:04:00* Test Item Value Reference Range Interpretation Comments POC-GLUCOSE METER (BEAKER) (test code = 1538) 120 mg/dL 70-110 H TESTED AT [facility] [address] [facility] [address] B-TYPE NATRIURETIC FACTOR (BNP)2019-03-20 15:04:00* Test Item Value Reference Range Interpretation Comments B-TYPE NATRIURETIC PEPTIDE (BEAKER) (test code = 700) 267 pg/mL 0-100 H TROPONIN [id number] 15:04:00* Test Item Value Reference Range Interpretation Comments TROPONIN I (BEAKER) (test code = 397) < ng/mL 0.00-0.03 Troponin I (TnI) levels must be interpreted in the context of the presenting sym ptoms and the clinical findings. Elevated TnI levels indicate myocardial damage, but are not specific for ischemic heart disease. Elevated TnI levels are seen in patients with other cardiac conditions (including myocarditis and congestive h eart failure), and slight TnI elevations occur in patients with other conditions , including sepsis, renal failure, acidosis, acute neurological disease, and per sistent tachyarrhythmia.BASIC METABOLIC [id number] 15:01:00* Test Item Value Reference Range Interpretation Comments SODIUM (BEAKER) (test code = 381) 137 meq/L 136-145 POTASSIUM (BEAKER) (test code = 379) 4.8 meq/L 3.5-5.1 CHLORIDE (BEAKER) (test code = 382) 99 meq/L 98-107 CO2 (BEAKER) (test code = 355) 27 meq/L 22-29 BLOOD UREA NITROGEN (BEAKER) (test code = 354) 66 mg/dL 7-21 H CREATININE (BEAKER) (test code = 358) 6.76 mg/dL 0.57-1.25 H GLUCOSE RANDOM (BEAKER) (test code = 652) 120 mg/dL 70-105 H CALCIUM (BEAKER) (test code = 697) 8.7 mg/dL 8.4-10.2 EGFR (BEAKER) (test code = 1092) 8 mL/min/1.73 sq m ESTIMATED GFR IS NOT ACCURATE CREATININE CLEARANCE IN PREDICTING GLOMERULAR FILTRATION RATE. ESTIMATED GFR IS NOT APPLICABLE FOR DIALYSIS PATIENTS. RAD, CHEST, 2 [id number] 14:59:00Started dialysis 57-1-4182Lqiora for exam:->SHORTNESS OF BREATHstarted about an hour agoReason for exam:-> DIZZINESSShould this be performed at the bedside?->YesFINAL REPORT PA and Lateral views of the chest dated 03/20/2019 Clinical information: SHORTNESS OF BREATHDIZZINESS Comment: Heart is enlarged. Thoracic aorta is ectatic. Pulmonary vasculature is unremarkable. Lungs are clear. No pulmonary infiltrate or pleural effusion is present. Impression: Cardiomegaly without pulmonary edema. Signed: Zoila Combs MDReport Verified Date/Time: 03/20/2019 14:59:55 Reading Location: [facility] C013Y CT Body Reading Room PHORUS 2019-03-20 14:58:00* Test Item Value Reference Range Interpretation Comments PHOSPHORUS (BEAKER) (test code = 604) 1.9 mg/dL 2.3-4.7 L [id number] 14:58:00* Test Item Value Reference Range Interpretation Comments MAGNESIUM (BEAKER) (test code = 627) 1.9 mg/dL 1.6-2.6 HEPATIC FUNCTION [id number] 14:58:00* Test Item Value Reference Range Interpretation Comments TOTAL PROTEIN (BEAKER) (test code = 770) 5.9 gm/dL 6.0-8.3 L ALBUMIN (BEAKER) (test code = 1145) 3.3 g/dL 3.5-5.0 L BILIRUBIN TOTAL (BEAKER) (test code = 377) 0.6 mg/dL 0.2-1.2 BILIRUBIN DIRECT (BEAKER) (test code = 706) 0.2 mg/dL 0.1-0.5 ALKALINE PHOSPHATASE (BEAKER) (test code = 346) 55 U/L 40-150 AST (SGOT) (BEAKER) (test code = 353) 12 U/L 5-34 ALT (SGPT) (BEAKER) (test code = 347) 12 U/L 6-55 CREATINE KINASE (CK)2019-03-20 14:58:00* Test Item Value Reference Range Interpretation Comments CREATINE KINASE TOTAL (BEAKER) (test code = 380) 42 U/L 29-20 0 [id number] 14:58:00* Test Item Value Reference Range Interpretation Comments LIPASE (BEAKER) (test code = 749) 18 U/L 8-78 BLOOD GAS, [id number] 14:56:00* Test Item Value Reference Range Interpretation Comments PH VENOUS (BEAKER) (test code = 701) 7.40 7.32-7.42 PCO2 VENOUS (BEAKER) (test code = 755) 48 mmHg 41-51 PO2 VENOUS (BEAKER) (test code = 702) 20 mmHg 25-40 L O2 SATURATION VENOUS (BEAKER) (test code = 703) 30.5 % 40.0-7 0.0 L HCO3 VENOUS (BEAKER) (test code = 705) 29 mmol/L 21-29 BASE EXCESS VENOUS (BEAKER) (test code = 704) 4.2 mmol/L -2.0-3.0 H PATIENT TEMPERATURE (BEAKER) (test code = 1818) 37.0 C FIO2 (BEAKER) (test code = 1819) 21.0 % [id number] 14:53:00* Test Item Value Reference Range Interpretation Comments PROTIME (BEAKER) (test code = 759) 14.4 seconds 11.9-14.2 H INR (BEAKER) (test code = 370) 1.2 <=5.9 PARTIAL THROMBOPLASTIN TIME (BEAKER) (test code = 760) 28.9 seconds 22.5-36.0 Effective 12/16/2018: PT Reference Range ChangeNew: 11.9-14.2 Previous: 11.7-14. 7RECOMMENDED COUMADIN/WARFARIN INR THERAPY RANGESSTANDARD DOSE: 2.0-3.0 Include s: PROPHYLAXIS for venous thrombosis, systemic embolization; TREATMENT for venou s thrombosis and/or pulmonary embolus.HIGH RISK: Target INR is 2.5-3.5 for patie nts wiht mechanical heart valves.CBC W/PLT COUNT & AUTO [id number] 14:47:00* Test Item Value Reference Range Interpretation Comments WHITE BLOOD CELL COUNT (BEAKER) (test code = 775) 11.0 K/ L 3.5- 10.5 H RED BLOOD CELL COUNT (BEAKER) (test code = 761) 1.82 M/ L 4.63-6 .08 L HEMOGLOBIN (BEAKER) (test code = 410) 5.7 GM/DL 13.7-17.5 LL HEMATOCRIT (BEAKER) (test code = 411) 19.0 % 40.1-51.0 L MEAN CORPUSCULAR VOLUME (BEAKER) (test code = 753) 104.4 fL 79. 0-92.2 H MEAN CORPUSCULAR HEMOGLOBIN (BEAKER) (test code = 751) 31.3 pg 25.7-32.2 MEAN CORPUSCULAR HEMOGLOBIN CONC (BEAKER) (test code = 752) 30.0 GM/DL 32.3-36.5 L RED CELL DISTRIBUTION WIDTH (BEAKER) (test code = 412) 14.2 % 11.6-14.4 PLATELET COUNT (BEAKER) (test code = 756) 368 K/CU MM 150-450 MEAN PLATELET VOLUME (BEAKER) (test code = 754) 10.0 fL 9.4-12 .4 NUCLEATED RED BLOOD CELLS (BEAKER) (test code = 413) 0 /100 WBC 0 -0 NEUTROPHILS RELATIVE PERCENT (BEAKER) (test code = 429) 69 % LYMPHOCYTES RELATIVE PERCENT (BEAKER) (test code = 430) 13 % MONOCYTES RELATIVE PERCENT (BEAKER) (test code = 431) 9 % EOSINOPHILS RELATIVE PERCENT (BEAKER) (test code = 432) 8 % BASOPHILS RELATIVE PERCENT (BEAKER) (test code = 437) 0 % NEUTROPHILS ABSOLUTE COUNT (BEAKER) (test code = 670) 7.58 K/ L 1.78-5.38 H LYMPHOCYTES ABSOLUTE COUNT (BEAKER) (test code = 414) 1.46 K/ L 1.32-3.57 MONOCYTES ABSOLUTE COUNT (BEAKER) (test code = 415) 1.00 K/ L 0. 30-0.82 H EOSINOPHILS ABSOLUTE COUNT (BEAKER) (test code = 416) 0.87 K/ L 0.04-0.54 H BASOPHILS ABSOLUTE COUNT (BEAKER) (test code = 417) 0.04 K/ L 0. 01-0.08 IMMATURE GRANULOCYTES-RELATIVE PERCENT (BEAKER) (test code = 2801) 1 % 0-1 POCT-LACTIC ACID, [id number] 14:38:00* Test Item Value Reference Range Interpretation Comments POC-LACTIC ACID, VENOUS (BEAKER) (test code = 2805) 1.5 mmol/L 0. 9-1.7 TESTED AT [facility] [address] [facility] [address] RAD, CHEST, 1 VIEW, NON [id number] 08:51:00Started dialysis 32-9-8291Blzpll for exam:->S/p CT surgeryShould this be performed at the bedside?->YesFINAL REPORT RAD, CHEST, 1 VIEW, NON DEPT INDICATION: S/p CT surgery COMPARISON: Prior day's exam FINDINGS: Portable frontal view of the chest. IMPRESSION: Support Lines: None Lungs and pleura: Mild bilateral inter stitial opacities No pneumothorax.Heart and mediastinum: Stable contours. Additi onal findings: None. Signed: Susan Rivera Verified Date/Time: 03/09 08:51:43 Reading Location: [facility] Radiology Reading Room [facility] signed by: SUSAN RIVERA MD on 03/09/2019 08:51 AM BASIC METABOLIC [id number] 06:30:00* Test Item Value Reference Range Interpretation Comments SODIUM (BEAKER) (test code = 381) 134 meq/L 136-145 L POTASSIUM (BEAKER) (test code = 379) 4.0 meq/L 3.5-5.1 CHLORIDE (BEAKER) (test code = 382) 98 meq/L 98-107 CO2 (BEAKER) (test code = 355) 25 meq/L 22-29 BLOOD UREA NITROGEN (BEAKER) (test code = 354) 39 mg/dL 7-21 H CREATININE (BEAKER) (test code = 358) 6.75 mg/dL 0.57-1.25 H GLUCOSE RANDOM (BEAKER) (test code = 652) 124 mg/dL 70-105 H CALCIUM (BEAKER) (test code = 697) 8.6 mg/dL 8.4-10.2 EGFR (BEAKER) (test code = 1092) 8 mL/min/1.73 sq m ESTIMATED GFR IS NOT ACCURATE CREATININE CLEARANCE IN PREDICTING GLOMERULAR FILTRATION RATE. ESTIMATED GFR IS NOT APPLICABLE FOR DIALYSIS PATIENTS. CBC (HEMOGRAM ONLY)2019-03-09 05:26:00* Test Item Value Reference Range Interpretation Comments WHITE BLOOD CELL COUNT (BEAKER) (test code = 775) 13.3 K/ L 3.5- 10.5 H RED BLOOD CELL COUNT (BEAKER) (test code = 761) 2.58 M/ L 4.63-6 .08 L HEMOGLOBIN (BEAKER) (test code = 410) 8.3 GM/DL 13.7-17.5 L HEMATOCRIT (BEAKER) (test code = 411) 26.7 % 40.1-51.0 L MEAN CORPUSCULAR VOLUME (BEAKER) (test code = 753) 103.5 fL 79. 0-92.2 H MEAN CORPUSCULAR HEMOGLOBIN (BEAKER) (test code = 751) 32.2 pg 25.7-32.2 MEAN CORPUSCULAR HEMOGLOBIN CONC (BEAKER) (test code = 752) 31.1 GM/DL 32.3-36.5 L RED CELL DISTRIBUTION WIDTH (BEAKER) (test code = 412) 14.1 % 11.6-14.4 PLATELET COUNT (BEAKER) (test code = 756) 274 K/CU MM 150-450 MEAN PLATELET VOLUME (BEAKER) (test code = 754) 10.5 fL 9.4-12 .4 NUCLEATED RED BLOOD CELLS (BEAKER) (test code = 413) 0 /100 WBC 0 -0 POCT-GLUCOSE [id number] 19:13:00* Test Item Value Reference Range Interpretation Comments POC-GLUCOSE METER (BEAKER) (test code = 1538) 127 mg/dL 70-110 H TESTED AT [facility] [address] [facility] [address] POCT-GLUCOSE [id number] 10:47:00* Test Item Value Reference Range Interpretation Comments POC-GLUCOSE METER (BEAKER) (test code = 1538) 85 mg/dL 70-110 TESTED AT [facility] [address] [facility] [address] RAD, CHEST, 1 VIEW, NON [id number] 07:44:00Started dialysis 75-5-7983Myxekx for exam:->S/p CT surgeryShould this be performed at the bedside?->YesFINAL REPORT RAD, CHEST, 1 VIEW, NON DEPT INDICATION: S/p CT surgery COMPARISON: Prior day's exam FINDINGS: Portable frontal view of the chest. IMPRESSION: Support Lines: Stable. Lungs and pleura: Mild interstitial opacities are unchanged. No pneumothorax.Heart and mediastinum: Stable contours. Signed: MiguelSusaneport Verified Date/Time: 03/08/2019 07:44:33 Read ing [facility] Reading [facility] (HEMOGRAM ONLY)2019-03-08 05:39:00* Test Item Value Reference Range Interpretation Comments WHITE BLOOD CELL COUNT (BEAKER) (test code = 775) 11.8 K/ L 3.5- 10.5 H RED BLOOD CELL COUNT (BEAKER) (test code = 761) 2.49 M/ L 4.63-6 .08 L HEMOGLOBIN (BEAKER) (test code = 410) 8.0 GM/DL 13.7-17.5 L HEMATOCRIT (BEAKER) (test code = 411) 26.3 % 40.1-51.0 L MEAN CORPUSCULAR VOLUME (BEAKER) (test code = 753) 105.6 fL 79. 0-92.2 H MEAN CORPUSCULAR HEMOGLOBIN (BEAKER) (test code = 751) 32.1 pg 25.7-32.2 MEAN CORPUSCULAR HEMOGLOBIN CONC (BEAKER) (test code = 752) 30.4 GM/DL 32.3-36.5 L RED CELL DISTRIBUTION WIDTH (BEAKER) (test code = 412) 14.2 % 11.6-14.4 PLATELET COUNT (BEAKER) (test code = 756) 207 K/CU MM 150-450 MEAN PLATELET VOLUME (BEAKER) (test code = 754) 11.1 fL 9.4-12 .4 NUCLEATED RED BLOOD CELLS (BEAKER) (test code = 413) 0 /100 WBC 0 -0 BASIC METABOLIC [id number] 05:33:00* Test Item Value Reference Range Interpretation Comments SODIUM (BEAKER) (test code = 381) 134 meq/L 136-145 L POTASSIUM (BEAKER) (test code = 379) 4.8 meq/L 3.5-5.1 CHLORIDE (BEAKER) (test code = 382) 96 meq/L 98-107 L CO2 (BEAKER) (test code = 355) 26 meq/L 22-29 BLOOD UREA NITROGEN (BEAKER) (test code = 354) 72 mg/dL 7-21 H CREATININE (BEAKER) (test code = 358) 10.66 mg/dL 0.57-1.25 H GLUCOSE RANDOM (BEAKER) (test code = 652) 113 mg/dL 70-105 H CALCIUM (BEAKER) (test code = 697) 9.0 mg/dL 8.4-10.2 EGFR (BEAKER) (test code = 1092) 5 mL/min/1.73 sq m ESTIMATED GFR IS NOT ACCURATE CREATININE CLEARANCE IN PREDICTING GLOMERULAR FILTRATION RATE. ESTIMATED GFR IS NOT APPLICABLE FOR DIALYSIS PATIENTS. POCT-GLUCOSE [id number] 18:37:00* Test Item Value Reference Range Interpretation Comments POC-GLUCOSE METER (BEAKER) (test code = 1538) 157 mg/dL 70-110 H TESTED AT [address] [address] POCT-GLUCOSE [id number] 13:36:00* Test Item Value Reference Range Interpretation Comments POC-GLUCOSE METER (NAHID) (test code = 1538) 154 mg/dL 70-110 H TESTED AT [address] [address] POCT-GLUCOSE [id number] 09:52:00* Test Item Value Reference Range Interpretation Comments POC-GLUCOSE METER (NAHID) (test code = 1538) 142 mg/dL 70-110 H TESTED AT [place] [id number] [facility] [address] RAD, CHEST, 1 VIEW, NON [id number] 09:08:00Started dialysis 01-1-6567Lgjuwi for exam:->S/p CT surgeryShould this be performed at the bedside?->YesFINAL REPORT Comparison: 03/06/2019 TECHNIQUE: Single view of the chest FINDINGS: Some patchy densities in the left lung are stable. Lungs otherwise grossly clear. No pneumothorax. Cardiac silhouette is magnified by pawel macias. Signed: Evangelista Adan MDReport Verified Date/Time: 03/07/2019 09:08:15 R eading Location: [address] Transitional Reading Room Electronically sign ed by: EVANGELISTA ADAN M.D. on 03/07/2019 09:08 AM BASIC METABOLIC [id number] 06:43:00* Test Item Value Reference Range Interpretation Comments SODIUM (BEAKER) (test code = 381) 134 meq/L 136-145 L POTASSIUM (BEAKER) (test code = 379) 4.6 meq/L 3.5-5.1 CHLORIDE (BEAKER) (test code = 382) 96 meq/L 98-107 L CO2 (BEAKER) (test code = 355) 25 meq/L 22-29 BLOOD UREA NITROGEN (BEAKER) (test code = 354) 54 mg/dL 7-21 H CREATININE (BEAKER) (test code = 358) 8.31 mg/dL 0.57-1.25 H GLUCOSE RANDOM (BEAKER) (test code = 652) 98 mg/dL 70-105 CALCIUM (BEAKER) (test code = 697) 8.9 mg/dL 8.4-10.2 EGFR (BEAKER) (test code = 1092) 7 mL/min/1.73 sq m ESTIMATED GFR IS NOT ACCURATE CREATININE CLEARANCE IN PREDICTING GLOMERULAR FILTRATION RATE. ESTIMATED GFR IS NOT APPLICABLE FOR DIALYSIS PATIENTS. CBC (HEMOGRAM ONLY)2019-03-07 04:54:00* Test Item Value Reference Range Interpretation Comments WHITE BLOOD CELL COUNT (BEAKER) (test code = 775) 11.2 K/ L 3.5- 10.5 H RED BLOOD CELL COUNT (BEAKER) (test code = 761) 2.50 M/ L 4.63-6 .08 L HEMOGLOBIN (BEAKER) (test code = 410) 8.1 GM/DL 13.7-17.5 L HEMATOCRIT (BEAKER) (test code = 411) 26.6 % 40.1-51.0 L MEAN CORPUSCULAR VOLUME (BEAKER) (test code = 753) 106.4 fL 79. 0-92.2 H MEAN CORPUSCULAR HEMOGLOBIN (BEAKER) (test code = 751) 32.4 pg 25.7-32.2 H MEAN CORPUSCULAR HEMOGLOBIN CONC (BEAKER) (test code = 752) 30.5 GM/DL 32.3-36.5 L RED CELL DISTRIBUTION WIDTH (BEAKER) (test code = 412) 14.4 % 11.6-14.4 PLATELET COUNT (BEAKER) (test code = 756) 212 K/CU MM 150-450 MEAN PLATELET VOLUME (BEAKER) (test code = 754) 11.9 fL 9.4-12 .4 NUCLEATED RED BLOOD CELLS (BEAKER) (test code = 413) 0 /100 WBC 0 -0 POCT-GLUCOSE [id number] 21:59:00* Test Item Value Reference Range Interpretation Comments POC-GLUCOSE METER (BEAKER) (test code = 1538) 178 mg/dL 70-110 H TESTED AT [address] [address] POCT-GLUCOSE [id number] 19:49:00* Test Item Value Reference Range Interpretation Comments POC-GLUCOSE METER (BEAKER) (test code = 1538) 122 mg/dL 70-110 H TESTED AT [address] [address] POCT-GLUCOSE [id number] 13:15:00* Test Item Value Reference Range Interpretation Comments POC-GLUCOSE METER (BEAKER) (test code = 1538) 146 mg/dL 70-110 H TESTED AT [address] [address] RAD, CHEST, 1 VIEW, NON [id number] 10:41:00Started dialysis [id number] for exam:->S/p CT surgeryShould this be performed at the bedside?->YesFINAL REPORT AP chest HISTORY: Postoperative. COMPARISON: 03/05/2019. IMPRESSION: Left thoracostomy tube removed. No pneumothorax. Trace l eft effusion. Right lung clear. Cardiomegaly. Signed: Rebekah Ramsey MDReport V erified Date/Time: 03/06/2019 10:41:22 Reading Location: [facility] C0X [facility] Reading Room Electronically signed by: REBEKAH RAMSEY M.D. on 10:41 AM POCT-GLUCOSE [id number] 10:07:00* Test Item Value Reference Range Interpretation Comments POC-GLUCOSE METER (BEAKER) (test code = 1538) 131 mg/dL 70-110 H TESTED AT [address] [address] BASIC METABOLIC [id number] 06:28:00* Test Item Value Reference Range Interpretation Comments SODIUM (BEAKER) (test code = 381) 139 meq/L 136-145 POTASSIUM (BEAKER) (test code = 379) 4.4 meq/L 3.5-5.1 CHLORIDE (BEAKER) (test code = 382) 101 meq/L 98-107 CO2 (BEAKER) (test code = 355) 29 meq/L 22-29 BLOOD UREA NITROGEN (BEAKER) (test code = 354) 34 mg/dL 7-21 H CREATININE (BEAKER) (test code = 358) 6.36 mg/dL 0.57-1.25 H GLUCOSE RANDOM (BEAKER) (test code = 652) 137 mg/dL 70-105 H CALCIUM (BEAKER) (test code = 697) 8.6 mg/dL 8.4-10.2 EGFR (BEAKER) (test code = 1092) 9 mL/min/1.73 sq m ESTIMATED GFR IS NOT ACCURATE CREATININE CLEARANCE IN PREDICTING GLOMERULAR FILTRATION RATE. ESTIMATED GFR IS NOT APPLICABLE FOR DIALYSIS PATIENTS. CBC (HEMOGRAM ONLY)2019-03-06 06:05:00* Test Item Value Reference Range Interpretation Comments WHITE BLOOD CELL COUNT (BEAKER) (test code = 775) 11.0 K/ L 3.5- 10.5 H RED BLOOD CELL COUNT (BEAKER) (test code = 761) 2.48 M/ L 4.63-6 .08 L HEMOGLOBIN (BEAKER) (test code = 410) 8.0 GM/DL 13.7-17.5 L HEMATOCRIT (BEAKER) (test code = 411) 26.5 % 40.1-51.0 L MEAN CORPUSCULAR VOLUME (BEAKER) (test code = 753) 106.9 fL 79. 0-92.2 H MEAN CORPUSCULAR HEMOGLOBIN (BEAKER) (test code = 751) 32.3 pg 25.7-32.2 H MEAN CORPUSCULAR HEMOGLOBIN CONC (BEAKER) (test code = 752) 30.2 GM/DL 32.3-36.5 L RED CELL DISTRIBUTION WIDTH (BEAKER) (test code = 412) 14.5 % 11.6-14.4 H PLATELET COUNT (BEAKER) (test code = 756) 159 K/CU MM 150-450 MEAN PLATELET VOLUME (BEAKER) (test code = 754) 11.7 fL 9.4-12 .4 NUCLEATED RED BLOOD CELLS (BEAKER) (test code = 413) 0 /100 WBC 0 -0 POCT-GLUCOSE [id number] 21:35:00* Test Item Value Reference Range Interpretation Comments POC-GLUCOSE METER (BEAKER) (test code = 1538) 112 mg/dL 70-110 H TESTED AT [address] [address] POCT-GLUCOSE [id number] 17:49:00* Test Item Value Reference Range Interpretation Comments POC-GLUCOSE METER (BEAKER) (test code = 1538) 122 mg/dL 70-110 H TESTED AT [address] [address] POCT-GLUCOSE [id number] 16:40:00* Test Item Value Reference Range Interpretation Comments POC-GLUCOSE METER (BEAKER) (test code = 1538) 90 mg/dL 70-110 TESTED AT [address] [address] POCT-GLUCOSE [id number] 13:24:00* Test Item Value Reference Range Interpretation Comments POC-GLUCOSE METER (BEAKER) (test code = 1538) 201 mg/dL 70-110 H TESTED AT [address] [address] POCT-GLUCOSE [id number] 07:22:00* Test Item Value Reference Range Interpretation Comments POC-GLUCOSE METER (BEAKER) (test code = 1538) 140 mg/dL 70-110 H TESTED AT [address] [address] RAD, CHEST, 1 VIEW, NON [id number] 07:04:00Started dialysis 85-0-8823Ecnvgf for exam:->while chest tubes in placeFINAL REPORT RAD, CHEST, 1 VIEW, NON DEPT INDICATION: while chest tubes in place COMPARISON: Prior day's exam FINDINGS: Portable frontal view of the chest. IMPRESSION: Limited by underpenetration.Support Lines: Stable left thoracostomy tube. Lungs and pleura: Stable interstitial congestion suggesting mild edema. No significant effusion. No pneumothorax.Heart and mediastinum: Stable contours. Additional findings: None. Signed: JR Hidalgo Robert MDReport Verified Date/Time: 03/05/2019 07:04:31 Reading Location: [facility] Reading Room C METABOLIC [id number] 06:39:00* Test Item Value Reference Range Interpretation Comments SODIUM (BEAKER) (test code = 381) 136 meq/L 136-145 POTASSIUM (BEAKER) (test code = 379) 5.2 meq/L 3.5-5.1 H CHLORIDE (BEAKER) (test code = 382) 102 meq/L 98-107 CO2 (BEAKER) (test code = 355) 24 meq/L 22-29 BLOOD UREA NITROGEN (BEAKER) (test code = 354) 46 mg/dL 7-21 H CREATININE (BEAKER) (test code = 358) 8.67 mg/dL 0.57-1.25 H GLUCOSE RANDOM (BEAKER) (test code = 652) 132 mg/dL 70-105 H CALCIUM (BEAKER) (test code = 697) 8.8 mg/dL 8.4-10.2 EGFR (BEAKER) (test code = 1092) 6 mL/min/1.73 sq m ESTIMATED GFR IS NOT ACCURATE CREATININE CLEARANCE IN PREDICTING GLOMERULAR FILTRATION RATE. ESTIMATED GFR IS NOT APPLICABLE FOR DIALYSIS PATIENTS. CBC (HEMOGRAM ONLY)2019-03-05 05:36:00* Test Item Value Reference Range Interpretation Comments WHITE BLOOD CELL COUNT (BEAKER) (test code = 775) 12.9 K/ L 3.5- 10.5 H RED BLOOD CELL COUNT (BEAKER) (test code = 761) 2.52 M/ L 4.63-6 .08 L HEMOGLOBIN (BEAKER) (test code = 410) 8.1 GM/DL 13.7-17.5 L HEMATOCRIT (BEAKER) (test code = 411) 26.7 % 40.1-51.0 L MEAN CORPUSCULAR VOLUME (BEAKER) (test code = 753) 106.0 fL 79. 0-92.2 H MEAN CORPUSCULAR HEMOGLOBIN (BEAKER) (test code = 751) 32.1 pg 25.7-32.2 MEAN CORPUSCULAR HEMOGLOBIN CONC (BEAKER) (test code = 752) 30.3 GM/DL 32.3-36.5 L RED CELL DISTRIBUTION WIDTH (BEAKER) (test code = 412) 14.3 % 11.6-14.4 PLATELET COUNT (BEAKER) (test code = 756) 118 K/CU MM 150-450 L MEAN PLATELET VOLUME (BEAKER) (test code = 754) 12.0 fL 9.4-12 .4 NUCLEATED RED BLOOD CELLS (BEAKER) (test code = 413) 0 /100 WBC 0 -0 POCT-GLUCOSE [id number] 22:34:00* Test Item Value Reference Range Interpretation Comments POC-GLUCOSE METER (BEAKER) (test code = 1538) 96 mg/dL 70-110 TESTED AT [address] [address] POCT-GLUCOSE [id number] 18:22:00* Test Item Value Reference Range Interpretation Comments POC-GLUCOSE METER (BEAKER) (test code = 1538) 153 mg/dL 70-110 H TESTED AT [address] [address] POCT-GLUCOSE [id number] 12:26:00* Test Item Value Reference Range Interpretation Comments POC-GLUCOSE METER (BEAKER) (test code = 1538) 179 mg/dL 70-110 H TESTED AT [address] [address] POCT-GLUCOSE [id number] 09:49:00* Test Item Value Reference Range Interpretation Comments POC-GLUCOSE METER (BEAKER) (test code = 1538) 158 mg/dL 70-110 H TESTED AT [address] [address] BASIC METABOLIC [id number] 09:46:00* Test Item Value Reference Range Interpretation Comments SODIUM (BEAKER) (test code = 381) 138 meq/L 136-145 POTASSIUM (BEAKER) (test code = 379) 5.0 meq/L 3.5-5.1 CHLORIDE (BEAKER) (test code = 382) 103 meq/L 98-107 CO2 (BEAKER) (test code = 355) 26 meq/L 22-29 BLOOD UREA NITROGEN (BEAKER) (test code = 354) 29 mg/dL 7-21 H CREATININE (BEAKER) (test code = 358) 6.55 mg/dL 0.57-1.25 H GLUCOSE RANDOM (BEAKER) (test code = 652) 141 mg/dL 70-105 H CALCIUM (BEAKER) (test code = 697) 9.0 mg/dL 8.4-10.2 EGFR (BEAKER) (test code = 1092) 9 mL/min/1.73 sq m ESTIMATED GFR IS NOT ACCURATE CREATININE CLEARANCE IN PREDICTING GLOMERULAR FILTRATION RATE. ESTIMATED GFR IS NOT APPLICABLE FOR DIALYSIS PATIENTS. [id number] 09:39:00* Test Item Value Reference Range Interpretation Comments PHOSPHORUS (BEAKER) (test code = 604) 3.9 mg/dL 2.3-4.7 [id number] 09:39:00* Test Item Value Reference Range Interpretation Comments MAGNESIUM (BEAKER) (test code = 627) 2.0 mg/dL 1.6-2.6 [id number] 08:42:00* Test Item Value Reference Range Interpretation Comments FERRITIN (BEAKER) (test code = 361) 957 ng/mL 5-275 H IRON, TIBC, % SAT. (WITHOUT FERRITIN)2019-03-04 08:22:00* Test Item Value Reference Range Interpretation Comments IRON (BEAKER) (test code = 547) 18.0 ug/dL 40.0-160.0 L TOTAL IRON BINDING CAPACITY (BEAKER) (test code = 769) 145 ug/dL 250-450 L IRON % SATURATION (2) (BEAKER) (test code = 2590) 12 % 20-5 5 L RAD, CHEST, 1 VIEW, NON [id number] 07:09:00Started dialysis 91-9-0984Sqrpmd for exam:->while chest tubes in placeFINAL REPORT RAD, CHEST, 1 VIEW, NON DEPT INDICATION: while chest tubes in place COMPARISON: Prior day's exam FINDINGS: Portable frontal view of the chest. IMPRESSION: Support Lines: Left thoracostomy tube is unchanged. Lungs and pleura: Mild interstitial edema is present. Apical pleural capping again noted bilaterally. No pneumothorax.Heart and mediastinum: Stable contours.Additional findings: None. Signed: JR Hidalgo Robert MDReport Verified Date/Time: 03/04/2019 07:09:05 Reading Location: [facility] Reading Room , CHEST, 1 VIEW, NON [id number] 23:04:00Started dialysis 87-5-9617Kfpbuq for exam:->sobShould this be performed at the bedside?->YesFINAL REPORT AP chest HISTORY: Shortness of breath. COMPARISON: 03/03/2018. IMPRESSION: Right IJ catheter removed. Left thoracostomy tube. Cardiomegaly. Mild pulmonary vascular congestion. No pneumothorax. Signed: Rebekah Ramsey MDReport Verified Date/Time: 03/03/2019 23:04:21 Reading Location: [address] Consult Reading Room -GLUCOSE [id number] 21:13:00* Test Item Value Reference Range Interpretation Comments POC-GLUCOSE METER (BEAKER) (test code = 1538) 156 mg/dL 70-110 H TESTED AT [address] [address] POCT-GLUCOSE [id number] 17:26:00* Test Item Value Reference Range Interpretation Comments POC-GLUCOSE METER (BEAKER) (test code = 1538) 170 mg/dL 70-110 H TESTED AT [address] [address] POCT-GLUCOSE [id number] 17:00:00* Test Item Value Reference Range Interpretation Comments POC-GLUCOSE METER (BEAKER) (test code = 1538) 135 mg/dL 70-110 H TESTED AT [place] [id number] [facility] [address] POCT-GLUCOSE [id number] 17:00:00* Test Item Value Reference Range Interpretation Comments POC-GLUCOSE METER (BEAKER) (test code = 1538) 26 mg/dL 70-110 LL TESTED AT [address] [address] POCT-GLUCOSE [id number] 12:11:00* Test Item Value Reference Range Interpretation Comments POC-GLUCOSE METER (BEAKER) (test code = 1538) 123 mg/dL 70-110 H TESTED AT [address] [address] POCT-GLUCOSE [id number] 08:46:00* Test Item Value Reference Range Interpretation Comments POC-GLUCOSE METER (BEAKER) (test code = 1538) 120 mg/dL 70-110 H TESTED AT [address] [address] RAD, CHEST, 1 VIEW, NON [id number] 08:00:00Started dialysis 73-0-5986Mxnrdp for exam:->while chest tubes in placeFINAL REPORT RAD, CHEST, 1 VIEW, NON DEPT INDICATION: while chest tubes in place COMPARISON: Prior day's exam FINDINGS: Portable frontal view of the chest. IMPRESSION: Support Lines: Left IJ central venous catheter has been removed. Lungs and pleura: Left apical pleural capping is present. There is a questionable trace basilar left pneumothorax. Right lung is clear. No pneumothorax.Heart and mediastinum: Stable contours. Additional findings: None. Signed: JR Gwen, Stacy RICHARDSeport Verified Date/Time: 03/03/2019 08:00:06 Reading Location: [facility] Reading Room SSIUM-STAT [id number] 07:09:00* Test Item Value Reference Range Interpretation Comments POTASSIUM (BEAKER) (test code = 379) 5.1 meq/L 3.6-5.5 POCT-GLUCOSE [id number] 06:33:00* Test Item Value Reference Range Interpretation Comments POC-GLUCOSE METER (BEAKER) (test code = 1538) 176 mg/dL 70-110 H TESTED AT [facility] [address] [facility] [address] POCT-GLUCOSE [id number] 06:33:00* Test Item Value Reference Range Interpretation Comments POC-GLUCOSE METER (BEAKER) (test code = 1538) 199 mg/dL 70-110 H TESTED AT [facility] [address] [facility] [address] POCT-GLUCOSE [id number] 06:31:00* Test Item Value Reference Range Interpretation Comments POC-GLUCOSE METER (BEAKER) (test code = 1538) 158 mg/dL 70-110 H TESTED AT [facility] [address] [facility] [address] POCT-GLUCOSE [id number] 05:03:00* Test Item Value Reference Range Interpretation Comments POC-GLUCOSE METER (BEAKER) (test code = 1538) 126 mg/dL 70-110 H TESTED AT [place] [id number] [facility] [address] BASIC METABOLIC [id number] 03:28:00* Test Item Value Reference Range Interpretation Comments SODIUM (BEAKER) (test code = 381) 139 meq/L 136-145 POTASSIUM (BEAKER) (test code = 379) 5.6 meq/L 3.5-5.1 H CHLORIDE (BEAKER) (test code = 382) 106 meq/L 98-107 CO2 (BEAKER) (test code = 355) 24 meq/L 22-29 BLOOD UREA NITROGEN (BEAKER) (test code = 354) 48 mg/dL 7-21 H CREATININE (BEAKER) (test code = 358) 9.20 mg/dL 0.57-1.25 H GLUCOSE RANDOM (BEAKER) (test code = 652) 124 mg/dL 70-105 H CALCIUM (BEAKER) (test code = 697) 9.5 mg/dL 8.4-10.2 EGFR (BEAKER) (test code = 1092) 6 mL/min/1.73 sq m ESTIMATED GFR IS NOT ACCURATE CREATININE CLEARANCE IN PREDICTING GLOMERULAR FILTRATION RATE. ESTIMATED GFR IS NOT APPLICABLE FOR DIALYSIS PATIENTS. [id number] 03:26:00* Test Item Value Reference Range Interpretation Comments PHOSPHORUS (BEAKER) (test code = 604) 5.0 mg/dL 2.3-4.7 H [id number] 03:26:00* Test Item Value Reference Range Interpretation Comments MAGNESIUM (BEAKER) (test code = 627) 2.1 mg/dL 1.6-2.6 CBC (HEMOGRAM ONLY)2019-03-03 03:06:00* Test Item Value Reference Range Interpretation Comments WHITE BLOOD CELL COUNT (BEAKER) (test code = 775) 12.1 K/ L 3.5- 10.5 H RED BLOOD CELL COUNT (BEAKER) (test code = 761) 2.87 M/ L 4.63-6 .08 L HEMOGLOBIN (BEAKER) (test code = 410) 9.4 GM/DL 13.7-17.5 L HEMATOCRIT (BEAKER) (test code = 411) 29.6 % 40.1-51.0 L MEAN CORPUSCULAR VOLUME (BEAKER) (test code = 753) 103.1 fL 79. 0-92.2 H MEAN CORPUSCULAR HEMOGLOBIN (BEAKER) (test code = 751) 32.8 pg 25.7-32.2 H MEAN CORPUSCULAR HEMOGLOBIN CONC (BEAKER) (test code = 752) 31.8 GM/DL 32.3-36.5 L RED CELL DISTRIBUTION WIDTH (BEAKER) (test code = 412) 14.2 % 11.6-14.4 PLATELET COUNT (BEAKER) (test code = 756) 82 K/CU MM 150-450 L MEAN PLATELET VOLUME (BEAKER) (test code = 754) 12.2 fL 9.4-12 .4 NUCLEATED RED BLOOD CELLS (BEAKER) (test code = 413) 0 /100 WBC 0 -0 POCT-GLUCOSE [id number] 03:05:00* Test Item Value Reference Range Interpretation Comments POC-GLUCOSE METER (BEAKER) (test code = 1538) 139 mg/dL 70-110 H TESTED AT [address] [address] POCT-GLUCOSE [id number] 03:05:00* Test Item Value Reference Range Interpretation Comments POC-GLUCOSE METER (BEAKER) (test code = 1538) 135 mg/dL 70-110 H TESTED AT [address] [address] POCT-GLUCOSE [id number] 23:22:00* Test Item Value Reference Range Interpretation Comments POC-GLUCOSE METER (BEAKER) (test code = 1538) 148 mg/dL 70-110 H TESTED AT [address] [address] POCT-GLUCOSE [id number] 23:22:00* Test Item Value Reference Range Interpretation Comments POC-GLUCOSE METER (BEAKER) (test code = 1538) 85 mg/dL 70-110 TESTED AT [address] [address] GLUCOSE-STAT [id number] 21:44:00* Test Item Value Reference Range Interpretation Comments GLUCOSE RANDOM (BEAKER) (test code = 652) 199 mg/dL 70-110 H Every 2 hours X 3 after initial administration of D50W and Regular Insulin [id number] 21:40:00* Test Item Value Reference Range Interpretation Comments POTASSIUM (BEAKER) (test code = 379) 4.8 meq/L 3.6-5.5 Done in Stat Lab from syringe.[id number] 17:59:00* Test Item Value Reference Range Interpretation Comments POTASSIUM (BEAKER) (test code = 379) 4.7 meq/L 3.5-5.1 Every 2 hours X 3 after initial administration of D50W and Regular InsulinPOCT- GLUCOSE [id number] 17:31:00* Test Item Value Reference Range Interpretation Comments POC-GLUCOSE METER (BEAKER) (test code = 1538) 145 mg/dL 70-110 H TESTED AT [facility] [address] [facility] [address] BLOOD GAS, [id number] 17:29:00* Test Item Value Reference Range Interpretation Comments PH ARTERIAL (BEAKER) (test code = 383) 7.41 7.35-7.45 PCO2 ARTERIAL (BEAKER) (test code = 384) 36 mmHg 35-45 PO2 ARTERIAL (BEAKER) (test code = 385) 90 mmHg 80-90 O2 SATURATION ARTERIAL (BEAKER) (test code = 386) 97.0 % 96.0 -97.0 HCO3 ARTERIAL (BEAKER) (test code = 388) 23 mmol/L 21-29 BASE EXCESS ARTERIAL (BEAKER) (test code = 387) -1.8 mmol/L -2.0-3 .0 PATIENT TEMPERATURE (BEAKER) (test code = 1818) 36.9 C FIO2 (BEAKER) (test code = 1819) 40.0 % GLUCOSE-STAT [id number] 17:29:00* Test Item Value Reference Range Interpretation Comments GLUCOSE RANDOM (BEAKER) (test code = 652) 128 mg/dL 70-[address], BRAIN/STROKE [id number] 14:07:00Started dialysis [id number] REPORT CT, BRAIN/STROKE PROTOCOL CLINICAL INDICATION: Focal neuro deficit, new, fixed or worsening, >6 hoursNeuro deficit(s), subacute COMPARISON: None TECHNIQUE: Noncontrast axial CT imaging of the brain and skull. DOSE REDUCTION: Dose modulation, iterative reconstruction, and/or weight-based adjustment of the mA/kV was utilized to reduce the radiation dose to as low as reasonably achievable. FINDINGS:No intracranial hemorrhage, midline shift or mass effect. Midline structures are normally developed. Mild chronic microvascular ischemic changes of the periventricular and subcortical white matter are present. No hydrocephalus. Orbits are within normal limits. Atherosclerotic calcification of the intracranial internal carotid and vertebral arteries. No obstructive paranasal sinus disease. IMPRESSION: No acute intracranial findings If there is persistent clinical concern for intracranial pathology, MR examination is recommended for further characterization. Findings discussed with referring physician by Dr. Rivera at time of this dictation Sig suzie: Miguel Susan Darden Verified Date/Time: 03/02/2019 14:07:48 Reading L ocation: [facility] Reading Room C METABOLIC [id number] 13:28:00* Test Item Value Reference Range Interpretation Comments SODIUM (BEAKER) (test code = 381) 136 meq/L 136-145 POTASSIUM (BEAKER) (test code = 379) 5.9 meq/L 3.5-5.1 H CHLORIDE (BEAKER) (test code = 382) 105 meq/L 98-107 CO2 (BEAKER) (test code = 355) 22 meq/L 22-29 BLOOD UREA NITROGEN (BEAKER) (test code = 354) 39 mg/dL 7-21 H CREATININE (BEAKER) (test code = 358) 8.25 mg/dL 0.57-1.25 H GLUCOSE RANDOM (BEAKER) (test code = 652) 142 mg/dL 70-105 H CALCIUM (BEAKER) (test code = 697) 10.5 mg/dL 8.4-10.2 H EGFR (BEAKER) (test code = 1092) 7 mL/min/1.73 sq m ESTIMATED GFR IS NOT ACCURATE CREATININE CLEARANCE IN PREDICTING GLOMERULAR FILTRATION RATE. ESTIMATED GFR IS NOT APPLICABLE FOR DIALYSIS PATIENTS. POCT-GLUCOSE [id number] 10:43:00* Test Item Value Reference Range Interpretation Comments POC-GLUCOSE METER (BEAKER) (test code = 1538) 121 mg/dL 70-110 H TESTED AT [facility] [address] [facility] [address] POCT-GLUCOSE [id number] 10:43:00* Test Item Value Reference Range Interpretation Comments POC-GLUCOSE METER (BEAKER) (test code = 1538) 122 mg/dL 70-110 H TESTED AT [facility] [address] [facility] [address] RAD, CHEST, 1 VIEW, NON [id number] 08:22:00Started dialysis 15-0-8553kzzno patient is intubated or has chest tubes.Reason for exam:->Status post CV SurgeryShould this be performed at the bedside?->YesFINAL REPORT RAD, CHEST, 1 VIEW, NON DEPT INDICATION: Status post CV Surgery COMPARISON: Prior day's exam FINDINGS: Portable frontal view of the chest. IMPRESSION: Limited by underpenetration. Support Lines: Endotracheal and enteric tubes and been removed. Remaining support hardware is stable. Lungs and pleura: Unchanged airspace and pleural opacities. No pneumothorax.Heart and mediastinum: Stable contours. Additional findings: None. Signed: JR Hidalgo Robert MDReport Verified Date/Time: 03/02/2019 08:22:21 Reading Location: [facility] Radiology Reading Room IC ACID, [id number] 07:11:00* Test Item Value Reference Range Interpretation Comments LACTATE BLOOD ARTERIAL (2) (BEAKER) (test code = 2874) 1.8 mmol/L 0.5-2.2 Specimen slightly hemolyzed BLOOD GAS, [id number] 07:11:00* Test Item Value Reference Range Interpretation Comments PH ARTERIAL (BEAKER) (test code = 383) 7.39 7.35-7.45 PCO2 ARTERIAL (BEAKER) (test code = 384) 40 mmHg 35-45 PO2 ARTERIAL (BEAKER) (test code = 385) 98 mmHg 80-90 H O2 SATURATION ARTERIAL (BEAKER) (test code = 386) 97.4 % 96.0 -97.0 H HCO3 ARTERIAL (BEAKER) (test code = 388) 23 mmol/L 21-29 BASE EXCESS ARTERIAL (BEAKER) (test code = 387) -1.4 mmol/L -2.0-3 .0 PATIENT TEMPERATURE (BEAKER) (test code = 1818) 37.1 C FIO2 (BEAKER) (test code = 1819) 36.0 % OXYGEN SATURATION, [id number] 06:57:00* Test Item Value Reference Range Interpretation Comments O2 SATURATION (MEASURED) (BEAKER) (test code = 1455) 82.7 % [id number] 06:24:00* Test Item Value Reference Range Interpretation Comments ACTIVATED CLOTTING TIME (BEAKER) (test code = 441) 351 sec TESTED AT [address] [address] [id number] 06:24:00* Test Item Value Reference Range Interpretation Comments ACTIVATED CLOTTING TIME (BEAKER) (test code = 441) 378 sec TESTED AT [address] [address] BASIC METABOLIC [id number] 04:32:00* Test Item Value Reference Range Interpretation Comments SODIUM (BEAKER) (test code = 381) 139 meq/L 136-145 POTASSIUM (BEAKER) (test code = 379) 4.8 meq/L 3.5-5.1 CHLORIDE (BEAKER) (test code = 382) 107 meq/L 98-107 CO2 (BEAKER) (test code = 355) 21 meq/L 22-29 L BLOOD UREA NITROGEN (BEAKER) (test code = 354) 34 mg/dL 7-21 H CREATININE (BEAKER) (test code = 358) 7.74 mg/dL 0.57-1.25 H GLUCOSE RANDOM (BEAKER) (test code = 652) 202 mg/dL 70-105 H CALCIUM (BEAKER) (test code = 697) 10.9 mg/dL 8.4-10.2 H EGFR (BEAKER) (test code = 1092) 7 mL/min/1.73 sq m ESTIMATED GFR IS NOT ACCURATE CREATININE CLEARANCE IN PREDICTING GLOMERULAR FILTRATION RATE. ESTIMATED GFR IS NOT APPLICABLE FOR DIALYSIS PATIENTS. POCT-GLUCOSE [id number] 04:25:00* Test Item Value Reference Range Interpretation Comments POC-GLUCOSE METER (BEAKER) (test code = 1538) 165 mg/dL 70-110 H TESTED AT [address] [address] POCT-GLUCOSE [id number] 04:19:00* Test Item Value Reference Range Interpretation Comments POC-GLUCOSE METER (BEAKER) (test code = 1538) 176 mg/dL 70-110 H TESTED AT [address] [address] POCT-GLUCOSE [id number] 04:19:00* Test Item Value Reference Range Interpretation Comments POC-GLUCOSE METER (BEAKER) (test code = 1538) 238 mg/dL 70-110 H TESTED AT [address] [address] POCT-GLUCOSE [id number] 04:19:00* Test Item Value Reference Range Interpretation Comments POC-GLUCOSE METER (BEAKER) (test code = 1538) 186 mg/dL 70-110 H TESTED AT [facility] [address] [facility] [address] [id number] 04:05:00* Test Item Value Reference Range Interpretation Comments PHOSPHORUS (BEAKER) (test code = 604) 4.1 mg/dL 2.3-4.7 [id number] 04:05:00* Test Item Value Reference Range Interpretation Comments MAGNESIUM (BEAKER) (test code = 627) 2.0 mg/dL 1.6-2.6 LACTIC ACID, [id number] 03:55:00* Test Item Value Reference Range Interpretation Comments LACTATE BLOOD ARTERIAL (2) (BEAKER) (test code = 2874) 4.0 mmol/L 0.5-2.2 H BLOOD GAS, [id number] 03:46:00* Test Item Value Reference Range Interpretation Comments PH ARTERIAL (BEAKER) (test code = 383) 7.34 7.35-7.45 L PCO2 ARTERIAL (BEAKER) (test code = 384) 38 mmHg 35-45 PO2 ARTERIAL (BEAKER) (test code = 385) 108 mmHg 80-90 H O2 SATURATION ARTERIAL (BEAKER) (test code = 386) 97.7 % 96.0 -97.0 H HCO3 ARTERIAL (BEAKER) (test code = 388) 20 mmol/L 21-29 L BASE EXCESS ARTERIAL (BEAKER) (test code = 387) -5.0 mmol/L -2.0-3 .0 L PATIENT TEMPERATURE (BEAKER) (test code = 1818) 37.1 C FIO2 (BEAKER) (test code = 1819) 40.0 % CBC (HEMOGRAM ONLY)2019-03-02 03:44:00* Test Item Value Reference Range Interpretation Comments WHITE BLOOD CELL COUNT (BEAKER) (test code = 775) 16.0 K/ L 3.5- 10.5 H RED BLOOD CELL COUNT (BEAKER) (test code = 761) 3.71 M/ L 4.63-6 .08 L HEMOGLOBIN (BEAKER) (test code = 410) 12.0 GM/DL 13.7-17.5 L HEMATOCRIT (BEAKER) (test code = 411) 38.3 % 40.1-51.0 L MEAN CORPUSCULAR VOLUME (BEAKER) (test code = 753) 103.2 fL 79. 0-92.2 H MEAN CORPUSCULAR HEMOGLOBIN (BEAKER) (test code = 751) 32.3 pg 25.7-32.2 H MEAN CORPUSCULAR HEMOGLOBIN CONC (BEAKER) (test code = 752) 31.3 GM/DL 32.3-36.5 L RED CELL DISTRIBUTION WIDTH (BEAKER) (test code = 412) 13.9 % 11.6-14.4 PLATELET COUNT (BEAKER) (test code = 756) 117 K/CU MM 150-450 L MEAN PLATELET VOLUME (BEAKER) (test code = 754) 11.5 fL 9.4-12 .4 NUCLEATED RED BLOOD CELLS (BEAKER) (test code = 413) 0 /100 WBC 0 -0 OXYGEN SATURATION, [id number] 03:39:00* Test Item Value Reference Range Interpretation Comments O2 SATURATION (MEASURED) (BEAKER) (test code = 1455) 77.7 % [id number] 01:23:00* Test Item Value Reference Range Interpretation Comments MAGNESIUM (BEAKER) (test code = 627) 1.9 mg/dL 1.6-2.6 Specimen slightly hemolyzed [id number] 01:23:00* Test Item Value Reference Range Interpretation Comments POTASSIUM (BEAKER) (test code = 379) 5.3 meq/L 3.5-5.1 H Specimen slightly hemolyzed [id number] 01:23:00* Test Item Value Reference Range Interpretation Comments GLUCOSE RANDOM (BEAKER) (test code = 652) 201 mg/dL 70-105 H LACTIC ACID, [id number] 01:19:00* Test Item Value Reference Range Interpretation Comments LACTATE BLOOD ARTERIAL (2) (BEAKER) (test code = 2874) 3.4 mmol/L 0.5-2.2 H SODIUM NA-STAT [id number] 01:03:00* Test Item Value Reference Range Interpretation Comments SODIUM (BEAKER) (test code = 381) 137 meq/L 135-148 POTASSIUM-STAT [id number] 01:03:00* Test Item Value Reference Range Interpretation Comments POTASSIUM (BEAKER) (test code = 379) 5.2 meq/L 3.6-5.5 BLOOD GAS, [id number] 01:03:00* Test Item Value Reference Range Interpretation Comments PH ARTERIAL (BEAKER) (test code = 383) 7.35 7.35-7.45 PCO2 ARTERIAL (BEAKER) (test code = 384) 39 mmHg 35-45 PO2 ARTERIAL (BEAKER) (test code = 385) 100 mmHg 80-90 H O2 SATURATION ARTERIAL (BEAKER) (test code = 386) 97.4 % 96.0 -97.0 H HCO3 ARTERIAL (BEAKER) (test code = 388) 21 mmol/L 21-29 BASE EXCESS ARTERIAL (BEAKER) (test code = 387) -4.4 mmol/L -2.0-3 .0 L PATIENT TEMPERATURE (BEAKER) (test code = 1818) 36.6 C FIO2 (BEAKER) (test code = 1819) 40.0 % GLUCOSE-STAT [id number] 01:03:00* Test Item Value Reference Range Interpretation Comments GLUCOSE RANDOM (BEAKER) (test code = 652) 198 mg/dL 70-110 H HGB/HCT (H&H) - STAT [id number] 01:03:00* Test Item Value Reference Range Interpretation Comments HEMOGLOBIN (BEAKER) (test code = 410) 12.6 g/dL 13.0-16.8 L HEMATOCRIT (BEAKER) (test code = 411) 37.0 % 40.0-50.0 L CBC W/PLT COUNT & AUTO [id number] 23:25:00* Test Item Value Reference Range Interpretation Comments WHITE BLOOD CELL COUNT (BEAKER) (test code = 775) 25.0 K/ L 3.5- 10.5 H RED BLOOD CELL COUNT (BEAKER) (test code = 761) 3.77 M/ L 4.63-6 .08 L HEMOGLOBIN (BEAKER) (test code = 410) 12.2 GM/DL 13.7-17.5 L HEMATOCRIT (BEAKER) (test code = 411) 38.6 % 40.1-51.0 L MEAN CORPUSCULAR VOLUME (BEAKER) (test code = 753) 102.4 fL 79. 0-92.2 H MEAN CORPUSCULAR HEMOGLOBIN (BEAKER) (test code = 751) 32.4 pg 25.7-32.2 H MEAN CORPUSCULAR HEMOGLOBIN CONC (BEAKER) (test code = 752) 31.6 GM/DL 32.3-36.5 L RED CELL DISTRIBUTION WIDTH (BEAKER) (test code = 412) 13.9 % 11.6-14.4 PLATELET COUNT (BEAKER) (test code = 756) 133 K/CU MM 150-450 L MEAN PLATELET VOLUME (BEAKER) (test code = 754) 11.5 fL 9.4-12 .4 NUCLEATED RED BLOOD CELLS (BEAKER) (test code = 413) 0 /100 WBC 0 -0 (CELLAVISION MANUAL DIFF)2019-03-01 23:25:00* Test Item Value Reference Range Interpretation Comments NEUTROPHILS - REL (CELLAVISION)(BEAKER) (test code = 2816) 84 % LYMPHOCYTES - REL (CELLAVISION)(BEAKER) (test code = 2817) 5 % MONOCYTES - REL (CELLAVISION)(BEAKER) (test code = 2818) 5 % BANDS - REL (CELLAVISION)(BEAKER) (test code = 2826) 5 % 0 -10 ATYPICAL LYMPHOCYTES - REL (CELLAVISION)(BEAKER) (test code = 2829) 1 % 0-0 H NEUTROPHILS - ABS (CELLAVISION)(BEAKER) (test code = 2830) 21.00 K/ul 1.78-5.38 H LYMPHOCYTES - ABS (CELLAVISION)(BEAKER) (test code = 2831) 1.25 K/ul 1.32-3.57 L MONOCYTES - ABS (CELLAVISION)(BEAKER) (test code = 2832) 1.25 K/uL 0.30-0.82 H BANDS - ABS (CELLAVISION)(BEAKER) (test code = 2840) 1.25 K/uL 0 .00-0.80 H ATYPICAL LYMPHOCYTES - ABS (CELLAVISION)(BEAKER) (test code = 2858) 0.25 K/uL 0.00-0.00 H TOTAL COUNTED (BEAKER) (test code = 1351) 100 RBC MORPHOLOGY (BEAKER) (test code = 762) Normal SMUDGE CELLS (BEAKER) (test code = 1371) Present GIANT PLATELETS (BEAKER) (test code = 313) Present PLATELET CONCENTRATION (CELLAVISION)(BEAKER) (test code = 3438) Dec reased Received comment: User comments: Slide comments: BASIC METABOLIC [id number] 23:08:00* Test Item Value Reference Range Interpretation Comments SODIUM (BEAKER) (test code = 381) 139 meq/L 136-145 POTASSIUM (BEAKER) (test code = 379) 5.2 meq/L 3.5-5.1 H CHLORIDE (BEAKER) (test code = 382) 106 meq/L 98-107 CO2 (BEAKER) (test code = 355) 22 meq/L 22-29 BLOOD UREA NITROGEN (BEAKER) (test code = 354) 30 mg/dL 7-21 H CREATININE (BEAKER) (test code = 358) 6.87 mg/dL 0.57-1.25 H GLUCOSE RANDOM (BEAKER) (test code = 652) 144 mg/dL 70-105 H CALCIUM (BEAKER) (test code = 697) 10.0 mg/dL 8.4-10.2 EGFR (BEAKER) (test code = 1092) 8 mL/min/1.73 sq m ESTIMATED GFR IS NOT ACCURATE CREATININE CLEARANCE IN PREDICTING GLOMERULAR FILTRATION RATE. ESTIMATED GFR IS NOT APPLICABLE FOR DIALYSIS PATIENTS. [id number] 23:05:00* Test Item Value Reference Range Interpretation Comments PHOSPHORUS (BEAKER) (test code = 604) 4.4 mg/dL 2.3-4.7 [id number] 23:05:00* Test Item Value Reference Range Interpretation Comments MAGNESIUM (BEAKER) (test code = 627) 1.9 mg/dL 1.6-2.6 LACTIC ACID, [id number] 22:56:00* Test Item Value Reference Range Interpretation Comments LACTATE BLOOD ARTERIAL (2) (BEAKER) (test code = 2874) 2.2 mmol/L 0.5-2.2 [id number] 22:52:00* Test Item Value Reference Range Interpretation Comments PARTIAL THROMBOPLASTIN TIME (BEAKER) (test code = 760) 37.4 seconds 22.5-36.0 H BLOOD GAS, [id number] 22:44:00* Test Item Value Reference Range Interpretation Comments PH ARTERIAL (BEAKER) (test code = 383) 7.34 7.35-7.45 L PCO2 ARTERIAL (BEAKER) (test code = 384) 44 mmHg 35-45 PO2 ARTERIAL (BEAKER) (test code = 385) 95 mmHg 80-90 H O2 SATURATION ARTERIAL (BEAKER) (test code = 386) 96.9 % 96.0 -97.0 HCO3 ARTERIAL (BEAKER) (test code = 388) 24 mmol/L 21-29 BASE EXCESS ARTERIAL (BEAKER) (test code = 387) -2.3 mmol/L -2.0-3 .0 L PATIENT TEMPERATURE (BEAKER) (test code = 1818) 36.8 C FIO2 (BEAKER) (test code = 1819) 60.0 % GLUCOSE-STAT [id number] 22:44:00* Test Item Value Reference Range Interpretation Comments GLUCOSE RANDOM (BEAKER) (test code = 652) 148 mg/dL 70-110 H HGB/HCT (H&H) - STAT [id number] 22:44:00* Test Item Value Reference Range Interpretation Comments HEMOGLOBIN (BEAKER) (test code = 410) 12.7 g/dL 13.0-16.8 L HEMATOCRIT (BEAKER) (test code = 411) 37.0 % 40.0-50.0 L CALCIUM, [id number] 22:44:00* Test Item Value Reference Range Interpretation Comments CALCIUM IONIZED (BEAKER) (test code = 698) 1.30 mmol/L 1.12-1.27 H PH, BLOOD (BEAKER) (test code = 1810) 7.34 OXYGEN SATURATION, [id number] 22:43:00* Test Item Value Reference Range Interpretation Comments O2 SATURATION (MEASURED) (BEAKER) (test code = 1455) 84.3 % SODIUM NA-STAT [id number] 22:42:00* Test Item Value Reference Range Interpretation Comments SODIUM (BEAKER) (test code = 381) 138 meq/L 135-148 POTASSIUM-STAT [id number] 22:42:00* Test Item Value Reference Range Interpretation Comments POTASSIUM (BEAKER) (test code = 379) 5.2 meq/L 3.6-5.5 RAD, CHEST, 1 VIEW, NON [id number] 22:41:00Started dialysis [id number] for exam:->Status post CV Surgery post op day 0Should this be performed at the bedside?->YesFINAL REPORT Chest one view. Clinical history: Status post CV Surgery post op day 0 Comparison: Chest radiograph 11/08/2015. Technique: A single frontal view of the chest was obtained. Findings: The endotracheal tube is low lying, measuring approximately 1.7 cm from the meenakshi and requires retraction. There is a feeding tube with tip in the gastric fundus however the side hole is at the GE junction and requires advancement. There is a right chest tube with tip in the right midlung. There is a left chest tube with tip in the left lung apex. There is a right IJ central venous catheter with tip in the SVC. The cardiomediastinal contours are stable. There are mild bilateral congestive changes. There is a small left pleural effusion. There is no pneumothorax. There is mild subcutaneous emphysema in the left chest wall. Signed: Ge [facility] Verified Date/Time: 03/01/2019 22:41:09 -[id number] 21:56:00* Test Item Value Reference Range Interpretation Comments ACTIVATED CLOTTING TIME (BEAKER) (test code = 441) 86 sec TESTED AT [address] [address] [id number] 21:56:00* Test Item Value Reference Range Interpretation Comments ACTIVATED CLOTTING TIME (BEAKER) (test code = 441) 274 sec TESTED AT [address] [address] [id number] 21:56:00* Test Item Value Reference Range Interpretation Comments ACTIVATED CLOTTING TIME (BEAKER) (test code = 441) 549 sec TESTED AT [address] [address] [id number] 21:56:00* Test Item Value Reference Range Interpretation Comments ACTIVATED CLOTTING TIME (BEAKER) (test code = 441) 290 sec TESTED AT [address] [address] [id number] 21:56:00* Test Item Value Reference Range Interpretation Comments ACTIVATED CLOTTING TIME (BEAKER) (test code = 441) 401 sec TESTED AT [facility] [address] [facility] [address] [id number] 21:56:00* Test Item Value Reference Range Interpretation Comments ACTIVATED CLOTTING TIME (BEAKER) (test code = 441) 334 sec TESTED AT [address] [address] [id number] 21:56:00* Test Item Value Reference Range Interpretation Comments ACTIVATED CLOTTING TIME (BEAKER) (test code = 441) 318 sec TESTED AT [place] [id number] [facility] [address] [id number] 21:56:00* Test Item Value Reference Range Interpretation Comments ACTIVATED CLOTTING TIME (BEAKER) (test code = 441) 290 sec TESTED AT [address] [address] CALCIUM, [id number] 21:21:00* Test Item Value Reference Range Interpretation Comments CALCIUM IONIZED (BEAKER) (test code = 698) 1.30 mmol/L 1.12-1.27 H PH, BLOOD (BEAKER) (test code = 1810) 7.28 POTASSIUM-STAT [id number] 21:20:00* Test Item Value Reference Range Interpretation Comments POTASSIUM (BEAKER) (test code = 379) 4.6 meq/L 3.6-5.5 BLOOD GAS, [id number] 21:20:00* Test Item Value Reference Range Interpretation Comments PH ARTERIAL (BEAKER) (test code = 383) 7.28 7.35-7.45 L PCO2 ARTERIAL (BEAKER) (test code = 384) 47 mmHg 35-45 H PO2 ARTERIAL (BEAKER) (test code = 385) 293 mmHg 80-90 H O2 SATURATION ARTERIAL (BEAKER) (test code = 386) 99.6 % 96.0 -97.0 H HCO3 ARTERIAL (BEAKER) (test code = 388) 22 mmol/L 21-29 BASE EXCESS ARTERIAL (BEAKER) (test code = 387) -5.3 mmol/L -2.0-3 .0 L PATIENT TEMPERATURE (BEAKER) (test code = 1818) 36.9 C FIO2 (BEAKER) (test code = 1819) 100.0 % SODIUM NA-STAT [id number] 21:20:00* Test Item Value Reference Range Interpretation Comments SODIUM (BEAKER) (test code = 381) 134 meq/L 135-148 L GLUCOSE-STAT [id number] 21:20:00* Test Item Value Reference Range Interpretation Comments GLUCOSE RANDOM (BEAKER) (test code = 652) 137 mg/dL 70-110 H HGB/HCT (H&H) - STAT [id number] 21:20:00* Test Item Value Reference Range Interpretation Comments HEMOGLOBIN (BEAKER) (test code = 410) 11.3 g/dL 13.0-16.8 L HEMATOCRIT (BEAKER) (test code = 411) 33.0 % 40.0-50.0 L [id number] 20:46:00* Test Item Value Reference Range Interpretation Comments ACTIVATED CLOTTING TIME (BEAKER) (test code = 441) 296 sec TESTED AT [place] [address] [id number] 20:46:00* Test Item Value Reference Range Interpretation Comments ACTIVATED CLOTTING TIME (BEAKER) (test code = 441) 477 sec TESTED AT [place] [address] [id number] 20:46:00* Test Item Value Reference Range Interpretation Comments ACTIVATED CLOTTING TIME (BEAKER) (test code = 441) 345 sec TESTED AT [address] [address] BLOOD GAS, [id number] 20:35:00* Test Item Value Reference Range Interpretation Comments PH ARTERIAL (BEAKER) (test code = 383) 7.30 7.35-7.45 L PCO2 ARTERIAL (BEAKER) (test code = 384) 39 mmHg 35-45 PO2 ARTERIAL (BEAKER) (test code = 385) 349 mmHg 80-90 H O2 SATURATION ARTERIAL (BEAKER) (test code = 386) 99.7 % 96.0 -97.0 H HCO3 ARTERIAL (BEAKER) (test code = 388) 19 mmol/L 21-29 L BASE EXCESS ARTERIAL (BEAKER) (test code = 387) -6.9 mmol/L -2.0-3 .0 L PATIENT TEMPERATURE (BEAKER) (test code = 1818) 36.6 C FIO2 (BEAKER) (test code = 1819) 100.0 % GLUCOSE-STAT [id number] 20:35:00* Test Item Value Reference Range Interpretation Comments GLUCOSE RANDOM (BEAKER) (test code = 652) 161 mg/dL 70-110 H HGB/HCT (H&H) - STAT [id number] 20:35:00* Test Item Value Reference Range Interpretation Comments HEMOGLOBIN (BEAKER) (test code = 410) 9.5 g/dL 13.0-16.8 L HEMATOCRIT (BEAKER) (test code = 411) 28.0 % 40.0-50.0 L CALCIUM, [id number] 20:35:00* Test Item Value Reference Range Interpretation Comments CALCIUM IONIZED (BEAKER) (test code = 698) 1.42 mmol/L 1.12-1.27 H PH, BLOOD (BEAKER) (test code = 1810) 7.30 SODIUM NA-STAT [id number] 20:34:00* Test Item Value Reference Range Interpretation Comments SODIUM (BEAKER) (test code = 381) 136 meq/L 135-148 POTASSIUM-STAT [id number] 20:34:00* Test Item Value Reference Range Interpretation Comments POTASSIUM (BEAKER) (test code = 379) 4.6 meq/L 3.6-5.5 CALCIUM, [id number] 19:52:00* Test Item Value Reference Range Interpretation Comments CALCIUM IONIZED (BEAKER) (test code = 698) 1.54 mmol/L 1.12-1.27 H PH, BLOOD (BEAKER) (test code = 1810) 7.34 BLOOD GAS, [id number] 19:52:00* Test Item Value Reference Range Interpretation Comments PH ARTERIAL (BEAKER) (test code = 383) 7.34 7.35-7.45 L PCO2 ARTERIAL (BEAKER) (test code = 384) 38 mmHg 35-45 PO2 ARTERIAL (BEAKER) (test code = 385) 299 mmHg 80-90 H O2 SATURATION ARTERIAL (BEAKER) (test code = 386) 99.7 % 96.0 -97.0 H HCO3 ARTERIAL (BEAKER) (test code = 388) 20 mmol/L 21-29 L BASE EXCESS ARTERIAL (BEAKER) (test code = 387) -5.5 mmol/L -2.0-3 .0 L PATIENT TEMPERATURE (BEAKER) (test code = 1818) 36.7 C FIO2 (BEAKER) (test code = 1819) 96.0 % SODIUM NA-STAT [id number] 19:52:00* Test Item Value Reference Range Interpretation Comments SODIUM (BEAKER) (test code = 381) 134 meq/L 135-148 L GLUCOSE-STAT [id number] 19:52:00* Test Item Value Reference Range Interpretation Comments GLUCOSE RANDOM (BEAKER) (test code = 652) 165 mg/dL 70-110 H HGB/HCT (H&H) - STAT [id number] 19:52:00* Test Item Value Reference Range Interpretation Comments HEMOGLOBIN (BEAKER) (test code = 410) 11.1 g/dL 13.0-16.8 L HEMATOCRIT (BEAKER) (test code = 411) 33.0 % 40.0-50.0 L POTASSIUM-STAT [id number] 19:50:00* Test Item Value Reference Range Interpretation Comments POTASSIUM (BEAKER) (test code = 379) 4.7 meq/L 3.6-5.5 BLOOD GAS, [id number] 18:49:00* Test Item Value Reference Range Interpretation Comments PH ARTERIAL (BEAKER) (test code = 383) 7.41 7.35-7.45 PCO2 ARTERIAL (BEAKER) (test code = 384) 34 mmHg 35-45 L PO2 ARTERIAL (BEAKER) (test code = 385) 419 mmHg 80-90 H O2 SATURATION ARTERIAL (BEAKER) (test code = 386) 99.8 % 96.0 -97.0 H HCO3 ARTERIAL (BEAKER) (test code = 388) 21 mmol/L 21-29 BASE EXCESS ARTERIAL (BEAKER) (test code = 387) -3.2 mmol/L -2.0-3 .0 L PATIENT TEMPERATURE (BEAKER) (test code = 1818) 36.8 C FIO2 (BEAKER) (test code = 1819) 100.0 % GLUCOSE-STAT [id number] 18:49:00* Test Item Value Reference Range Interpretation Comments GLUCOSE RANDOM (BEAKER) (test code = 652) 173 mg/dL 70-110 H HGB/HCT (H&H) - STAT [id number] 18:49:00* Test Item Value Reference Range Interpretation Comments HEMOGLOBIN (BEAKER) (test code = 410) 12.3 g/dL 13.0-16.8 L HEMATOCRIT (BEAKER) (test code = 411) 36.0 % 40.0-50.0 L SODIUM NA-STAT [id number] 18:47:00* Test Item Value Reference Range Interpretation Comments SODIUM (BEAKER) (test code = 381) 135 meq/L 135-148 POTASSIUM-STAT [id number] 18:47:00* Test Item Value Reference Range Interpretation Comments POTASSIUM (BEAKER) (test code = 379) 5.5 meq/L 3.6-5.5 BLOOD GAS, [id number] 18:41:00* Test Item Value Reference Range Interpretation Comments PH ARTERIAL (BEAKER) (test code = 383) 7.44 7.35-7.45 PCO2 ARTERIAL (BEAKER) (test code = 384) 28 mmHg 35-45 L PO2 ARTERIAL (BEAKER) (test code = 385) 112 mmHg 80-90 H O2 SATURATION ARTERIAL (BEAKER) (test code = 386) 98.3 % 96.0 -97.0 H HCO3 ARTERIAL (BEAKER) (test code = 388) 19 mmol/L 21-29 L BASE EXCESS ARTERIAL (BEAKER) (test code = 387) -4.2 mmol/L -2.0-3 .0 L PATIENT TEMPERATURE (BEAKER) (test code = 1818) 36.8 C FIO2 (BEAKER) (test code = 1819) 94.0 % SODIUM NA-STAT [id number] 18:41:00* Test Item Value Reference Range Interpretation Comments SODIUM (BEAKER) (test code = 381) 133 meq/L 135-148 L GLUCOSE-STAT [id number] 18:41:00* Test Item Value Reference Range Interpretation Comments GLUCOSE RANDOM (BEAKER) (test code = 652) 153 mg/dL 70-110 H HGB/HCT (H&H) - STAT [id number] 18:41:00* Test Item Value Reference Range Interpretation Comments HEMOGLOBIN (BEAKER) (test code = 410) 11.8 g/dL 13.0-16.8 L HEMATOCRIT (BEAKER) (test code = 411) 35.0 % 40.0-50.0 L POTASSIUM-STAT [id number] 18:40:00* Test Item Value Reference Range Interpretation Comments POTASSIUM (BEAKER) (test code = 379) 4.8 meq/L 3.6-5.5 CALCIUM, [id number] 18:40:00* Test Item Value Reference Range Interpretation Comments CALCIUM IONIZED (BEAKER) (test code = 698) 1.14 mmol/L 1.12-1.27 PH, BLOOD (BEAKER) (test code = 1810) 7.44 BLOOD GAS, [id number] 18:26:00* Test Item Value Reference Range Interpretation Comments PH ARTERIAL (BEAKER) (test code = 383) 7.36 7.35-7.45 PCO2 ARTERIAL (BEAKER) (test code = 384) 43 mmHg 35-45 PO2 ARTERIAL (BEAKER) (test code = 385) 40 mmHg 80-90 L L O2 SATURATION ARTERIAL (BEAKER) (test code = 386) 73.1 % 96.0 -97.0 L HCO3 ARTERIAL (BEAKER) (test code = 388) 24 mmol/L 21-29 BASE EXCESS ARTERIAL (BEAKER) (test code = 387) -1.9 mmol/L -2.0-3 .0 PATIENT TEMPERATURE (BEAKER) (test code = 1818) 36.7 C FIO2 (BEAKER) (test code = 1819) 96.0 % GLUCOSE-STAT [id number] 18:26:00* Test Item Value Reference Range Interpretation Comments GLUCOSE RANDOM (BEAKER) (test code = 652) 145 mg/dL 70-110 H HGB/HCT (H&H) - STAT [id number] 18:26:00* Test Item Value Reference Range Interpretation Comments HEMOGLOBIN (BEAKER) (test code = 410) 12.1 g/dL 13.0-16.8 L HEMATOCRIT (BEAKER) (test code = 411) 36.0 % 40.0-50.0 L SODIUM NA-STAT [id number] 18:23:00* Test Item Value Reference Range Interpretation Comments SODIUM (BEAKER) (test code = 381) 135 meq/L 135-148 POTASSIUM-STAT [id number] 18:23:00* Test Item Value Reference Range Interpretation Comments POTASSIUM (BEAKER) (test code = 379) 5.2 meq/L 3.6-5.5 CALCIUM, [id number] 18:23:00* Test Item Value Reference Range Interpretation Comments CALCIUM IONIZED (BEAKER) (test code = 698) 1.27 mmol/L 1.12-1.27 PH, BLOOD (BEAKER) (test code = 1810) 7.35 CALCIUM, [id number] 17:15:00* Test Item Value Reference Range Interpretation Comments CALCIUM IONIZED (BEAKER) (test code = 698) 1.17 mmol/L 1.12-1.27 PH, BLOOD (BEAKER) (test code = 1810) 7.35 POTASSIUM-STAT [id number] 17:14:00* Test Item Value Reference Range Interpretation Comments POTASSIUM (BEAKER) (test code = 379) 5.1 meq/L 3.6-5.5 BLOOD GAS, [id number] 17:14:00* Test Item Value Reference Range Interpretation Comments PH ARTERIAL (BEAKER) (test code = 383) 7.35 7.35-7.45 PCO2 ARTERIAL (BEAKER) (test code = 384) 42 mmHg 35-45 PO2 ARTERIAL (BEAKER) (test code = 385) 186 mmHg 80-90 H O2 SATURATION ARTERIAL (BEAKER) (test code = 386) 99.2 % 96.0 -97.0 H HCO3 ARTERIAL (BEAKER) (test code = 388) 23 mmol/L 21-29 BASE EXCESS ARTERIAL (BEAKER) (test code = 387) -2.7 mmol/L -2.0-3 .0 L PATIENT TEMPERATURE (BEAKER) (test code = 1818) 36.5 C FIO2 (BEAKER) (test code = 1819) 96.0 % SODIUM NA-STAT [id number] 17:14:00* Test Item Value Reference Range Interpretation Comments SODIUM (BEAKER) (test code = 381) 134 meq/L 135-148 L GLUCOSE-STAT [id number] 17:14:00* Test Item Value Reference Range Interpretation Comments GLUCOSE RANDOM (BEAKER) (test code = 652) 138 mg/dL 70-110 H HGB/HCT (H&H) - STAT [id number] 17:14:00* Test Item Value Reference Range Interpretation Comments HEMOGLOBIN (BEAKER) (test code = 410) 12.5 g/dL 13.0-16.8 L HEMATOCRIT (BEAKER) (test code = 411) 37.0 % 40.0-50.0 L BLOOD GAS, [id number] 16:09:00* Test Item Value Reference Range Interpretation Comments PH ARTERIAL (BEAKER) (test code = 383) 7.36 7.35-7.45 PCO2 ARTERIAL (BEAKER) (test code = 384) 40 mmHg 35-45 PO2 ARTERIAL (BEAKER) (test code = 385) 191 mmHg 80-90 H O2 SATURATION ARTERIAL (BEAKER) (test code = 386) 99.3 % 96.0 -97.0 H HCO3 ARTERIAL (BEAKER) (test code = 388) 23 mmol/L 21-29 BASE EXCESS ARTERIAL (BEAKER) (test code = 387) -2.9 mmol/L -2.0-3 .0 L PATIENT TEMPERATURE (BEAKER) (test code = 1818) 36.2 C FIO2 (BEAKER) (test code = 1819) 100.0 % GLUCOSE-STAT [id number] 16:09:00* Test Item Value Reference Range Interpretation Comments GLUCOSE RANDOM (BEAKER) (test code = 652) 116 mg/dL 70-110 H HGB/HCT (H&H) - STAT [id number] 16:09:00* Test Item Value Reference Range Interpretation Comments HEMOGLOBIN (BEAKER) (test code = 410) 11.9 g/dL 13.0-16.8 L HEMATOCRIT (BEAKER) (test code = 411) 35.0 % 40.0-50.0 L CALCIUM, [id number] 16:09:00* Test Item Value Reference Range Interpretation Comments CALCIUM IONIZED (BEAKER) (test code = 698) 1.09 mmol/L 1.12-1.27 L PH, BLOOD (BEAKER) (test code = 1810) 7.35 SODIUM NA-STAT [id number] 16:07:00* Test Item Value Reference Range Interpretation Comments SODIUM (BEAKER) (test code = 381) 135 meq/L 135-148 POTASSIUM-STAT [id number] 16:07:00* Test Item Value Reference Range Interpretation Comments POTASSIUM (BEAKER) (test code = 379) 4.4 meq/L 3.6-5.5 GLUCOSE-STAT [id number] 15:15:00* Test Item Value Reference Range Interpretation Comments GLUCOSE RANDOM (BEAKER) (test code = 652) 107 mg/dL 70-110 POTASSIUM-STAT [id number] 15:15:00* Test Item Value Reference Range Interpretation Comments POTASSIUM (BEAKER) (test code = 379) 4.5 meq/L 3.6-5.5 BLOOD GAS, [id number] 15:15:00* Test Item Value Reference Range Interpretation Comments PH ARTERIAL (BEAKER) (test code = 383) 7.47 7.35-7.45 H PCO2 ARTERIAL (BEAKER) (test code = 384) 35 mmHg 35-45 PO2 ARTERIAL (BEAKER) (test code = 385) 476 mmHg 80-90 H O2 SATURATION ARTERIAL (BEAKER) (test code = 386) 99.9 % 96.0 -97.0 H HCO3 ARTERIAL (BEAKER) (test code = 388) 26 mmol/L 21-29 BASE EXCESS ARTERIAL (BEAKER) (test code = 387) 1.6 mmol/L -2.0-3 .0 PATIENT TEMPERATURE (BEAKER) (test code = 1818) 35.2 C FIO2 (BEAKER) (test code = 1819) 100.0 % HGB/HCT (H&H) - STAT [id number] 15:15:00* Test Item Value Reference Range Interpretation Comments HEMOGLOBIN (BEAKER) (test code = 410) 11.9 g/dL 13.0-16.8 L HEMATOCRIT (BEAKER) (test code = 411) 35.0 % 40.0-50.0 L SODIUM NA-STAT [id number] 15:15:00* Test Item Value Reference Range Interpretation Comments SODIUM (BEAKER) (test code = 381) 133 meq/L 135-148 L BLOOD GAS, [id number] 14:07:00* Test Item Value Reference Range Interpretation Comments PH ARTERIAL (BEAKER) (test code = 383) 7.42 7.35-7.45 PCO2 ARTERIAL (BEAKER) (test code = 384) 42 mmHg 35-45 PO2 ARTERIAL (BEAKER) (test code = 385) 233 mmHg 80-90 H O2 SATURATION ARTERIAL (BEAKER) (test code = 386) 99.5 % 96.0 -97.0 H HCO3 ARTERIAL (BEAKER) (test code = 388) 27 mmol/L 21-29 BASE EXCESS ARTERIAL (BEAKER) (test code = 387) 2.1 mmol/L -2.0-3 .0 PATIENT TEMPERATURE (BEAKER) (test code = 1818) 36.0 C FIO2 (BEAKER) (test code = 1819) 57.0 % GLUCOSE-STAT [id number] 14:06:00* Test Item Value Reference Range Interpretation Comments GLUCOSE RANDOM (BEAKER) (test code = 652) 88 mg/dL 70-110 SODIUM NA-STAT [id number] 14:06:00* Test Item Value Reference Range Interpretation Comments SODIUM (BEAKER) (test code = 381) 135 meq/L 135-148 POTASSIUM-STAT [id number] 14:06:00* Test Item Value Reference Range Interpretation Comments POTASSIUM (BEAKER) (test code = 379) 3.7 meq/L 3.6-5.5 CALCIUM, [id number] 14:06:00* Test Item Value Reference Range Interpretation Comments CALCIUM IONIZED (BEAKER) (test code = 698) 1.03 mmol/L 1.12-1.27 L PH, BLOOD (BEAKER) (test code = 1810) 7.41 HGB/HCT (H&H) - STAT [id number] 14:06:00* Test Item Value Reference Range Interpretation Comments HEMOGLOBIN (BEAKER) (test code = 410) 12.9 g/dL 13.0-16.8 L HEMATOCRIT (BEAKER) (test code = 411) 38.0 % 40.0-50.0 L POCT-GLUCOSE [id number] 12:54:00* Test Item Value Reference Range Interpretation Comments POC-GLUCOSE METER (BEAKER) (test code = 1538) 104 mg/dL 70-110 TESTED AT [facility] [address] [facility] [id number] POCT-GLUCOSE [id number] 07:54:00* Test Item Value Reference Range Interpretation Comments POC-GLUCOSE METER (BEAKER) (test code = 1538) 110 mg/dL 70-110 TESTED AT [facility] [address] [facility] [id number] BASIC METABOLIC [id number] 07:28:00* Test Item Value Reference Range Interpretation Comments SODIUM (BEAKER) (test code = 381) 135 meq/L 136-145 L POTASSIUM (BEAKER) (test code = 379) 5.5 meq/L 3.5-5.1 H CHLORIDE (BEAKER) (test code = 382) 95 meq/L 98-107 L CO2 (BEAKER) (test code = 355) 27 meq/L 22-29 BLOOD UREA NITROGEN (BEAKER) (test code = 354) 52 mg/dL 7-21 H CREATININE (BEAKER) (test code = 358) 10.24 mg/dL 0.57-1.25 H GLUCOSE RANDOM (BEAKER) (test code = 652) 109 mg/dL 70-105 H CALCIUM (BEAKER) (test code = 697) 9.4 mg/dL 8.4-10.2 EGFR (BEAKER) (test code = 1092) 5 mL/min/1.73 sq m ESTIMATED GFR IS NOT ACCURATE CREATININE CLEARANCE IN PREDICTING GLOMERULAR FILTRATION RATE. ESTIMATED GFR IS NOT APPLICABLE FOR DIALYSIS PATIENTS. [id number] 07:23:00* Test Item Value Reference Range Interpretation Comments PHOSPHORUS (BEAKER) (test code = 604) 4.3 mg/dL 2.3-4.7 [id number] 07:23:00* Test Item Value Reference Range Interpretation Comments MAGNESIUM (BEAKER) (test code = 627) 2.7 mg/dL 1.6-2.6 H [id number] 06:47:00* Test Item Value Reference Range Interpretation Comments PARTIAL THROMBOPLASTIN TIME (BEAKER) (test code = 760) 89.2 seconds 22.5-36.0 H CBC (HEMOGRAM ONLY)2019-03-01 06:33:00* Test Item Value Reference Range Interpretation Comments WHITE BLOOD CELL COUNT (BEAKER) (test code = 775) 7.6 K/ L 3.5- 10.5 RED BLOOD CELL COUNT (BEAKER) (test code = 761) 4.26 M/ L 4.63-6 .08 L HEMOGLOBIN (BEAKER) (test code = 410) 13.7 GM/DL 13.7-17.5 HEMATOCRIT (BEAKER) (test code = 411) 43.9 % 40.1-51.0 MEAN CORPUSCULAR VOLUME (BEAKER) (test code = 753) 103.1 fL 79. 0-92.2 H MEAN CORPUSCULAR HEMOGLOBIN (BEAKER) (test code = 751) 32.2 pg 25.7-32.2 MEAN CORPUSCULAR HEMOGLOBIN CONC (BEAKER) (test code = 752) 31.2 GM/DL 32.3-36.5 L RED CELL DISTRIBUTION WIDTH (BEAKER) (test code = 412) 13.7 % 11.6-14.4 PLATELET COUNT (BEAKER) (test code = 756) 157 K/CU MM 150-450 MEAN PLATELET VOLUME (BEAKER) (test code = 754) 11.4 fL 9.4-12 .4 NUCLEATED RED BLOOD CELLS (BEAKER) (test code = 413) 0 /100 WBC 0 -0 [id number] 17:11:00* Test Item Value Reference Range Interpretation Comments THYROID STIMULATING HORMONE (BEAKER) (test code = 772) 11.34 uIU/mL 0.35-4.94 H LIPID [id number] 16:57:00* Test Item Value Reference Range Interpretation Comments TRIGLYCERIDES (BEAKER) (test code = 540) 129 mg/dL CHOLESTEROL (BEAKER) (test code = 631) 121 mg/dL HDL CHOLESTEROL (BEAKER) (test code = 976) 66 mg/dL LDL CHOLESTEROL CALCULATED (BEAKER) (test code = 633) 29 mg/dL Triglyceride Reference Range: Low Risk <150 Borderline 150-199 High Risk 200-499 Very High Risk >=500Cholesterol Reference Range: Low Risk <200 Borderline 200-239 High Risk >240HDL Cholesterol Reference Range: Low Risk >=60 High Risk <40LDL Cholesterol Reference Range: Optimal <100 Near Optimal 100-129 Borderline 130-159 High 160-189 Very High >=190 POCT- GLUCOSE [id number] 14:40:00* Test Item Value Reference Range Interpretation Comments POC-GLUCOSE METER (BEAKER) (test code = 1538) 92 mg/dL 70-110 TESTED AT [facility] [address] [facility] [address] POCT-GLUCOSE [id number] 07:59:00* Test Item Value Reference Range Interpretation Comments POC-GLUCOSE METER (BEAKER) (test code = 1538) 134 mg/dL 70-110 H TESTED AT [place] [id number] [facility] [address] BASIC METABOLIC [id number] 06:42:00* Test Item Value Reference Range Interpretation Comments SODIUM (BEAKER) (test code = 381) 138 meq/L 136-145 POTASSIUM (BEAKER) (test code = 379) 5.3 meq/L 3.5-5.1 H CHLORIDE (BEAKER) (test code = 382) 99 meq/L 98-107 CO2 (BEAKER) (test code = 355) 30 meq/L 22-29 H BLOOD UREA NITROGEN (BEAKER) (test code = 354) 30 mg/dL 7-21 H CREATININE (BEAKER) (test code = 358) 7.70 mg/dL 0.57-1.25 H GLUCOSE RANDOM (BEAKER) (test code = 652) 105 mg/dL 70-105 CALCIUM (BEAKER) (test code = 697) 9.7 mg/dL 8.4-10.2 EGFR (BEAKER) (test code = 1092) 7 mL/min/1.73 sq m ESTIMATED GFR IS NOT ACCURATE CREATININE CLEARANCE IN PREDICTING GLOMERULAR FILTRATION RATE. ESTIMATED GFR IS NOT APPLICABLE FOR DIALYSIS PATIENTS. [id number] 06:16:00* Test Item Value Reference Range Interpretation Comments PHOSPHORUS (BEAKER) (test code = 604) 3.8 mg/dL 2.3-4.7 [id number] 06:16:00* Test Item Value Reference Range Interpretation Comments MAGNESIUM (BEAKER) (test code = 627) 2.4 mg/dL 1.6-2.6 [id number] 05:56:00* Test Item Value Reference Range Interpretation Comments PARTIAL THROMBOPLASTIN TIME (BEAKER) (test code = 760) 73.4 seconds 22.5-36.0 H CBC (HEMOGRAM ONLY)2019-02-28 05:24:00* Test Item Value Reference Range Interpretation Comments WHITE BLOOD CELL COUNT (BEAKER) (test code = 775) 7.1 K/ L 3.5- 10.5 RED BLOOD CELL COUNT (BEAKER) (test code = 761) 4.26 M/ L 4.63-6 .08 L HEMOGLOBIN (BEAKER) (test code = 410) 13.8 GM/DL 13.7-17.5 HEMATOCRIT (BEAKER) (test code = 411) 43.8 % 40.1-51.0 MEAN CORPUSCULAR VOLUME (BEAKER) (test code = 753) 102.8 fL 79. 0-92.2 H MEAN CORPUSCULAR HEMOGLOBIN (BEAKER) (test code = 751) 32.4 pg 25.7-32.2 H MEAN CORPUSCULAR HEMOGLOBIN CONC (BEAKER) (test code = 752) 31.5 GM/DL 32.3-36.5 L RED CELL DISTRIBUTION WIDTH (BEAKER) (test code = 412) 13.9 % 11.6-14.4 PLATELET COUNT (BEAKER) (test code = 756) 151 K/CU MM 150-450 MEAN PLATELET VOLUME (BEAKER) (test code = 754) 11.6 fL 9.4-12 .4 NUCLEATED RED BLOOD CELLS (BEAKER) (test code = 413) 0 /100 WBC 0 -0 POCT-GLUCOSE [id number] 22:07:00* Test Item Value Reference Range Interpretation Comments POC-GLUCOSE METER (BEAKER) (test code = 1538) 164 mg/dL 70-110 H TESTED AT [address] [address] POCT-GLUCOSE [id number] 18:43:00* Test Item Value Reference Range Interpretation Comments POC-GLUCOSE METER (BEAKER) (test code = 1538) 115 mg/dL 70-110 H TESTED AT [address] [address] POCT-GLUCOSE [id number] 14:33:00* Test Item Value Reference Range Interpretation Comments POC-GLUCOSE METER (BEAKER) (test code = 1538) 109 mg/dL 70-110 TESTED AT [address] [address] POCT-GLUCOSE [id number] 08:45:00* Test Item Value Reference Range Interpretation Comments POC-GLUCOSE METER (BEAKER) (test code = 1538) 107 mg/dL 70-110 TESTED AT [address] [address] BASIC METABOLIC [id number] 07:46:00* Test Item Value Reference Range Interpretation Comments SODIUM (BEAKER) (test code = 381) 136 meq/L 136-145 POTASSIUM (BEAKER) (test code = 379) 5.8 meq/L 3.5-5.1 H CHLORIDE (BEAKER) (test code = 382) 94 meq/L 98-107 L CO2 (BEAKER) (test code = 355) 29 meq/L 22-29 BLOOD UREA NITROGEN (BEAKER) (test code = 354) 48 mg/dL 7-21 H CREATININE (BEAKER) (test code = 358) 10.43 mg/dL 0.57-1.25 H GLUCOSE RANDOM (BEAKER) (test code = 652) 116 mg/dL 70-105 H CALCIUM (BEAKER) (test code = 697) 9.5 mg/dL 8.4-10.2 EGFR (BEAKER) (test code = 1092) 5 mL/min/1.73 sq m ESTIMATED GFR IS NOT ACCURATE CREATININE CLEARANCE IN PREDICTING GLOMERULAR FILTRATION RATE. ESTIMATED GFR IS NOT APPLICABLE FOR DIALYSIS PATIENTS. [id number] 07:43:00* Test Item Value Reference Range Interpretation Comments PHOSPHORUS (BEAKER) (test code = 604) 3.6 mg/dL 2.3-4.7 [id number] 07:43:00* Test Item Value Reference Range Interpretation Comments MAGNESIUM (BEAKER) (test code = 627) 2.7 mg/dL 1.6-2.6 H [id number] 04:43:00* Test Item Value Reference Range Interpretation Comments PARTIAL THROMBOPLASTIN TIME (BEAKER) (test code = 760) 82.2 seconds 22.5-36.0 H CBC (HEMOGRAM ONLY)2019-02-27 04:34:00* Test Item Value Reference Range Interpretation Comments WHITE BLOOD CELL COUNT (BEAKER) (test code = 775) 7.2 K/ L 3.5- 10.5 RED BLOOD CELL COUNT (BEAKER) (test code = 761) 4.08 M/ L 4.63-6 .08 L HEMOGLOBIN (BEAKER) (test code = 410) 13.1 GM/DL 13.7-17.5 L HEMATOCRIT (BEAKER) (test code = 411) 41.7 % 40.1-51.0 MEAN CORPUSCULAR VOLUME (BEAKER) (test code = 753) 102.2 fL 79. 0-92.2 H MEAN CORPUSCULAR HEMOGLOBIN (BEAKER) (test code = 751) 32.1 pg 25.7-32.2 MEAN CORPUSCULAR HEMOGLOBIN CONC (BEAKER) (test code = 752) 31.4 GM/DL 32.3-36.5 L RED CELL DISTRIBUTION WIDTH (BEAKER) (test code = 412) 14.0 % 11.6-14.4 PLATELET COUNT (BEAKER) (test code = 756) 177 K/CU MM 150-450 MEAN PLATELET VOLUME (BEAKER) (test code = 754) 11.6 fL 9.4-12 .4 NUCLEATED RED BLOOD CELLS (BEAKER) (test code = 413) 0 /100 WBC 0 -0 POCT-GLUCOSE [id number] 22:51:00* Test Item Value Reference Range Interpretation Comments POC-GLUCOSE METER (BEAKER) (test code = 1538) 87 mg/dL 70-110 TESTED AT [address] [address] POCT-GLUCOSE [id number] 18:15:00* Test Item Value Reference Range Interpretation Comments POC-GLUCOSE METER (BEAKER) (test code = 1538) 156 mg/dL 70-110 H TESTED AT [address] [address] POCT-GLUCOSE [id number] 11:53:00* Test Item Value Reference Range Interpretation Comments POC-GLUCOSE METER (BEAKER) (test code = 1538) 95 mg/dL 70-110 TESTED AT [address] [address] POCT-GLUCOSE [id number] 07:47:00* Test Item Value Reference Range Interpretation Comments POC-GLUCOSE METER (BEAKER) (test code = 1538) 95 mg/dL 70-110 TESTED AT [address] [address] BASIC METABOLIC [id number] 07:10:00* Test Item Value Reference Range Interpretation Comments SODIUM (BEAKER) (test code = 381) 138 meq/L 136-145 POTASSIUM (BEAKER) (test code = 379) 5.1 meq/L 3.5-5.1 CHLORIDE (BEAKER) (test code = 382) 97 meq/L 98-107 L CO2 (BEAKER) (test code = 355) 30 meq/L 22-29 H BLOOD UREA NITROGEN (BEAKER) (test code = 354) 31 mg/dL 7-21 H CREATININE (BEAKER) (test code = 358) 8.47 mg/dL 0.57-1.25 H GLUCOSE RANDOM (BEAKER) (test code = 652) 94 mg/dL 70-105 CALCIUM (BEAKER) (test code = 697) 9.6 mg/dL 8.4-10.2 EGFR (BEAKER) (test code = 1092) 6 mL/min/1.73 sq m ESTIMATED GFR IS NOT ACCURATE CREATININE CLEARANCE IN PREDICTING GLOMERULAR FILTRATION RATE. ESTIMATED GFR IS NOT APPLICABLE FOR DIALYSIS PATIENTS. [id number] 07:04:00* Test Item Value Reference Range Interpretation Comments PHOSPHORUS (BEAKER) (test code = 604) 4.1 mg/dL 2.3-4.7 [id number] 07:04:00* Test Item Value Reference Range Interpretation Comments MAGNESIUM (BEAKER) (test code = 627) 2.6 mg/dL 1.6-2.6 [id number] 06:01:00* Test Item Value Reference Range Interpretation Comments PARTIAL THROMBOPLASTIN TIME (BEAKER) (test code = 760) 75.5 seconds 22.5-36.0 H CBC (HEMOGRAM ONLY)2019-02-26 05:51:00* Test Item Value Reference Range Interpretation Comments WHITE BLOOD CELL COUNT (BEAKER) (test code = 775) 8.4 K/ L 3.5- 10.5 RED BLOOD CELL COUNT (BEAKER) (test code = 761) 4.31 M/ L 4.63-6 .08 L HEMOGLOBIN (BEAKER) (test code = 410) 13.9 GM/DL 13.7-17.5 HEMATOCRIT (BEAKER) (test code = 411) 44.6 % 40.1-51.0 MEAN CORPUSCULAR VOLUME (BEAKER) (test code = 753) 103.5 fL 79. 0-92.2 H MEAN CORPUSCULAR HEMOGLOBIN (BEAKER) (test code = 751) 32.3 pg 25.7-32.2 H MEAN CORPUSCULAR HEMOGLOBIN CONC (BEAKER) (test code = 752) 31.2 GM/DL 32.3-36.5 L RED CELL DISTRIBUTION WIDTH (BEAKER) (test code = 412) 14.1 % 11.6-14.4 PLATELET COUNT (BEAKER) (test code = 756) 164 K/CU MM 150-450 MEAN PLATELET VOLUME (BEAKER) (test code = 754) 11.3 fL 9.4-12 .4 NUCLEATED RED BLOOD CELLS (BEAKER) (test code = 413) 0 /100 WBC 0 -0 POCT-GLUCOSE [id number] 00:08:00* Test Item Value Reference Range Interpretation Comments POC-GLUCOSE METER (BEAKER) (test code = 1538) 159 mg/dL 70-110 H TESTED AT [address] [address] POCT-GLUCOSE [id number] 16:28:00* Test Item Value Reference Range Interpretation Comments POC-GLUCOSE METER (BEAKER) (test code = 1538) 136 mg/dL 70-110 H TESTED AT [address] [address] POCT-GLUCOSE [id number] 13:02:00* Test Item Value Reference Range Interpretation Comments POC-GLUCOSE METER (BEAKER) (test code = 1538) 174 mg/dL 70-110 H TESTED AT [address] [address] POCT-GLUCOSE [id number] 09:11:00* Test Item Value Reference Range Interpretation Comments POC-GLUCOSE METER (BEAKER) (test code = 1538) 133 mg/dL 70-110 H TESTED AT [address] [address] BASIC METABOLIC [id number] 07:25:00* Test Item Value Reference Range Interpretation Comments SODIUM (BEAKER) (test code = 381) 136 meq/L 136-145 POTASSIUM (BEAKER) (test code = 379) 4.9 meq/L 3.5-5.1 CHLORIDE (BEAKER) (test code = 382) 95 meq/L 98-107 L CO2 (BEAKER) (test code = 355) 29 meq/L 22-29 BLOOD UREA NITROGEN (BEAKER) (test code = 354) 39 mg/dL 7-21 H CREATININE (BEAKER) (test code = 358) 10.36 mg/dL 0.57-1.25 H GLUCOSE RANDOM (BEAKER) (test code = 652) 76 mg/dL 70-105 CALCIUM (BEAKER) (test code = 697) 9.1 mg/dL 8.4-10.2 EGFR (BEAKER) (test code = 1092) 5 mL/min/1.73 sq m ESTIMATED GFR IS NOT ACCURATE CREATININE CLEARANCE IN PREDICTING GLOMERULAR FILTRATION RATE. ESTIMATED GFR IS NOT APPLICABLE FOR DIALYSIS PATIENTS. [id number] 06:55:00* Test Item Value Reference Range Interpretation Comments PHOSPHORUS (BEAKER) (test code = 604) 4.2 mg/dL 2.3-4.7 [id number] 06:55:00* Test Item Value Reference Range Interpretation Comments MAGNESIUM (BEAKER) (test code = 627) 2.8 mg/dL 1.6-2.6 H [id number] 06:29:00* Test Item Value Reference Range Interpretation Comments PARTIAL THROMBOPLASTIN TIME (BEAKER) (test code = 760) 73.9 seconds 22.5-36.0 H CBC (HEMOGRAM ONLY)2019-02-25 06:24:00* Test Item Value Reference Range Interpretation Comments WHITE BLOOD CELL COUNT (BEAKER) (test code = 775) 7.6 K/ L 3.5- 10.5 RED BLOOD CELL COUNT (BEAKER) (test code = 761) 4.13 M/ L 4.63-6 .08 L HEMOGLOBIN (BEAKER) (test code = 410) 13.3 GM/DL 13.7-17.5 L HEMATOCRIT (BEAKER) (test code = 411) 42.6 % 40.1-51.0 MEAN CORPUSCULAR VOLUME (BEAKER) (test code = 753) 103.1 fL 79. 0-92.2 H MEAN CORPUSCULAR HEMOGLOBIN (BEAKER) (test code = 751) 32.2 pg 25.7-32.2 MEAN CORPUSCULAR HEMOGLOBIN CONC (BEAKER) (test code = 752) 31.2 GM/DL 32.3-36.5 L RED CELL DISTRIBUTION WIDTH (BEAKER) (test code = 412) 14.0 % 11.6-14.4 PLATELET COUNT (BEAKER) (test code = 756) 172 K/CU MM 150-450 MEAN PLATELET VOLUME (BEAKER) (test code = 754) 11.2 fL 9.4-12 .4 NUCLEATED RED BLOOD CELLS (BEAKER) (test code = 413) 0 /100 WBC 0 -0 POCT-GLUCOSE [id number] 23:15:00* Test Item Value Reference Range Interpretation Comments POC-GLUCOSE METER (BEAKER) (test code = 1538) 90 mg/dL 70-110 TESTED AT [facility] [address] [facility] [address] POCT-GLUCOSE [id number] 12:38:00* Test Item Value Reference Range Interpretation Comments POC-GLUCOSE METER (BEAKER) (test code = 1538) 141 mg/dL 70-110 H TESTED AT [facility] [address] [facility] [address] POCT-GLUCOSE [id number] 12:22:00* Test Item Value Reference Range Interpretation Comments POC-GLUCOSE METER (BEAKER) (test code = 1538) 88 mg/dL 70-110 TESTED AT [facility] [address] [facility] [address] BASIC METABOLIC [id number] 07:41:00* Test Item Value Reference Range Interpretation Comments SODIUM (BEAKER) (test code = 381) 136 meq/L 136-145 POTASSIUM (BEAKER) (test code = 379) 5.2 meq/L 3.5-5.1 H CHLORIDE (BEAKER) (test code = 382) 98 meq/L 98-107 CO2 (BEAKER) (test code = 355) 25 meq/L 22-29 BLOOD UREA NITROGEN (BEAKER) (test code = 354) 28 mg/dL 7-21 H CREATININE (BEAKER) (test code = 358) 8.14 mg/dL 0.57-1.25 H GLUCOSE RANDOM (BEAKER) (test code = 652) 83 mg/dL 70-105 CALCIUM (BEAKER) (test code = 697) 9.4 mg/dL 8.4-10.2 EGFR (BEAKER) (test code = 1092) 7 mL/min/1.73 sq m ESTIMATED GFR IS NOT ACCURATE CREATININE CLEARANCE IN PREDICTING GLOMERULAR FILTRATION RATE. ESTIMATED GFR IS NOT APPLICABLE FOR DIALYSIS PATIENTS. [id number] 07:33:00* Test Item Value Reference Range Interpretation Comments PHOSPHORUS (BEAKER) (test code = 604) 4.0 mg/dL 2.3-4.7 [id number] 07:33:00* Test Item Value Reference Range Interpretation Comments MAGNESIUM (BEAKER) (test code = 627) 2.6 mg/dL 1.6-2.6 [id number] 06:41:00* Test Item Value Reference Range Interpretation Comments PARTIAL THROMBOPLASTIN TIME (BEAKER) (test code = 760) 72.2 seconds 22.5-36.0 H CBC (HEMOGRAM ONLY)2019-02-24 06:14:00* Test Item Value Reference Range Interpretation Comments WHITE BLOOD CELL COUNT (BEAKER) (test code = 775) 8.6 K/ L 3.5- 10.5 RED BLOOD CELL COUNT (BEAKER) (test code = 761) 4.32 M/ L 4.63-6 .08 L HEMOGLOBIN (BEAKER) (test code = 410) 13.9 GM/DL 13.7-17.5 HEMATOCRIT (BEAKER) (test code = 411) 44.7 % 40.1-51.0 MEAN CORPUSCULAR VOLUME (BEAKER) (test code = 753) 103.5 fL 79. 0-92.2 H MEAN CORPUSCULAR HEMOGLOBIN (BEAKER) (test code = 751) 32.2 pg 25.7-32.2 MEAN CORPUSCULAR HEMOGLOBIN CONC (BEAKER) (test code = 752) 31.1 GM/DL 32.3-36.5 L RED CELL DISTRIBUTION WIDTH (BEAKER) (test code = 412) 14.1 % 11.6-14.4 PLATELET COUNT (BEAKER) (test code = 756) 176 K/CU MM 150-450 MEAN PLATELET VOLUME (BEAKER) (test code = 754) 11.4 fL 9.4-12 .4 NUCLEATED RED BLOOD CELLS (BEAKER) (test code = 413) 0 /100 WBC 0 -0 POCT-GLUCOSE [id number] 22:00:00* Test Item Value Reference Range Interpretation Comments POC-GLUCOSE METER (BEAKER) (test code = 1538) 107 mg/dL 70-110 TESTED AT [facility] [address] [facility] [address] POCT-GLUCOSE [id number] 19:04:00* Test Item Value Reference Range Interpretation Comments POC-GLUCOSE METER (BEAKER) (test code = 1538) 117 mg/dL 70-110 H TESTED AT [facility] [address] [facility] [address] CT, CTA, [id number] 18:22:00Started dialysis [id number] to evaluate internal mammary patency for use in cabg, will order separate ct of chest w/o contrast as well. Please obtain at same time as CTA and upload both images. Addendum BeginsREPORT STATUS:A Addendum: I agree with the previously described non vascular findings. Signed: Chao Nieves MDReport V erified Date/Time: 02/23/2019 18:22:45 Reading Location: [place] [id number] Angio Body Reading RoomAddendum EndsFINAL REPORT CT angiography of the thoracic aorta, 22 February 2019 INDICATION: This is a 58 year old male with document ischaemic heart disease, presents for presurgical assessment. TECHNIQU E: Spiral acquisition before and during intravenous contrast administration usin g a the CT scanner. Images were obtained before and during the dynamic passage o f intravenous contrast material. Multi-planar 3-D volume-rendering reconstructi on was performed using an independent workstation interactively by the interpret ing physician as well as the 3-D specialist for optimal visualisation of the tho racic aorta and its proximal branches. Please refer to the contrast sheet scanne d in the RIS system for the amount and route of contrast given. This exam was pe rformed according to our departmental dose-optimisation programme, which include s automated exposure control, adjustment of the mA and/or kV according to patien t size and/or use of iterative reconstruction technique. Dose modulation, iterat ernie reconstruction, and/or weight based adjustment of the mA/kV was utilized to reduce the radiation dose to as low as reasonably achievable. FINDINGS: VASCULA R: No pericardial effusion is identified. The central pulmonary artery is promin ent with no evidence of central pulmonary artery embolism identified. Correlate with appropriate aetiology. The cardiac chambers demonstrate normal atrioventric ular and ventriculoarterial concordance, and systemic and pulmonary venous retur n. Data was acquired during systole due to increase in heart rate. The left vent ricle therefore please be normal in size. There appears to be some myocardial th inning identified in the basal inferolateral wall. Correlate with echocardiograp hy. Coronary artery origins are normal. There is diffuse calcification identifie d in the left main coronary artery, proximal LAD, extending into the mid LAD. Th e distal LAD system is free of calcification. Calcification is also identified i n the left circumflex artery, and there is either diffuse calcification versus v ascular stent identified in the majority of the RCA. There is mild calcification identified in the aortic root. There is also mild calcification identified in t he ascending thoracic aorta, posteriorly. Nhhz-lj-ryhhcfoy aspiration seen in th e transverse arch. Mild scattered calcific and noncalcific atherosclerosis is se en in the descending thoracic aorta. There is no ectasia or aneurysmal dilation identified. There is no evidence of acute aortic pathology, specifically, the re is no dissection, intramural hematoma, or contained rupture. The arch vessel branching pattern is normal and the visualised portion of the arch vessels are widely patent. The left and the right subclavian arteries are widely patent. No nobstructive calcification, mild in nature is seen at the takeoff the left and t he right subclavian arteries. The left vertebral artery arises directly from the transverse arch, anterior to the takeoff of the left subclavian artery, a normal variant. The left and the right internal mammary arteries are well seen, well enhanced by contrast. Quantitative dimensions of the aorta are as follows: 3.1 c m at the sinuses of Valsalva (the sino-tubular junction is preserved); 2.5 cm at the proximal ascending thoracic aorta; 3.3 cm at the mid ascending aorta; 2.7 cm at the distal ascending aorta; 2.4 cm at the mid transverse arch; 2.4 at the proximal descending aorta; 2.4 cm at the mid descending aorta; 2.1 cm at the di aphragmatic hiatus. The minimum distance of the right ventricular free wall, at image 135 is approximately 12 mm posterior to the sternum. At the mid ascending thoracic aorta, it is 37 mm posterior to the sternum. At the distal ascending th oracic aorta, it is approximately 24 mm posterior to the sternum. NON-VASCULAR: The visualised thyroid gland is unremarkable. The chest wall and mediastinum janis ear normal. Only small lymph nodes are seen in the mediastinum, that are not enl arged, considered nonspecific in nature. In the lung windows, no endobronchial l esion is seen, and no pleural effusion is identified. No suspicious pulmonary no dule is seen. Partially calcified nodule indicating prior granulomatous disease identified in the right lower lobe, at image 151. Limited images of the upper ab domen reveals no gross abnormality. Suture material identified in the upper bord er of the stomach indicating prior GI surgery. In the bony windows, no acute bon y pathology is seen. Some degenerative changes is noted. CONCLUSIONS: 1. The tho racic aorta is normal in course, contour, and calibre. There is minimal calcif ication seen in the aortic root and scattered Calcifications seen in the ascendi ng thoracic aorta posteriorly. There is calcific and noncalcific atherosclerosis identified in the transverse arch as well scattered along the descending thorac ic aorta. There is no evidence of acute aortic pathology, specifically, there i s no dissection, intramural hematoma, or contained rupture. Quantitative dimens ion of the thoracic aorta are as described above. 2. Patient is known coronar y artery disease. In the available images, the left main coronary artery the pro ximal and mid LAD has calcification identified though remainder the mid and dist al LAD is 3 of calcification. There is also calcification seen in the LCx territ ory, and there is either vascular stent versus diffuse calcification seen in the RCA territory. The left and right internal mammary arteries are widely patent. Only minimal Consultation is seen in the left and the right subclavian arteries proximally, otherwise they are widely patent. 3. No acute pulmonary pathology. The central bony artery is prominent. No evidence of central pulmonary artery em bolism. Evidence of prior granulomatous disease 4. Other findings as described above. 5. An addendum will be dictated regarding the non-vascular findings by t ingrid Kennel Operator Radiologist. Signed: Buck Grissomeport Verified Date/Time : 02/22/2019 18:02:33 Reading Location: [place] [address] Cardiology MRI Electron ically signed by: CHAO NIEVES on 02/23/2019 06:22 PM POCT-GLUCOSE [id number] 11:59:00* Test Item Value Reference Range Interpretation Comments POC-GLUCOSE METER (BEAKER) (test code = 1538) 138 mg/dL 70-110 H TESTED AT [facility] [address] [facility] [address] POCT-GLUCOSE [id number] 08:24:00* Test Item Value Reference Range Interpretation Comments POC-GLUCOSE METER (E[employer] TechnologiesAKER) (test code = 1538) 112 mg/dL 70-110 H TESTED AT [facility] [address] [facility] [address] [id number] 07:00:00* Test Item Value Reference Range Interpretation Comments PARTIAL THROMBOPLASTIN TIME (BEAKER) (test code = 760) 84.8 seconds 22.5-36.0 H BASIC METABOLIC [id number] 06:54:00* Test Item Value Reference Range Interpretation Comments SODIUM (BEAKER) (test code = 381) 136 meq/L 136-145 POTASSIUM (BEAKER) (test code = 379) 5.5 meq/L 3.5-5.1 H CHLORIDE (BEAKER) (test code = 382) 95 meq/L 98-107 L CO2 (BEAKER) (test code = 355) 29 meq/L 22-29 BLOOD UREA NITROGEN (BEAKER) (test code = 354) 37 mg/dL 7-21 H CREATININE (BEAKER) (test code = 358) 9.52 mg/dL 0.57-1.25 H GLUCOSE RANDOM (BEAKER) (test code = 652) 88 mg/dL 70-105 CALCIUM (BEAKER) (test code = 697) 9.5 mg/dL 8.4-10.2 EGFR (BEAKER) (test code = 1092) 6 mL/min/1.73 sq m ESTIMATED GFR IS NOT ACCURATE CREATININE CLEARANCE IN PREDICTING GLOMERULAR FILTRATION RATE. ESTIMATED GFR IS NOT APPLICABLE FOR DIALYSIS PATIENTS. [id number] 06:53:00* Test Item Value Reference Range Interpretation Comments PHOSPHORUS (BEAKER) (test code = 604) 3.4 mg/dL 2.3-4.7 [id number] 06:53:00* Test Item Value Reference Range Interpretation Comments MAGNESIUM (BEAKER) (test code = 627) 2.8 mg/dL 1.6-2.6 H CBC (HEMOGRAM ONLY)2019-02-23 06:46:00* Test Item Value Reference Range Interpretation Comments WHITE BLOOD CELL COUNT (BEAKER) (test code = 775) 7.9 K/ L 3.5- 10.5 RED BLOOD CELL COUNT (BEAKER) (test code = 761) 4.19 M/ L 4.63-6 .08 L HEMOGLOBIN (BEAKER) (test code = 410) 13.6 GM/DL 13.7-17.5 L HEMATOCRIT (BEAKER) (test code = 411) 43.3 % 40.1-51.0 MEAN CORPUSCULAR VOLUME (BEAKER) (test code = 753) 103.3 fL 79. 0-92.2 H MEAN CORPUSCULAR HEMOGLOBIN (BEAKER) (test code = 751) 32.5 pg 25.7-32.2 H MEAN CORPUSCULAR HEMOGLOBIN CONC (BEAKER) (test code = 752) 31.4 GM/DL 32.3-36.5 L RED CELL DISTRIBUTION WIDTH (BEAKER) (test code = 412) 14.1 % 11.6-14.4 PLATELET COUNT (BEAKER) (test code = 756) 173 K/CU MM 150-450 MEAN PLATELET VOLUME (BEAKER) (test code = 754) 11.2 fL 9.4-12 .4 NUCLEATED RED BLOOD CELLS (BEAKER) (test code = 413) 0 /100 WBC 0 -0 POCT-GLUCOSE [id number] 21:21:00* Test Item Value Reference Range Interpretation Comments POC-GLUCOSE METER (BEAKER) (test code = 1538) 94 mg/dL 70-110 TESTED AT [address] [address] POCT-GLUCOSE [id number] 17:52:00* Test Item Value Reference Range Interpretation Comments POC-GLUCOSE METER (BEAKER) (test code = 1538) 140 mg/dL 70-110 H TESTED AT [address] [address] POCT-GLUCOSE [id number] 17:34:00* Test Item Value Reference Range Interpretation Comments POC-GLUCOSE METER (BEAKER) (test code = 1538) 117 mg/dL 70-110 H TESTED AT [address] [address] POCT-GLUCOSE [id number] 10:13:00* Test Item Value Reference Range Interpretation Comments POC-GLUCOSE METER (BEAKER) (test code = 1538) 103 mg/dL 70-110 TESTED AT [address] [address] BASIC METABOLIC [id number] 06:29:00* Test Item Value Reference Range Interpretation Comments SODIUM (BEAKER) (test code = 381) 132 meq/L 136-145 L POTASSIUM (BEAKER) (test code = 379) 5.9 meq/L 3.5-5.1 H CHLORIDE (BEAKER) (test code = 382) 94 meq/L 98-107 L CO2 (BEAKER) (test code = 355) 25 meq/L 22-29 BLOOD UREA NITROGEN (BEAKER) (test code = 354) 59 mg/dL 7-21 H CREATININE (BEAKER) (test code = 358) 12.69 mg/dL 0.57-1.25 H GLUCOSE RANDOM (BEAKER) (test code = 652) 94 mg/dL 70-105 CALCIUM (BEAKER) (test code = 697) 8.8 mg/dL 8.4-10.2 EGFR (BEAKER) (test code = 1092) 4 mL/min/1.73 sq m ESTIMATED GFR IS NOT ACCURATE CREATININE CLEARANCE IN PREDICTING GLOMERULAR FILTRATION RATE. ESTIMATED GFR IS NOT APPLICABLE FOR DIALYSIS PATIENTS. [id number] 06:24:00* Test Item Value Reference Range Interpretation Comments PHOSPHORUS (BEAKER) (test code = 604) 3.6 mg/dL 2.3-4.7 [id number] 06:24:00* Test Item Value Reference Range Interpretation Comments MAGNESIUM (BEAKER) (test code = 627) 3.1 mg/dL 1.6-2.6 H [id number] 04:58:00* Test Item Value Reference Range Interpretation Comments PARTIAL THROMBOPLASTIN TIME (BEAKER) (test code = 760) 79.1 seconds 22.5-36.0 H CBC (HEMOGRAM ONLY)2019-02-22 04:47:00* Test Item Value Reference Range Interpretation Comments WHITE BLOOD CELL COUNT (BEAKER) (test code = 775) 9.6 K/ L 3.5- 10.5 RED BLOOD CELL COUNT (BEAKER) (test code = 761) 4.24 M/ L 4.63-6 .08 L HEMOGLOBIN (BEAKER) (test code = 410) 13.9 GM/DL 13.7-17.5 HEMATOCRIT (BEAKER) (test code = 411) 42.6 % 40.1-51.0 MEAN CORPUSCULAR VOLUME (BEAKER) (test code = 753) 100.5 fL 79. 0-92.2 H MEAN CORPUSCULAR HEMOGLOBIN (BEAKER) (test code = 751) 32.8 pg 25.7-32.2 H MEAN CORPUSCULAR HEMOGLOBIN CONC (BEAKER) (test code = 752) 32.6 GM/DL 32.3-36.5 RED CELL DISTRIBUTION WIDTH (BEAKER) (test code = 412) 13.9 % 11.6-14.4 PLATELET COUNT (BEAKER) (test code = 756) 171 K/CU MM 150-450 MEAN PLATELET VOLUME (BEAKER) (test code = 754) 11.3 fL 9.4-12 .4 NUCLEATED RED BLOOD CELLS (BEAKER) (test code = 413) 0 /100 WBC 0 -0 POCT-GLUCOSE [id number] 22:08:00* Test Item Value Reference Range Interpretation Comments POC-GLUCOSE METER (BEAKER) (test code = 1538) 135 mg/dL 70-110 H TESTED AT [address] [address] POCT-GLUCOSE [id number] 17:06:00* Test Item Value Reference Range Interpretation Comments POC-GLUCOSE METER (BEAKER) (test code = 1538) 133 mg/dL 70-110 H TESTED AT [address] [address] POCT-GLUCOSE [id number] 12:49:00* Test Item Value Reference Range Interpretation Comments POC-GLUCOSE METER (BEAKER) (test code = 1538) 79 mg/dL 70-110 TESTED AT [address] [address] POCT-GLUCOSE [id number] 07:59:00* Test Item Value Reference Range Interpretation Comments POC-GLUCOSE METER (BEAKER) (test code = 1538) 104 mg/dL 70-110 TESTED AT [address] [address] POCT-GLUCOSE [id number] 07:59:00* Test Item Value Reference Range Interpretation Comments POC-GLUCOSE METER (BEAKER) (test code = 1538) 62 mg/dL 70-110 L Notified OMAYRA MEJIA/TESTED AT [address] [address] [id number] 06:56:00* Test Item Value Reference Range Interpretation Comments PARTIAL THROMBOPLASTIN TIME (BEAKER) (test code = 760) 88.7 seconds 22.5-36.0 H BASIC METABOLIC [id number] 06:47:00* Test Item Value Reference Range Interpretation Comments SODIUM (BEAKER) (test code = 381) 134 meq/L 136-145 L POTASSIUM (BEAKER) (test code = 379) 5.3 meq/L 3.5-5.1 H Specimen slightly hemolyzed CHLORIDE (BEAKER) (test code = 382) 94 meq/L 98-107 L CO2 (BEAKER) (test code = 355) 30 meq/L 22-29 H BLOOD UREA NITROGEN (BEAKER) (test code = 354) 45 mg/dL 7-21 H CREATININE (BEAKER) (test code = 358) 10.71 mg/dL 0.57-1.25 H Specimen slightly hemolyzed GLUCOSE RANDOM (BEAKER) (test code = 652) 66 mg/dL 70-105 L CALCIUM (BEAKER) (test code = 697) 9.0 mg/dL 8.4-10.2 EGFR (BEAKER) (test code = 1092) 5 mL/min/1.73 sq m ESTIMATED GFR IS NOT ACCURATE CREATININE CLEARANCE IN PREDICTING GLOMERULAR FILTRATION RATE. ESTIMATED GFR IS NOT APPLICABLE FOR DIALYSIS PATIENTS. [id number] 06:36:00* Test Item Value Reference Range Interpretation Comments MAGNESIUM (BEAKER) (test code = 627) 3.1 mg/dL 1.6-2.6 H Specimen slightly hemolyzed [id number] 06:36:00* Test Item Value Reference Range Interpretation Comments PHOSPHORUS (BEAKER) (test code = 604) 4.0 mg/dL 2.3-4.7 Specimen slightly hemolyzed HEPATIC FUNCTION [id number] 06:36:00* Test Item Value Reference Range Interpretation Comments TOTAL PROTEIN (BEAKER) (test code = 770) 6.6 gm/dL 6.0-8.3 Specimen slightly hemolyzed ALBUMIN (BEAKER) (test code = 1145) 3.8 g/dL 3.5-5.0 Specimen slightly hemolyzed BILIRUBIN TOTAL (BEAKER) (test code = 377) 0.5 mg/dL 0.2-1.2 Specimen slightly hemolyzed BILIRUBIN DIRECT (BEAKER) (test code = 706) 0.2 mg/dL 0.1-0.5 Specimen slightly hemolyzed ALKALINE PHOSPHATASE (BEAKER) (test code = 346) 67 U/L 40-150 AST (SGOT) (BEAKER) (test code = 353) 18 U/L 5-34 Specimen slightly hemolyzed ALT (SGPT) (BEAKER) (test code = 347) 11 U/L 6-55 Specimen slightly hemolyzed CBC (HEMOGRAM ONLY)2019-02-21 06:09:00* Test Item Value Reference Range Interpretation Comments WHITE BLOOD CELL COUNT (BEAKER) (test code = 775) 8.8 K/ L 3.5- 10.5 RED BLOOD CELL COUNT (BEAKER) (test code = 761) 4.30 M/ L 4.63-6 .08 L HEMOGLOBIN (BEAKER) (test code = 410) 13.8 GM/DL 13.7-17.5 HEMATOCRIT (BEAKER) (test code = 411) 43.6 % 40.1-51.0 MEAN CORPUSCULAR VOLUME (BEAKER) (test code = 753) 101.4 fL 79. 0-92.2 H MEAN CORPUSCULAR HEMOGLOBIN (BEAKER) (test code = 751) 32.1 pg 25.7-32.2 MEAN CORPUSCULAR HEMOGLOBIN CONC (BEAKER) (test code = 752) 31.7 GM/DL 32.3-36.5 L RED CELL DISTRIBUTION WIDTH (BEAKER) (test code = 412) 13.8 % 11.6-14.4 PLATELET COUNT (BEAKER) (test code = 756) 177 K/CU MM 150-450 MEAN PLATELET VOLUME (BEAKER) (test code = 754) 11.1 fL 9.4-12 .4 NUCLEATED RED BLOOD CELLS (BEAKER) (test code = 413) 0 /100 WBC 0 -0 CALCIUM, [id number] 06:05:00* Test Item Value Reference Range Interpretation Comments CALCIUM IONIZED (BEAKER) (test code = 698) 1.19 mmol/L 1.12-1.27 PH, BLOOD (BEAKER) (test code = 1810) 7.36 POCT-GLUCOSE [id number] 00:52:00* Test Item Value Reference Range Interpretation Comments POC-GLUCOSE METER (BEAKER) (test code = 1538) 228 mg/dL 70-110 H TESTED AT [facility] [address] [facility] [address] [id number] 17:55:00* Test Item Value Reference Range Interpretation Comments CALCIUM (BEAKER) (test code = 697) 8.8 mg/dL 8.4-10.2 With next [id number] 17:49:00* Test Item Value Reference Range Interpretation Comments MAGNESIUM (BEAKER) (test code = 627) 3.0 mg/dL 1.6-2.6 H Specimen slightly hemolyzed With next [id number] 17:49:00* Test Item Value Reference Range Interpretation Comments PHOSPHORUS (BEAKER) (test code = 604) 3.8 mg/dL 2.3-4.7 Specimen slightly hemolyzed With next PTTHEPATIC FUNCTION [id number] 17:49:00* Test Item Value Reference Range Interpretation Comments TOTAL PROTEIN (BEAKER) (test code = 770) 6.4 gm/dL 6.0-8.3 Specimen slightly hemolyzed ALBUMIN (BEAKER) (test code = 1145) 3.8 g/dL 3.5-5.0 Specimen slightly hemolyzed BILIRUBIN TOTAL (BEAKER) (test code = 377) 0.5 mg/dL 0.2-1.2 Specimen slightly hemolyzed BILIRUBIN DIRECT (BEAKER) (test code = 706) 0.2 mg/dL 0.1-0.5 Specimen slightly hemolyzed ALKALINE PHOSPHATASE (BEAKER) (test code = 346) 65 U/L 40-150 AST (SGOT) (BEAKER) (test code = 353) 14 U/L 5-34 Specimen slightly hemolyzed ALT (SGPT) (BEAKER) (test code = 347) 12 U/L 6-55 Specimen slightly hemolyzed With next PTTPOCT-GLUCOSE [id number] 17:02:00* Test Item Value Reference Range Interpretation Comments POC-GLUCOSE METER (BEAKER) (test code = 1538) 121 mg/dL 70-110 H TESTED AT [address] [address] [id number] 12:04:00* Test Item Value Reference Range Interpretation Comments PARTIAL THROMBOPLASTIN TIME (BEAKER) (test code = 760) 90.4 seconds 22.5-36.0 H POCT-GLUCOSE [id number] 10:28:00* Test Item Value Reference Range Interpretation Comments POC-GLUCOSE METER (BEAKER) (test code = 1538) 94 mg/dL 70-110 TESTED AT [address] [address] POCT-GLUCOSE [id number] 07:17:00* Test Item Value Reference Range Interpretation Comments POC-GLUCOSE METER (BEAKER) (test code = 1538) 91 mg/dL 70-110 TESTED AT [address] [address] BASIC METABOLIC [id number] 05:48:00* Test Item Value Reference Range Interpretation Comments SODIUM (BEAKER) (test code = 381) 140 meq/L 136-145 POTASSIUM (BEAKER) (test code = 379) 3.8 meq/L 3.5-5.1 CHLORIDE (BEAKER) (test code = 382) 108 meq/L 98-107 H CO2 (BEAKER) (test code = 355) 24 meq/L 22-29 BLOOD UREA NITROGEN (BEAKER) (test code = 354) 26 mg/dL 7-21 H CREATININE (BEAKER) (test code = 358) 6.21 mg/dL 0.57-1.25 H GLUCOSE RANDOM (BEAKER) (test code = 652) 102 mg/dL 70-105 CALCIUM (BEAKER) (test code = 697) 6.3 mg/dL 8.4-10.2 L EGFR (BEAKER) (test code = 1092) 9 mL/min/1.73 sq m ESTIMATED GFR IS NOT ACCURATE CREATININE CLEARANCE IN PREDICTING GLOMERULAR FILTRATION RATE. ESTIMATED GFR IS NOT APPLICABLE FOR DIALYSIS PATIENTS. [id number] 04:34:00* Test Item Value Reference Range Interpretation Comments PHOSPHORUS (BEAKER) (test code = 604) 2.5 mg/dL 2.3-4.7 [id number] 04:34:00* Test Item Value Reference Range Interpretation Comments MAGNESIUM (BEAKER) (test code = 627) 1.6 mg/dL 1.6-2.6 [id number] 04:21:00* Test Item Value Reference Range Interpretation Comments PARTIAL THROMBOPLASTIN TIME (BEAKER) (test code = 760) 82.3 seconds 22.5-36.0 H CBC (HEMOGRAM ONLY)2019-02-20 04:06:00* Test Item Value Reference Range Interpretation Comments WHITE BLOOD CELL COUNT (BEAKER) (test code = 775) 7.1 K/ L 3.5- 10.5 RED BLOOD CELL COUNT (BEAKER) (test code = 761) 4.13 M/ L 4.63-6 .08 L HEMOGLOBIN (BEAKER) (test code = 410) 13.4 GM/DL 13.7-17.5 L HEMATOCRIT (BEAKER) (test code = 411) 42.4 % 40.1-51.0 MEAN CORPUSCULAR VOLUME (BEAKER) (test code = 753) 102.7 fL 79. 0-92.2 H MEAN CORPUSCULAR HEMOGLOBIN (BEAKER) (test code = 751) 32.4 pg 25.7-32.2 H MEAN CORPUSCULAR HEMOGLOBIN CONC (BEAKER) (test code = 752) 31.6 GM/DL 32.3-36.5 L RED CELL DISTRIBUTION WIDTH (BEAKER) (test code = 412) 14.0 % 11.6-14.4 PLATELET COUNT (BEAKER) (test code = 756) 156 K/CU MM 150-450 MEAN PLATELET VOLUME (BEAKER) (test code = 754) 10.9 fL 9.4-12 .4 NUCLEATED RED BLOOD CELLS (BEAKER) (test code = 413) 0 /100 WBC 0 -0 POCT-GLUCOSE [id number] 01:06:00* Test Item Value Reference Range Interpretation Comments POC-GLUCOSE METER (BEAKER) (test code = 1538) 116 mg/dL 70-110 H TESTED AT [address] [address] [id number] 20:18:00* Test Item Value Reference Range Interpretation Comments PARTIAL THROMBOPLASTIN TIME (BEAKER) (test code = 760) 51.0 seconds 22.5-36.0 H POCT-GLUCOSE [id number] 20:02:00* Test Item Value Reference Range Interpretation Comments POC-GLUCOSE METER (BEAKER) (test code = 1538) 131 mg/dL 70-110 H TESTED AT [address] [address] CBC W/PLT COUNT & AUTO [id number] 12:37:00* Test Item Value Reference Range Interpretation Comments WHITE BLOOD CELL COUNT (BEAKER) (test code = 775) 7.1 K/ L 3.5- 10.5 RED BLOOD CELL COUNT (BEAKER) (test code = 761) 4.23 M/ L 4.63-6 .08 L HEMOGLOBIN (BEAKER) (test code = 410) 13.7 GM/DL 13.7-17.5 HEMATOCRIT (BEAKER) (test code = 411) 42.2 % 40.1-51.0 MEAN CORPUSCULAR VOLUME (BEAKER) (test code = 753) 99.8 fL 79. 0-92.2 H MEAN CORPUSCULAR HEMOGLOBIN (BEAKER) (test code = 751) 32.4 pg 25.7-32.2 H MEAN CORPUSCULAR HEMOGLOBIN CONC (BEAKER) (test code = 752) 32.5 GM/DL 32.3-36.5 RED CELL DISTRIBUTION WIDTH (BEAKER) (test code = 412) 14.3 % 11.6-14.4 PLATELET COUNT (BEAKER) (test code = 756) 171 K/CU MM 150-450 MEAN PLATELET VOLUME (BEAKER) (test code = 754) 11.1 fL 9.4-12 .4 NUCLEATED RED BLOOD CELLS (BEAKER) (test code = 413) 0 /100 WBC 0 -0 NEUTROPHILS RELATIVE PERCENT (BEAKER) (test code = 429) 75 % LYMPHOCYTES RELATIVE PERCENT (BEAKER) (test code = 430) 15 % MONOCYTES RELATIVE PERCENT (BEAKER) (test code = 431) 7 % EOSINOPHILS RELATIVE PERCENT (BEAKER) (test code = 432) 3 % BASOPHILS RELATIVE PERCENT (BEAKER) (test code = 437) 0 % NEUTROPHILS ABSOLUTE COUNT (BEAKER) (test code = 670) 5.29 K/ L 1.78-5.38 LYMPHOCYTES ABSOLUTE COUNT (BEAKER) (test code = 414) 1.04 K/ L 1.32-3.57 L MONOCYTES ABSOLUTE COUNT (BEAKER) (test code = 415) 0.52 K/ L 0. 30-0.82 EOSINOPHILS ABSOLUTE COUNT (BEAKER) (test code = 416) 0.19 K/ L 0.04-0.54 BASOPHILS ABSOLUTE COUNT (BEAKER) (test code = 417) 0.02 K/ L 0. 01-0.08 IMMATURE GRANULOCYTES-RELATIVE PERCENT (BEAKER) (test code = 2801) 0 % 0-1 [id number] 12:32:00* Test Item Value Reference Range Interpretation Comments PHOSPHORUS (BEAKER) (test code = 604) 4.6 mg/dL 2.3-4.7 [id number] 12:32:00* Test Item Value Reference Range Interpretation Comments MAGNESIUM (BEAKER) (test code = 627) 2.4 mg/dL 1.6-2.6 [id number] 12:23:00* Test Item Value Reference Range Interpretation Comments PARTIAL THROMBOPLASTIN TIME (BEAKER) (test code = 760) 62.2 seconds 22.5-36.0 H POCT-GLUCOSE [id number] 11:58:00* Test Item Value Reference Range Interpretation Comments POC-GLUCOSE METER (BEAKER) (test code = 1538) 111 mg/dL 70-110 H TESTED AT [facility] [address] [facility] [address] POCT-GLUCOSE [id number] 09:20:00* Test Item Value Reference Range Interpretation Comments POC-GLUCOSE METER (BEAKER) (test code = 1538) 83 mg/dL 70-110 TESTED AT [place] [id number] [facility] [address] POCT-GLUCOSE [id number] 08:46:00* Test Item Value Reference Range Interpretation Comments POC-GLUCOSE METER (BEAKER) (test code = 1538) 40 mg/dL 70-110 LL TESTED AT [place] [id number] [facility] [address] BASIC METABOLIC [id number] 08:40:00* Test Item Value Reference Range Interpretation Comments SODIUM (BEAKER) (test code = 381) 133 meq/L 136-145 L POTASSIUM (BEAKER) (test code = 379) 5.1 meq/L 3.5-5.1 CHLORIDE (BEAKER) (test code = 382) 93 meq/L 98-107 L CO2 (BEAKER) (test code = 355) 28 meq/L 22-29 BLOOD UREA NITROGEN (BEAKER) (test code = 354) 53 mg/dL 7-21 H CREATININE (BEAKER) (test code = 358) 11.89 mg/dL 0.57-1.25 H GLUCOSE RANDOM (BEAKER) (test code = 652) 58 mg/dL 70-105 L CALCIUM (BEAKER) (test code = 697) 8.4 mg/dL 8.4-10.2 EGFR (BEAKER) (test code = 1092) 4 mL/min/1.73 sq m ESTIMATED GFR IS NOT ACCURATE CREATININE CLEARANCE IN PREDICTING GLOMERULAR FILTRATION RATE. ESTIMATED GFR IS NOT APPLICABLE FOR DIALYSIS PATIENTS. HEMOGLOBIN [id number] 08:27:00* Test Item Value Reference Range Interpretation Comments HEMOGLOBIN A1C (BEAKER) (test code = 368) 5.8 % 4.3-6.1 HEPATITIS B SURFACE [id number] 07:24:00* Test Item Value Reference Range Interpretation Comments HEPATITIS B SURFACE ANTIGEN (2) (BEAKER) (test code = 2585) Nonreactive Nonreactive CBC (HEMOGRAM ONLY)2019-02-19 06:26:00* Test Item Value Reference Range Interpretation Comments WHITE BLOOD CELL COUNT (BEAKER) (test code = 775) 8.0 K/ L 3.5- 10.5 RED BLOOD CELL COUNT (BEAKER) (test code = 761) 4.31 M/ L 4.63-6 .08 L HEMOGLOBIN (BEAKER) (test code = 410) 14.3 GM/DL 13.7-17.5 HEMATOCRIT (BEAKER) (test code = 411) 44.1 % 40.1-51.0 MEAN CORPUSCULAR VOLUME (BEAKER) (test code = 753) 102.3 fL 79. 0-92.2 H MEAN CORPUSCULAR HEMOGLOBIN (BEAKER) (test code = 751) 33.2 pg 25.7-32.2 H MEAN CORPUSCULAR HEMOGLOBIN CONC (BEAKER) (test code = 752) 32.4 GM/DL 32.3-36.5 RED CELL DISTRIBUTION WIDTH (BEAKER) (test code = 412) 14.2 % 11.6-14.4 PLATELET COUNT (BEAKER) (test code = 756) 185 K/CU MM 150-450 MEAN PLATELET VOLUME (BEAKER) (test code = 754) 10.9 fL 9.4-12 .4 NUCLEATED RED BLOOD CELLS (BEAKER) (test code = 413) 0 /100 WBC 0 -0 [id number] 06:24:00* Test Item Value Reference Range Interpretation Comments PARTIAL THROMBOPLASTIN TIME (BEAKER) (test code = 760) 41.3 seconds 22.5-36.0 H POCT-GLUCOSE [id number] 23:16:00* Test Item Value Reference Range Interpretation Comments POC-GLUCOSE METER (BEAKER) (test code = 1538) 114 mg/dL 70-110 H TESTED AT [facility] [address] [facility] [address] POCT-GLUCOSE [id number] 22:27:00* Test Item Value Reference Range Interpretation Comments POC-GLUCOSE METER (BEAKER) (test code = 1538) 73 mg/dL 70-110 TESTED AT [address] [address] POCT-GLUCOSE [id number] 22:03:00* Test Item Value Reference Range Interpretation Comments POC-GLUCOSE METER (BEAKER) (test code = 1538) 55 mg/dL 70-110 L TESTED AT [address] [address] [id number] 19:59:00* Test Item Value Reference Range Interpretation Comments PARTIAL THROMBOPLASTIN TIME (BEAKER) (test code = 760) 32.6 seconds 22.5-36.0 Prior to initiating [id number] 19:50:00* Test Item Value Reference Range Interpretation Comments ACTIVATED CLOTTING TIME (BEAKER) (test code = 441) 125 sec TESTED AT [place] [id number] PLATE[place] [id number] 19:49:00* Test Item Value Reference Range Interpretation Comments PLATELET COUNT (BEAKER) (test code = 756) 189 K/CU MM 150-450 [id number] 17:39:00* Test Item Value Reference Range Interpretation Comments ACTIVATED CLOTTING TIME (BEAKER) (test code = 441) 153 sec TESTED AT [address] [address] POCT-GLUCOSE [id number] 17:22:00* Test Item Value Reference Range Interpretation Comments POC-GLUCOSE METER (BEAKER) (test code = 1538) 225 mg/dL 70-110 H TESTED AT [address] [address] POCT-GLUCOSE [id number] 15:09:00* Test Item Value Reference Range Interpretation Comments POC-GLUCOSE METER (BEAKER) (test code = 1538) 90 mg/dL 70-110 TESTED AT [address] [address] [id number] 14:16:00* Test Item Value Reference Range Interpretation Comments ACTIVATED CLOTTING TIME (BEAKER) (test code = 441) 285 sec TESTED AT [address] [address] [id number] 13:56:00* Test Item Value Reference Range Interpretation Comments ACTIVATED CLOTTING TIME (BEAKER) (test code = 441) 301 sec TESTED AT [address] [address] POCT-GLUCOSE [id number] 12:34:00* Test Item Value Reference Range Interpretation Comments POC-GLUCOSE METER (BEAKER) (test code = 1538) 134 mg/dL 70-110 H TESTED AT [facility] [address] [facility] [address] POCT-GLUCOSE [id number] 11:43:00* Test Item Value Reference Range Interpretation Comments POC-GLUCOSE METER (BEAKER) (test code = 1538) 35 mg/dL 70-110 LL TESTED AT [facility] [address] [facility] [address] BASIC METABOLIC [id number] 10:24:00* Test Item Value Reference Range Interpretation Comments SODIUM (BEAKER) (test code = 381) 139 meq/L 136-145 POTASSIUM (BEAKER) (test code = 379) 5.0 meq/L 3.5-5.1 Specimen slightly hemolyzed CHLORIDE (BEAKER) (test code = 382) 96 meq/L 98-107 L CO2 (BEAKER) (test code = 355) 30 meq/L 22-29 H BLOOD UREA NITROGEN (BEAKER) (test code = 354) 39 mg/dL 7-21 H CREATININE (BEAKER) (test code = 358) 10.05 mg/dL 0.57-1.25 H Specimen slightly hemolyzed GLUCOSE RANDOM (BEAKER) (test code = 652) 65 mg/dL 70-105 L CALCIUM (BEAKER) (test code = 697) 9.2 mg/dL 8.4-10.2 EGFR (BEAKER) (test code = 1092) 5 mL/min/1.73 sq m ESTIMATED GFR IS NOT ACCURATE CREATININE CLEARANCE IN PREDICTING GLOMERULAR FILTRATION RATE. ESTIMATED GFR IS NOT APPLICABLE FOR DIALYSIS PATIENTS. [id number] 10:10:00* Test Item Value Reference Range Interpretation Comments PROTIME (BEAKER) (test code = 759) 13.1 seconds 11.9-14.2 INR (BEAKER) (test code = 370) 1.0 <=5.9 PARTIAL THROMBOPLASTIN TIME (BEAKER) (test code = 760) 32.0 seconds 22.5-36.0 Effective 12/16/2018: PT Reference Range ChangeNew: 11.9-14.2 Previous: 11.7-14. 7RECOMMENDED COUMADIN/WARFARIN INR THERAPY RANGESSTANDARD DOSE: 2.0-3.0 Include s: PROPHYLAXIS for venous thrombosis, systemic embolization; TREATMENT for venou s thrombosis and/or pulmonary embolus.HIGH RISK: Target INR is 2.5-3.5 for patie nts wiht mechanical heart valves.CBC W/PLT COUNT & AUTO [id number] 10:09:00* Test Item Value Reference Range Interpretation Comments WHITE BLOOD CELL COUNT (BEAKER) (test code = 775) 9.9 K/ L 3.5- 10.5 RED BLOOD CELL COUNT (BEAKER) (test code = 761) 4.68 M/ L 4.63-6 .08 HEMOGLOBIN (BEAKER) (test code = 410) 15.1 GM/DL 13.7-17.5 HEMATOCRIT (BEAKER) (test code = 411) 48.4 % 40.1-51.0 MEAN CORPUSCULAR VOLUME (BEAKER) (test code = 753) 103.4 fL 79. 0-92.2 H MEAN CORPUSCULAR HEMOGLOBIN (BEAKER) (test code = 751) 32.3 pg 25.7-32.2 H MEAN CORPUSCULAR HEMOGLOBIN CONC (BEAKER) (test code = 752) 31.2 GM/DL 32.3-36.5 L RED CELL DISTRIBUTION WIDTH (BEAKER) (test code = 412) 14.5 % 11.6-14.4 H PLATELET COUNT (BEAKER) (test code = 756) 223 K/CU MM 150-450 MEAN PLATELET VOLUME (BEAKER) (test code = 754) 10.8 fL 9.4-12 .4 NUCLEATED RED BLOOD CELLS (BEAKER) (test code = 413) 0 /100 WBC 0 -0 NEUTROPHILS RELATIVE PERCENT (BEAKER) (test code = 429) 76 % LYMPHOCYTES RELATIVE PERCENT (BEAKER) (test code = 430) 11 % MONOCYTES RELATIVE PERCENT (BEAKER) (test code = 431) 11 % EOSINOPHILS RELATIVE PERCENT (BEAKER) (test code = 432) 2 % BASOPHILS RELATIVE PERCENT (BEAKER) (test code = 437) 0 % NEUTROPHILS ABSOLUTE COUNT (BEAKER) (test code = 670) 7.58 K/ L 1.78-5.38 H LYMPHOCYTES ABSOLUTE COUNT (BEAKER) (test code = 414) 1.07 K/ L 1.32-3.57 L MONOCYTES ABSOLUTE COUNT (BEAKER) (test code = 415) 1.05 K/ L 0. 30-0.82 H EOSINOPHILS ABSOLUTE COUNT (BEAKER) (test code = 416) 0.17 K/ L 0.04-0.54 BASOPHILS ABSOLUTE COUNT (BEAKER) (test code = 417) 0.03 K/ L 0. 01-0.08 IMMATURE GRANULOCYTES-RELATIVE PERCENT (BEAKER) (test code = 2801) 0 % 0-1 PET, CARDIAC PERFUSION MULTIPLE STUDIES, REST AND [id number] 16:29:00 Started dialysis [id number] for Exam:->renal tx eval; CPFINAL REPORT PROCEDURE: MYOCARDIAL PERFUSION PET IMAGING (Rest/Stress)CPT CODE: 24215 INDICATION: Renal transplant evaluation, define extent/severity of known CAD CARDIOVASCULAR PROFILE:CAD History: Known CAD, prio r CO, prior PCISymptoms: Chest painRisk Factors: Diabetes, hypertension, obesity , dyslipidemia, tobacco use, family history of early CAD, ESRDBMI: 33.8Medicatio ns: Aspirin, ticagrelor, atorvastatin, carvedilol, isosorbide mononitrate, glime piride STRESS PROTOCOL:Pharmacologic stress was achieved with a 10-second intrav enous infusion of regadenoson 0.4 mg. The radiopharmaceutical was administered 3 0 seconds after the start of the regadenoson infusion. IMAGING PROTOCOL:Limited low-dose CT imaging was performed for attenuation correction. 40.1 mCi of Rb-82 chloride was injected intravenously at rest, and gated PET images were obtained. Then, 40.1 mCi of Rb-82 chloride was injected intravenously at peak stress, and gated PET images were obtained. REST FINDINGS:HR: 85/minBP: 104/56 mmHgPrelim. EKG: Normal sinus rhythm, PVCs.Perfusion: There is a mild severity perfusion def ect of the basal lateral segment.Wall Motion: Normal (LVEF 61%).LV Volume: Elenita l.RV Volume: Normal. STRESS FINDINGS:HR: 102/min (63% of MPHR)BP: 147/34 mmHgPre carter. EKG: PVCs, no significant ST-T wave changes.Symptoms: Headache (treatment n ot required).Perfusion: There is a marked severity perfusion defect of the basal to mid lateral segments.Wall Motion: There is mild hypokinesis of the basal to mid lateral LV with stress with otherwise normal LV function. (LVEF 61%).LV Volu me: Not significantly changed from rest. IMPRESSION:1. Abnormal study.2. Abnorma l myocardial perfusion. There is a small size, marked severity, mostly reversibl e perfusion abnormality in the basal to mid lateral LV.3. Normal resting LVEF, w hich does not deteriorate with pharmacologic stress. However, mild hypokinesis o f the basal to mid lateral LV with stress is noted.4. Normal extracardiac tracer distribution.5. The prior study dated 10/31/2015 showed the same basal to mid la teral partially reversible perfusion defect. No significant change compared to p rior study. Signed: Kathy Ospina MDReport Verified Date/Time: 02/04/2019 16:29 :09 Reading Location: [address] Reading Room Electronically s igned by: KATHY OSPINA MD on 02/04/2019 04:29 PM CYTOMEGALOVIRUS ANTIBODY, [id number] 09:45:00* Test Item Value Reference Range Interpretation Comments CYTOMEGALOVIRUS, IGG (BEAKER) (test code = 3429) Negative Negat ernie, Equivocal CMV IgG Result Interpretation: </= 0.8 Al Negative 0.9-1.0 Al Equivocal > /=1.1 Al [id number] 17:26:00* Test Item Value Reference Range Interpretation Comments PROSTATE SPECIFIC ANTIGEN (BEAKER) (test code = 844) 0.6 ng/mL 0 .0-4.0 HEPATITIS B SURFACE [id number] 17:26:00* Test Item Value Reference Range Interpretation Comments HEPATITIS B SURFACE ANTIBODY (BEAKER) (test code = 647) 13.7 mIU/mL <8.0 H U/S, RENAL, [id number] 14:52:00Started dialysis [id number] for Exam:->ESRDFINAL REPORT Ultrasound of the Kidneys, 05/14/2018. Clinical History: End-stage renal disease. Discussion:Sonographic evaluation of the kidneys is performed. Right kidney: 10.5 cm in length, normal in size, with cortical thickness of 1.0 cm. Increased cortical echogenicity. No mass. No shadowing calculus. No hydronephrosis. Left kidney: 9.5 cm in length, normal in size, with cortical thickness of 0.9 cm. Increased cortical echogenicity. No worrisome mass. There is an anechoic cyst at the interpolar aspect. No shadowing calculus. No hydronephrosis. Fluid: No perinephric fluid. Bladder: Unremarkable. Doppler: Color Doppler survey demonstrates patency of main renal artery and vein bilaterally. Impression:Increased echogenicity of the renal cortices compatible with end- stage renal disease. Signed: Rebekah Ramsey MDReport Verified Date/Time: 05/14/2018 14:52:06 Reading Location: [address] Radiology Reading Room , CTA [id number] 16:02:00Started dialysis [id number] for Exam:-> assess iliac vesselsAddendum BeginsREPORT STATUS:A Addendum: I agree with the previously described non vascular findings. Signed: Chao Nieves MDReport Verified Date/Time: 10/02/2017 16:02:41 Reading Location: [place] [address] Angio Body Reading RoomAddendum EndsFINAL REPORT CT [...] Coronary artery calcification is identified in the v isualised right coronary artery. There is likely some aortic valvular calcificat ion seen. Calcific patient also seen in the LAD territory. The abdominal aorta i s normal in course, calibre and contour. There are some scattered calcification s seen in the infrarenal abdominal aorta as well as scattered noncalcific athero sclerosis. No ectasia or aneurysmal dilation is present. There is no evidence of acute aortic pathology, specifically, there is no dissection, intramural hemato ma, or contained rupture. Quantitative dimensions of the abdominal aorta are as follows: 2.0 cm at the mesenteric segment; 1.9 cm at the renal segment,; and 1.5 cm at the aortic bifurcation. The common iliac, external iliac, common fem oral, and the visualized superficial femoral arteries, bilaterally, are widely p atent, except for some nonobstructive calcific atherosclerosis.. Thermometer Maker dimensions of the left and the right external iliac arteries are 7 and 8 mm, res pectively. Nonobstructing calcification is seen scattered along the left and the right external iliac arteries. Similarly, the associated pelvic veins are patent with no venous thrombosis identified. Thermometer Maker dimensions of the left and the right external iliac veins are 12 and 11 mm, respectively. Single left and right renal arteries are seen with some eccentric calcification present in the left renal artery with no obstructive lesion appreciated. Single left and right renal veins are seen draining normally into the IVC. NON-VASCULAR: The lung bas es are unremarkable; no pleural effusion is identified in the lung bases. In the abdomen, the liver and spleen appears unremarkable. The liver edge is smooth. No abnormal enhancing structure is identified. The gallbladder, and the pancreas have no gross abnormality identified. The adrenal glass are not enlarged. Patien t end stage renal disease status. No hydronephrosis or perirenal fluid collectio n is seen. There is likely a hypodensity is identified in the medial aspect of t he right kidney, image 133, measure up to 1.5 x 1.6 cm in diameter with no enhan cement after contrast administration suggesting a proteinaceous cyst. Bowel is n ot well assessed by CT angiography as enteric contrast is not given. No obvious bowel dilation is identified. Scattered colonic diverticulum is seen with no acu te diverticulitis identified. Addition, suture material is identified along the stomach, likely represent prior GI surgery. Correlate appropriate operative repo rt. No free air free fluid seen abdomen and pelvis. The prostate gland appears g rossly unremarkable. The bladder is not distended. No significant retroperitonea l adenopathy is identified. In the bony windows, no acute bony pathology is seen . Some degenerative changes is noted. CONCLUSIONS: 1. The abdominal aorta is nor mal in course, calibre and contour. Minimal atherosclerosis identified abdomina l aorta. No ectasia or aneurysmal dilation is seen. There is no evidence of ac [place] aortic pathology, specifically, there is no dissection, intramural hematoma, or contained rupture. Quantitative dimension of the abdominal aorta are as not ed. The pelvic arteries and veins are widely patent with no arterial stenosis or venous thrombosis identified. Thermometer Maker dimensions of the left and the rig ht external iliac arteries and veins are as described above. 2. Patent mesenter ic and renal arteries. 3. Other findings as described above. 4. An addendum w ill be dictated regarding the non-vascular findings by the Kennel Operator Radiologis t. Signed: Buck Grissom MDReport Verified Date/Time: 10/02/2017 10:05:15 Re ading Location: [place] [address] Cardiology MRI [id number] 18:48:00* Test Item Value Reference Range Interpretation Comments PROSTATE SPECIFIC ANTIGEN (BEAKER) (test code = 844) 0.5 ng/mL 0 .0-4.0 TISSUE [id number] 17:12:00Surgical Pathology Report Case: [id number] Authorizing Provider: Jasen Mukherjee, Collected: 08/20/2016 1401 Ordering Location: [facility] Received: 08/20/2016 1539 PERIOPERATIVE SERVICES Pathologist: Emiliano England MD Specimen: Catheter Tip, Peritoneal dialysis catheter BOTTLE CAPPING MACHINE OPERATOR, ABDOMEN, REMOVAL: BOTTLE CAPPING MACHINE OPERATOR (GROSS DIAGNOSIS)SD/DB/pl Signing Pathologist Direct Phone Line: [phone] signed by Emiliano England MD on 12/31/2016 at 5:12 [id number] stage renal diseasePeritoneal dialysis catheterReceived fresh labeled "catheter tip", description "peritoneal dialysis catheter" is a 38.0 cm in length x 0.3 cm in diameter segment of clear plastic tubing. The specimen is for gross identification only. DB/plHEMOGLOBIN [id number] 12:08:00* Test Item Value Reference Range Interpretation Comments HEMOGLOBIN A1C (BEAKER) (test code = 368) 5.6 % 4.3-6.1 POCT-GLUCOSE [id number] 08:28:00* Test Item Value Reference Range Interpretation Comments POC-GLUCOSE METER (BEAKER) (test code = 1538) 104 mg/dL 70-110 TESTED AT [address] [address] TSH/FREE T4 IF [id number] 04:57:00* Test Item Value Reference Range Interpretation Comments THYROID STIMULATING HORMONE (BEAKER) (test code = 772) 2.94 uIU/mL 0.35-4.94 POCT-GLUCOSE [id number] 04:53:00* Test Item Value Reference Range Interpretation Comments POC-GLUCOSE METER (BEAKER) (test code = 1538) 95 mg/dL 70-110 TESTED AT [address] [address] CALCIUM, [id number] 04:44:00* Test Item Value Reference Range Interpretation Comments CALCIUM IONIZED (BEAKER) (test code = 698) 0.96 mmol/L 1.12-1.27 L PH, BLOOD (BEAKER) (test code = 1810) 7.36 BASIC METABOLIC [id number] 04:41:00* Test Item Value Reference Range Interpretation Comments SODIUM (BEAKER) (test code = 381) 133 meq/L 136-145 L POTASSIUM (BEAKER) (test code = 379) 4.4 meq/L 3.5-5.1 CHLORIDE (BEAKER) (test code = 382) 99 meq/L 98-107 CO2 (BEAKER) (test code = 355) 21 meq/L 22-29 L BLOOD UREA NITROGEN (BEAKER) (test code = 354) 60 mg/dL 7-21 H CREATININE (BEAKER) (test code = 358) 10.08 mg/dL 0.57-1.25 H GLUCOSE RANDOM (BEAKER) (test code = 652) 46 mg/dL 70-105 L CALCIUM (BEAKER) (test code = 697) 8.5 mg/dL 8.4-10.2 EGFR (BEAKER) (test code = 1092) 5 mL/min/1.73 sq m ESTIMATED GFR IS NOT ACCURATE CREATININE CLEARANCE IN PREDICTING GLOMERULAR FILTRATION RATE. ESTIMATED GFR IS NOT APPLICABLE FOR DIALYSIS PATIENTS. [id number] 04:39:00* Test Item Value Reference Range Interpretation Comments PHOSPHORUS (BEAKER) (test code = 604) 7.0 mg/dL 2.3-4.7 H [id number] 04:39:00* Test Item Value Reference Range Interpretation Comments MAGNESIUM (BEAKER) (test code = 627) 2.3 mg/dL 1.6-2.6 CBC W/PLT COUNT & AUTO [id number] 04:33:00* Test Item Value Reference Range Interpretation Comments WHITE BLOOD CELL COUNT (BEAKER) (test code = 775) 7.3 K/ L 4.0- 10.0 RED BLOOD CELL COUNT (BEAKER) (test code = 761) 2.84 M/ L 4.20-5 .80 L HEMOGLOBIN (BEAKER) (test code = 410) 9.5 GM/DL 13.0-16.8 L HEMATOCRIT (BEAKER) (test code = 411) 28.3 % 40.0-50.0 L MEAN CORPUSCULAR VOLUME (BEAKER) (test code = 753) 99.7 fL 82. 0-98.0 H MEAN CORPUSCULAR HEMOGLOBIN (BEAKER) (test code = 751) 33.5 pg 27.0-33.0 H MEAN CORPUSCULAR HEMOGLOBIN CONC (BEAKER) (test code = 752) 33.6 GM/DL 32.0-36.0 RED CELL DISTRIBUTION WIDTH (BEAKER) (test code = 412) 13.2 % 10.3-14.2 PLATELET COUNT (BEAKER) (test code = 756) 180 K/CU MM 150-430 MEAN PLATELET VOLUME (BEAKER) (test code = 754) 7.8 fL 6.5-10 .5 NUCLEATED RED BLOOD CELLS (BEAKER) (test code = 413) 0 /100 WBC 0 -0 NEUTROPHILS RELATIVE PERCENT (BEAKER) (test code = 429) 70 % LYMPHOCYTES RELATIVE PERCENT (BEAKER) (test code = 430) 15 % MONOCYTES RELATIVE PERCENT (BEAKER) (test code = 431) 11 % EOSINOPHILS RELATIVE PERCENT (BEAKER) (test code = 432) 4 % BASOPHILS RELATIVE PERCENT (BEAKER) (test code = 437) 0 % NEUTROPHILS ABSOLUTE COUNT (BEAKER) (test code = 670) 5.07 K/ L 1.80-8.00 LYMPHOCYTES ABSOLUTE COUNT (BEAKER) (test code = 414) 1.11 K/ L 1.48-4.50 L MONOCYTES ABSOLUTE COUNT (BEAKER) (test code = 415) 0.82 K/ L 0. 00-1.30 EOSINOPHILS ABSOLUTE COUNT (BEAKER) (test code = 416) 0.26 K/ L 0.00-0.50 BASOPHILS ABSOLUTE COUNT (BEAKER) (test code = 417) 0.02 K/ L 0. 00-0.20 0.00POCT-GLUCOSE [id number] 04:10:00* Test Item Value Reference Range Interpretation Comments POC-GLUCOSE METER (BEAKER) (test code = 1538) 44 mg/dL 70-110 L TESTED AT [place] [id number] 22:59:00* Test Item Value Reference Range Interpretation Comments ACTIVATED CLOTTING TIME (BEAKER) (test code = 441) 131 sec TESTED AT [address] [address] [id number] 22:09:00* Test Item Value Reference Range Interpretation Comments ACTIVATED CLOTTING TIME (BEAKER) (test code = 441) 147 sec TESTED AT [place] [id number] POCT-GLUCOSE [id number] 22:06:00* Test Item Value Reference Range Interpretation Comments POC-GLUCOSE METER (BEAKER) (test code = 1538) 135 mg/dL 70-110 H TESTED AT [address] [address] [id number] 19:24:00* Test Item Value Reference Range Interpretation Comments ACTIVATED CLOTTING TIME (BEAKER) (test code = 441) 167 sec TESTED AT [address] [address] POCT-GLUCOSE [id number] 18:27:00* Test Item Value Reference Range Interpretation Comments POC-GLUCOSE METER (BEAKER) (test code = 1538) 81 mg/dL 70-110 TESTED AT [place] [id number] POCT-GLUCOSE [id number] 18:07:00* Test Item Value Reference Range Interpretation Comments POC-GLUCOSE METER (BEAKER) (test code = 1538) 49 mg/dL 70-110 L TESTED AT [place] [id number] [facility] [address] [id number] 14:45:00* Test Item Value Reference Range Interpretation Comments ACTIVATED CLOTTING TIME (BEAKER) (test code = 441) 312 sec TESTED AT [address] [address] BASIC METABOLIC [id number] 12:34:00* Test Item Value Reference Range Interpretation Comments SODIUM (BEAKER) (test code = 381) 138 meq/L 136-145 POTASSIUM (BEAKER) (test code = 379) 4.3 meq/L 3.5-5.1 CHLORIDE (BEAKER) (test code = 382) 101 meq/L 98-107 CO2 (BEAKER) (test code = 355) 28 meq/L 22-29 BLOOD UREA NITROGEN (BEAKER) (test code = 354) 49 mg/dL 7-21 H CREATININE (BEAKER) (test code = 358) 8.83 mg/dL 0.57-1.25 H GLUCOSE RANDOM (BEAKER) (test code = 652) 105 mg/dL 70-105 CALCIUM (BEAKER) (test code = 697) 8.7 mg/dL 8.4-10.2 EGFR (BEAKER) (test code = 1092) 6 mL/min/1.73 sq m ESTIMATED GFR IS NOT ACCURATE CREATININE CLEARANCE IN PREDICTING GLOMERULAR FILTRATION RATE. ESTIMATED GFR IS NOT APPLICABLE FOR DIALYSIS PATIENTS. [id number] 12:24:00* Test Item Value Reference Range Interpretation Comments PROTIME (BEAKER) (test code = 759) 14.2 seconds 11.7-14.7 INR (BEAKER) (test code = 370) 1.1 <=5.9 PARTIAL THROMBOPLASTIN TIME (BEAKER) (test code = 760) 32.1 seconds 22.5-36.0 RECOMMENDED COUMADIN/WARFARIN INR THERAPY RANGESSTANDARD DOSE: 2.0 - 3.0 Inclu toan: PROPHYLAXIS for venous thrombosis, systemic embolization; TREATMENT for porter ous thrombosis and/or pulmonary embolus.HIGH RISK: Target INR is 2.5-3.5 for pat ients with mechanical heart valves.CBC W/PLT COUNT & AUTO [id number] 12:16:00* Test Item Value Reference Range Interpretation Comments WHITE BLOOD CELL COUNT (BEAKER) (test code = 775) 8.1 K/ L 4.0- 10.0 RED BLOOD CELL COUNT (BEAKER) (test code = 761) 3.24 M/ L 4.20-5 .80 L HEMOGLOBIN (BEAKER) (test code = 410) 10.8 GM/DL 13.0-16.8 L HEMATOCRIT (BEAKER) (test code = 411) 31.6 % 40.0-50.0 L MEAN CORPUSCULAR VOLUME (BEAKER) (test code = 753) 97.4 fL 82. 0-98.0 MEAN CORPUSCULAR HEMOGLOBIN (BEAKER) (test code = 751) 33.3 pg 27.0-33.0 H MEAN CORPUSCULAR HEMOGLOBIN CONC (BEAKER) (test code = 752) 34.2 GM/DL 32.0-36.0 RED CELL DISTRIBUTION WIDTH (BEAKER) (test code = 412) 13.9 % 10.3-14.2 PLATELET COUNT (BEAKER) (test code = 756) 192 K/CU MM 150-430 MEAN PLATELET VOLUME (BEAKER) (test code = 754) 8.0 fL 6.5-10 .5 NUCLEATED RED BLOOD CELLS (BEAKER) (test code = 413) 0 /100 WBC 0 -0 NEUTROPHILS RELATIVE PERCENT (BEAKER) (test code = 429) 71 % LYMPHOCYTES RELATIVE PERCENT (BEAKER) (test code = 430) 16 % MONOCYTES RELATIVE PERCENT (BEAKER) (test code = 431) 10 % EOSINOPHILS RELATIVE PERCENT (BEAKER) (test code = 432) 3 % BASOPHILS RELATIVE PERCENT (BEAKER) (test code = 437) 0 % NEUTROPHILS ABSOLUTE COUNT (BEAKER) (test code = 670) 5.75 K/ L 1.80-8.00 LYMPHOCYTES ABSOLUTE COUNT (BEAKER) (test code = 414) 1.29 K/ L 1.48-4.50 L MONOCYTES ABSOLUTE COUNT (BEAKER) (test code = 415) 0.81 K/ L 0. 00-1.30 EOSINOPHILS ABSOLUTE COUNT (BEAKER) (test code = 416) 0.25 K/ L 0.00-0.50 BASOPHILS ABSOLUTE COUNT (BEAKER) (test code = 417) 0.04 K/ L 0. 00-0.20 0.00
--- NOTE | 2020-06-13 15:28 | Emergency Department Note ---
History of Present Illnes History of Present Illness Chief Complaint: General Medicine Complaints History of Present Illness This is a 59 year old male Chief Complaint Comment FAMILY MEMBER STATES PT HAD LOW BLOOD SUGAR THIS MORNING AND THEY FEED HIM AND NOW IT'S TOO HIGH. PT AWAKE AND ALERT IN NO DISTRESS AT TIME OF TRIAGE. . Historian: Patient, Family Member Arrival Mode: Car Onset (how long ago): day(s) (1) Location: all over Quality: weakness Radiation: Denies non-radiation, Denies back, Denies neck, Denies extremity, Denies abdomen, Denies periumbilical, Denies flank, Denies proximal, Denies distal, Denies other Severity: mild Onset quality: gradual Duration (how long): day(s) (1) Timing of current episode: constant Progression: unchanged Chronicity: new Context: Denies recent illness, Denies recent surgery, Denies recent immobilization, Denies recent travel, Denies trauma/injury, Denies new medic ations, Denies hx of DVT/PE, Denies non-compliance w/ medications, Denies other Relieving factors: none Exacerbating factors: none Associated symptoms: Denies denies other symptoms, Denies confusion, Denies chest pain, Denies cough, Denies diaphoresis, Denies fever/chills, Denies headaches, Denies loss of appetite, Denies malaise, Denies nausea/vomiting, Denies rash, Denies seizure, Denies shortness of breath, Denies syncope, Denies weakness, Denies other Treatments prior to arrival: none Past Medical/Family History Physician Review I have reviewed the patient's past medical and family history. Any updates have been documented here. Past Medical History Recent Fever: No Clinical Suspicion of Infectio: No New/Unexplained Change in Ment: No Past Medical History: Hypertension, Diabetes, CHF, ND, CAD, ESRD, Hemodyalisis, Hyperlipedemia, Chronic Kidney Disease Other Medical History: Pericardial effusion requiring a cardiac window Past Surgical History: Appendectomy, CABG, Knee Replacement Other Surgery: DOUBLE BYPASS, MULT. HEART STENTS. PERICARDAL WINDOW, SHUNT L-ARM Social History Smoking Cessation: Never Smoker Alcohol Use: None Other Last Tetanus: 2014 Any Pre-Existing Lines (PICC,: No Review of Systems Review of Systems Constitutional: Reports no symptoms EENTM: Reports no symptoms; Denies as per HPI, Denies eye pain, Denies blurred vision, Denies tearing, Denies double vision, Denies ear pain, Denies ear discharge, Denies nose pain, Denies nose congestion, Denies throat pain, Denies throat swelling, Denies mouth pain, Denies mouth swelling, Denies other Cardiovascular: Reports no symptoms; Denies as per HPI, Denies chest pain, Denies edema, Denies palpitations, Denies syncope, Denies other Respiratory: Reports no symptoms; Denies as per HPI, Denies change in phlegm color, Denies chest congestion, Denies cough, Denies hemoptysis, Denies excessive phlegm production, Denies pain on inspiration, Denies pain with cough, Denies dyspnea, Denies dyspnea on exertion, Denies snoring, Denies stridor, Denies wheezing, Denies other Gastrointestinal: Reports no symptoms Genitourinary: Reports no symptoms; Denies as per HPI, Denies discharge, Denies dysuria, Denies frequency, Denies hematuria, Denies pain, Denies other Musculoskeletal: Reports no symptoms; Denies as per HPI, Denies back pain, Denies gout, Denies joint pain, Denies joint swelling, Denies muscle pain, Denies muscle stiffness, Denies neck pain, Denies other Integumentary: Reports no symptoms; Denies as per HPI, Denies change in color, Denies change in hair/nails, Denies dryness, Denies lesions, Denies lumps, Denies rash, Denies poor turgor, Denies ecchymosis, Denies other Neurological: Reports no symptoms; Denies as per HPI, Denies headache, Denies numbness, Denies paresthesia, Denies pre-existing deficit, Denies seizure, Denies tingling, Denies tremors, Denies weakness, Denies other Psychological: Reports no symptoms; Denies as per HPI, Denies anxiety, Denies depressed, Denies emotional problems, Denies other Endocrine: Reports no symptoms Hematological/Lymphatic: Reports no symptoms Physical Exam Related Data Allergies: Coded Allergies: No Known Allergies (Unverified , 10/26/15) Triage Vital Signs Vital Signs Date Time Temp Pulse Resp B/P (MAP) Pulse Ox O2 Delivery O2 Flow Rate FiO2 06/13/20 13:57 97.6 86 16 110/65 98 Room Air Vital signs reviewed: Yes Physical Exam CONSTITUTIONAL Constitutional: Present well-developed, Present well-nourished HENT HENT: Present normocephalic, Present atraumatic, Present oropharynx clear/moist, Present nose normal HENT L/R: Present left ext ear normal, Present right ext ear normal EYES Eyes: Reports PERRL, Reports conjunctivae normal NECK Neck: Present ROM normal; Absent supple, Absent thyromegaly, Absent tracheal deviation, Absent stridor, Absent JVD, Absent cervical adenopathy, Absent carotid bruit, Absent other PULMONARY Pulmonary: Present effort normal, Present breath sounds normal; Absent respiratory distress, Absent rales, Absent rhonchi, Absent chest tenderness, Absent other CARDIOVASCULAR Cardiovascular: Present regular rhythm, Present heart sounds normal, Present capillary refill normal, Present normal rate; Absent irregular rhythm, Absent intact distal pulses, Absent tachycardia, Absent bradycardia, Absent murmur, Absent gallop, Absent friction rub, Absent palpable pulses, Absent strong pulses, Absent weak pulses, Absent LLE edema, Absent RLE edema, Absent other GASTROINTESTINAL Abdominal: Present soft, Present nontender, Present bowel sounds normal GENITOURINARY Genitourinary: Present exam deferred; Absent penis normal, Absent rectum normal, Absent prostate normal, Absent g uaiac result, Absent penis tenderness, Absent other SKIN Skin: Present warm, Present dry; Absent erythema, Absent pale, Absent rash, Absent jaundiced, Absent bruising, Absent lesion, Absent other MUSCULOSKELETAL Musculoskeletal: Present ROM normal; Absent edema, Absent deformity, Absent tenderness, Absent swelling, Absent other NEUROLOGICAL Neurological: Present alert, Present oriented x 3, Present no gross motor or sensory deficits PSYCHOLOGICAL Psychological: Present mood/affect normal, Present judgement normal Results Laboratory Laboratory Laboratory Tests Test 06/13/20 15:09 06/13/20 14:13 Bedside Glucose 174 mg/dL (70-120) 307 mg/dL (70-120) Lab results reviewed: Yes Assessment & Plan Medical Decision Making MDM hyperglycemia dehydration Reassessment Reassessment better Assessment & Plan Final Impression: (1) Hyperglycemia (2) Weakness Depart Disposition: HOME, SELF-CARE Last Vital Signs Date Time Temp Pulse Resp B/P (MAP) Pulse Ox O2 Delivery O2 Flow Rate FiO2 06/13/20 13:57 97.6 86 16 110/65 98 Room Air Home Meds Active Scripts Famotidine (PEPCID) 20 Mg Tablet, 20 MG PO BID for rash for 3 Days, #10 TAB Prov:LISA FRANK MD 01/23/20 Diphenhydramine Hcl (BENADRYL) 25 Mg Capsule, 25 MG PO TID PRN for RASH for 3 Days, #10 0 Refills Prov:LISA FRANK MD 01/23/20 Reported Medications Ticagrelor (BRILINTA) 90 Mg Tablet, PO DAILY 12/29/17 Aspirin (ASPIR 81) 81 Mg Tablet.dr, PO DAILY 12/29/17 Cinacalcet Hcl (SENSIPAR) 30 Mg Tablet, 60 MG PO DAILY, #30 TAB 10/26/15 Sevelamer Hcl (RENVELA) 800 Mg Tab, 800 MG PO TIDWM, TAB 01/23/15 Losartan Potassium (LOSARTAN POTASSIUM) 25 Mg Tablet, 25 MG PO DAILY 11/08/13 Atorvastatin Calcium (ATORVASTATIN CALCIUM) 40 Mg Tablet, 40 MG PO QHS 03/08/13 Glimepiride (AMARYL) 4 Mg Tablet, 4 MG PO BID 03/08/13 Discontinued Reported Medications Sevelamer Carbonate (RENVELA) 0.8 Gm Powd.pack, 0.8 G PO DAILY 12/29/17 Insulin Glargine (LANTUS) 100 Units/Ml Ml, 20 MG SC BID 03/07/13 Discontinued Scripts Amoxicillin/Potassium Clav (AUGMENTIN 500-125 TABLET) 1 Each Tablet, 250 MG PO DAILY for 7 Days, #7 TAB 0 Refills Prov:LISA FRANK MD 01/23/20 Medications in the ED Insulin Human Regular 5 unit ONCE ONCE IV Last administered on 06/13/20at 14:26; Admin Dose 5 UNIT; Start 06/13/20 at 14:30; Stop 06/13/20 at 14:45; Status DC TAVIA FARMER MD Jun 13, 2020 15:27
== END 2020-06-13 15:30 | disposition home or self-care (01) ==
LOC: FSED 14:07
DX: R53.1 Weakness (principal); I12.0 Hypertensive chronic kidney disease with stage 5 chronic kidney disease or end stage renal disease; E11.22 Type 2 diabetes mellitus with diabetic chronic kidney disease; E11.65 Type 2 diabetes mellitus with hyperglycemia; N18.6 End stage renal disease; Z99.2 Dependence on renal dialysis; Z95.1 Presence of aortocoronary bypass graft; Z95.5 Presence of coronary angioplasty implant and graft
CPT/HCPCS: 36415; 80053; 82948; 85025; 99284; J1817

== ENCOUNTER 2020-08-14 01:43 | Emergency (ER) | payer MEDICARE ==
[~2020-08-14] VITALS: Ht 170.2 cm; Wt 101.2 kg
== END 2020-08-14 02:25 | disposition home or self-care (01) ==
LOC: FSED 02:14
DX: S40.812A Abrasion of left upper arm, initial encounter (principal); I12.0 Hypertensive chronic kidney disease with stage 5 chronic kidney disease or end stage renal disease; E11.22 Type 2 diabetes mellitus with diabetic chronic kidney disease; N18.6 End stage renal disease; Z99.2 Dependence on renal dialysis; Z95.1 Presence of aortocoronary bypass graft; I50.9 Heart failure, unspecified; I25.2 Old myocardial infarction
CPT/HCPCS: 99283

== ENCOUNTER 2021-02-23 20:58 | Emergency (ER) | payer MEDICARE ==
[~2021-02-23] VITALS: Ht 170.2 cm; Wt 90.7 kg
[2021-02-24 03:38] VITALS: BP 137/70
== END 2021-02-24 03:39 | disposition home or self-care (01) ==
LOC: FSED 21:10
DX: K62.5 Hemorrhage of anus and rectum (principal); L89.321 Pressure ulcer of left buttock, stage 1; L89.311 Pressure ulcer of right buttock, stage 1; E11.22 Type 2 diabetes mellitus with diabetic chronic kidney disease; I13.2 Hypertensive heart and chronic kidney disease with heart failure and with stage 5 chronic kidney disease, or end stage renal disease; N18.6 End stage renal disease; Z94.0 Kidney transplant status; I50.9 Heart failure, unspecified; I25.10 Atherosclerotic heart disease of native coronary artery without angina pectoris; Z95.1 Presence of aortocoronary bypass graft; Z95.5 Presence of coronary angioplasty implant and graft; Z79.01 Long term (current) use of anticoagulants; Z86.718 Personal history of other venous thrombosis and embolism
CPT/HCPCS: 80053; 85025; 85610; 99283

== ENCOUNTER 2022-03-15 07:05 | Emergency (ER) | payer MEDICARE, OTHER ==
[~2022-03-15] VITALS: Ht 170.2 cm; Wt 98.0 kg
[2022-03-15] MEDS ORDERED: MUPIROCIN 2% OINT 22 GM TUBE TOP ONE (07:45)
[2022-03-15] MEDS ORDERED: BACITRACIN ZINC 0.9GM TP ONE (07:48)
[2022-03-15] MEDS ORDERED: BARACLUDE0.5 MG (08:22)
[2022-03-15] MEDS ORDERED: AMLODIPINE BESYL5 MG PO (08:22)
[2022-03-15] MEDS ORDERED: RENA-VITE TABL0.8 MG (08:22)
[2022-03-15] MEDS ORDERED: MYCOPHENOLATE250 MG PO (08:22)
[2022-03-15] MEDS ORDERED: TACROLIMUS1 MG PO (08:22)
[2022-03-15] MEDS ORDERED: MAGOX 400400 MG PO (08:22)
[2022-03-15] MEDS ORDERED: SODIUM BICARBO650 MG PO (08:22)
[2022-03-15] MEDS ORDERED: ZETIA10 MG PO (08:22)
[2022-03-15] MEDS ORDERED: PLAVIX75 MG PO (08:22)
[2022-03-15] MEDS ORDERED: CRESTOR10 MG PO (08:22)
== END 2022-03-15 07:52 | disposition home or self-care (01) ==
LOC: FSED 07:23
DX: S50.812A Abrasion of left forearm, initial encounter (principal); W45.8XXA Other foreign body or object entering through skin, initial encounter; Y92.89 Other specified places as the place of occurrence of the external cause; I12.0 Hypertensive chronic kidney disease with stage 5 chronic kidney disease or end stage renal disease; E11.22 Type 2 diabetes mellitus with diabetic chronic kidney disease; N18.6 End stage renal disease; Z99.2 Dependence on renal dialysis; Z94.0 Kidney transplant status; I50.9 Heart failure, unspecified; E78.5 Hyperlipidemia, unspecified; I25.10 Atherosclerotic heart disease of native coronary artery without angina pectoris; Z95.1 Presence of aortocoronary bypass graft; Z95.5 Presence of coronary angioplasty implant and graft
CPT/HCPCS: 99283

== ENCOUNTER 2022-10-14 17:44 | Emergency (ER) | payer MEDICARE ==
[~2022-10-14] VITALS: Ht 170.2 cm; Wt 94.8 kg
[~2022-10-14 17:44] MED LIST changes: +AMLODIPINE BESYL5 MG PO; +BARACLUDE0.5 MG; +CRESTOR10 MG PO; +MAGOX 400400 MG PO; +MYCOPHENOLATE250 MG PO; +PLAVIX75 MG PO; +RENA-VITE TABL0.8 MG; +SODIUM BICARBO650 MG PO; +TACROLIMUS1 MG PO; +ZETIA10 MG PO
[2022-10-14] MEDS ORDERED: PREDNISONE20 MG PO (20:27)
[2022-10-14] MEDS ORDERED: PREDNISONE 20 MG TAB PO ONE (20:30)
[2022-10-14 20:50] VITALS: BP 171/75
== END 2022-10-14 20:50 | disposition home or self-care (01) ==
LOC: FSED 17:49
DX: M54.50 Low back pain, unspecified (principal); M54.16 Radiculopathy, lumbar region; M25.561 Pain in right knee; E11.9 Type 2 diabetes mellitus without complications; I11.0 Hypertensive heart disease with heart failure; I50.9 Heart failure, unspecified; E78.5 Hyperlipidemia, unspecified; I25.2 Old myocardial infarction; Z79.02 Long term (current) use of antithrombotics/antiplatelets; Z79.899 Other long term (current) drug therapy; Z95.5 Presence of coronary angioplasty implant and graft; Z94.0 Kidney transplant status; Z86.711 Personal history of pulmonary embolism; Z86.718 Personal history of other venous thrombosis and embolism; Z96.651 Presence of right artificial knee joint
CPT/HCPCS: 72100; 99283

== ENCOUNTER 2024-03-29 02:09 | Emergency (ER) | payer MEDICARE ==
[~2024-03-29] VITALS: Ht 170.2 cm; Wt 100.2 kg
[~2024-03-29 02:09] MED LIST changes: +PREDNISONE20 MG PO
[2024-03-29 02:22] VITALS: TEMP 98.2
[2024-03-29 03:41] VITALS: PULSE 67; RESP 18
[2024-03-29 03:45] VITALS: BP 154/58; PULSE 67; RESP 18; TEMP 98.2; O2SAT 96
== END 2024-03-29 03:45 | disposition home or self-care (01) ==
LOC: FSED 02:22
DX: S00.83XA Contusion of other part of head, initial encounter (principal); W20.8XXA Other cause of strike by thrown, projected or falling object, initial encounter; Y92.89 Other specified places as the place of occurrence of the external cause; I12.0 Hypertensive chronic kidney disease with stage 5 chronic kidney disease or end stage renal disease; E11.22 Type 2 diabetes mellitus with diabetic chronic kidney disease; N18.6 End stage renal disease; Z99.2 Dependence on renal dialysis; Z94.0 Kidney transplant status; E78.5 Hyperlipidemia, unspecified; I25.10 Atherosclerotic heart disease of native coronary artery without angina pectoris; I50.9 Heart failure, unspecified; I25.2 Old myocardial infarction; Z95.1 Presence of aortocoronary bypass graft; Z95.5 Presence of coronary angioplasty implant and graft; Z79.01 Long term (current) use of anticoagulants
CPT/HCPCS: 70450; 99283

== ENCOUNTER 2025-04-12 20:07 | Emergency (ER) | payer MEDICARE ==
[~2025-04-12] VITALS: Ht 170.2 cm; Wt 98.9 kg
[2025-04-12 20:17] VITALS: PULSE 64; RESP 18; TEMP 97.6
[2025-04-12 21:10] VITALS: BP 148/67; PULSE 48; RESP 18; TEMP 98.1; O2SAT 94
== END 2025-04-12 21:10 | disposition home or self-care (01) ==
LOC: FSED 20:17
DX: Z01.30 Encounter for examination of blood pressure without abnormal findings (principal); I12.0 Hypertensive chronic kidney disease with stage 5 chronic kidney disease or end stage renal disease; E11.22 Type 2 diabetes mellitus with diabetic chronic kidney disease; N18.6 End stage renal disease; Z99.2 Dependence on renal dialysis; I50.9 Heart failure, unspecified; I25.10 Atherosclerotic heart disease of native coronary artery without angina pectoris; E78.5 Hyperlipidemia, unspecified; Z94.0 Kidney transplant status; Z95.1 Presence of aortocoronary bypass graft; Z86.711 Personal history of pulmonary embolism; Z86.718 Personal history of other venous thrombosis and embolism
CPT/HCPCS: 99282